=== PATIENT | female | born 1975 | race Caucasian/White ===

== ENCOUNTER → 2017-06-19 | Outpatient (CLI) | payer OTHER ==
[~2017-06-19] MED LIST: CARB1CAP8 PO; CLTP PO; DTR5 PO; FLUO20CA35 PO; FLUO40CA8 PO; MRLP17 PO; NORETAB3 PO; QUET1TAB30 PO; SENN8.6T9 PO
--- NOTE | 2017-06-20 08:08 | MAMMOGRAPHY REPORT ---
BILATERAL DIGITAL SCREENING MAMMOGRAM WITH CAD: 06/19/2017 CLINICAL HISTORY: Routine screening. Patient has no complaints. TECHNIQUE: Bilateral CC, MLO, repeat MLO views were obtained. Current study was also evaluated with a Computer Aided Detection (CAD) system. COMPARISON: Comparison is made to exams dated: 06/14/2016 mammogram, 06/22/2015 ultrasound, 06/22/2015 mammogram, 06/12/2015 mammogram, 06/10/2014 mammogram, and 06/09/2013 mammogram - [facility]. BREAST COMPOSITION: There are scattered areas of fibroglandular density in both breasts. FINDINGS: The exam is markedly suboptimal due to inability of the patient to adequately position for the exam and motion despite assistance from 2 mammography technologists. Within this limitation, the re is a nodular asymmetry in the far posterior, slightly medial right breast on the CC view. Althoug h this could represent a combination of a cyst and overlapping fibrolinear tissue, additional spot co mpression tomosynthesis views and possibly ultrasound are recommended. There is a stable lobulated mass in the anterior lateral left breast. A pacemaker is partially visua lized on one of the repeat right MLO views. No other suspicious mass, architectural distortion or cl uster of microcalcifications is seen. IMPRESSION: ACR BI-RADS CATEGORY 0: INCOMPLETE EVALUATION: NEED ADDITIONAL IMAGING EVALUATION The asymmetry in the posterior and slightly medial right breast on the CC view needs additional evalu ation. The patient will be called to schedule an appointment. Approximately 10% of breast cancers are not detected with mammography. A negative mammographic report should not delay biopsy if a clinically suggestive mass is present. Alma Hummel M.D. ay/:06/19/2017 16:49:22 Attending Technologist: Tami CALLEJAS)(Yoni), [facility] Security Screener: Rosi Tompkins, [facility] letter sent: Addl Imaging 0 BI-RADS Code: ACR BI-RADS Category 0: Incomplete Evaluation: Need Additional Imaging Evaluation
== END | disposition home or self-care (01) ==
LOC: C.MAMM 13:59
PROVIDERS: ATTEND Internal Medicine
DX: Z12.31 Encounter for screening mammogram for malignant neoplasm of breast (principal); N64.89 Other specified disorders of breast

== ENCOUNTER → 2017-07-09 | Outpatient (CLI) | payer OTHER ==
--- NOTE | 2017-07-09 15:20 | MAMMOGRAPHY REPORT ---
UNILATERAL RIGHT DIGITAL DIAGNOSTIC MAMMOGRAM TOMOSYNTHESIS AND TARGETED RIGHT ULTRASOUND: 07/09/2017 CLINICAL HISTORY: 42 year-old woman called back from screening mammography for an asymmetry in the po sterior slightly medial right breast, and a nodular asymmetry in the posterior right breast along the posterior nipple line on the MLO view. TECHNIQUE: Spot compression right CC and MLO 2-D and tomosynthesis images were obtained. The repeat spot compression right CC view was performed due to patient motion. COMPARISON: Comparison is made to exams dated: 06/19/2017 mammogram, 06/14/2016 mammogram, 06/22/2015 u ltrasound, 06/22/2015 mammogram, 06/12/2015 mammogram, and 06/10/2014 mammogram - [facility]. BREAST COMPOSITION: There are scattered areas of fibroglandular density in the right breast. FINDINGS: There is a 3.6 mm round circumscribed mass in the 3:00 posterior/retroareolar right breast. No associated calcification or architectural distortion. No other obvious mass, focal area of arch itectural distortion or suspicious calcifications are seen. Further evaluation with ultrasound was p erformed. Targeted ultrasound was performed throughout the right breast. In the 12:00 periareolar breast, ther e is a hypoechoic round circumscribed solid versus cystic masses measuring 2.5 x 2.5 x 2.1 mm. This could represent a benign mass such as a fibroadenoma or a complicated cyst. In the 9:00 right breast , 2 cm from the nipple, a nearly anechoic oval mass is identified measuring 2.1 x 3.0 x 2.3 mm. Agai n this could represent a complicated cyst or fibroadenoma. A third circumscribed round hypoechoic so lid versus cystic mass is identified in the 11:00 right breast, 1 cm from the nipple, measuring 3.9 x 3.5 x 4.6 mm. Again this could represent a complicated cyst or fibroadenoma. No suspicious irregula r or spiculated mass is identified. IMPRESSION: ACR-BI-RADS CATEGORY 3: PROBABLY BENIGN, TARGETED ULTRASOUND ACR-BI-RADS CATEGORY 3: PRO BABLY BENIGN There is partial effacement of the right breast asymmetry on the spot compression CC view but persist ence of a round 3.6 mm circumscribed mass in the 3:00 posterior/retroareolar breast mammographically. On ultrasound, 3 benign-appearing solid versus cystic subcentimeter circumscribed masses are identi fied in the 12:00, 11:00 and 9:00 axes. These small masses could represent complicated cysts or mimi gn solid masses such as fibroadenomas. However, a short interval follow-up right diagnostic mammogra m including tomosynthesis images and repeat targeted ultrasound is recommended to ensure stability in 6 months. These results and recommendations were discussed with the patient and her care provider at the time o f the workup. A follow-up appointment was scheduled prior to leaving the department. Approximately 10% of breast cancers are not detected with mammography. A negative mammographic report should not delay biopsy if a clinically suggestive mass is present. Alma Hummel M.D. ay/:07/09/2017 12:50:05 Directory Carrier: Yris BAXTER (R)(Yoni), [facility] letter sent: Follow Up Recommended 3 BI-RADS Code: ACR-BI-RADS Category 3: Probably Benign Ultrasound BI-RADS: ACR-BI-RADS Category 3: Pr obably Benign
== END | disposition home or self-care (01) ==
LOC: C.MAMM 11:10
PROVIDERS: ATTEND Internal Medicine
DX: N64.89 Other specified disorders of breast (principal); N63 Unspecified lump in breast

== ENCOUNTER 2024-10-02 16:33 | Observation (INO) ==
--- OUTSIDE RECORDS SUMMARY | 2024-10-02 16:39 | External Medical Summary | Summary of Care ---
Author Name Unknown Organization [facility] [address] [place] [address] Phone [phone] Care Team Providers Care Body Wirer Name Role Phone Sharmin Miles MD Primary Care Provider [phone] Reason for Visit * Reason Comments Re-Check Called and spoke audie Raymond, director of [facility] where patient resides - patient being seen for routine check - no concerns today Encounter Details Date Type Department Care Team (Late st Contact Info) Description 09/20/2024 8:00 AM EDT Telemedicine General Internal Medicine [facility] [address] [facility] [place] [address] Phyllis Marie PA-C [address] 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 180 Tablet 3 11/01/2022 Active SF 5000 Plus 1.1 % Dental Cream (Sodium Fluoride) BRUSH ONTO TEETH TWICE DAILY *DO NOT EAT OR DRINK FOR 30 MIN* 51 g 4 09/22/2023 Active Norethin Blayne-Eth Estrad-FE 1.5-30 MG-MCG Oral Tablet (Microgestin FE 1.5)Indications: Encounter for surveillance of contraceptive pills,PMS (premenstrual syndrome) TAKE ONE TABLET BY MOUTH ONCE DAILY FOR 84 DAYS, THEN TAKE 7 DAYS OFF AND REPEAT ( CONTROL) 28 Tablet 12 02/13/2024 Active Aspirin 81 MG Oral Tablet ChewableIndications :Transient alteration of awareness Take 1 Tablet by mouth in the morning. with food.. 100 Tablet 5 03/08/2024 Active FLUoxetine HCl 40 MG Oral Capsule (PROzac)Indications :Moderate episode of recurrent major depressive disorder (HCC) TAKE ONE CAPSULE BY MOUTH DAILY (DEPRESSION) 28 Capsule 5 05/28/2024 Active Sennosides 8.6 MG Oral Tablet (QC Vegetable Laxative)Indication s:Constipation, unspecified constipation type TAKE 1 TABLET BY MOUTH TWICE DAILY (CONSTIPATION) 56 Tablet 5 05/28/2024 Active QUEtiapine Fumarate 25 MG Oral Tablet (SEROquel) TAKE 1 TABLET BY MOUTH AT BEDTIME (DEPRESSION) 28 Tablet 4 06/23/2024 Active oxyBUTYnin Chloride 5 MG Oral Tablet (Ditropan) TAKE ONE TABLET BY MOUTH THREE TIMES DAILY (OVER ACTIVE BLADDER) 84 Tablet 06/23/2024 Active GoodSense ClearLax 17 GM/SCOOP Oral Powder (Polyethylene Glycol 3350)Indications:Sl ow transit constipation MIX 17GMS IN 8OZ OF FLUID AND DRINK TWICE DAILY CONSTIPATION 510 g 4 08/02/2024 Active carBAMazepine 200 MG Oral Tablet (TEGretol) One half tablet in the morning, one in the afternoon and one at bedtime 75 Tablet 11 09/06/2024 Active Carbidopa-Levodopa ER 50-200 MG Oral Tablet Extended Release (Sinemet CR)Indications:Dyst onia TAKE 1 TABLET BY MOUTH THREE TIMES A DAILY AT 8:30AM, 4PM AND 8:30PM FOR DYSTONIA. 90 Tablet 5 09/14/2024 Active documented as of this encounter (statuses as of 09/20/2024) Active Problems Problem Noted Date Diagnosed Date HTN, goal below 140/90 04/25/2022 Moderate episode of recurrent major depressive d isorder 09/22/2019 Cerebral palsy 06/20/2015 Generalized idiopathic epile psy, not intractable, without status epilepticus 06/20/2015 Moderate intellectual disabi lity with intelligence quotient 35 to 49 03/03/2014 Overview: ICD-10 update of inactive term Female stress incontinence 03/03/2013 Dystonia 06/03/2012 HX-MALIG SKIN MELANOMA melan jackie in situ in dys. 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 dysplastic compound nevus, rt leg 06/25 2 BENIGN NEOPLASM SKIN NOS 05/31/2002 Overview: Melanoma in situ R arm dysplastic nevus 02/25 Encounter for long-term (current) use of medicat ions 06/01/2001 Overview: ICD-10 update of inactive term Chronic sinusitis documented as of this encounter (statuses as of 09/20/2024) Resolved Problems Problem Noted Date Diagnosed Date Resolved Date Depression 03/03/2014 09/22/2019 ADVANCE DIRECTIVE INFORMATION 02/13/2006 06/17/2017 Overview: Patient mentally handicapped EPILEPSY,UNSPEC;W/O INTRACTABLE 02/27/2004 06/20/2015 CEREBRAL PALSY NEC 5 Torticollis 11/30/2020 Nocturnal enuresis 8 documented as of this encounter (statuses as of 09/20/2024) Immunizations Name Administration Dates Next Due COVID-19 mRNA, LNP-s, No Pre serve, 2-Dose Series (Moderna) 02/04/2021,01/07/2021 COVID-19, MRNA-LNP, 23-24, P F, 30 MCG/0.3 mL, 12 YRS AND ABOVE, IM (PFIZER-Comirnaty) 01/07/2024 Covid-19, Mrna, Lnp-s, Pf, Bivalent, 30 Mcg, IM, 12 yrs and above (Pfizer) 02/19/2023 PPD 07/23/2023,,03/29/2019,2017,03/11/2017,03/06/2015,09/09/2013,1 ,03/03/2013,08/27/2011, 009,10/30/2005 10/30/2007 Seasonal Influenza Vac., MDV , IM, 0.5 mL (Fluzone) 08/30/2014,09/08/2013,09/01/2012,2010,08/31/2010,10/18/2008,10/06/2007,1 12/06/2005 Seasonal Influenza, PF, 6 M & above, IM , (FluLaval or Fluzone) 09/01/2023,10/03/2022,10/25/2021,2019,09/22/2019,10/07/2018,09/10/2017 Seasonal Influenza, Quadriva lent, No Preserve, IM 08/28/2016,09/04/2015 Seasonal Influenza, Trivalen t, (IIV3), PF, (Fluzone) 09/06/2024 TDAP (age 10 and older)(Boostrix) 03/03/2014 TDAP, Age 7 and older, IM (Adacel) 06/17/2024, documented as of this encounter Social History Tobacco Use Types Packs/Day Years Used Date Smoking Tobacco: Never Smokeless Tobacco: Never Alcohol Use Standard Drinks/Week Comments No 0 (1 standard drink = 0.6 oz pur e alcohol) PHQ-2 Answer Date Recorded PHQ Adult Total Score 0 05/16/2021 Hunger Vital Sign Answer Date Recorded Worried About Running Out of Food in the Last Ye ar Never true 05/01/2020 Ran Out of Food in the Last Year Never true 05/01/2020 Utilities Answer Date Recorded Do you have trouble paying y our heating, water, or electric bill? (Adult - for ages 18 years and over) Not on file 05/11/2024 Is your family able to pay t he heat, water, or electric bill? (Household - for ages 0-17 years) Not on file 05/11/2024 Does your family have access to good internet? (Household - for ages 0-17 years) Not on file 05/11/2024 Social Connections Answer Date Recorded How often do you feel lonely or isolated from those around you? (Adult - for ages 18 years and over) Not on file 05/11/2024 Sex and Gender Information Value Date Recorded Sex Assigned at Female 09/22/2019 1:48 PM EDT Gender Identity Female 09/22/2019 1:48 PM EDT Sexual Orientation Choose not to disclose 2018 1:48 PM EDT Job Start Date Occupation Industry Not on file Not on file Not on file documented as of this encounter Functional Status Functional Status Response Date of Assess ment Are you deaf or do you have serious difficulty h earing? No 10/01/2017 Are you blind or do you have serious difficulty seeing, even when wearing glasses? No 10/01/2017 Do you have serious difficul ty walking or climbing stairs? (5 years old or older) Yes 10/01/2017 Do you have difficulty dress ing or bathing? (5 years old or older) Yes 10/01/2017 Because of a physical, menta l, or emotional condition, do you have difficulty doing errands alone such as visiting a doctor s office or shopping? (15 years old or older) No 10/01/20 17 Cognitive Status Response Date of Assessm ent Because of a physical, menta l, or emotional condition, do you have serious difficulty concentrating, remembering, or making decisions? (5 years old or older) No 10/01/2017 documented as of this encounter Progress Notes * Phyllis Marie PA-C - 09/20/2024 8:38 AM EDT Images from the original note were not included. History of Present Illness Samina Quintero is a 49 year old female that presents for Re-Check (Called and spoke with Mandi, director of [facility] where patient resides - patient being seen for routine check - no concernstoday) Patient location: HOME. I was in a hospital or clinic location. After connecting through televideo,patient was verified with two unique identifiers. Patient (or authorized legal eligibility services representative) wasthen informed that this was a Telemedicine visit and being conducted confidentially over secure lines. Methods to assure confidentiality were taken. Patient acknowledged consent and understanding of privacy and security of the Telemedicine visit. The patient agreed to participate. Pt seen today via video with the help of her caregiver Mandi for a routine 3 month check-up. Mandi states pt is doing well and having no concerns or complaints. Follows routinely with Neuro and Derm.Also established with OCEAN EXPORT COORDINATOR who addresses her mammos. Pt denies chest pain, SOB, bowel changes, urinary symptoms, or any recent seizure activity. She will be going to get her COVID vaccine this week at [facility]. Review of Systems: See HPI for pertinent positives. All other review of systems is negative. Physical Exam There were no vitals filed for this visit. Physical Exam Constitutional: General: She is not in acute distress. Pulmonary: Effort: Pulmonary effort is normal. Neurological: Mental Status: She is alert. Psychiatric: Mood and Affect: Mood normal. Behavior: Behavior normal. I have reviewed the following results: Assessment and Plan Cerebral palsy, unspecified type (HCC) Stable. Continue to follow with Neuro. Generalized idiopathic epilepsy, not intractable, without status epilepticus (HCC) Stable. Continue to follow with Neuro. Moderate episode of recurrent major depressive disorder (HCC) Stable. Continue current medications. Moderate intellectual disabilities Stable. 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 Wrap-Up F/up as sched with Dr. Miles in November. Follow Up: Return if symptoms worsen or fail to improve. Time: I spent a total of 20-29 minutes (exact time 26 mins) on the date of service in preparation, delivery, and documentation of the care provided to Samina Kaur Leon excluding any time spent in the performance of separately billed services. Telemedicine: Patient location: HOME. I was in a hospital or clinic location. After connecting through televideo,patient was verified with two unique identifiers. Patient (or authorized legal eligibility services representative) was then informed that this was a Telemedicine visit and being conducted confidentially over secure lines. Methods to assure confidentiality were taken. Patient acknowledged consent and understanding of pr ivacy and security of the Telemedicine visit. The patient agreed to participate. documented in this encounter Plan of Treatment Upcoming Encounters Date Type Department Care Team (Late st Contact Info) Description 09/22/2024 11:45 AM EDT Immunization [facility] [address] [place] [address] Silvestre Grimmid19 [facility]ine [facility] [address] [place] [address] 12/23/2024 11:40 AM EST Office Visit General Internal Medicine [facility] [address] [place] [address] Sharmin Miles MD [address] [place] [address] [place] [address] 03/21/2025 11:20 AM EDT Office Visit Neurology [facility] [address] [address] Earnest Shukla MD [address] [place] [address] [place] [address] 06/14/2025 1:40 PM EDT Office Visit [facility] [address] [facility] [place] [address] Nico Urbina MD [address] [place] [address] 07/15/2025 1:00 PM EDT Office Visit Dermatology [facility] [address] [place] [address] Carrington Zepeda MD [address] [facility] [place] [address] Health Maintenance Due Date Last Done Comments HPV/Co-Test 2007 Depression Monitoring 05/16/2022 05/16/2021 Colonoscopy 2022 Sigmoidoscopy 2022 Cervical Cancer Screening 06/29/2024 Pap Smear 06/29/2024 06/29/2021, 12/25, 01/07/2018, Additional history exists COVID-19 Vaccine ( season) 2024 01/07/2024, 02/19/2023, 02/04/2021, Additional history exists Fecal Occult Blood Test 01/07/2025 01/07/2024, 12/17 Mammogram 07/08/2025 07/08/2024, 06/24, 07/08/2022, Additional history exists GFR 07/28/2025 07/28/2024, 11/25, 06/06/2023, Additional history exists Albumin/Creatinine Ratio 10/25/2025 10/25/2022 Cologuard 01/15/2027 01/15/2024, 12/25, 01/05/2024 Colorectal Cancer Screening 01/15/2027 Diabetes Screening 07/28/2027 07/28/2024, 0 12/17/2023, 12/17/2023, Additional history exists Lipid Panel 12/17/2028 12/17/2023, 12/2021, 03/02/2022, Additional history exists DTap/Tdap Vaccines (6 - Td or Tdap) 06/17/2034 06/17/2024, 03/03/2014, 01/26/2004, Additional history exists Hepatitis B Vaccine Completed 02/23/2002, 07/16/2001, 06/18/2001 Influenza Vaccine (FLU shot) Completed , 09/01/2023, 10/03/2022, Additional history exists HPV (Gardasil) Vaccine Aged Out No lo nger eligible based on patient's age to complete this topic MENINGOCOCCAL (MENACTRA/MENVEO) Aged Out No longer eligible based on patient's age to complete this topic Pneumococcal Vaccine: Pediatrics (0 to 5 Years) and At-Risk Patients (6 to 64 Years) Aged Out No longer eligible based on patient's age to complete this topic documented as of this encounter Medical Devices Implanted Type Area Research Physicist Device Identifier Shelf Expiration Date Model / Serial / Lot Kit Lead Dbs .5mm 3389s-40 - [id number] Implanted:Qty: 1 on 10/08/2012 at [place] [facility] [place]: Head [employer] : NEUROLOGIC PAIN 02/25/2016 3389S-40 / / [id number] Kit Lead Dbs .5mm [id number]-40 - [id number] Implanted:Qty: 1 on 10/08/2012 at [place] [facility] [place] Right: Head [employer] : NEUROLOGIC PAIN 07/28/2016 3389S-40 / / [id number] Battery Activa Rc [id number] - [id number] Implanted:Qty: 1 on 10/19/2012 at [place] [facility] [place] Right: Chest Medtrol 04/06/2013 [id number] / [id number] / Extension Dbs 60cm [id number] - [id number] Implanted:Qty: 1 on 10/19/2012 at [place] [facility] Right: Chest Medtrol 07/17/2016 [id number] / [id number] / Extension Dbs 60cm [id number] - [id number] Implanted:Qty: 1 on 10/19/2012 at [place] [facility] Right: Chest Medtrol 08/07/2016 [id number] / [id number] / documented as of this encounter Visit Diagnoses Diagnosis Cerebral palsy, unspecified type (HCC)- Primary Generalized idiopathic epilepsy, not intractable, without status epilepticus (HCC) Moderate episode of recurrent major depressive disorder (HCC) Moderate intellectual disabilities HX-MALIG SKIN MELANOMA 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 Care Teams Body Wirer Relationship Specialty Start Date End Date Sharmin Miles MD [address] [facility] [place] [address] PCP - General Internal Medicine 09/20/21 documented as of this encounter
--- OUTSIDE RECORDS SUMMARY | 2024-10-02 16:39 | External Medical Summary | Summary of Care ---
Author Name Unknown Organization [facility] Address [address] [facility] [place] [address] Phone [phone] Care Team Providers Care Customer Insight Analyst Name Role Phone Sharmin Miles MD Primary Care Provider [phone] Encounter Details Date Type Department Care Team (Late st Contact Info) Description 09/22/2024 12:15 PM EDT Immunization Pharmacy, [facility] [address] [facility] [place] [address] [place] [facility] [address] [facility] [place] [address] Allergies Active Allergy Reactions Criticality Noted Date Comments Adhesive Tape 10/27/2014 documented as of this encounter (statuses as of 09/22/2024) Medications Medication Sig Dispensed Refills Start Date [...] Estrad-FE 1.5-30 MG-MCG Oral Tablet (Microgestin FE 1.530)Indications: Encounter for surveillance of contraceptive pills,PMS (premenstrual [...] TIMES DAILY (OVER ACTIVE BLADDER) 84 Tablet 4 06/23/2024 Active GoodSense ClearLax 17 GM/SCOOP Oral [...] FOR DYSTONIA. 90 Tablet 5 09/14/2024 Active COVID-19 mRNA Vac-Erik([employer]) 30 MCG/0.3ML Intramuscular Suspension Prefilled Syringe ([employer]) Inject into a large muscle. 0.3 mL 09/22/2024 Active documented as of this encounter (statuses as of 09/22/2024) Active Problems Problem Noted Date Diagnosed Date [...] as of this encounter (statuses as of 09/22/2024) Resolved Problems Problem Noted Date Diagnosed Date Resolved Date Depression 03/03/2014 09/22/2019 ADVANCE DIRECTIVE INFORMATION 02/13/2006 06/17/2017 Overview: Patient mentally handicapped EPILEPSY,UNSPEC;W/O INTRACTABLE 02/27/2004 06/20/2015 CEREBRAL PALSY NEC 5 Torticollis 11/30/2020 Nocturnal enuresis 8 documented as of this encounter (statuses as of 09/22/2024) Immunizations Name Administration Dates Next Due COVID-19 mRNA, LNP-s, No Pre serve, 2-Dose Series (Moderna) 02/04/2021,01/07/2021 COVID-19, MRNA-LNP, 23-24, P F, 30 MCG/0.3 mL, 12 YRS AND ABOVE, IM (PFIZER-Comirnaty) 01/07/2024 COVID-19, MRNA-LNP, 24-25, P R, 30MCG/0.3ML, IM, 12YRS AND ABOVE ([employer]-ComirnateyeQ) 09/22/2024 Covid-19, Mrna, Lnp-s, Pf, Bivalent, 30 Mcg, IM, 12 yrs and above ([employer]) 02/19/2023 PPD 07/23/2023,,03/29/2019,2017,03/11/2017,03/06/2015,09/09/2013,1 ,03/03/2013,08/27/2011, 009,10/30/2005 10/30/2007 Seasonal [...] No 10/01/2017 documented as of this encounter Plan of Treatment Upcoming Encounters Date Type Department Care Team (Late st Contact Info) Description 12/23/2024 11:40 AM EST Office Visit General Internal Medicine [place] [facility] [address] [place] [address] Sharmin Miles MD [address] [place] [address] 03/21/2025 11:20 AM EDT Office Visit Neurology [facility] [address] [facility] [place] [address] Earnest Shukla MD [address] [facility] [place] [address] 06/14/2025 1:40 PM EDT Office Visit Neurology [facility] [address] [facility] [place] [address] Nico Urbina MD [address] [place] [address] 07/15/2025 1:00 PM EDT Office Visit Dermatology [facility] [address] [facility] [place] [address] Carrington Zepeda MD [address] [facility] [place] [address] Health Maintenance Due Date Last Done Comments HPV/Co-Test 2007 Depression Monitoring 05/16/2022 05/16/2021 Colonoscopy 2022 Sigmoidoscopy 2022 Cervical Cancer Screening 06/29/2024 Pap Smear 06/29/2024 06/29/2021, 12/25, 01/07/2018, Additional history exists Fecal Occult Blood Test 01/07/2025 01/07/2024, 12/17 Mammogram 07/08/2025 07/08/2024, 06/24, 07/08/2022, Additional history exists GFR 07/28/2025 07/28/2024, 11/25, 06/06/2023, Additional history exists Albumin/Creatinine Ratio 10/25/2025 10/25/2022 Cologuard 01/15/2027 01/15/2024, 12/25, 01/05/2024 Colorectal Cancer Screening 01/15/2027 Diabetes Screening 07/28/2027 07/28/2024, 0 12/17/2023, 12/17/2023, Additional history exists Lipid Panel 12/17/2028 12/17/2023, 12/0 12/2021, 03/02/2022, Additional history exists DTap/Tdap Vaccines (6 - Td or Tdap) 06/17/2034 06/17/2024, 03/03/2014, 01/26/2004, Additional history exists Hepatitis B Vaccine Completed 02/23/2002, 07/16/2001, 06/18/2001 Influenza Vaccine (FLU shot) Completed , 09/01/2023, 10/03/2022, Additional history exists COVID-19 Vaccine Completed 09/22/2024, , 02/19/2023, Additional history exists HPV (Gardasil) Vaccine Aged [...] this encounter Medical Devices Implanted Type Area Family Lawyer Device Identifier Shelf Expiration Date Model / Serial / Lot Kit Lead Dbs .5mm 3389s-40 - [id number] Implanted:Q[place] 1 on [place] [facility] [place] [employer] : NEUROLOGIC PAIN 02/25/2016 3389S-40 / / [id number] Kit Lead Dbs .5mm 3389s-40 - [id number] Implanted:Qty: 1 on 10/08[place]2012 [place] [facility] [place] Head [employer] : NEUROLOGIC PAIN 07/28/2016 3389S-40 / / [id number] Battery Activa Rc [id number] - [id number] Implanted:Qty: 1 on 10/19/2012 [place] [facility] [place]: Chest Medtrol 04/06/2013 40240 / [id number] / Extension Dbs 60cm [id number] - [id number] Implanted:Qty: 1 on 10/19/2012 at [facility] Right: Chest Medtrol 07/17/2016 95130-99 / [id number] / Extension Dbs 60cm [id number] - [id number] Implanted:Qty: 1 on 10/19/2012 at [facility] Right: Chest Medtrol 08/07/2016 91758-62 / [id number] / documented as of this encounter Advance Directives * Full Code (Latest Code Status on File) Date Activated Date Inactivated Comments 10/08/2012 6:53 AM 10/09/2012 7:55 PM This order reflects the patients wishes and were consensually agreed upon. Care Teams Customer Insight Analyst Relationship Specialty Start Date End Date Sharmin Miles MD [address] [facility] [place] [address] PCP - General Internal Medicine 09/20/21 documented as of this encounter
--- OUTSIDE RECORDS SUMMARY | 2024-10-02 16:39 | External Medical Summary | Summary of Care ---
Author Name Unknown Organization [facility] Address [address] [place] [address] Phone [phone] Care Team Providers Care Fashion Styling Intern Name Role Phone Sharmin Ybarra MD Primary Care Provider [phone] Reason for Visit * Reason Comments Follow Up Encounter Details Date Type Department Care Team (Late st Contact Info) Description 09/14/2024 3:00 PM EDT Office Visit Neurology [facility] [address] [place], [place] [id number] Nico Urbina MD [address] [place] [address] Dystonia*; Cerebral palsy, athetoid (HCC); Encounter for fitting and adjustment of deep brain stimulator; Nonintractable 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 (HCC) Allergies Active Allergy Reactions Criticality Noted Date Comments Adhesive Tape 10/27/2014 documented as of this encounter (statuses as of 09/28/2024) Medications Medication Sig Dispensed Refills Start Date End Date Status Calcium 600+D Plus Minerals 600-400 MG-UNIT Oral Tablet Take 1 Tablet by mouth in the morning and 1 Tablet in the evening. 180 Tablet 3 2 Active SF 5000 Plus 1.1 % Dental Cream (Sodium Fluoride) BRUSH ONTO TEETH TWICE DAILY *DO NOT EAT OR DRINK FOR 30 MIN* 51 g 4 3 Active Norethin Blayne-Eth Estrad-FE 1.5-30 MG-MCG Oral Tablet (Microgestin FE 1.5)Indications :Encounter for surveillance of contraceptive pills,PMS (premenstrual syndrome) TAKE ONE TABLET BY MOUTH ONCE DAILY FOR 84 DAYS, THEN TAKE 7 DAYS OFF AND REPEAT ( CONTROL) 28 Tablet 12 4 Active Aspirin 81 MG Oral Tablet ChewableIndication s:Transient alteration of awareness Take 1 Tablet by mouth in the morning. with food.. 100 Tablet 5 4 Active FLUoxetine HCl 40 MG Oral Capsule (PROzac)Indication s:Moderate episode of recurrent major depressive disorder (HCC) TAKE ONE CAPSULE BY MOUTH DAILY (DEPRESSION) 28 Capsule 5 4 Active Sennosides 8.6 MG Oral Tablet (QC Vegetable Laxative)Indicatio ns:Constipation, unspecified constipation type TAKE 1 TABLET BY MOUTH TWICE DAILY (CONSTIPATION) 56 Tablet 5 4 Active QUEtiapine Fumarate 25 MG Oral Tablet (SEROquel) TAKE 1 TABLET BY MOUTH AT BEDTIME (DEPRESSION) 28 Tablet 4 4 Active oxyBUTYnin Chloride 5 MG Oral Tablet (Ditropan) TAKE ONE TABLET BY MOUTH THREE TIMES DAILY (OVER ACTIVE BLADDER) 84 Tablet 4 4 Active GoodSense ClearLax 17 GM/SCOOP Oral Powder (Polyethylene Glycol 3350)Indications:S low transit constipation MIX 17GMS IN 8OZ OF FLUID AND DRINK TWICE DAILY CONSTIPATION 510 g 4 4 Active carBAMazepine 200 MG Oral Tablet (TEGretol) One half tablet in the morning, one in the afternoon and one at bedtime 75 Tablet 11 4 Active Carbidopa-Levodopa ER 50-200 MG Oral Tablet Extended Release (Sinemet CR)Indications:Dys michael TAKE 1 TABLET BY MOUTH THREE TIMES A DAILY AT 8:30AM, 4PM AND 8:30PM FOR DYSTONIA. 90 Tablet 5 4 Active Carbidopa-Levodopa ER 50-200 MG Oral Tablet Extended Release (Sinemet CR)Indications:Dys michael TAKE 1 TABLET BY MOUTH TWICE DAILY AT 8AM AND 8PM FOR DYSTONIA. 56 Tablet 3 4 09/14/20 24 Discontinued documented as of this encounter (statuses as of 09/28/2024) Active Problems Problem Noted Date Diagnosed Date [...] as of this encounter (statuses as of 09/28/2024) Resolved Problems Problem Noted Date Diagnosed Date Resolved Date Depression 03/03/2014 09/22/2019 ADVANCE DIRECTIVE INFORMATION 02/13/2006 06/17/2017 Overview: Patient mentally handicapped EPILEPSY,UNSPEC;W/O INTRACTABLE 02/27/2004 06/20/2015 CEREBRAL PALSY NEC 5 Torticollis 11/30/2020 Nocturnal enuresis 8 documented as of this encounter (statuses as of 09/28/2024) Immunizations Name Administration Dates Next Due COVID-19 mRNA, LNP-s, No Pre serve, 2-Dose Series (Moderna) 02/04/2021,01/07/2021 COVID-19, MRNA-LNP, PF, 30 M CG/0.3 mL, 12 YRS AND ABOVE, IM (PFIZER-Comirnaty) [...] on file documented as of this encounter Last Filed Vital Signs Vital Sign Reading Time Taken Comments Blood Pressure 110/68 09/14/2024 3:05 PM EDT Pulse 86 09/14/2024 3:05 PM EDT Temperature 36.9 C (98.4 F) 09/14/2024 3:05 PM ED T Respiratory Rate 16 09/14/2024 3:05 PM EDT Oxygen Saturation 95% 09/14/2024 3:05 PM EDT Inhaled Oxygen Concentration - - Weight - - Height - - Body Mass Index - - documented in this encounter Functional Status Functional Status Response [...] (15 years old or older) No 10/01/20 Cognitive Status Response Date of Assessm ent Because of a physical, menta l, or emotional condition, do you have serious difficulty concentrating, remembering, or making decisions? (5 years old or older) No 10/01/2017 documented as of this encounter Progress Notes * Nico Urbina MD - 09/14/2024 3:00 PM EDT 09/14/2024 2:05 PM Samina Quintero 49 year old female REF: SHARMIN YBARRA [address] [place] [address] (office) [phone] (fax) Asked by Sharmin Ybarra MD to render opinion regarding involuntary movements. CC: No chief complaint on file. 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 Shukla here for seizure management. I checked copper and B12 level last time which came back fine. I had continued her on a higher deep brain stimulation settings for the right GPi. I increased her carbidopa/levodopaslow release 250/200 twice a day. She was never tried on Tetrabenazine or Amantadine so far. [facility] the [facility]. Other relevant medications are quetiapine low-dose at bedtime for sleep, fluoxetine 40 milligrams per day, carbamazepine 200 milligrams 3 times a day, oxybutynin 5 milligrams 3 times a day. She is here today with a ground support agent Mandi. She holds her left arm behind her back most of the time. She has not had recent falls. Her tremors have not been as prominent with the higher dose of Carbidopa/Levodopa according to Mandi. She seems faster on her feet. No recent seizures. Living at [facility]. 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 180 Tablet 3 SF 5000 Plus 1.1 % Dental Cream (Sodium Fluoride) BRUSH ONTO TEETH TWICE DAILY *DO NOT EAT OR DRINKFOR 30 MIN* 51 g 4 Norethin Blayne-Eth Estrad-FE 1.5-30 MG-MCG Oral Tablet (Microgestin FE 1.5/30) TAKE ONE TABLET BY MOUTH ONCE DAILY FOR 84 DAYS, THEN TAKE 7 DAYS OFF AND REPEAT ( CONTROL) 28 Tablet 12 Aspirin 81 MG Oral Tablet Chewable Take 1 Tablet by mouth in the morning. with food.. 100 Tablet 5 FLUoxetine HCl 40 MG Oral Capsule (PROzac) TAKE ONE CAPSULE BY MOUTH DAILY (DEPRESSION) 28 Capsule 5 Sennosides 8.6 MG Oral Tablet (QC Vegetable Laxative) TAKE 1 TABLET BY MOUTH TWICE DAILY (CONSTIPATION) 56 Tablet 5 QUEtiapine Fumarate 25 MG Oral Tablet (SEROquel) TAKE 1 TABLET BY MOUTH AT BEDTIME (DEPRESSION) 28 Tablet 4 oxyBUTYnin Chloride 5 MG Oral Tablet (Ditropan) TAKE ONE TABLET BY MOUTH THREE TIMES DAILY (OVER ACTIVE BLADDER) 84 Tablet 4 Carbidopa-Levodopa ER 50-200 MG Oral Tablet Extended Release (Sinemet CR) TAKE 1 TABLET BY MOUTH TWICE DAILY AT 8AM AND 8PM FOR DYSTONIA. 56 Tablet 3 GoodSense ClearLax 17 GM/SCOOP Oral Powder (Polyethylene Glycol 3350) MIX 17GMS IN 8OZ OF FLUID ANDDRINK TWICE DAILY CONSTIPATION 510 g 4 carBAMazepine 200 MG Oral Tablet (TEGretol) One half tablet in the morning, one in the afternoon and one at bedtime 75 Tablet 11 No current facility-administered medications for this visit. 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 Social Determinants of Health Financial Resource Strain: Not on file Food Insecurity: No Food Insecurity (05/01/2020) Hunger Vital Sign Worried About Running Out of Food in the Last Year: Never true Ran Out of Food in the Last Year: Never true Transportation Needs: Not on file Social Connections: Unknown (05/11/2024) Social Connections How often do you feel lonely or isolated from those around you? (Adult - for ages 18 years and over): Not on file Housing Stability: Not on file Occupation: HIV risk factors: None FAMILY HISTORY Family History Problem Relation Name Age of Onset Allergies Sister Asthma Sister Glaucoma Sister Allergies Father Asthma Father Lung Disorder Father Alcohol and Other Disorders Associated Mother Cancer Mother Breast Cancer Mother Heart Disorder Grandfather (Paternal) Hypertension Grandmother (Maternal) Hypertension Grandmother (Paternal) Neurological Disorder None Family Status Relation Status Sis Alive Sis Alive Fa Alive Mo PGFA (Not Specified) MGMA Alive PGMA Alive NONE (Not Specified) REVIEW OF SYSTEMS: Unobtainable. There were no vitals taken for this visit. The patient is a 49 year old female who is well developed and appears to be their stated age. NEUROLOGIC EXAMINATION: Mental status: awake, alert, follows simple commands. Mild to moderate rigidity on the R. Bilateral choreoathetosis. No tremors seen. Mild ataxia, wider based. Impedances today: Left hemispere 950Ohm, 3.8mA Right hemispere 1055ohm 3.5mA. RJ date Oct 17, 2026. Recharges DBS every day L DBS settings: 05/31/2022 C+ 0- 1- 3.65V 180PW 80Hz 160 90 06/09/2022 3.65 180 90 09/14/24 3.65 180 85 R DBS settings: 05/31/2022 C+ 8- 9- 3.65 140 80 Ohm 130 90 06/09/2022 3.75 140 95 09/14/24 3.75 160 85 IMPRESSION: Patient with dystonic athetoid cerebral palsy, had clear Levodopa response with reduction of tremors, increase in speed of movement and balance. RECOMMENDATIONS: Will increase Carbidopa/Levodopa CR 50/200 from BID to TID at 8:30AM-4PM-8:30PM. I have also increased the pulse width of the R DBS with reduction of frequency from 110Hz down to 85Hz. Trial of new setting. RTC in 9 months. Total programming time 20 minutes, Thank-you for letting me participate in the care of this patient. Nico Urbina MD Neurology [facility] [place] [address] [address] [place] [address] Please send copy to requesting physician, Sharmin Ybarra MD documented in this encounter Nursing Notes * Swati Leija MED ASSIST - 09/14/2024 3:04 PM EDT Chief Complaint Patient presents with Follow Up documented in this encounter Plan of Treatment Upcoming Encounters Date Type Department Care Team (Late st Contact Info) Description 12/23/2024 11:40 AM EST Office Visit General Internal Medicine [facility] [place] [address] [place] [address] Sharmin Ybarra MD [facility] [place] [address] [address] 03/21/2025 11:20 AM EDT Office Visit Neurology [facility] [address] [facility] [place] [address] Earnest Shukla MD [address] [facility] [place] [address] 06/14/2025 1:40 PM EDT Office Visit Neurology [facility] [address] [facility] [place] [address] Nico Urbina MD [address] [place] [address] 07/15/2025 1:00 PM EDT Office Visit Dermatology [facility] [address] [facility] [address] [place], [place] [address] Carrington Zepeda MD [address] [facility] [place] [address] Health Maintenance Due Date Last Done Comments [...] this encounter Medical Devices Implanted Type Area Integration Solution Architect Device Identifier Shelf Expiration Date Model / Serial / Lot Kit Lead Dbs .5mm 3389s-40 - [id number] Implanted:Qty: 1 on 10/08/2012 [place] [facility] [place] Head [employer] : NEUROLOGIC PAIN 02/25/2016 3389S-40 / / [id number] Kit Lead Dbs .5mm 3389s-40 - [id number] Implanted:Qty: 1 on 10/08/2012 [place] [facility] [place]: Head [employer] : NEUROLOGIC PAIN 07/28/2016 3389S-40 / / [id number] Battery Activa Rc 10987 - [id number] Implanted:Qty: 1 on 10/19/2012 [place] [facility] [place]: Chest Medtrol 04/06/2013 00354 / [id number] / Extension Dbs 60cm 87662-37 - [id number] Implanted:Qty: 1 on 10/19/2012 at [place] [facility] [place] Right: Chest Medtrol 07/17/2016 24120-47 / [id number] / Extension Dbs 60cm 27435-60 - [id number] Implanted:Qty: 1 on 10/19/2012 at [facility] Right: Chest Medtrol 08/07/2016 67500-06 / [id number] / documented as of this encounter Visit Diagnoses Diagnosis Dystonia- Primary Abnormal involuntary movements Cerebral palsy, athetoid (HCC) Athetoid cerebral palsy Encounter for fitting and adjustment of deep brain stimulator Nonintractable 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 Care Teams Fashion Styling Intern Relationship Specialty Start Date End Date Sharmin Ybarra MD [address] [place] [address] PCP - General Internal Medicine 09/20/21 documented as of this encounter
--- OUTSIDE RECORDS SUMMARY | 2024-10-02 16:39 | External Medical Summary | Summary of Care ---
Author Name Unknown Organization [facility] Address [address] [address] Phone [phone] Care Team Providers Care Lapel Padder Name Role Phone Sharmin Miles MD Primary Care Provider Reason for Visit * Reason Onset Date Comments FYI 09/28/2024 Encounter Details Date Type Department Care Team (Late st Contact Info) Description 09/28/2024 Telephone Neurology [address] [place] [phone] Specified, Zz No Resource [address] [place] [address] FYI Allergies Active Allergy Reactions Criticality Noted Date [...] Estrad-FE 1.5-30 MG-MCG Oral Tablet (Microgestin FE 1.5/30)Indications: Encounter for surveillance of contraceptive pills,PMS (premenstrual [...] 90 Tablet 5 09/14/2024 Active COVID-19 mRNA Vac-Erik(UniYu) 30 MCG/0.3ML Intramuscular Suspension Prefilled Syringe (DialMyApp) Inject into a large muscle. 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 documented in this encounter Plan of Treatment Upcoming Encounters Date Type Department Care Team (Late st Contact Info) Description 12/23/2024 11:40 AM EST Office Visit General Internal Medicine [address] [place] [address] Sharmin Miles MD [address] [facility] [address] [place], [place] [address] 03/21/2025 11:20 AM EDT Office Visit Neurology [facility] [address] [facility] [place] [address] Earnest Shukla MD [address] [facility] [address] [place], [place] [address] 06/14/2025 1:40 PM EDT Office Visit Neurology [facility] [place] [address] [facility] [address] [place], [place] [address] Nico Urbina MD [address] [place] [address] 07/15/2025 1:00 PM EDT Office Visit Dermatology [facility] [place] [address] [facility] [address] [place], [place] [address] Carrington Zepeda MD [address] [facility] [address] [place], [place] [address] Health Maintenance Due Date Last Done Comments [...] this encounter Medical Devices Implanted Type Area Golf Coach Device Identifier Shelf Expiration Date Model / Serial / Lot Kit Lead Dbs .5mm 3389s-40 - [id number] Implanted:Qty: 1 on 10/08/2012 [place] [facility] [place]: Head [employer] : NEUROLOGIC PAIN 02/25/2016 3389S-40 / / [id number] Kit Lead Dbs .5mm 3389s-40 - [id number] Implanted:Qty: 1 on 10/08/2012 [place] [facility] [place]: Head [employer] : NEUROLOGIC PAIN 07/28/2016 3389S-40 / / [id number] Battery Activa Rc 46869 - [id number] Implanted:Qty: 1 on 10/19/2012 at [place] [facility] [place]: Chest Medtrol 04/06/2013 91819 / [id number] / Extension Dbs 60cm 14405-46 - [id number] Implanted:Qty: 1 on 10/19/2012 at [place] [facility] [place]: Chest Medtrol 07/17/2016 28605-65 / [id number] / Extension Dbs 60cm 64098-72 - [id number] Implanted:Qty: 1 on 10/19/2012 at [place] [facility] [place]: Chest Medtrol 08/07/2016 27061-77 / [id number] / documented as of this encounter Advance Directives * Full Code (Latest Code Status on File) Date Activated Date Inactivated Comments 10/08/2012 6:53 AM 10/09/2012 7:55 PM This order reflects the patients wishes and were consensually agreed upon. Care Teams Lapel Padder Relationship Specialty Start Date End Date Sharmin Miles MD [address] [place] [address] PCP - General Internal Medicine 09/20/21 documented as of this encounter
--- OUTSIDE RECORDS SUMMARY | 2024-10-02 16:40 | External Medical Summary | Summary of Care ---
Author Name Unknown Organization [facility] Address [address] [place] [address] Phone [phone] Care Team Providers Care Developer Automatic Name Role Phone Sharmin Ybarra MD Primary Care Provider [phone] Reason for Visit * Reason Comments Follow Up Encounter Details Date Type Department Care Team (Late st Contact Info) Description 09/14/2024 3:00 PM EDT Office Visit Neurology [facility] [address] [place], [place] [id number] Nico Urbina MD [address] [place] [address] Dystonia*; Cerebral palsy, athetoid (HCC); Encounter for fitting and adjustment of deep brain stimulator; Nonintractable 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 (HCC) Allergies Active Allergy Reactions Criticality Noted Date Comments Adhesive Tape 10/27/2014 documented as of this encounter (statuses as of 09/14/2024) Medications Medication Sig Dispensed Refills Start Date [...] as of this encounter (statuses as of 09/14/2024) Active Problems Problem Noted Date Diagnosed Date [...] as of this encounter (statuses as of 09/14/2024) Resolved Problems Problem Noted Date Diagnosed Date Resolved Date Depression 03/03/2014 09/22/2019 ADVANCE DIRECTIVE INFORMATION 02/13/2006 06/17/2017 Overview: Patient mentally handicapped EPILEPSY,UNSPEC;W/O INTRACTABLE 02/27/2004 06/20/2015 CEREBRAL PALSY NEC 5 Torticollis 11/30/2020 Nocturnal enuresis 8 documented as of this encounter (statuses as of 09/14/2024) Immunizations Name Administration Dates Next Due COVID-19 [...] 49 year old female REF: SHARMIN YBARRA [address] [place] [address] (office) [phone] (fax) Asked by Sharmin Ybarra MD to [...] far. She has [facility] the [facility]. Other relevant medications are quetiapine low-dose at bedtime for sleep, fluoxetine 40 milligrams per day, carbamazepine 200 milligrams 3 times a day, oxybutynin 5 milligrams 3 times a day. She is here today with a hospice social worker Mandi. She holds her left arm behind her back most of the time. She has not had recent falls. Her tremors have not been as prominent with the higher dose of Carbidopa/Levodopa according to Mandi. She seems faster on her feet. No recent seizures. Living at [facility]. PAST MEDICAL HISTORY: Patient [...] level: Not on file Occupational History Occupation: [employer] Tobacco Use Smoking status: Never Smokeless tobacco: Never Vaping Use Vaping status: Never Used Substance and Sexual Activity Alcohol use: No Drug use: No Sexual activity: Not Currently Other Topics Concern Not on file Social History Narrative Lives in Custodial. Social Determinants of Health Financial Resource Strain: [...] of this patient. Nico Urbina MD Neurology [place] [address] [address] [place] [address] Please send copy to requesting physician, Sharmin Ybarra MD documented in this encounter Nursing Notes * Swati Leija MED ASSIST - 09/14/2024 3:04 PM EDT Chief Complaint Patient presents with Follow Up documented in this encounter Plan of Treatment Upcoming Encounters Date Type Department Care Team (Late st Contact Info) Description 09/20/2024 8:00 AM EDT Telemedicine General Internal Medicine [facility] [address] [place] [address] Phyllis Marie PA-C [address] [place], [place] [address]wally [place] [address] 12/23/2024 11:40 AM EST Office Visit General Internal Medicine [facility] [place] [address] [facility] [place] [address] Sharmin Ybarra MD [address] [facility] [place] [address] 03/21/2025 11:20 AM EDT Office Visit Neurology [facility] [address] [facility] [place] [address] Earnest Shukla MD [address] [facility] [place] [address] 06/14/2025 1:40 PM EDT Office Visit Neurology [facility] 200 [facility] [place] [address] Nico Urbina MD [address] [place], [place] [id number] 07/15/2025 1:00 PM EDT Office Visit Dermatology [facility] [address] [facility] [place] [address] Carrington Zepeda MD [address] [facility] [place] [address] Health Maintenance Due Date Last Done Comments [...] Additional history exists Lipid Panel 12/17/2028 12/17/2023, 1212/2021, 03/02/2022, Additional history exists DTap/Tdap Vaccines (6 [...] this encounter Medical Devices Implanted Type Area [employer] Paralegal Device Identifier Shelf Expiration Date Model / Serial / Lot Kit Lead Dbs .5mm 3389s-40 - [id number] Implanted:Q[place]: 1 [place] [facility] [place]: Head [employer] : NEUROLOGIC PAIN 02/25/2016 3389S-40 / / [id number] Kit Lead Dbs .5mm 3389s-40 - [id number] Implanted:Qty: 1 on 10[place]08/2012 [place] [facility] [place]: Head [employer] : NEUROLOGIC PAIN 07/28/2016 3389S-40 / / [id number] Battery Activa [id number] - [id number] Implanted:Qty: 1 on 10[place]19/2012 [place] [facility] [place]: Chest Medtrol 04/06/2013 61810 / [id number] / Extension Dbs 60cm 86359-01 - [id number] Implanted:Qty: 1 on 10/19/2012 at [facility] Right: Chest Medtrol 07/17/2016 05009-92 / [id number] / Extension Dbs 60cm 65569-90 - [id number] Implanted:Qty: 1 on 10/19/2012 [place] [facility] [place]: Chest Medtrol 08/07/2016 11010-76 / [id number] / documented as of this encounter Visit [...] and were consensually agreed upon. Care Teams Developer Automatic Relationship Specialty Start Date End Date Sharmin Ybarra MD [address] [place] [address] PCP - General Internal Medicine 09/20/21 documented as of this encounter
--- OUTSIDE RECORDS SUMMARY | 2024-10-02 16:40 | External Medical Summary | Summary of Care ---
Author Name Unknown Organization [facility] Address [address] [facility] [address] Phone [phone] Care Team Providers Care Adhesive Primer Name Role Phone Sharmin Miles MD Primary Care Provider [phone] Encounter Details Date Type Department Care Team (Late st Contact Info) Description 06/18/2024 Telephone Neurology [facility] [address] [place] [address] Elvira Calhoun PA-C [address] [place] [address] Allergies Active Allergy Reactions Criticality Noted Date Comments Adhesive Tape 10/27/2014 documented as of this encounter (statuses as of 09/17/2024) Medications Medication Sig Dispensed Refills Start Date [...] Estrad-FE 1.5-30 MG-MCG Oral Tablet (Microgestin FE 1.530)Indications :Encounter for surveillance of contraceptive pills,PMS (premenstrual [...] AT BEDTIME (DEPRESSION) 28 Tablet 4 4 06/23/20 24 Discontinued oxyBUTYnin Chloride 5 MG Oral Tablet (Ditropan) TAKE ONE TABLET BY MOUTH THREE TIMES DAILY (OVER ACTIVE BLADDER) 84 Tablet 4 4 06/23/20 24 Discontinued Carbidopa-Levodopa ER 50-200 MG Oral Tablet Extended Release (Sinemet CR)Indications:Dys michael Take 1 tablet by mouth twice a day at 8AM and 8PM 60 Tablet 5 4 06/23/20 24 Discontinued carBAMazepine 200 MG Oral Tablet (Tegretol) TAKE ONE TABLET BY MOUTH THREE TIMES DAILY seizure 84 Tablet 4 4 08/11/20 24 Discontinued GoodSense ClearLax 17 GM/SCOOP Oral Powder (Polyethylene Glycol 3350)Indications:S low transit constipation MIX 17GMS IN 8OZ OF FLUID AND DRINK TWICE DAILY CONSTIPATION 510 g 4 4 08/02/20 24 Discontinued documented as of this encounter (statuses as of 09/17/2024) Active Problems Problem Noted Date Diagnosed Date [...] ?familial 03/15/2004 compound congenital melanocytic nevus,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 08/09/2002 dysplastic compound nevus, rt leg 06/25 2 BENIGN NEOPLASM SKIN NOS 05/31/2002 Overview: Melanoma in situ R arm dysplastic nevus 02/25 Encounter for long-term (current) use of medicat ions 06/01/2001 Overview: ICD-10 update of inactive term Chronic sinusitis documented as of this encounter (statuses as of 09/17/2024) Resolved Problems Problem Noted Date Diagnosed Date Resolved Date Depression 03/03/2014 09/22/2019 ADVANCE DIRECTIVE INFORMATION 02/13/2006 06/17/2017 Overview: Patient mentally handicapped EPILEPSY,UNSPEC;W/O INTRACTABLE 02/27/2004 06/20/2015 CEREBRAL PALSY NEC 5 Torticollis 11/30/2020 Nocturnal enuresis 8 documented as of this encounter (statuses as of 09/17/2024) Immunizations Name Administration Dates Next Due COVID-19 [...] Influenza, Quadriva lent, No Preserve, IM 08/28/2016,09/04/2015 TDAP (age 10 and older)(Boostrix) 03/03/2014 TDAP, [...] encounter Miscellaneous Notes * Telephone Encounter - Swati Leija MED ASSIST - 06/25/2024 9:50 AM EDT Protocol for seizure: if seizure lasts longer than 5 minutes or if repeated seizures more than 3 concurrent seizures call 911 and transfer to ED for further evaluation. Thank you KK * Telephone Encounter - Swati Leija MED ASSIST - 06/18/2024 1:29 PM EDT Rx needed for both Ativan and diastat supp. * Telephone Encounter - Phyllis Graf OSA - 06/18/2024 1:21 PM EDT Neuroscience Phone Call Form- Requested Information from caller: Who is calling facility name: [facility]irre [phone], Mandi Provider patient is established with: Dr Vazquez Malin What is the concern or issue they are having: states they received protocol for pt all is fine on it except for Atavan, and Diastat suppository that they done have or order. And make sure tegretol is addressed to be for seizure and not for mood. [facility]ru [facility] [place]. How long has the issue been going on: . Any additional details to add: no Phone number for nurse to call back: [phone] Are forms needed? . Medication Refill? no Verify Pharmacy information is correct. Form to be used for established patients only (not new patients) Clinic has 24-48 hours to respond to caller. If caller is calling back before timeframe with any changes in condition/issues reported, update TEand re-route to appropriate pool If caller is calling back before timeframe- update TE- no need to re-route [facility] Neurology Pool- [facility] Neuro Premium Cancellation Clerk- [phone] (All messages get sent to the [facility]) Neurology Pool Numbers- [place] and [place] patients - follow normal process Ops req [facility] Neurology ([place])- [id number] Ops req [place] Neurology ([place]- [facility] Only)- [id number] Neurosurgery Pool Numbers- [place] patients- follow normal process Ops req Neurosurgery [facility] ([place])- [id number] Ops req Neurosurgery [facility] ([place] Only) [id number] documented in this encounter Plan of Treatment Upcoming Encounters Date Type Department Care Team (Late st Contact Info) Description 09/20/2024 8:00 AM EDT Telemedicine General Internal Medicine [place] [address] [place] [address] Phyllis Marie PA-C 200 [facility] [place] [address] 09/22/2024 11:45 AM EDT Immunization [facility] [address] [place] [address] [facility], Covid[facility] Vaccine [facility] [address] [place] [address] 12/23/2024 11:40 AM EST Office Visit General Internal Medicine [facility] [address] [facility] [place] [address] Sharmin Miles MD [address] [facility] [address] 03/21/2025 11:20 AM EDT Office Visit Neurology [facility] [address] [facility] [place] [address] Earnest Shukla MD [address] [facility] [place] [address] 06/14/2025 1:40 PM EDT Office Visit Neurology [facility] [address] [facility] [place] [address] Nico Urbina MD [address] [place] [address] 07/15/2025 1:00 PM EDT Office Visit Dermatology [facility] [address] [facility] [place] [address] Carrington Zepeda MD [address] [facility] [place] [address] Health Maintenance Due Date Last Done Comments [...] this encounter Medical Devices Implanted Type Area Slusher Operator Device Identifier Shelf Expiration Date Model / Serial / Lot Kit Lead Dbs .5mm 3389s-40 - [id number] Implanted:Qty: 1 on 10/08/2012 at [place] [facility] Left: Head [employer] : NEUROLOGIC PAIN 02/25/2016 3389S-40 / / [id number] Kit Lead Dbs .5mm 3389s-40 - [id number] Implanted:Qty: 1 on 10/08/2012 at [place] [facility] Right: Head [employer] : NEUROLOGIC PAIN 07/28/2016 3389S-40 / / [id number] Battery Activa Rc 95926 - [id number] Implanted:Qty: 1 on 10/19/2012 at [facility] Right: Chest Medtrol 04/06/2013 46363 / [id number] / Extension Dbs 60cm 47204-32 - [id number] Implanted:Qty: 1 on 10/19/2012 at [place] [facility] Right: Chest Medtrol 07/17/2016 27924-43 / [id number] / Extension Dbs 60cm 70896-66 - [id number] Implanted:Qty: 1 on 10/19/2012 at [place] [facility] Right: Chest Medtrol 08/07/2016 50680-57 / [id number] / documented as of this encounter Advance Directives * Full Code (Latest Code Status on File) Date Activated Date Inactivated Comments 10/08/2012 6:53 AM 10/09/2012 7:55 PM This order reflects the patients wishes and were consensually agreed upon. Care Teams Adhesive Primer Relationship Specialty Start Date End Date Sharmin Miles MD [address] [place] [address] PCP - General Internal Medicine 09/20/21 documented as of this encounter
--- OUTSIDE RECORDS SUMMARY | 2024-10-02 16:40 | External Medical Summary | Continuity of Care Document ---
Author Name Unknown Organization [facility] [address] [address] Address [address] [place], [place] [id number] Encounter [facility]AC[facility] [id number] Date(s): 08/04/24 - 08/04/24 [facility] [address] [facility] [address] [facility] Sports Medicine [address] [address] Encounter Diagnosis Injury of right toe(Discharge Diagnosis) - 08/04/24 Discharge Disposition: Home or Self Care Attending Physician: DASH Jennings [place] Allergies, Adverse Reactions, Alerts No Known Medication Allergies Substance Criticality Severity Reaction Reaction Severity Status Tape rash Active Assessment and Plan Extracted from: Title:Clinical Document Author:DASH Jennings Refugio son Date:08/04/24 OUTPATIENT NOTE Name: MATTEO DAYTON Kaur Patient Number:1 [id number] : 1975 Date of Service: 08/04/2024 Chief complaint: Follow-up right toe pain HPI: Milla is a 49-year-old female with an intellectual disability who presents today with a caregiver. She lives in a care home. She injured her toe 2 weeks ago and they are unsure exactly how she did it but they noticed that her great toe was black and blue. She was seen at [facility] where they did x- rays that were benign for any fractures. They are here for follow-up. Patient initially said that she was having pain but upon further questioning she was not having any pain. Caregiver says that she has been doing very well not complaining of her toe, the bruising has improved and she is ambulating at her baseline. She was initially given a postop shoe which she has been ambulating in her own shoe now. Physical exam: No major swelling or bruising noted. No tenderness to palpation of her great toe or second toe. She is able to tolerate passive motion and is able to somewhat actively wiggle her toes and pump her ankle but down. X-rays: I reviewed previous [facility] x-rays that show no acute fracture or any bony abnormalities. I reviewed provider notes from [facility] ER. Assessment/plan: Right great toe contusion, improving Findings and plan discussed with the caregiver and the patient. I have no concerns today. This will continue to improve for her. Continue to ambulate in regular sneakers. They will call if there is any issues or concerns. Medications Calcium 600+D Start: 08/04/24 11:08:00 AM EDT Start Date: 08/04/24 Status: Ordered carbidopa-levodopa 50 mg-200 mg oral tablet, extended release Start: 08/04/24 11:10:00 AM EDT, 2 tab, PO, tid Start Date: 08/04/24 Status: Ordered oxyBUTYnin Start: 08/04/24 11:09:00 AM EDT, 5 mg =, PO, qid Start Date: 08/04/24 Status: Ordered polyethylene glycol 3350 Start: 08/04/24 11:09:00 AM EDT Start Date: 08/04/24 Status: Ordered PROzac Start: 08/04/24 11:07:00 AM EDT, 40 mg =, PO, Daily Start Date: 08/04/24 Status: Ordered Senexon Start: 08/04/24 11:09:00 AM EDT Start Date: 08/04/24 Status: Ordered Seroquel Start: 08/04/24 11:08:00 AM EDT, 25 mg =, PO, Daily Start Date: 08/04/24 Status: Ordered Tegretol Start: 08/04/24 11:09:00 AM EDT, 200 mg =, PO, qid Start Date: 08/04/24 Status: Ordered unknown medication Start: 08/04/24 11:07:00 AM EDT, junel 1.5 mg one tab for 84 days then 7 days off pms regulation mood stabalizer Start Date: 08/04/24 Status: Ordered Mental Status 08/04/24 Barriers to Learning one year Other: in svp group director present Mandatory Health Literacy Documentation Yes Health Literacy Communication Barriers A lways Health Literacy Reading Assist unable to read Primary Language Yi Problem List Condition Confirmation Course Effective Dates Status Health St atus Informant Injury of right toe Confirmed Active Diagnosis Diagnosis Type Effective Dates Health Status Cl inical Service Informant Injury of right toe Discharge Diagnosis 08/04/24 Social History Social History Type Response Smoking Status Never smoked cigaret radha Sex Female Sex Representation Female (finding) Outpatient Note * DASH Jennings, Swati: PERFORM Event Display: .Outpt Note Authored Date: [id number] OUTPATIENT NOTE Name: DAYTON FELIPE Patient Number:1 [id number] : 1975 Date of Service: 08/04/2024 Chief complaint: Follow-up right toe pain HPI: Milla is a 49-year-old female with an intellectual disability who presents today with a caregiver. She lives in a care home. She injured her toe 2 weeks ago and they are unsure exactly how she did it but they noticed that her great toe was black and blue. She was seen at [facility] where they did x-rays that were benign for any fractures. They are here for follow-up. Patient initially said that she was having pain but upon further questioning she was not having any pain. Caregiver says that she has been doing very well not complaining of her toe, the bruising has improved and she is ambulating at her baseline. She was initially given a postop shoe which she has been ambulating in her own shoe now. Physical exam: No major swelling or bruising noted. No tenderness to palpation of her great toe or second toe. She is able to tolerate passive motion and is able to somewhat actively wiggle her toes and pump her ankle but down. X-rays: I reviewed previous [facility] x-rays that show no acute fracture or any bony abnormalities. I reviewed provider notes from [facility] ER. Assessment/plan: Right great toe contusion, improving Findings and plan discussed with the caregiver and the patient. I have no concerns today. This willcontinue to improve for her. Continue to ambulate in regular sneakers. They will call if there is any issues or concerns. Electronic Signature on File Electronically Reviewed/Signed by: Swati Jennings PA-C Author Signature Dt/Tm:08/04/2024 11:19 AM Physician Blow Pit Helper, Dept[facility] of [facility]ics and Sports Medicine [address], [address] [place], [place] [address] Electronically Reviewed/Signed by: Myron Cagle MD Cosigner Signature Dt/Tm: 08/06/2024 02:36 PM [place] [facility] Private Branch Exchange Installer Department of Orthopaedics and Rehabilitation [facility] [address], [place] [address] MK
--- OUTSIDE RECORDS SUMMARY | 2024-10-02 16:40 | External Medical Summary | Summary of Care ---
Author Name Unknown Organization [facility] Address [address] [place] [address] Phone [phone] Care Team Providers Care Bowl Turner Name Role Phone Sharmin Miles MD Primary Care Provider [phone] Reason for Visit * Reason Comments Skin Check Pt presents today fo r 1 year skin check. Pt has no new lesions of concern Encounter Details Date Type Department Care Team (Late st Contact Info) Description 07/08/2024 2:00 PM EDT Office Visit Dermatology [facility] [address] [facility] [place] [address] Marilia Real MD [address] [place] [address] Multiple benign nevi*; History of malignant melanoma of skin Allergies Active Allergy Reactions Criticality Noted Date Comments Adhesive Tape 10/27/2014 documented as of this encounter (statuses as of 07/18/2024) Medications Medication Sig Dispensed Refills Start Date [...] with food.. 100 Tablet 5 03/08/2024 Active carBAMazepine 200 MG Oral Tablet (Tegretol) TAKE ONE TABLET BY MOUTH THREE TIMES DAILY seizure 84 Tablet 4 04/12/2024 Active GoodSense ClearLax 17 GM/SCOOP Oral Powder (Polyethylene Glycol 3350)Indications:Sl ow transit constipation MIX 17GMS IN 8OZ OF FLUID AND DRINK TWICE DAILY CONSTIPATION 510 g 4 04/26/2024 Active FLUoxetine HCl 40 MG Oral Capsule [...] ACTIVE BLADDER) 84 Tablet 4 06/23/2024 Active Carbidopa-Levodopa ER 50-200 MG Oral Tablet Extended Release (Sinemet CR)Indications:Dyst onia TAKE 1 TABLET BY MOUTH TWICE DAILY AT 8AM AND 8PM FOR DYSTONIA. 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,rt arm 0 2 08/09/2002 dysplastic compound nevus, rt leg 06/25 2 BENIGN NEOPLASM SKIN NOS 05/31/2002 Overview: Melanoma in situ R arm dysplastic nevus 02/25 Encounter for long-term (current) use of medicat ions 06/01/2001 Overview: ICD-10 update of inactive term Chronic sinusitis documented as of this encounter (statuses as of 07/18/2024) Resolved Problems Problem Noted Date Diagnosed Date Resolved Date Depression 03/03/2014 09/22/2019 ADVANCE DIRECTIVE INFORMATION 02/13/2006 06/17/2017 Overview: Patient mentally handicapped EPILEPSY,UNSPEC;W/O INTRACTABLE 02/27/2004 06/20/2015 CEREBRAL PALSY NEC 5 Torticollis 11/30/2020 Nocturnal enuresis 8 documented as of this encounter (statuses as of 07/18/2024) Immunizations Name Administration Dates Next Due COVID-19 mRNA, LNP-s, No Pre serve, 2-Dose Series (Moderna) 02/04/2021,01/07/2021 COVID-19, MRNA-LNP, 23-24, P F, 30 MCG/0.3 mL, 12 YRS AND ABOVE, IM (PFIZER-Comirnaty) 01/07/2024 Covid-19, Mrna, Lnp-s, Pf, Bivalent, 30 Mcg, IM, 12 yrs and above (Pfizer) 02/19/2023 PPD 07/23/2023,,03/29/2019, 018,03/11/2017,03/06/2015,09/09/2013,08/2013,03/03/2013,08/27/2011,11/08/2009 ,10/30/2005 10/30/2007 Seasonal Influenza, PF, 6 M & above, IM , (FluLaval or Fluzone) 09/01/2023,10/03/2022,10/25/2021, 020,09/22/2019,10/07/2018,09/10/2017 Seasonal Influenza, Quadriva lent, No Preserve, IM 08/28/2016,09/04/2015 Seasonal Influenza, Split, I IV3, With Preserve, Inj 08/30/2014,09/08/2013,09/01/2012, 011,08/31/2010,10/18/2008,10/06/2007, TDAP (age 10 and older)(Boostrix) 03/03/2014 TDAP, [...] No 10/01/2017 documented as of this encounter Patient Instructions * Patient Instructions* Marilia Rela MD - 07/08/2024 2:01 PM EDT SUNSCREEN USE AND SUN PROTECTION: 1. The best protection is sun avoidance. Seek shade if you can, especially between 9am to 5pm (peaksun hours). 2. Use sunscreen with a Sun Protection Factor (SPF) of 30 or more that protects from Ultraviolet A (UVA) and Ultraviolet B (UVB) wavelength light. This is referred to as broad spectrum sun protection. Unfortunately, even though the protection is broad it is not complete, therefore making sun avoidance the best protection. UVB and UVA have both been implicated in causing skin cancers. Older sunscreens only protected from UVB and sunscreens with added UVA protection should contain Titanium dioxide, Zinc oxide, Mexoryl or Parsol 1789, also known as Avobenzone. 3. Use sun protection daily. Apply 20-30 minutes before going out and reapply every 2 hours. No sunscreen is truly water ''proof'' and it will wash away with sweat, swimming and rubbing. 4. Wear tightly woven, loose fitting (cooler) long sleeved clothing, UV-blocking clothing and sun glasses (eyes need protection as well) and wide-brimmed hatwear (no straw hats with holes because light still gets through). HOW TO CHECK YOUR MOLES: 1. Check moles every month and have a relative/friend check your back if possible. The use of a handheld mirror can help as well. The most common place for melanoma in women are the back and legs, and for men is the back. 2. Look for the ABCD's of melanoma: Asymmetry (strange shape - not round or oval), Borders (notched, scalloped or irregular edges), Color (very black or multi-colored), Diameter (size greater than 5mm or the size greater than a pencil eraser). 3. Changes in old moles and growths of new ones in relation to the ABCD's are the most important factors. 4. Some people have many moles that fit the ABCD criteria. At times the best thing is to look for the ''Ugly Duckling'' mole - the one that stands out the most. 5. If there are any questions on a mole please do not hesitate in calling our office at [phone] to have it evaluated. documented in this encounter Progress Notes * Marilia Real MD - 07/08/2024 1:51 PM EDT SUBJECTIVE: History of Present Illness: Samina Quintero is a 49 year old female seen today for skin check. No lesions of concern. DERMATOLOGIC HISTORY: Melanoma History: Location: left deltoid Year: 02/2004 Depth: MIS Treatment: WLE Staging: Stage 0 - [id number] - Melanoma in situ Location: right deltoid Year: 02/2004 Depth: MIS Treatment: WLE Staging: Stage 0 - [id number] - Melanoma in situ Additional Derm History: - Severely Atypical nevus on the right deltoid 05/05. REVIEW OF SYSTEMS: SKIN: No other new or changing moles. HEME/LYMPH: No new or enlarging lumps or bumps. MEDICA TIONS: Current Outpatient Medications Medication Sig Dispense Refill [...] the morning. with food.. 100 Tablet 5 carBAMazepine 200 MG Oral Tablet (Tegretol) TAKE ONE TABLET BY MOUTH THREE TIMES DAILY seizure 84 Tablet 4 GoodSense ClearLax 17 GM/SCOOP Oral Powder (Polyethylene Glycol 3350) MIX 17GMS IN 8OZ OF FLUID ANDDRINK TWICE DAILY CONSTIPATION 510 g 4 FLUoxetine HCl 40 MG Oral Capsule (PROzac) [...] AND 8PM FOR DYSTONIA. 56 Tablet 3 No current facility-administered medications for this visit. ALLERG IES: Adhesive tape OBJECTIVE: GEN: Healthy, alert, no distress, appears oriented, pleasant, and cooperative. Lymph Nodes: Lymph nodes in head, neck, supraclavicular, axillary, and inguinal areas show no lymphadenopathy. SKIN: Detailed exam of hair, face including lids and lips, conjunctivae, oral mucosa, neck, back, chest, abdomen, buttocks, right and left upper extremities, right and left lower extremities including the nails and digits completed and are normal except: - Scattered at the chest, abdomen, back upper and lower extremities are multiple evenly pigmented brown macules and papules without significant irregularity -There are well-healed primary sites with no evidence of disease. ASSESS MENT/PLAN: 1. 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 - Full skin check performed. No evidence of recurrence at previously treated sites of melanoma in situ. - History was obtained regarding new or changing moles. - Recommended sunscreen (over the counter broad-spectrum sun protection factor 30+ sunscreen daily)/photoprotection. Informational handout reviewing sunscreen/photoprotection and self monitoring for melanoma was provided to patient at today's visit. - return for any new or changing lesions of concern. 2. Scars. Well healed. No evidence of disease. 3. Multiple benign-appearing nevi No features concerning for malignancy on exam today. Continue to monitor with self-skin exams. Patient to contact physician for any new or changing lesions or other concerns. Follow-up: 1 year The patient was encouraged to contact me with any further questions or concerns. Marilia Real MD 07/08/2024 documented in this encounter Nursing Notes * Regla Burrell LPN - 07/08/2024 1:32 PM EDT Chief Complaint Patient presents with Skin Check Pt presents today for 1 year skin check. Pt has no new lesions of concern documented in this encounter Plan of Treatment Upcoming Encounters Date Type Department Care Team (Late st Contact Info) Description 09/06/2024 10:00 AM EDT Office Visit Neurology [facility] [address] [place] [address] Earnest Suhkla MD [address] [place] [place] [address] 09/14/2024 3:00 PM EDT Office Visit Neurology [facility] [place] [address] [place] [address] Nico Urbina MD [address] [place] [address] 12/23/2024 11:40 AM EST Office Visit General Internal Medicine [facility] [address] [facility] [place] [address] Sharmin Miles MD [address] [facility] [place] [address] 07/15/2025 1:00 PM EDT Office Visit [facility] [address] [place] [place] [address] Carrington Zepeda MD [address] [facility] [place] [address] Health Maintenance Due Date Last Done Comments HPV/Co-Test 2007 Depression Monitoring 05/16/2022 05/16/2021 Colonoscopy 2022 Sigmoidoscopy 2022 Cervical Cancer Screening 06/29/2024 Pap Smear 06/29/2024 06/29/2021, 12/25, 01/07/2018, Additional history exists Influenza Vaccine (FLU shot) (#1) 2024 09/01/2023, 10/03/2022, 10/25/2021, Additional history exists GFR 12/17/2024 12/17/2023, 05/24, 10/25/2022, Additional history exists Fecal Occult Blood Test 01/07/2025 01/07/2024, 12/17 Mammogram 07/08/2025 07/08/2024, 06/24, 07/08/2022, Additional history exists Albumin/Creatinine Ratio 10/25/2025 10/25/2022 Diabetes Screening 12/17/2026 12/17/2023, 0 12/17/2023, 06/06/2023, Additional history exists Cologuard 01/15/2027 01/15/2024, 12/25, 01/05/2024 Colorectal Cancer Screening 01/15/2027 Lipid Panel 12/17/2028 12/17/2023, 12/12/2021, 03/02/2022, Additional history exists DTaP,Tdap,and Td Vaccines (6 - Td or Tdap) 06/17/2034 06/17/2024, 03/03/2014, 01/26/2004, Additional history exists Hepatitis B Vaccine Completed 02/23/2002, 07/16/2001, 06/18/2001 COVID-19 Vaccine Completed 01/07/2024, , 02/04/2021, Additional history exists HPV (Gardasil) Vaccine Aged [...] this encounter Medical Devices Implanted Type Area Holiday Detector Operator Device Identifier Shelf Expiration Date Model / Serial / Lot Kit Lead Dbs .5mm 3389s-40 - [id number] [place] [facility] [place] [employer] : NEUROLOGIC PAIN 02/25/2016 3389S-40 / / [id number] Kit Lead Dbs .5mm 3389s-40 - [id number] Implanted:Qty: 1 on 10/08/2012 at [facility] Right: Head [employer] : NEUROLOGIC PAIN 07/28/2016 3389S-40 / / [id number] Battery Activa Rc [id number] - [id number] Implanted:Qty: 1 on 10/19/2012 at [facility] Right: Chest Medtrol 04/06/2013 43977 / [id number] / Extension Dbs 60cm [id number] - [id number] Implanted:Qty: 1 on 10/19/2012 at [facility] Right: Chest Medtrol 07/17/2016 81050-26 / [id number] / Extension Dbs 60cm [id number] - [id number] Implanted:Qty: 1 on 10/19/2012 at [facility] Right: Chest Medtrol 08/07/2016 09946-01 / [id number] / documented as of this encounter Visit Diagnoses Diagnosis Multiple benign nevi- Primary Benign neoplasm of skin, site unspecified History of malignant melanoma of skin Personal history of malignant melanoma of skin documented in this encounter Advance Directives * Full Code (Latest Code Status on File) Date Activated Date Inactivated Comments 10/08/2012 6:53 AM 10/09/2012 7:55 PM This order reflects the patients wishes and were consensually agreed upon. Care Teams Bowl Turner Relationship Specialty Start Date End Date Sharmin Miles MD [address] [place] [address] [place] [address] PCP - General Internal Medicine 09/20/21 documented as of this encounter
--- OUTSIDE RECORDS SUMMARY | 2024-10-02 16:40 | External Medical Summary | Summary of Care ---
Author Name Unknown Organization [facility] Address [address] [place] [address] Phone [phone] Care Team Providers Care Manager Search Name Role Phone Sharmin Miles MD Primary Care Provider [phone] Reason for Visit * Reason Comments Outpatient Testing Encounter Details Date Type Department Care Team (Late st Contact Info) Description 07/28/2024 9:30 AM EDT Laboratory Laboratory, [facility] [address] [place] [address] [facility] [address] [place] [address] Nonintractable 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 (HCC) Allergies Active Allergy Reactions Criticality Noted Date Comments Adhesive Tape 10/27/2014 documented as of this encounter (statuses as of 07/28/2024) Medications Medication Sig Dispensed Refills Start Date [...] as of this encounter (statuses as of 07/28/2024) Active Problems Problem Noted Date Diagnosed Date [...] as of this encounter (statuses as of 07/28/2024) Resolved Problems Problem Noted Date Diagnosed Date Resolved Date Depression 03/03/2014 09/22/2019 ADVANCE DIRECTIVE INFORMATION 02/13/2006 06/17/2017 Overview: Patient mentally handicapped EPILEPSY,UNSPEC;W/O INTRACTABLE 02/27/2004 06/20/2015 CEREBRAL PALSY NEC 5 Torticollis 11/30/2020 Nocturnal enuresis 8 documented as of this encounter (statuses as of 07/28/2024) Immunizations Name Administration Dates Next Due COVID-19 [...] IM 08/28/2016,09/04/2015 Seasonal Influenza, Trivalen t, (IIV3), with Preserv, (Fluzone) 08/30/2014,09/08/2013,09/01/2012, 011,08/31/2010,10/18/2008,10/06/2007, TDAP (age 10 and older)(Boostrix) [...] 09/06/2024 10:00 AM EDT Office Visit Neurology [facility] [place] [address] [place] [address] Earnest Shukla MD [address] [place] [address] [address] 09/14/2024 3:00 PM EDT Office Visit Neurology [facility] [place] [address] [place] [address] [address] Nico Urbina MD [address] [place] [address] 12/23/2024 11:40 AM EST Office Visit General Internal Medicine [facility] [place] [address] [place] [address] [address] Sharmin Miles MD [address] [facility] [place] [address] 07/15/2025 1:00 PM EDT Office Visit Dermatology [facility] [place] [address] [facility] [place] [address] Carrington Zepeda MD [address] [facility] [place] [address] Pending Results Name Type Priority Associated Diagnoses Date /Time CARBAMAZEPINE LEVEL Lab Routine Nonintractable 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 (HCC) 07/28/2024 9:29 AM EDT CBC Lab Routine Nonintractable 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 (HCC) 07/28/2024 9:29 AM EDT COMPREHENSIVE METABOLIC PANEL Lab Routine Nonintractable 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 (HCC) 07/28/2024 9:29 AM EDT Health Maintenance Due Date Last Done Comments [...] 12/17/2028 12/17/2023, 12/12/2021, 03/02/2022, Additional history exists DTap/Tdap Vaccines (6 [...] this encounter Medical Devices Implanted Type Area Kiln Tester Device Identifier Shelf Expiration Date Model / Serial / Lot Kit Lead Dbs .5mm 3389s-40 - [id number] Implanted:Qty: 1 on 10/08/2012 at [place] [facility] [place] Left: Head [employer] : NEUROLOGIC PAIN 02/25/2016 3389S-40 / / [id number] Kit Lead Dbs .5mm 3389s-40 - [id number] Implanted:Qty: 1 on 10/08/2012 at [place] [facility] [place] Right: Head [employer] : NEUROLOGIC PAIN 07/28/2016 3389S-40 / / [id number] Battery Activa Rc 72792 - [id number] Implanted:Qty: 1 on 10/19/2012 at [facility] Right: Chest Medtrol 04/06/2013 88327 / [id number] / Extension Dbs 60cm [id number] - [id number] Implanted:Qty: 1 on 10/19/2012 at [facility] Right: Chest Medtrol 07/17/2016 23908-99 / [id number] / Extension Dbs 60cm [id number] - [id number] Implanted:Qty: 1 on 10/19/2012 at [facility] Right: Chest Medtrol 08/07/2016 79654-64 / [id number] / documented as of this encounter Visit Diagnoses Diagnosis Nonintractable 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 Care Teams Manager Search Relationship Specialty Start Date End Date Sharmin Miles MD [address] [facility] [place] [address] PCP - General Internal Medicine 09/20/21 documented as of this encounter
--- OUTSIDE RECORDS SUMMARY | 2024-10-02 16:40 | External Medical Summary | Summary of Care ---
Author Name Unknown Organization [facility] Address [address] [place] [address] Phone [phone] Care Team Providers Care Paper Sheeter Name Role Phone Sharmin Miles MD Primary Care Provider [phone] Reason for Visit * Reason Onset Date Comments Follow Up 1 year follow up Medication Administration 09/06/2024 Flu an d/or Pneumo Inj Encounter Details Date Type Department Care Team (Latest Contact Info) Description 09/06/2024 10:00 AM EDT Office Visit Neurology [facility] [address] [facility] [place] [address] Earnest Shukla MD 200 [facility] [place] [address] Nonintractable 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 (HCC)*; Need for prophylactic vaccination and inoculation against influenza Allergies Active Allergy Reactions Criticality Noted Date Comments Adhesive Tape 10/27/2014 documented as of this encounter (statuses as of 09/06/2024) Medications Medication Sig Dispensed Refills Start Date [...] Estrad-FE 1.5-30 MG-MCG Oral Tablet (Microgestin FE .04/22)Indications :Encounter for surveillance of contraceptive pills,PMS (premenstrual syndrome) TAKE ONE TABLET BY MOUTH ONCE DAILY FOR 84 DAYS, THEN TAKE 7 DAYS OFF AND REPEAT ( CONTROL) 28 Tablet 12 02/13/2024 Active Aspirin 81 MG Oral Tablet ChewableIndication [...] FOR DYSTONIA. 56 Tablet 3 06/23/2024 Active GoodSense ClearLax 17 GM/SCOOP Oral Powder (Polyethylene Glycol 3350)Indications:S low transit constipation MIX 17GMS IN 8OZ OF FLUID AND DRINK TWICE DAILY CONSTIPATION 510 g 4 08/02/2024 Active carBAMazepine 200 MG Oral Tablet (TEGretol) One half tablet in the morning, one in the afternoon and one at bedtime 75 Tablet 11 09/06/2024 Active carBAMazepine 200 MG Oral Tablet (TEGretol) One half tablet in the morning, one at midday and one at bedtime 75 Tablet 11 08/11/2024 Discontinu ed(Refill) documented as of this encounter (statuses as of 09/06/2024) Active Problems Problem Noted Date Diagnosed Date [...] as of this encounter (statuses as of 09/06/2024) Resolved Problems Problem Noted Date Diagnosed Date Resolved Date Depression 03/03/2014 09/22/2019 ADVANCE DIRECTIVE INFORMATION 02/13/2006 06/17/2017 Overview: Patient mentally handicapped EPILEPSY,UNSPEC;W/O INTRACTABLE 02/27/2004 06/20/2015 CEREBRAL PALSY NEC 5 Torticollis 11/30/2020 Nocturnal enuresis 8 documented as of this encounter (statuses as of 09/06/2024) Immunizations Name Administration Dates Next Due COVID-19 [...] Sign Reading Time Taken Comments Blood Pressure 108/76 09/06/2024 9:40 AM EDT Pulse 104 09/06/2024 9:40 AM EDT Temperature 37.2 C (98.9 F) 09/06/2024 9:40 AM ED T Respiratory Rate 18 09/06/2024 9:40 AM EDT Oxygen Saturation 95% 09/06/2024 9:40 AM EDT Inhaled Oxygen Concentration - - Weight 69.4 kg (153 lb) 09/06/2024 9:40 AM EDT Height 160 cm (5' 2.99") 09/06/2024 9:40 AM EDT Body Mass Index 27.11 09/06/2024 9:40 AM EDT documented in this encounter Functional Status Functional [...] this encounter Patient Instructions * Patient Instructions* Altaf Doyle CMA - 09/06/2024 10:06 AM EDT ~~PATIENT INSTRUCTIONS FOR FLU SHOT~~ Possible side effects of influenza vaccine, (flu shot), are usually mild and include: 1. Soreness or redness at injection site 2. Low grade fever 3. Body aches You may use Tylenol/Acetaminophen as needed for these symptoms. LET YOUR DOCTOR KNOW IMMEDIATELY IF YOU HAVE DIFFICULTY BREATHING OR SWALLOWING, EXPERIENCE ITCHINGOF FEET OR HANDS, HAVE SWELLING OF EYES, FACE OR INSIDE OF NOSE. 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 Whatever the case she has been seizure-free for years. The events were described as brief staring episodes but recently she has had some seizure-like activity recorded at her [place] [facility] [place] and 1 of these events occurred in the spring she was seen here in the office and a Tegretol level was slightly high but it had been high for some time. She then had another spell in June for which she was evaluated in the Emergency Room but no level was done and then I was contacted I ordered an EEG which shows some parasagittal triphasic waves at some left hemisphericslowing had a repeat Tegretol level was again slightly high. I was going to try to get an ambulatory EEG but the [place] [facility] [place] personnel in the family felt that she would not tolerate it and we lower the Tegretol level just a bit to see if this would make any difference So far she has done very well she may be little brighter there has been no further spells everyone seems to be content but the interval between the spell in March and 1 in June was relatively longer may be too soon to tell At this point the plan is to simply observe her get another Tegretol level continue the slight reduction in the dose which was reduced by 100 mg and she is now taking 100 mg in the morning 200 mg in the late afternoon and 200 mg late at night when she goes to bed which is around 11:00 pm She is due to see our movement Disorders group and may at some point need a battery replacement Her health otherwise has been good there been no recent infectious illnesses fever sweats chills oranything that may have precipitated these staring events Past Medical History: Diagnosis Date Cerebral palsy (HCC) Cerebral Palsy Chronic sinusitis compound congenital melanocytic nevus,rt arm 06/2508/09/2002 dysplastic compound nevus, rt leg 06/2508/09/2002 dysplastic nevi, ?familial 03/15/2004 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 02/2503/15/2004 Moderate intellectual disabilities 02/22/2009 Nocturnal enuresis Spastic gait Torticollis Unclassified epileptic seizures (HCC) Past Surgical History: Procedure Laterality Date AMALGAM 4 OR > SURFACES PRIM O PERM Bilateral 10/28/2014 AMALGAM 4/MORE SURFACES performed by Deejay Pérez DMD at [place] [facility] [place] APPLY/REMOVE BONE FIXATION DEVICE 10/08/2012 APPLICATION CRANIAL TONGS performed by Chris Roberts MD at OR [facility] [place] CRANIECT-WITH USE;1ST ARRAY 10/08/2012 CRANIOTOMY STEREOTACTIC IMPLANT ELECTRODE DBS STAGE 2 performed by Chris Roberts MD at OR [facility] [place] [place] IMPACT TOOTH REMOV PART BONY Bilateral 10/28/2014 REM IMPACTED TOOTH - PART BONY performed by Deejay Pérez DMD at OR [facility] [place] INSERT/REPLACE CRANIAL NEUROSTIM, SINGLE ELECTRODE 10/19/2012 INSERTION DBS NEUROSTIMULATOR GENERATOR STAGE 3 performed by Chris Roberts MD at OR [facility] [place] [place] MRI BRAIN WITHOUT CONTRAST 09/24/2012 MRI-BRAIN WITHOUT CONTRAST DBS performed by [facility] at [place] [facility] OTHER remove melanoma bilateral upper arms PAP SCREEN 08/08/01 PAP SCREEN 10.25.04 satisfactory for evaluation, dr awad STEREOTACTIC CRANIAL INTRADURAL NAVIGATION 10/08/2012 STEREOTACTIC CRANIAL INTRADURAL NAVIGATION performed by Chris Roberts MD at OR [facility] [place] [place] TWST DRILL,HAYLEY HOLE;1ST ARRAY 10/08/2012 CRANIOTOMY DBS ELECTRODE STAGE 2 performed by Chris Roberts MD at OR [facility] [place] [place] Social History Socioeconomic History Marital status: Single Spouse name: Not on file Number of children: 0 Years of education: Not on file Highest education level: Not on file Occupational History Occupation: skills [employer] Tobacco Use Smoking status: Never Smokeless tobacco: Never Vaping Use Vaping status: Never Used Substance and Sexual Activity Alcohol use: No Drug use: No Sexual activity: Not Currently Other Topics Concern Not on file Social History Narrative Lives in Senior Care. Social Determinants of Health Financial Resource Strain: [...] on file Housing Stability: Not on file Family History Problem Relation Name Age of Onset Allergies Sister Asthma Sister Glaucoma Sister Allergies Father Asthma Father Lung Disorder Father Alcohol and Other Disorders Associated Mother Cancer Mother Breast Cancer Mother Heart Disorder Grandfather (Paternal) Hypertension Grandmother (Maternal) Hypertension Grandmother (Paternal) Neurological Disorder None Current Outpatient Medications Medication Sig Dispense Refill [...] No current facility-administered medications for this visit. Review of patient's allergies indicates: Allergen Reactions Adhesive Tape REVIEW OF SYSTEMS: With the exception of historical items included in the history of present illness above, a 12-point systems review was normal. PHYSICAL EXAM: BP 108/76 (BP Site: Right Arm, BP Position: Sitting, BP Cuff Size: Regular) | Pulse 104 | Temp 37.2 C (98.9 F) (Tympanic) | Resp 18 | Ht 1.6 m (5' 2.99") | Wt 69.4 kg (153 lb) | SpO2 95% | BMI 27.11 kg/m | BSA 1.76 m She is awake alert but mumbles to herself has some echolalia some dystonic posturing leans to the right but basically appears to be much like I saw her several years ago. She has actually been under the care of Elvira GUZMAN and I have not seen her personally for several years but I do recall her and clinically she appears much the same her gait is dystaxic spastic reflexes are difficult to evaluate strength testing is consistent and sensory examination really isn't possible LABORATORY: I am going to obtain a Tegretol level today which was done last time in mid morning after she took her morning dose so we will have a pretty fair comparison IMAGING: I do not think we need to do any new imaging at this point but if she continues to have these events we may end up having to try for an ambulatory EEG or consider adding another agent ASSESSMENT AND PLAN: Breakthrough staring events possibly seizures with a mildly abnormal EEG consistent with potentially epileptogenic activity and a low-grade encephalopathy which is really not surprising in light of her history and known neurologic problems There is some question whether this may have been part of a Tegretol toxicity issue although the level was only marginally elevated and she has been at this dose and level for some time We will check a level of the day continue to observe her but again of the spells were emerge we mayhave to try to get an ambulatory EEG or add another agent such as Lamictal or Keppra She will be seen in 6 months' time I spent 25 minutes reviewing the chart examining the patient obtaining a history from the sales representative gas service of her facility who accompanied her today and formulating a plan of follow-up and care as outlined The above note was generated utilizing voice recognition technology may have spelling errors punctuation errors pronoun usage errors and syntax errors Earnest Shukla MD * Altaf Doyle CMA - 09/06/2024 10:06 AM EDT PRE - ADMINISTRATION DOCUMENTATION Are you experiencing any cold symptoms or fever? No Have you had Guillain-Buffalo Syndrome (an illness that causes paralysis) within the last 6 weeks? No Have you had the flu shot in the past? YES Have you ever had a reaction to the flu shot? No Altaf Doyle CMA, 09/06/2024 10:06 AM Immunization Administration Documentation Time Out Procedure Performed: Yes Patient Identified (Ask Name/Date of ): Yes Does the patient have a fever greater than 101 degrees today? No Patient allergic to latex? No VFC Stock: No Immunization(s) verified: Yes, Immunization Name: Flu, VIS Sheet(s) given: Yes Verified Side and Site: Yes Verified Shot(s) with Parent(s)/Patient: Yes documented in this encounter Nursing Notes * Altaf Doyle CMA - 09/06/2024 9:41 AM EDT Chief Complaint Patient presents with Follow Up 1 year follow up Samina Quintero is a 49 year old female who presents today for a 1 year follow up. She is accompanied by the stock manager of her [place] facility who states that she has not had any seizures and is doing better after having her Tegretol modified. documented in this encounter Plan of Treatment Upcoming Encounters Date Type Department Care Team (Late st Contact Info) Description 09/14/2024 3:00 PM EDT Office Visit Neurology [facility] [address] [facility] [place] [address] Nico Urbina MD [address] [place] [address] 09/20/2024 8:00 AM EDT Telemedicine General Internal Medicine [facility] [address] [place] [address] Phyllis Marie PA-C 200 [facility] [place] [address] 12/23/2024 11:40 AM EST Office Visit General Internal Medicine [facility] [place] [address] [place] [address] Sharmin Miles MD 200 [facility] [place] [address] 03/21/2025 11:20 AM EDT Office Visit Neurology [facility] [address] [facility] [place] [address] Earnest Shukla MD 200 [facility] [place] [address] 07/15/2025 1:00 PM EDT Office Visit [facility] [address] [place] [address] Carrington Zepeda MD [address] [place] [address] Health Maintenance Due Date Last Done Comments [...] this encounter Medical Devices Implanted Type Area Block Out Machine Operator Device Identifier Shelf Expiration Date Model / Serial / Lot Kit Lead Dbs .5mm 3389s-40 - [id number] Implanted:Qty: 1 on 10/08/2012 at OR [facility] Left: Head [employer] : NEUROLOGIC PAIN 02/25/2016 3389S-40 / / [id number] Kit Lead Dbs .5mm 3389s-40 - [id number] Implanted:Qty: 1 on 10/08/2012 at [facility] Right: Head [employer] : NEUROLOGIC PAIN 07/28/2016 3389S-40 / / [id number] Battery Activa Rc [id number] - [id number] Implanted:Qty: 1 on 10/19/2012 at [facility] Right: Chest Medtrol 04/06/2013 23345 / [id number] / Extension Dbs 60cm 84729-25 - [id number] Implanted:Qty: 1 on 10/19/2012 at [facility] Right: Chest Medtrol 07/17/2016 34162-36 / [id number] / Extension Dbs 60cm [id number] - [id number] Implanted:Qty: 1 on 10/19/2012 at [facility] Right: Chest Medtrol 08/07/2016 01892-31 / [id number] / documented as of this encounter Visit Diagnoses Diagnosis Nonintractable 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 (HCC)- Primary Need for prophylactic vaccination and inoculation against influenza documented in this encounter Advance Directives * Full Code (Latest Code Status on File) Date Activated Date Inactivated Comments 10/08/2012 6:53 AM 10/09/2012 7:55 PM This order reflects the patients wishes and were consensually agreed upon. Care Teams Paper Sheeter Relationship Specialty Start Date End Date Sharmin Miles MD [address] [place] [address] PCP - General Internal Medicine 09/20/21 documented as of this encounter
--- OUTSIDE RECORDS SUMMARY | 2024-10-02 16:40 | External Medical Summary ---
Author Name Unknown Address Unknown Organization K01:[facility] [address] [place] [address] Laboratory Report Ordering Provider Test Date Status TOO DANIEL 09/06/2024 10:35:55 Final Observation Date Value Abnormality Reference (Units ) Status Carbamazepine 09/06/2024 10:35:55 11.0 4.0-12 .0 (ug/mL) Final Performing Location [facility] [address] [place] [address]
--- OUTSIDE RECORDS SUMMARY | 2024-10-02 16:40 | External Medical Summary | Summary of Care ---
Author Name Unknown Organization [facility] Address [address] [place] [address] Phone [phone] Care Team Providers Care Test And Research Reactor Operator Name Role Phone Sharmin Ybarra MD Primary Care Provider [phone] Reason for Visit * Reason Comments eRx-Medication Refill Encounter Details Date Type Department Care Team (Late st Contact Info) Description 08/01/2024 Refill General Internal Medicine [facility] [address] [facility] [place] [address] Sharmin Ybarra MD [address] [place] [address] Slow transit constipation Allergies Active Allergy Reactions Criticality Noted Date Comments Adhesive Tape 10/27/2014 documented as of this encounter (statuses as of 08/02/2024) Medications Medication Sig Dispensed Refills Start Date [...] Estrad-FE 1.5-30 MG-MCG Oral Tablet (Microgestin FE 1.5/30)Indications :Encounter for surveillance of contraceptive pills,PMS (premenstrual syndrome) TAKE ONE TABLET BY MOUTH ONCE DAILY FOR 84 DAYS, THEN TAKE 7 DAYS OFF AND REPEAT ( CONTROL) 28 Tablet 12 4 Active Aspirin 81 MG Oral Tablet ChewableIndication s:Transient alteration of awareness Take 1 Tablet by mouth in the morning. with food.. 100 Tablet 5 4 Active carBAMazepine 200 MG Oral Tablet (Tegretol) TAKE ONE TABLET BY MOUTH THREE TIMES DAILY seizure 84 Tablet 4 4 Active FLUoxetine HCl 40 MG Oral [...] ACTIVE BLADDER) 84 Tablet 4 4 Active Carbidopa-Levodopa ER 50-200 MG Oral Tablet Extended Release (Sinemet CR)Indications:Dys michael TAKE 1 TABLET BY MOUTH TWICE DAILY AT 8AM AND 8PM FOR DYSTONIA. 56 Tablet 3 4 Active GoodSense ClearLax 17 GM/SCOOP Oral Powder (Polyethylene Glycol 3350)Indications:S low transit constipation MIX 17GMS IN 8OZ OF FLUID AND DRINK TWICE DAILY CONSTIPATION 510 g 4 4 Active GoodSense ClearLax 17 GM/SCOOP Oral Powder (Polyethylene Glycol 3350)Indications:S low transit constipation MIX 17GMS IN 8OZ OF FLUID AND DRINK TWICE DAILY CONSTIPATION 510 g 4 4 08/02/20 24 Discontinued documented as of this encounter (statuses as of 08/02/2024) Active Problems Problem Noted Date Diagnosed Date [...] as of this encounter (statuses as of 08/02/2024) Resolved Problems Problem Noted Date Diagnosed Date Resolved Date Depression 03/03/2014 09/22/2019 ADVANCE DIRECTIVE INFORMATION 02/13/2006 06/17/2017 Overview: Patient mentally handicapped EPILEPSY,UNSPEC;W/O INTRACTABLE 02/27/2004 06/20/2015 CEREBRAL PALSY NEC 5 Torticollis 11/30/2020 Nocturnal enuresis 8 documented as of this encounter (statuses as of 08/02/2024) Immunizations Name Administration Dates Next Due COVID-19 mRNA, LNP-s, No Pre serve, 2-Dose Series (Moderna) 02/04/2021,01/07/2021 COVID-19, MRNA-LNP, 23-24, P F, 30 MCG/0.3 mL, 12 YRS AND ABOVE, IM (Slingbox-Comirnaty) 01/07/2024 Covid-19, Mrna, Lnp-s, Pf, Bivalent, 30 [...] encounter Miscellaneous Notes * Telephone Encounter - Sharmin Ybarra MD - 08/02/2024 12:26 PM EDTSigned Prescriptions: Disp Refills GoodSense ClearLax 17 GM/SCOOP Oral Powder*510 g 4 Sig: MIX 17GMS IN 8OZ OF FLUID AND DRINK TWICE DAILY CONSTIPATION Authorizing Provider: SHARMIN YBARRA * Telephone Encounter - Shruthi Angel LPN - 08/02/2024 10:47 AM EDTPending Prescriptions: Disp Refills GoodSense ClearLax 17 GM/SCOOP Oral Powder*510 g 4 Sig: MIX 17GMS IN 8OZ OF FLUID AND DRINK TWICE DAILY CONSTIPATION * Telephone Encounter - Shruthi Angel LPN - 08/02/2024 10:46 AM EDT Did you pend patient's preferred pharmacy and medication before forwarding?yes Pharmacy: [facility] [address] Pending Prescriptions: Disp Refills GoodSense ClearLax 17 GM/SCOOP Oral Powde*510 g 4 Sig: MIX 17GMS IN 8OZ OF FLUID AND DRINK TWICE DAILY CONSTIPATION Last Visit: 06/17/2024 (in office), 09/23/2023 (telemedicine) Next Visit: 12/23/2024 If no future appointments scheduled, and last appointment is greater than a year ago, please schedule patient for a follow-up appointment Last date the medication was ordered: 04/26/24 Is this request for a controlled substance?No Urine Drug Screen:No results found. However, due to the size of the patient record, not all encounters were searched. Please check Results Review for a complete set of results. Patient Phone Numbers Labs: Lab Results Component Value Date/Time CREAT 0.6 07/28/2024 09:29 AM CREAT 0.7 08/22/2020 02:21 PM POTASSIUM 4.4 07/28/2024 09:29 AM POTASSIUM 4.6 08/22/2020 02:21 PM TSH 3.65 12/17/2023 12:47 PM TSH 3.36 11/07/2017 11:10 AM LDL 158 (H) 12/17/2023 12:47 PM LDL 112 10/25/2022 10:24 AM LDL 99 04/13/2015 07:21 AM ALT 6 (L) 07/28/2024 09:29 AM ALT 11 08/22/2020 02:21 PM HGBA1C 5.9 (H) 12/17/2023 12:47 PM * Telephone Encounter - Adam Lugo - 08/01/2024 1:14 PM EDTPending Prescriptions: Disp Refills GoodSense ClearLax 17 GM/SCOOP Oral Powder*510 g 4 Sig: MIX 17GMS IN 8OZ OF FLUID AND DRINK TWICE DAILY CONSTIPATION documented in this encounter Plan of Treatment Upcoming Encounters Date Type Department Care Team (Late st Contact Info) Description 08/03/2024 10:30 AM EDT NeuroDiagnostic Study Neurophysiology [facility] [address] [facility] [place] [address] Sp, Neurophys Tech [address] [facility] [place] [address] 09/06/2024 10:00 AM EDT Office Visit Neurology [facility] [address] [facility] [place] [address] Earnest Shukla MD [address] [facility] [place] [address] 09/14/2024 3:00 PM EDT Office Visit Neurology [facility] [address] [facility] [place] [address] Nico Urbina MD [address] [place] [address] 12/23/2024 11:40 AM EST Office Visit General Internal Medicine [facility] [address] [facility] [place], [place] [address] Sharmin Ybarra MD [address] [facility] [place], [place] [address] 07/15/2025 1:00 PM EDT Office Visit Dermatology [facility] [address] [facility] [place], [place] [address] Carrington Zepeda MD [address] [facility] [place], [place] [address] Health Maintenance Due Date Last Done Comments HPV/Co-Test 2007 Depression Monitoring 05/16/2022 05/16/2021 Colonoscopy 2022 Sigmoidoscopy 2022 Cervical Cancer Screening 06/29/2024 Pap Smear 06/29/2024 06/29/2021, 12/25, 01/07/2018, Additional history exists Influenza Vaccine (FLU shot) (#1) 2024 09/01/2023, 10/03/2022, 10/25/2021, Additional history exists Fecal Occult Blood Test [...] this encounter Medical Devices Implanted Type Area Technician Test Systems Device Identifier Shelf Expiration Date Model / Serial / Lot Kit Lead Dbs .5mm 3389s-40 - [id number] Implanted:Qty: 1 on 10/08/2012 at OR [facility] Left: Head [employer] : NEUROLOGIC PAIN 02/25/2016 3389S-40 / / [id number] Kit Lead Dbs .5mm 3389s-40 - [id number] Implanted:Qty: 1 on 10/08/2012 at [facility] Right: Head [employer] : NEUROLOGIC PAIN 07/28/2016 3389S-40 / / [id number] Battery Activa Rc [id number] - [id number] Implanted:Qty: 1 on 10/19/2012 at [facility] Right: Chest Medtrol 04/06/2013 49251 / [id number] / Extension Dbs 60cm [id number] - [id number] Implanted:Qty: 1 on 10/19/2012 at [facility] Right: Chest Medtrol 07/17/2016 64723-47 / [id number] / Extension Dbs 60cm 64130-14 - [id number] Implanted:Qty: 1 on 10/19/2012 at [facility] Right: Chest Medtrol 08/07/2016 32878-67 / [id number] / documented as of this encounter Visit Diagnoses Diagnosis Slow transit constipation documented in this encounter Advance Directives * Full Code (Latest Code Status on File) Date Activated Date Inactivated Comments 10/08/2012 6:53 AM 10/09/2012 7:55 PM This order reflects the patients wishes and were consensually agreed upon. Care Teams Test And Research Reactor Operator Relationship Specialty Start Date End Date Sharmin Ybarra MD [address] [place] [address], [place] [address] PCP - General Internal Medicine 09/20/21 documented as of this encounter
--- OUTSIDE RECORDS SUMMARY | 2024-10-02 16:40 | External Medical Summary ---
Author Name Unknown Address Unknown Organization K01[facility] [address] [place] [address] Laboratory Report Ordering Provider Test Date Status TOO DANIEL 07/28/2024 09:29:09 Final Observation Date Value Abnormality Reference (Units ) Status Carbamazepine 07/28/2024 09:29:09 12.8 Above high ashly l 4.0-12.0 (ug/mL) Final Performing Location [facility] [address] [place] [address]
--- OUTSIDE RECORDS SUMMARY | 2024-10-02 16:40 | External Medical Summary | Summary of Care ---
Author Name Unknown Organization [facility] Address [address] [place] [address] Phone [phone] Care Team Providers Care Cryptologic Support Specialist Name Role Phone Sharmin Miles MD Primary Care Provider [phone] Reason for Visit * Reason Onset Date Comments EEG 08/05/2024 Encounter Details Date Type Department Care Team (Late st Contact Info) Description 08/03/2024 10:30 AM EDT NeuroDiagnostic Study Neurophysiology [facility] [address] [place] [address] Sp, Neurophys Tech 200 [place] [address] Allergies Active Allergy Reactions Criticality Noted Date Comments Adhesive Tape 10/27/2014 documented as of this encounter (statuses as of 08/05/2024) Medications Medication Sig Dispensed Refills Start Date [...] DAILY seizure 84 Tablet 4 04/12/2024 Active FLUoxetine HCl 40 MG Oral Capsule [...] DAILY CONSTIPATION 510 g 4 08/02/2024 Active documented as of this encounter (statuses as of 08/05/2024) Active Problems Problem Noted Date Diagnosed Date [...] as of this encounter (statuses as of 08/05/2024) Resolved Problems Problem Noted Date Diagnosed Date Resolved Date Depression 03/03/2014 09/22/2019 ADVANCE DIRECTIVE INFORMATION 02/13/2006 06/17/2017 Overview: Patient mentally handicapped EPILEPSY,UNSPEC;W/O INTRACTABLE 02/27/2004 06/20/2015 CEREBRAL PALSY NEC 5 Torticollis 11/30/2020 Nocturnal enuresis 8 documented as of this encounter (statuses as of 08/05/2024) Immunizations Name Administration Dates Next Due COVID-19 [...] 09/06/2024 10:00 AM EDT Office Visit Neurology [facility] [address] [place] [address] Earnest Shukla MD [address] [place] [address] 09/14/2024 3:00 PM EDT Office Visit Neurology [facility] [address] [place] [address] Nico Urbina MD [address] [place], [place] [id number] 12/23/2024 11:40 AM EST Office Visit General Internal Medicine [facility] [address] [place] [address] Sharmin Miles MD [address] [place] [address] 07/15/2025 1:00 PM EDT Office Visit Dermatology [facility] [address] [place] [address] Carrington Zepeda MD [address] [place] [address] Health Maintenance Due Date Last Done Comments HPV/Co-Test 2007 Depression Monitoring 05/16/2022 05/16/2021 Colonoscopy 2022 Sigmoidoscopy 2022 Cervical Cancer Screening 06/29/2024 Pap Smear 06/29/2024 06/29/2021, 12/25, 01/07/2018, Additional history exists COVID-19 Vaccine ( season) 2024 01/07/2024, 02/19/2023, 02/04/2021, Additional history exists Influenza Vaccine (FLU shot) [...] Hepatitis B Vaccine Completed 02/23/2002, 07/16/2001, 06/18/2001 HPV (Gardasil) Vaccine Aged Out No lo [...] this encounter Medical Devices Implanted Type Area Greige Goods Marker Device Identifier Shelf Expiration Date Model / Serial / Lot Kit Lead Dbs .5mm 3389s-40 - [id number] Implanted:Qty: 1 on 10/08/2012 [place] [facility] [place] [employer] : NEUROLOGIC PAIN 02/25/2016 3389S-40 / / [id number] Kit Lead Dbs .5mm 3389s-40 - [id number] Implanted:Qty: 1 on 10/08/2012 at [facility] Right: Head [employer] : NEUROLOGIC PAIN 07/28/2016 3389S-40 / / [id number] Battery Activa Rc [id number] - [id number] Implanted:Qty: 1 on 10/19/2012 at [facility] Right: Chest Medtrol 04/06/2013 77098 / [id number] / Extension Dbs 60cm [id number] - [id number] Implanted:Qty: 1 on 10/19/2012 at [place] [facility] [place] Right: Chest Medtrol 07/17/2016 76064-85 / [id number] / Extension Dbs 60cm 07416-55 - [id number] Implanted:Qty: 1 on 10/19/2012 at [facility] Right: Chest Medtrol 08/07/2016 43490-87 / [id number] / documented as of this encounter Procedures Procedure Name Priority Date/Time Associated Diagnosis Comments EEG ROUTINE Routine 08/05/2024 Seizure-like activity (HCC) documented in this encounter Results * EEG ROUTINE (08/05/2024) Aleksandrs Dalia Molina MD - 08/05/2024 Electroencephalogram Report Neurophysiology [place] [address] [place] [address] Name: Samina Quintero Age: [age] year old Study Start Date/Time: 08/03/2024, 110 Study End Date/Time: 08/03/2024, 1128 Location: Outpatient Referring Physician: Earnest Shukla MD Clinical Summary: Samina Quintero is a/an 49 year old female undergoing EEG evaluation for: Epilepsy: clinical suspicion of epilepsy Neuroactive Medications: Tegretol Technical Summary: This digitally acquired electroencephalogram was performed using 21 scalp electrodes in the international 10/20 system placement, with additional scalp, precordial, and other surface electrodes used for electrical referencing and artifact detection. Video monitoring was utilized and reviewed periodically by the physician for electroclinical correlation. Physician access to data was available throughout the recording. Activation Procedures: Photic stimulation resulted in: no evidence of change from baseline Background: Abnormal. Posterior dominant rhythm: absent. Amplitude: 20-70 (medium). Symmetry: Asymmetric see below Organization: Mildly disorganized Reactivity: Present and reactive to external stimuli Variability: Present with distinct states of arousal Continuity: Continuous. Generalized slowing: Mild to moderate (Theta predominant). EKG: Normal sinus rhythm Sleep: Drowsiness was observed due to the presence of waxing and waning of the posterior reactive rhythm with eventual replacement by a mixture of Beta, Alpha, and Theta activity., Stage 2 sleep was observed due to the presence of symmetric vertex waves, sleep spindles, and K complexes. Interictal Findings: Focal slowing: Region(s): Lateralized: left frontotemporal region Rare left parasaggital triphasic appearing sharps. Clinical and Electrographic Events: No clinical or electrographic events were recorded. Summary of Findings: Abnormal: This EEG is abnormal due to the presence of: 1) Rare left parasaggital triphasic appearing sharps. 2) Left hemispheric slowing Comparison to Previous Studies: No previous studies are available for comparison. Diagnostic Significance: Global EMERGENCY WORKER dysfunction and Focal EMERGENCY WORKER dysfunction of the left parasagittal region Clinical Comments: Generalized slowing - The above-described findings of diffuse slowing are etiologically non-specific, and similar findings have been reported in cases of toxic, metabolic, hypoxic ischemic, infectious, medication, sleep deprivation, postictal, and other causes of diffuse and multifocal encephalopathy. Clinical correlation of this differential diagnosis is suggested. Focal slowing - The above finding of focal slowing is a nonspecific indicator of focal cerebral dysfunction. Focal slowing has been associated with structural lesions (including but not limited to neoplasm, stroke, bleed, trauma, infection) or functional abnormalities (ie postictal state, migraine, etc) affecting the underlying white matter. Focal discharges - The presence of epileptiform discharges indicates an area of focal cortical irritability and an increased risk for seizures. Further Suggestions: This study was adequate for the referral indication. Awake and sleep [address] Dalia Molina MD MEDICINE documented in this encounter Visit Diagnoses Diagnosis Seizure-like activity (HCC)- Primary Other convulsions Nonintractable 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 (HCC) [G40.309] documented in this encounter Advance Directives * Full Code (Latest Code Status on File) Date Activated Date Inactivated Comments 10/08/2012 6:53 AM 10/09/2012 7:55 PM This order reflects the patients wishes and were consensually agreed upon. Care Teams Cryptologic Support Specialist Relationship Specialty Start Date End Date Sharmin Miles MD [address] [place] [address] [place], [place] [address] PCP - General Internal Medicine 09/20/21 documented as of this encounter
--- OUTSIDE RECORDS SUMMARY | 2024-10-02 16:40 | External Medical Summary | Summary of Care ---
Author Name Unknown Organization [facility] Address [address] [place] [address] Phone [phone] Care Team Providers Care Respiratory Medicine Physician Name Role Phone Sharmin Miles MD Primary Care Provider [phone] Reason for Visit * Reason Onset Date Comments Appointment 08/02/2024 I called to migel anguiano eeg appt, Mandi will call us back to schedule. Encounter Details Date Type Department Care Team (Late st Contact Info) Description 08/02/2024 Telephone Neurophysiology [address] [place] [phone] Specified, Zz No Resource [address] [place] [address] Appointment (I called to schedule eeg appt... Allergies Active Allergy Reactions Criticality Noted Date [...] 30 Mcg, IM, 12 yrs and above ([employer]) 02/19/2023 PPD 07/23/2023,,03/29/2019, 018,03/11/2017,03/06/2015,09/09/2013,08/2013,03/03/2013,08/27/2011,11/08/2009 ,10/30/2005 10/30/2007 Seasonal [...] encounter Miscellaneous Notes * Telephone Encounter - Lena Prado OSA - 08/02/2024 8:56 AM EDT I called to schedule eeg appt, Mandi will call us back to schedule. documented in this encounter Plan of Treatment Upcoming Encounters Date Type Department Care Team (Late st Contact Info) Description 09/06/2024 10:00 AM EDT Office Visit Neurology [place] [address] [place] [address] Earnest Shukla MD [address] [place] [address] 09/14/2024 3:00 PM EDT Office Visit Neurology [facility] [place] [address] [facility] [place] [address] Nico Urbina MD [address] [place] [address] 12/23/2024 11:40 AM EST Office Visit General Internal Medicine [facility] [place] [address] [facility] [place] [address] Sharmin Miles MD [address] [facility] [place] [address] 07/15/2025 1:00 PM EDT Office Visit Dermatology [facility] [place] [address] [facility] [place] [address] Carrington Zepeda MD [address] [facility] [place] [address] Health Maintenance Due Date Last Done Comments [...] this encounter Medical Devices Implanted Type Area Radiosonde Operator Device Identifier Shelf Expiration Date Model / Serial / Lot Kit Lead Dbs .5mm 3389s-40 - [id number] Implanted:Qty: 1 on 10/08/[address] [facility] [place] Left: Head [employer] : NEUROLOGIC PAIN 02/25/2016 3389S-40 / / [id number] Kit Lead Dbs .5mm 3389s-40 - [id number] Implanted:Qty: 1 on 10/08/[address] [facility] [place] Right: Head [employer] : NEUROLOGIC PAIN 07/28/2016 3389S-40 / / [id number] Battery Activa Rc 32562 - [id number] Implanted:Qty: 1 on 10/19/2012 at [facility] Right: Chest Medtrol 04/06/2013 46340 / [id number] / Extension Dbs 60cm 14606-89 - [id number] Implanted:Qty: 1 on 10/19/2012 at [facility] Right: Chest Medtrol 07/17/2016 88008-11 / [id number] / Extension Dbs 60cm 71578-19 - [id number] Implanted:Qty: 1 on 10/19/2012 at [facility] Right: Chest Medtrol 08/07/2016 34332-17 / [id number] / documented as of this encounter Advance Directives * Full Code (Latest Code Status on File) Date Activated Date Inactivated Comments 10/08/2012 6:53 AM 10/09/2012 7:55 PM This order reflects the patients wishes and were consensually agreed upon. Care Teams Respiratory Medicine Physician Relationship Specialty Start Date End Date Sharmin Miles MD [address] [place] [address] PCP - General Internal Medicine 09/20/21 documented as of this encounter
--- OUTSIDE RECORDS SUMMARY | 2024-10-02 16:40 | External Medical Summary ---
Author Name Unknown Address Unknown Organization K01[facility] [address] [facility] [place] [address] Laboratory Report Ordering Provider Test Date Status TOO DANIEL 07/28/2024 09:29:09 Final Observation Date Value Abnormality Reference (Units ) Status BUN 07/28/2024 09:29:09 13 6-20 (mg/dL) Final Creatinine 07/28/2024 09:29:09 0.6 0.5-1.0 (mg/dL) Final Glomerular filtration rate/1.73 sq M.predicted [Volume Rate/Area] in Serum, Plasma or Blood by Creatinine-based formula (CKD-EPI) 07/28/2024 09:29:09 >90 >=60 (mL/min) Final eGFR is calculated based on the CKD-EPI 2020 equation. Sodium 07/28/2024 09:29:09 142 135-146 (m mol/L) Final Potassium 07/28/2024 09:29:09 4.4 3.5-5.1 (m mol/L) Final Cl 07/28/2024 09:29:09 105 98-107 (mm ol/L) Final CO2 07/28/2024 09:29:09 27 22-32 (mmo l/L) Final Anion gap 07/28/2024 09:29:09 10 7-15 (mmol /L) Final Glucose 07/28/2024 09:29:09 135 Above high normal 70 -120 (mg/dL) Final Albumin 07/28/2024 09:29:09 3.9 3.8-5.0 (g /dL) Final AST (Aspartate aminotransferase) 07/28/2024 09:29:09 12 10-35 (U/L) Fin al Alk Phos 07/28/2024 09:29:09 112 35-130 (U/ L) Final Bilirubin, Total 07/28/2024 09:29:09 <0.2 <=1 .2 (mg/dL) Final Calcium 07/28/2024 09:29:09 9.0 8.4-10.2 ( mg/dL) Final Protein 07/28/2024 09:29:09 6.3 6.0-8.3 (g /dL) Final ALT (Alanine aminotransferase) 07/28/2024 09:29:09 6 Below low normal 10-35 (U/L) Final [place]forming [place] [facility] [place] [address] [facility] [address]
--- OUTSIDE RECORDS SUMMARY | 2024-10-02 16:40 | External Medical Summary | Summary of Care ---
Author Name Unknown Organization [facility] Address [address] [place] [address] Phone [phone] Care Team Providers Care Desulfurizer Machine Name Role Phone Sharmin Miles MD Primary Care Provider [phone] Reason for Visit * Reason Comments Outpatient Testing Encounter Details Date Type Department Care Team (Late st Contact Info) Description 09/06/2024 10:30 AM EDT Laboratory Laboratory [facility] [address] [place] [id number] [facility] [address] [place] [address] Nonintractable 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 [...] at bedtime 75 Tablet 11 09/06/2024 Active documented as of this encounter (statuses [...] 09/14/2024 3:00 PM EDT Office Visit Neurology [facility] [place] [address] [place] [address] Nico Urbina MD [address] [place] [address] 09/20/2024 8:00 AM EDT Telemedicine General Internal Medicine [facility]ine [place] [address] [place] [address] Phyllis Marie PA-C [address] [place] [address] 12/23/2024 11:40 AM EST Office Visit General Internal Medicine [facility] [place] [address] [facility] [address] Sharmin Mlies MD [address] [facility] [address] [facility], [place] [address] 03/21/2025 11:20 AM EDT Office Visit Neurology [facility] [place] [address] [facility] [address] [place], [place] [address] Earnest Shukla MD 200 [facility] [place], [place] [address] 07/15/2025 1:00 PM EDT Office Visit Dermatology [facility] [place] [address] [facility] [address] [place], [place] [address] Carrington Zepead MD [address] [facility] [address] [place], [place] [address] Pending Results Name Type Priority Associated Diagnoses Date /Time CARBAMAZEPINE LEVEL Lab Routine Nonintractable 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 (HCC) 09/06/2024 10:35 AM EDT Health Maintenance Due Date Last [...] this encounter Medical Devices Implanted Type Area Clean Up Helper Banquet Device Identifier Shelf Expiration Date Model / Serial / Lot Kit Lead Dbs .5mm 3389s-40 - [id number] Implanted:Qty: 1 on 10/08/2012 at [place] [facility] [place] Left: Head [employer] : NEUROLOGIC PAIN 02/25/2016 3389S-40 / / [id number] Kit Lead Dbs .5mm 3389s-40 - [id number] Implanted:Qty: 1 on 10/08/2012 at [place] [facility] [place] Right: Head [employer] : NEUROLOGIC PAIN 07/28/2016 3389S-40 / / [id number] Battery Activa Rc 18472 - [id number] Implanted:Qty: 1 on 10/19/2012 at [place] [facility] [place] Right: Chest Medtrol 04/06/2013 69690 / [id number] / Extension Dbs 60cm 36384-70 - [id number] Implanted:Qty: 1 on 10/19/2012 at [place] [facility] [place] Right: Chest Medtrol 07/17/2016 45366-54 / [id number] / Extension Dbs 60cm [id number] - [id number] Implanted:Qty: 1 on 10/19/2012 at [place] [facility] [place] Right: Chest Medtrol 08/07/2016 22851-84 / [id number] / documented as of this encounter Visit Diagnoses Diagnosis Nonintractable 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 Care Teams Desulfurizer Machine Relationship Specialty Start Date End Date Sharmin Miles MD [address] [facility] [place] [address] PCP - General Internal Medicine 09/20/21 documented as of this encounter
--- NOTE | 2024-10-02 17:02 | Emergency Department Note ---
Impression & Plan Seizure disorder, Intellectual disability, Cerebral palsy ED Provider Note NAME: DAYTON FELIPE AGE: 49 SEX: F : 1975 ARRIVES VIA: Ambulance INFORMANT: Patient ED PROVIDER(S): Johan Arroyo DO CHIEF COMPLAINT: Seizure HPI: Patient is a 49-year-old female with a past medical history of intellectual disability, CP and seizure disorder who presents to the ER via EMS. Per report from nursing staff was present when EMS showed up she received either 5 of Ativan or 5 mg of Versed. They are unclear. Per the report from residential staff who I spoke with who provided additional history at bedside notes that when they went in the room initially she was tired and when they went back in she was sitting up and her eyes were rotating and she was staring off. There is no seizure activity in regards to tonic-clonic. Since then they called EMS and she was brought in. She has a history of seizures and has been getting these about once a month. ADDITIONAL HISTORY OBTAINED: Per HPI Chronic Medical/Social Conditions Affecting Care: Per HPI PAST MEDICAL HISTORY:See Below PAST SURGICAL HISTORY:See Below FAMILY HISTORY:See Below SOCIAL HISTORY:See Below HOME MEDICATIONS:See Below ALLERGIES:See Below VITALS:See Below PHYSICAL EXAMINATION: GENERAL: Sitting up in bed, alert, well appearing, well nourished, no distress, non-toxic EYE EXAM: normal conjunctiva. PERRL and EOM's grossly intact. OROPHARYNX: no exudate, no erythema, lips, buccal mucosa, and tongue normal and mucous membranes are moist NECK: supple, no nuchal rigidity, no adenopathy, non-tender LUNGS: Clear to auscultation. Normal chest wall mechanics HEART: no murmurs, S1 normal and S2 normal ABDOMEN: abdomen soft, non-tender, normo-active bowel sounds, no masses, no rebound or guarding. BACK: Back is symmetrical on inspection and there is no deformity, no midline tenderness, no CVA tenderness. SKIN: no rashes and no bruising UPPER EXTREMITIES: upper extremities are grossly normal. LOWER EXTREMITIES: No pitting edema. NEURO EXAM: Awake able to state name but has difficulty answering any other questions, cranial nerves II-XII intact, normal speech, no weakness of arms, no weakness of legs. Unable to perform drift or [id number] MEDICAL DECISION MAKING: Patient is a 49-year-old female who presents ER for above-stated complaint. IV was established and blood work was obtained. Labs show no significant leukocytosis or anemia. BMP along with LFTs bilirubin and mag was unremarkable. Troponin was negative. Lipase normal. Upon arrival patient could barely state her name. Her mentation did improve but she was still confused per campground caretaker who is present at bedside. After 3 hours and patient was still not back to her baseline we discussed case with the hospitalist for further evaluation management treatment. CT of her head was negative. No focal deficit. Discussed case with the hospitalist for further evaluation although patient was improving clinically. Consults/Care Managements Discussions: Per [facility] Triage Nursing notes reviewed. Limited review of prior medical records performed Vital Signs: reviewed and remarkable for HTN Differential diagnosis: Differential Diagnosis includes but is not limited to ischemic Stroke, hemorrhagic stroke, bells palsy, mass, neoplasm, migraine headache, seizure, subarachnoid hemorrhage, TIA, and transient global amnesia. ER treatment provided: See below Diagnostics interpreted by me include EKG and cardiac monitoring as listed below: -Cardiac Monitoring: An order was placed for continuous cardiac monitoring. The monitor shows a rate of 60 with sinus rhythm. -ECG: sinus rhythm at 73 Normal axis No PVCs QTc 456 -Laboratory studies:Interpreted by me as stated above in MDM and shown below. 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 H/O oral surgery Family History Mother Breast cancer Denies family history of Ovarian cancer Colorectal cancer Social History Smoking Status: Never smoker Do You Dip or Chew Tobacco: No; Preferred Language: Georgian Feels Safe at Home: Yes Allergies Allergies Allergy/AdvReac Type Severity Reaction Status Date / Time adhesive tape Allergy Unknown Verified 10/02/24 19:47 No Known Drug Allergies Allergy Verified 10/02/24 19:47 Home Meds Home Medications Medication Instructions Recorded Confirmed calcium 600 mg (as 1 cap PO BID 12/04/19 10/02/24 carbonate)-vitamin D3 62.5 mcg (2,500 unit) capsule oxybutynin chloride 5 mg tablet 5 mg PO TID 12/04/19 10/02/24 quetiapine 25 mg tablet 25 mg PO DAILY 12/04/19 10/02/24 carbamazepine 100 mg chewable 200 mg PO DIRECTED 12/13/19 10/02/24 tablet fluoride (sodium) [Denta 5000 Plus] 1 applic dental BID 12/13/19 10/02/24 aspirin 81 mg tablet 81 mg PO DAILY 10/02/24 10/02/24 carbidopa ER 50 mg-levodopa 200 mg 1 tab PO TID 10/02/24 10/02/24 tablet,extended release fluoxetine 40 mg capsule 40 mg PO DAILY 10/02/24 10/02/24 polyethylene glycol 3350 17 gram 17 g PO DAILY 10/02/24 10/02/24 oral powder packet sennosides 8.6 mg capsule (senna) 8.6 mg PO BID 10/02/24 10/02/24 Previous Rx's Medication Instructions Recorded norethindrone acetate 1.5 1 tab PO DAILY #84 tabs 12/16/19 mg-ethinyl estradiol 30 mcg tablet Results & Data (ED) Vital Signs Vital Signs - 24 hr 10/02/24 16:29 10/02/24 16:34 10/02/24 17:04 Temperature 36.7 C Temperature Source Temporal Artery Scan Pulse Rate 51 L 70 Pulse Rate [Apical] Pulse Rhythm [Apical] Pulse Strength [Apical] Respiratory Rate 18 Respiratory Effort / Characteristics Respiratory Depth Respiratory Pattern Blood Pressure 161/102 H Blood Pressure [Left Arm] Blood Pressure Mean 121 Blood Pressure Mean [Left Arm] Blood Pressure Position [Left Arm] Pulse Oximetry 99 Oxygen Delivery Method Room Air Room Air Sepsis Recent Fever Within 48 Hours No Sepsis New/Unexplained Change in Mental Status N/A Sepsis Action Taken by Nursing No Action Required 10/02/24 17:08 10/02/24 20:11 Temperature Temperature Source Pulse Rate 74 Pulse Rate [Apical] 71 Pulse Rhythm [Apical] Regular Pulse Strength [Apical] Normal Respiratory Rate 26 H 16 Respiratory Effort / Characteristics Non-Labored Respiratory Depth Normal Respiratory Pattern Regular Blood Pressure Blood Pressure [Left Arm] 147/95 H Blood Pressure Mean Blood Pressure Mean [Left Arm] 112 Blood Pressure Position [Left Arm] Sitting Pulse Oximetry 97 97 Oxygen Delivery Method Room Air Room Air Sepsis Recent Fever Within 48 Hours Sepsis New/Unexplained Change in Mental Status Sepsis Action Taken by Nursing Laboratory Data 10/02/24 16:43 10/02/24 16:43 Lab Results 10/02/24 Range/Units 16:43 WBC 6.00 (4.8-10.8) K/ul RBC 4.34 (4.20-5.40) M/uL Hgb 13.2 (12.0-16.0) g/dl Hct 41.4 (37.0-47.0) % MCV 95.4 (80.0-100.0) fL MCH 30.4 (25.0-34.0) pg MCHC 31.9 L (32.0-36.0) g/dL RDW Std Deviation 47.5 H (36.4-46.3) fL RDW Coeff of [place] 13.5 (11.5-14.5) % Plt Count 320 (130-400) K/uL MPV 9.0 L (9.4-12.4) fL Immature Gran % (Auto) 0.2 % Neut % (Auto) 48.7 % Lymph % (Auto) 40.5 % [place] % (Auto) 7.3 % Eos % (Auto) 3.0 % Baso % (Auto) 0.3 % Neut # (Auto) 2.92 (1.40-6.50) K/uL Lymph # (Auto) 2.43 (1.20-3.40) K/uL [place] # (Auto) 0.44 (0.11-0.59) K/uL Eos # (Auto) 0.18 (0.00-0.50) K/uL Baso # (Auto) 0.02 (0.00-0.20) K/uL Immature Gran # (Auto) 0.01 (0.01-0.20) K/uL Sodium 141 (136-145) mmol/L Potassium 4.4 (3.5-5.1) mmol/L Chloride 105 (98-107) mmol/L Carbon Dioxide 31 (21-32) mmol/L Anion Gap 5 (3-11) BUN 12 (6-23) mg/dl Creatinine 0.62 (0.6-1.2) mg/dl Est Cr Clr Drug Dosing 102.3 ml/min eGFR 110.46 BUN/Creatinine Ratio 19.4 (10-20) Glucose 84 (70-99(Fasting)) mg/dl Calcium 8.5 L (8.6-10.3) mg/dl Magnesium 2.2 (1.7-2.4) mg/dl Total Bilirubin 0.2 (0.2-1.0) mg/dl AST 12 L (13-39) U/L ALT 7 (7-52) U/L Alkaline Phosphatase 86 (34-104) U/L Troponin I High Sens 3.6 (0-14) pg/ml Total Protein 6.7 (6.0-8.3) gm/dl Albumin 3.6 (3.4-5.0) gm/dl Globulin 3.1 (2.5-4.0) gm/dl Albumin/Globulin Ratio 1.2 (0.9-2) Lipase 18 (11-82) U/L Administered Medications Discontinued Medications Metoprolol Tartrate (Metoprolol Tartrate 1 Mg/Ml Vial) 2.5 mg IV NOW STA Stop: 10/02/24 19:32 Last Admin: 10/02/24 21:22 Dose: Not Given Documented By: [facility] Imaging Data Radiologist's Impression: Chest X-Ray 10/02/24 17:04 EXAM: Radiograph of the Chest 1 View INDICATION: Chest pain. TECHNIQUE: Frontal view of the chest. COMPARISON: 02/27/2024 FINDINGS: Limitations: Portions of the right lower lung are obscured by battery pack. Lungs and pleural spaces: Shallow inspiration with minimal basilar vascular crowding. No visible consolidation or pleural effusion. No pneumothorax. Heart: Shape and configuration within normal limits allowing for technique. Mediastinum: Normal contour. Bones/joints: No fracture, erosion or dislocation. Soft tissues: No abnormality noted. No radiopaque foreign body noted. Tubes, lines and devices: No gross change in appearance of electrodes extending into the right neck toward the skull. Distal extent not included. Upper abdomen: No abnormality noted. IMPRESSION: Limited as above. No acute cardiopulmonary disease. ACT 112: Negative or not required by law. Electronically signed by Violeta Sheets 10-02-2024 5:[address] 10/02/24 17:04 EXAM: CT Head Without Intravenous Contrast INDICATION: Seizure. TECHNIQUE: Axial computed tomography images of the head/brain without intravenous contrast. Sagittal and/or coronal reformats are provided. Sagittal and coronal reformatted images were created and reviewed. This CT exam was performed using one or more of the following dose reduction techniques: automated exposure control, adjustment of the mA and/or kV according to patient size, and/or use of iterative reconstruction technique. COMPARISON: 02/27/2024 FINDINGS: Limitations: None. Brain and extra-axial spaces: Stable bilateral basal ganglia electrodes. Allowing for artifact, no change in mild cortical atrophy. No acute infarct. No hemorrhage or extra-axial fluid collection. No hydrocephalus. Bones/joints: No acute changes. Soft tissues: No significant abnormality noted. Vasculature: No acute abnormality noted. Sinuses: No layering fluid in the visualized portions of the paranasal sinuses. Mastoid air cells: No mastoid effusion. Orbits: No significant abnormality noted. IMPRESSION: No acute findings in the head/brain. ACT 112: Negative or not required by law. Electronically signed by Violeta Sheets 10-02-2024 6:44 PM Discharge Plan Visit Data Chief Complaint: Seizure Stated Complaint: POSSIBLE SEIZURE ED Provider: Johan Arroyo Discharge Problem: Seizure disorder, Intellectual disability, Cerebral palsy Forms Stand Alone Forms: [facility] Prescriptions Prescriptions: No Action oxybutynin chloride 5 mg tablet 5 mg PO TID quetiapine 25 mg tablet 25 mg PO DAILY calcium carbonate-vitamin D3 600 mg (1,500 mg)-2,500 unit capsule 1 cap PO BID carbamazepine 100 mg tablet,chewable 200 mg PO DIRECTED Patient Comments: TAKE 100mg in the morning, 200 mg at 4pm and 200 mg at 8 pm fluoride (sodium) 1 applic DT BID norethindrone ac-eth estradiol 1.5-30 mg-mcg tablet 1 tab PO DAILY Qty: 84 3RF Rx Instructions: Take 1 hormone containing tablet by mouth daily for 84 days, then 7 days off. Repeat. fluoxetine 40 mg Capsule 40 mg PO DAILY polyethylene glycol 3350 17 gram Powder In Packet 17 g PO DAILY carbidopa-levodopa 50-200 mg Tablet Extended Release 1 tab PO TID Rx Instructions: take at 8:30 am, 4:30pm, 8:30pm aspirin 81 mg Tablet 81 mg PO DAILY senna 8.6 mg Capsule 8.6 mg PO BID Referrals Referrals: Sharmin Miles MD [Primary Care Provider] - Discharge Problem: Cerebral palsy Qualifiers: Cerebral palsy type: unspecified type Qualified Code(s): G80.9 - Cerebral palsy, unspecified
[2024-10-02 17:15] LABS: Basophils # (auto) 0.02 K/uL (0.00-0.20); Basophils % (auto) 0.3 %; Eosinophils # (auto) 0.18 K/uL (0.00-0.50); Hematocrit (blood only) 41.4 % (37.0-47.0); Hemoglobin 13.2 g/dl (12.0-16.0); Immature Granulocytes # (auto) 0.01 K/uL (0.01-0.20); Immature Granulocytes % (auto) 0.2 %; Lymphocytes # (auto) 2.43 K/uL (1.20-3.40); Lymphocytes % (auto) 40.5 %; Mean Corpuscular Hemoglobin 30.4 pg (25.0-34.0); Mean Corpuscular Hgb Conc 31.9 g/dL (32.0-36.0); Mean Corpuscular Volume 95.4 fL (80.0-100.0); Monocytes # (auto) 0.44 K/uL (0.11-0.59); Monocytes % (auto) 7.3 %; Neutrophils # (auto) 2.92 K/uL (1.40-6.50); Neutrophils % (auto) 48.7 %; Platelet Count 320 K/uL (130-400); RDW Coefficient of Variation 13.5 % (11.5-14.5); RDW Standard Deviation 47.5 fL (36.4-46.3); Red Blood Count 4.34 M/uL (4.20-5.40)
--- NOTE | 2024-10-02 17:32 | XRay Report ---
EXAM: Radiograph of the Chest 1 View INDICATION: Chest pain. TECHNIQUE: Frontal view of the chest. COMPARISON: 02/27/2024 FINDINGS: Limitations: Portions of the right lower lung are obscured by battery pack. Lungs and pleural spaces: Shallow inspiration with minimal basilar vascular crowding. No visible consolidation or pleural effusion. No pneumothorax. Heart: Shape and configuration within normal limits allowing for technique. Mediastinum: Normal contour. Bones/joints: No fracture, erosion or dislocation. Soft tissues: No abnormality noted. No radiopaque foreign body noted. Tubes, lines and devices: No gross change in appearance of electrodes extending into the right neck toward the skull. Distal extent not included. Upper abdomen: No abnormality noted. IMPRESSION: Limited as above. No acute cardiopulmonary disease. ACT 112: Negative or not required by law. Electronically signed by Violeta Sheets 10-02-2024 5:32 PM
[2024-10-02 17:35] LABS: Albumin Globulin Ratio 1.2 (0.9-2); Albumin Level 3.6 gm/dl (3.4-5.0); BUN Creatinine Ratio 19.4 (10-20); Bilirubin,Total 0.2 mg/dl (0.2-1.0); Calcium 8.5 mg/dl (8.6-10.3); Creatinine Clr Calc Pharmacy 102.3 ml/min; Globulin 3.1 gm/dl (2.5-4.0); Potassium 4.4 mmol/L (3.5-5.1); Total Protein 6.7 gm/dl (6.0-8.3)
[2024-10-02 17:41] LABS: Troponin I High Sensitivity 3.6 pg/ml (0-14)
--- NOTE | 2024-10-02 18:45 | CT Scan Report ---
EXAM: CT Head Without Intravenous Contrast INDICATION: Seizure. TECHNIQUE: Axial computed tomography images of the head/brain without intravenous contrast. Sagittal and/or coronal reformats are provided. Sagittal and coronal reformatted images were created and reviewed. This CT exam was performed using one or more of the following dose reduction techniques: automated exposure control, adjustment of the mA and/or kV according to patient size, and/or use of iterative reconstruction technique. COMPARISON: 02/27/2024 FINDINGS: Limitations: None. Brain and extra-axial spaces: Stable bilateral basal ganglia electrodes. Allowing for artifact, no change in mild cortical atrophy. No acute infarct. No hemorrhage or extra-axial fluid collection. No hydrocephalus. Bones/joints: No acute changes. Soft tissues: No significant abnormality noted. Vasculature: No acute abnormality noted. Sinuses: No layering fluid in the visualized portions of the paranasal sinuses. Mastoid air cells: No mastoid effusion. Orbits: No significant abnormality noted. IMPRESSION: No acute findings in the head/brain. ACT 112: Negative or not required by law. Electronically signed by Violeta Sheets 10-02-2024 6:44 PM
[2024-10-02 20:31] LABS: Magnesium 2.2 mg/dl (1.7-2.4)
--- NOTE | 2024-10-02 20:45 | History & Physical Report ---
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 hypertension, initially elevated at the ER Patient not currently on maintenance medications. melanoma in situ status post surgery mood disorder, at baseline intellectual impairment OBS Medical telemetry Seizure precautions Ativan as needed active seizures Check carbamazepine level, hold carbamazepine until level resulted. Carbamazepine level currently a send out test at [facility]. Keppra seizure prophylaxis until carbamazepine level back Neurology consult Re: Breakthrough seizure DVT prophylaxis. SCDs Full code Patient caregiver requesting updates providers. Ms. Mandi Conrad, contact #[phone]. Text document was generated using [employer] voice recognition software. It may contain grammatical or spelling errors. Kindly contact undersigned for clarification of any documentation item in question. History of Present Illness Chief Complaint: Confusion, possible seizure as per caregiver Primary Care Provider: Sharmin Miles MD History obtained from patient, caregiver, and records. Limited history from patient secondary to intellectual impairment. 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 Patient noted to have decreased responsiveness at half-way today by caregiver. Transient twitching of the mouth, possible seizures as per caregiver. No witnessed incontinence or tongue biting episodes or arm shaking. Usual seizure described as transient unresponsiveness/blank stares as per caregiver account. Compliant with home medications. Patient denies headache, chest pain, SOB, abdominal pain. Last seizure possibly 3 months ago. Outpatient Tegretol levels noted to be high at that time. Outpatient EEG showed parasagittal triphasic waves at some left hemispheric slowing. Tegretol dose reduced by specialist following outpatient General Neurology visit last month. Consider ambulatory EEG or add another agent such as Lamictal or Keppra if with recurrent spells as per note. Patient also seen on follow-up visit by [facility] [place] neurologist 3 weeks ago for tremors. Tremors not as prominent with higher dose of Sinemet as per note. Submitted dose frequency increased from twice daily to 3 times daily dosing. New settings placed on DBS. Patient brought to ER for evaluation. Patient currently more responsive but still slow as per caregiver. Medical History as above Surgical History : DBS placement/craniectomy, upper arm melanoma surgery, dental surgery Family History : Alcoholism, breast cancer, heart disease, asthma Personal/Social history : Non-smoker, no EtOH intake, disabled Allergies Allergy/AdvReac Type Severity Reaction Status Date / Time adhesive tape Allergy Unknown Verified 10/02/24 19:47 No Known Drug Allergies Allergy Verified 10/02/24 19:47 Home Medications Medication Instructions Recorded Confirmed Type calcium 600 mg (as 1 cap PO BID 12/04/19 10/02/24 History carbonate)-vitamin D3 62.5 mcg (2,500 unit) capsule oxybutynin chloride 5 mg tablet 5 mg PO TID 12/04/19 10/02/24 History quetiapine 25 mg tablet 25 mg PO DAILY 12/04/19 10/02/24 History carbamazepine 100 mg chewable 200 mg PO DIRECTED 12/13/19 10/02/24 History tablet fluoride (sodium) [Denta 5000 Plus] 1 applic dental BID 12/13/19 10/02/24 History norethindrone acetate 1.5 1 tab PO DAILY #84 tabs 12/16/19 10/02/24 Rx mg-ethinyl estradiol 30 mcg tablet aspirin 81 mg tablet 81 mg PO DAILY 10/02/24 10/02/24 History carbidopa ER 50 mg-levodopa 200 mg 1 tab PO TID 10/02/24 10/02/24 History tablet,extended release fluoxetine 40 mg capsule 40 mg PO DAILY 10/02/24 10/02/24 History polyethylene glycol 3350 17 gram 17 g PO DAILY 10/02/24 10/02/24 History oral powder packet sennosides 8.6 mg capsule (senna) 8.6 mg PO BID 10/02/24 10/02/24 History Past Med/Surg History Problem List (Updated 10/03/24 @ 03:08 by Preston Mir MD) Breakthrough seizure Cerebral palsy (Acute) Circulatory disease (Acute) History of irregular menstrual cycles (Acute) Intellectual disability (Acute) Seizure disorder (Acute) Closed head injury (Acute) Leg pain, left (Acute) Medical History Malignant neoplasm of skin Surgical History History of surgery Has a DBS (Deep Brain Stimulator) for 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 H/O oral surgery Family History Mother Breast cancer Denies family history of Ovarian cancer Colorectal cancer Social History Smoking Status: Never smoker Do You Dip or Chew Tobacco: No; Hx Alcohol Use: No Hx Substance Use: No Preferred Language: Spanish Communication Ability: Impaired [place] Roofer Required: No Beliefs That Will Affect Care: None Current Living Situation: Other Current Living Situation Comment: [facility] Feels Safe at Home: Yes Review of Systems Review of Systems: Could not be reliably obtained secondary to intellectual impairment Physical Exam Physical Exam: GENERAL: Oriented to place, slightly hard of hearing, no respiratory distress SKIN: Normal color, warm HEENT: [place] palpebral conjunctivae, no ptosis, dry buccal mucosa NECK : Supple, no tenderness CHEST : CTA, no tenderness HEART : RRR, no obvious murmurs ABDOMEN: Some distention, nontender EXTREMITIES : No LE swelling/tenderness, no other conspicuous deformities noted NEUROLOGIC : Oriented to place, no facial asymmetry, no other gross focality Results & Data Results & Data Vital Signs (Past 12 Hours) Vital Signs Temp Pulse Pulse Resp BP BP Pulse Ox 10/02/24 20:11 71 16 147/95 H 97 10/02/24 17:08 74 26 H 97 10/02/24 17:04 70 10/02/24 16:34 10/02/24 16:29 36.7 C 51 L 18 161/102 H 99 O2 Del Method 10/02/24 20:11 Room Air 10/02/24 17:08 Room Air 10/02/24 17:04 10/02/24 16:34 Room Air 10/02/24 16:29 Room Air Laboratory Results Laboratory Results WBC 6.00 K/ul (4.8-10.8) 10/02/24 16:43 RBC 4.34 M/uL (4.20-5.40) 10/02/24 16:43 Hgb 13.2 g/dl (12.0-16.0) 10/02/24 16:43 Hct 41.4 % (37.0-47.0) 10/02/24 16:43 MCV 95.4 fL (80.0-100.0) 10/02/24 16:43 MCH 30.4 pg (25.0-34.0) 10/02/24 16:43 MCHC 31.9 g/dL (32.0-36.0) L 10/02/24 16:43 RDW Std Deviation 47.5 fL (36.4-46.3) H 10/02/24 16:43 RDW Coeff of [place] 13.5 % (11.5-14.5) 10/02/24 16:43 Plt Count 320 K/uL (130-400) 10/02/24 16:43 MPV 9.0 fL (9.4-12.4) L 10/02/24 16:43 Immature Gran % (Auto) 0.2 % 10/02/24 16:43 Neut % (Auto) 48.7 % 10/02/24 16:43 Lymph % (Auto) 40.5 % 10/02/24 16:43 [place] % (Auto) 7.3 % 10/02/24 16:43 Eos % (Auto) 3.0 % 10/02/24 16:43 Baso % (Auto) 0.3 % 10/02/24 16:43 Neut # (Auto) 2.92 K/uL (1.40-6.50) 10/02/24 16:43 Lymph # (Auto) 2.43 K/uL (1.20-3.40) 10/02/24 16:43 [place] # (Auto) 0.44 K/uL (0.11-0.59) 10/02/24 16:43 Eos # (Auto) 0.18 K/uL (0.00-0.50) 10/02/24 16:43 Baso # (Auto) 0.02 K/uL (0.00-0.20) 10/02/24 16:43 Immature Gran # (Auto) 0.01 K/uL (0.01-0.20) 10/02/24 16:43 Sodium 141 mmol/L (136-145) 10/02/24 16:43 Potassium 4.4 mmol/L (3.5-5.1) 10/02/24 16:43 Chloride 105 mmol/L (98-107) 10/02/24 16:43 Carbon Dioxide 31 mmol/L (21-32) 10/02/24 16:43 Anion Gap 5 (3-11) 10/02/24 16:43 BUN 12 mg/dl (6-23) 10/02/24 16:43 Creatinine 0.62 mg/dl (0.6-1.2) 10/02/24 16:43 Est Cr Clr Drug Dosing 102.3 ml/min 10/02/24 16:43 eGFR 110.46 10/02/24 16:43 BUN/Creatinine Ratio 19.4 (10-20) 10/02/24 16:43 Glucose 84 mg/dl (70-99(Fasting)) 10/02/24 16:43 Calcium 8.5 mg/dl (8.6-10.3) L 10/02/24 16:43 Magnesium 2.2 mg/dl (1.7-2.4) 10/02/24 16:43 Total Bilirubin 0.2 mg/dl (0.2-1.0) 10/02/24 16:43 AST 12 U/L (13-39) L 10/02/24 16:43 ALT 7 U/L (7-52) 10/02/24 16:43 Alkaline Phosphatase 86 U/L (34-104) 10/02/24 16:43 Troponin I High Sens 3.6 pg/ml (0-14) 10/02/24 16:43 Total Protein 6.7 gm/dl (6.0-8.3) 10/02/24 16:43 Albumin 3.6 gm/dl (3.4-5.0) 10/02/24 16:43 Globulin 3.1 gm/dl (2.5-4.0) 10/02/24 16:43 Albumin/Globulin Ratio 1.2 (0.9-2) 10/02/24 16:43 Lipase 18 U/L (11-82) 10/02/24 16:43 Impressions Chest X-Ray 10/02/24 17:04 EXAM: Radiograph of the Chest 1 View INDICATION: Chest pain. TECHNIQUE: Frontal view of the chest. COMPARISON: 02/27/2024 FINDINGS: Limitations: Portions of the right lower lung are obscured by battery pack. Lungs and pleural spaces: Shallow inspiration with minimal basilar vascular crowding. No visible consolidation or pleural effusion. No pneumothorax. Heart: Shape and configuration within normal limits allowing for technique. Mediastinum: Normal contour. Bones/joints: No fracture, erosion or dislocation. Soft tissues: No abnormality noted. No radiopaque foreign body noted. Tubes, lines and devices: No gross change in appearance of electrodes extending into the right neck toward the skull. Distal extent not included. Upper abdomen: No abnormality noted. IMPRESSION: Limited as above. No acute cardiopulmonary disease. ACT 112: Negative or not required by law. Electronically signed by Violeta Sheets 10-02-2024 5:[address] 10/02/24 17:04 EXAM: CT Head Without Intravenous Contrast INDICATION: Seizure. TECHNIQUE: Axial computed tomography images of the head/brain without intravenous contrast. Sagittal and/or coronal reformats are provided. Sagittal and coronal reformatted images were created and reviewed. This CT exam was performed using one or more of the following dose reduction techniques: automated exposure control, adjustment of the mA and/or kV according to patient size, and/or use of iterative reconstruction technique. COMPARISON: 02/27/2024 FINDINGS: Limitations: None. Brain and extra-axial spaces: Stable bilateral basal ganglia electrodes. Allowing for artifact, no change in mild cortical atrophy. No acute infarct. No hemorrhage or extra-axial fluid collection. No hydrocephalus. Bones/joints: No acute changes. Soft tissues: No significant abnormality noted. Vasculature: No acute abnormality noted. Sinuses: No layering fluid in the visualized portions of the paranasal sinuses. Mastoid air cells: No mastoid effusion. Orbits: No significant abnormality noted. IMPRESSION: No acute findings in the head/brain. ACT 112: Negative or not required by law. Electronically signed by Violeta Sheets 10-02-2024 6:44 PM Diagnostic Findings EKG as per my interpretation : Rate 70, NSR, normal axis, multiple artifacts
[2024-10-02] MEDS ORDERED: LORazepam 2 MG/1 ML VIAL IV PRN (20:47)
[2024-10-02] MEDS ORDERED: PROMETHAZINE 6.25 MG/50.25 ML BAG IV PRN (20:48)
[2024-10-02] MEDS ORDERED: ACETAMINOPHEN 325 MG TAB PO PRN (20:48)
[2024-10-02] MEDS: METOPROLOL TARTRATE 1 MG/ML VIAL IV STA (21:22)
[2024-10-02] MEDS: CARBIDOPA/LEVODOPA 50/200MG EXT REL TAB PO SCH (21:37)
[2024-10-02] MEDS: levETIRAcetam 500 MG/5 ML VIAL IV STA (21:37)
[2024-10-02] MEDS: SENNA 8.6 MG TAB PO SCH (23:25)
[2024-10-02] MEDS: LACTATED RINGER'S 1,000 ML IV ONE (23:32)
[2024-10-02 23:52] LABS: Appearance Urine Clear (Clear); Bilirubin Urine Negative (Negative); Blood Urine Negative (Negative); Color Urine Yellow; Glucose Urine UA Negative (Negative); Ketones Urine Trace (Negative); Leukocyte Esterase Urine Negative (Negative); Nitrite Urine Negative (Negative); Protein Urine Negative (Negative); Urobilinogen Urine Negative (Negative); pH Urine 7.5 (4.5-7.5)
[2024-10-03 03:45] LABS: Basophils # (auto) 0.02 K/uL (0.00-0.20); Basophils % (auto) 0.3 %; Eosinophils # (auto) 0.19 K/uL (0.00-0.50); Eosinophils % (auto) 2.9 %; Hemoglobin 11.2 g/dl (12.0-16.0); Immature Granulocytes # (auto) 0.01 K/uL (0.01-0.20); Immature Granulocytes % (auto) 0.2 %; Lymphocytes # (auto) 2.15 K/uL (1.20-3.40); Lymphocytes % (auto) 33.3 %; Mean Corpuscular Hemoglobin 30.6 pg (25.0-34.0); Mean Corpuscular Hgb Conc 32.9 g/dL (32.0-36.0); Mean Corpuscular Volume 92.9 fL (80.0-100.0); Mean Platelet Volume 9.2 fL (9.4-12.4); Monocytes # (auto) 0.46 K/uL (0.11-0.59); Monocytes % (auto) 7.1 %; Neutrophils # (auto) 3.62 K/uL (1.40-6.50); Neutrophils % (auto) 56.2 %; Platelet Count 269 K/uL (130-400); RDW Coefficient of Variation 13.5 % (11.5-14.5); RDW Standard Deviation 46.5 fL (36.4-46.3); Red Blood Count 3.66 M/uL (4.20-5.40); White Blood Count 6.45 K/ul (4.8-10.8)
[2024-10-03 03:51] LABS: BUN Creatinine Ratio 18.5 (10-20); Calcium 7.9 mg/dl (8.6-10.3); Creatinine Clr Calc Pharmacy 115.9 ml/min; Potassium 3.8 mmol/L (3.5-5.1)
[2024-10-03 04:07] LABS: Thyroid Stimulating Hormone 3.215 uIu/ml (0.300-4.500)
[2024-10-03] MEDS: QUEtiapine FUMARATE 25 MG TABLET PO SCH (08:06)
[2024-10-03] MEDS: FLUoxetine HCL 20 MG CAP PO SCH (08:06)
[2024-10-03] MEDS: ASPIRIN 81 MG ECTAB PO SCH (08:07)
[2024-10-03] MEDS: levETIRAcetam 500 MG TAB PO SCH (08:07)
[2024-10-03] MEDS: oxyBUTYnin chloride 5 MG TAB PO SCH (08:07)
[2024-10-03] MEDS: POLYETHYLENE (MIRALAX) 17 GM PACK PO SCH (08:11)
--- NOTE | 2024-10-03 10:54 | Hospitalist Progress Note ---
Date of Service October 03, 2024 Assessment & Plan (1) Breakthrough seizure: Plan: History of seizure disorder and has been on carbamazepine Recently the dose of carbamazepine was decreased due to higher level as an outpatient the dose of carbamazepine was decreased due to higher level as an outpatient Possible seizures as mentioned by the caregiver Seizure precautions Ativan as needed active seizures Carbamazepine level is pending She has been started with Keppra No more seizures noted since admission Awaiting neuro evaluation (2) Acute confusion: Plan: She was brought in with confusion and also possible seizure as per the caregiver Confusion could be secondary to carbamazepine toxicity with recently known high level of carbamazepine as an outpatient Check carbamazepine level, hold carbamazepine until level resulted. Carbamazepine level currently a send out test at [facility]. She seems to be at her baseline this morning No evidence of infection identified (3) Seizure disorder: (4) Cerebral palsy: Plan: Dystonic athetoid cerebral palsy status post DBS on Sinemet (5) Intellectual disability: Plan Other significant medical conditions are as below and stable: Hypertension, initially elevated at the ER Patient not currently on maintenance medications. Melanoma in situ status post surgery Mood disorder, at baseline Intellectual impairment DVT prophylaxis. SCDs Full code Patient caregiver requesting updates providers. Ms. Mandi Conrad, contact #[phone]. 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 Communication is limited due to intellectual impairment Noted to have no more seizures since admission and does not seems to be in any distress Review of Systems Review of Systems: Unobtainable due to cognitive status Physical Exam Physical Exam: Lying in bed without any acute distress Constitutional: well developed, well nourished, + ill appearing and average body habitus Eyes: PERRL, conjunctivae normal, anicteric sclerae ENMT: external ear and nose normal, oropharynx normal Neck: trachea midline, no thyromegaly Respiratory: no respiratory distress Auscultation: + diminished lung sounds (At the dependent part); no crackles Cardiovascular: Rate/Rhythm: regular rate and regular rhythm; not tachycardic Heart Sounds: normal S1 and normal S2; no murmur Extremities: + edema (Trace edema bilaterally) Gastrointestinal (Abdomen): Inspection/Auscultation: normal bowel sounds; abdomen not distended Percussion/Palpation: abdomen soft; abdomen nontender Musculoskeletal: No acute arthritis involving any joint but has flexural deformities Neurologic: Alert and awake. Moving upper extremities with generalized weakness. Intellectual impairment from cerebral palsy Lymphatic: no cervical or axillary lymphadenopathy Results & Data Results & Data Vital Signs (Past 12 Hours) Vital Signs Temp Pulse Pulse Pulse Resp BP Pulse Ox 10/03/24 08:00 36.9 C 69 16 114/74 94 10/03/24 07:11 64 10/03/24 03:59 36.8 C 54 L 18 118/78 97 10/02/24 23:12 84 10/02/24 22:48 35.8 C L 81 16 115/77 94 O2 Del Method 10/03/24 08:00 Room Air 10/03/24 07:11 10/03/24 03:59 Room Air 10/02/24 23:12 10/02/24 22:48 Room Air Laboratory Results Short CBC 10/02/24 10/03/24 Range/Units 16:43 03:01 WBC 6.00 6.45 (4.8-10.8) K/ul Hgb 13.2 11.2 L (12.0-16.0) g/dl Hct 41.4 34.0 L (37.0-47.0) % Plt Count 320 269 (130-400) K/uL BMP 10/02/24 10/03/24 16:43 03:01 Sodium 141 139 Potassium 4.4 3.8 Chloride 105 106 Carbon Dioxide 31 28 BUN 12 10 Creatinine 0.62 0.54 L Glucose 84 91 Calcium 8.5 L 7.9 L Liver Function 10/02/24 Range/Units 16:43 Total Bilirubin 0.2 (0.2-1.0) mg/dl AST 12 L (13-39) U/L ALT 7 (7-52) U/L Alkaline Phosphatase 86 (34-104) U/L Albumin 3.6 (3.4-5.0) gm/dl Urine 10/02/24 Range/Units 23:23 Urine Color Yellow Urine Appearance Clear (Clear) Urine pH 7.5 (4.5-7.5) Ur Specific [place] 1.020 (1.000-1.030) Urine Protein Negative (Negative) Urine Glucose (UA) Negative (Negative) Medications Administered Current Inpatient Medications Acetaminophen (Acetaminophen 325 Mg Tab) 650 mg PO QID PRN PRN Reason: pain/fever Stop: 11/01/24 20:47 Aspirin (Aspirin 81 Mg Ectab) 81 mg PO DAILY [facility] Stop: 11/02/24 08:59 Last Admin: 10/03/24 08:07 Dose: 81 mg Carbidopa/Levodopa (Carbidopa/Levodopa 50/200mg Ext Rel Tab) 1 tab PO 0830,1630,2030 [facility] Stop: 11/01/24 20:59 Last Admin: 10/03/24 08:06 Dose: 1 tab Fluoxetine HCl (Fluoxetine Hcl 20 Mg Cap) 40 mg PO DAILY [facility] Stop: 11/02/24 08:59 Last Admin: 10/03/24 08:06 Dose: 40 mg Promethazine HCl (Phenergan) 6.25 mg in 50.25 mls @ 201 mls/hr IV Q6H PRN PRN Reason: Nausea And Vomiting Stop: 11/01/24 20:47 Lactated Ringer's (Lr) 1,000 mls @ 80 mls/hr IV .[id number] ONE Stop: 10/03/24 11:32 Last Admin: 10/02/24 23:32 Dose: 80 mls/hr Levetiracetam (Levetiracetam 500 Mg Tab) 500 mg PO BID [facility] Stop: 11/02/24 08:59 Last Admin: 10/03/24 08:07 Dose: 500 mg Lorazepam (Lorazepam 2 Mg/1 Ml Vial) 1 mg IV Q10M PRN PRN Reason: seizures Stop: 11/01/24 20:46 Miscellaneous (Oral Contraceptive - Order Awaiting Action) 1 each N/A QS [facility] Stop: 11/02/24 00:00 Last Admin: 10/03/24 07:38 Dose: Not Given Oxybutynin Chloride (Oxybutynin Chloride 5 Mg Tab) 5 mg PO TID [facility] Stop: 11/02/24 08:59 Last Admin: 10/03/24 08:07 Dose: 5 mg Polyethylene Glycol (Polyethylene (Miralax) 17 Gm Pack) 17 gm PO DAILY [facility] Stop: 11/02/24 08:59 Last Admin: 10/03/24 08:11 Dose: 17 gm Quetiapine Fumarate (Quetiapine Fumarate 25 Mg Tablet) 25 mg PO DAILY [facility] Stop: 11/02/24 08:59 Last Admin: 10/03/24 08:06 Dose: 25 mg Sennosides (Senna 8.6 Mg Tab) 8.6 mg PO BID [facility] Stop: 11/01/24 20:59 Last Admin: 10/03/24 08:09 Dose: 8.6 mg (4) Cerebral palsy Cerebral palsy type: unspecified type Qualified Code(s): G80.9 - Cerebral palsy, unspecified
[2024-10-03 19:13] VITALS: RESP 18
--- NOTE | 2024-10-03 19:59 | Neurology Consultation ---
Date of Consultation October 03, 2024 Assessment & Plan (1) Breakthrough seizure: Unsure if it true seizure however rule out underlying infections, rule out underlying metabolic abnormalities, noted hemoglobin A1c is very elevated. Plan Apparently the patient was on Tegretol 200 mg 3 times daily that was decreased to ==>100 mg in the morning 200 mg at 4 PM and 200 mg at 8 PM. Agree and await for Tegretol level. Agree to continue Keppra 500 mg Twice daily if there is no concerns for behavioral issues Further recommendations to follow Telehealth Consultation Telehealth Information Telehealth Information: I performed this visit using a real-time telehealth connection between my location and the patients location ([facility]). After connecting through interactive tele-video, patient was identified by name and date of and/or wristband check.Patient (or authorized healthcare call center representative) was informed that this was a telemedicine visit and it was being conducted confidentially over secure lines. My office door was closed and no one else was present in the room with me.Patient (or authorized healthcare call center representative) provided consent to proceed with the visit, expressed an understanding of privacy and security of the telemedicine visit, and gave permission to have a hospital call center representative in the room in order to assist with the visit and to conduct portions of the visit, as needed. I informed the patient (or authorized healthcare call center representative) that I reviewed their record and presented the opportunity for them to ask any questions regarding the visit today. The patient agreed to participate. History of Present Illness Reason for Consultation: Breakthrough seizure Requesting Physician: Tara Blancas MD Attending Physician: Tara Blancas MD History of Present Illness 49 Y.O female patient with cerebral palsy, intellectual disabilities , seizure disorder s/p DBS recently maintained on Allergies Allergy/AdvReac Type Severity Reaction Status Date / Time adhesive tape Allergy Unknown Verified 10/02/24 19:47 No Known Drug Allergies Allergy Verified 10/02/24 19:47 Home Medications Medication Instructions Recorded Confirmed Type calcium 600 mg (as 1 cap PO BID 12/04/19 10/02/24 History carbonate)-vitamin D3 62.5 mcg (2,500 unit) capsule oxybutynin chloride 5 mg tablet 5 mg PO TID 12/04/19 10/02/24 History quetiapine 25 mg tablet 25 mg PO DAILY 12/04/19 10/02/24 History carbamazepine 100 mg chewable 200 mg PO DIRECTED 12/13/19 10/02/24 History tablet fluoride (sodium) [Denta 5000 Plus] 1 applic dental BID 12/13/19 10/02/24 History norethindrone acetate 1.5 1 tab PO DAILY #84 tabs 12/16/19 10/02/24 Rx mg-ethinyl estradiol 30 mcg tablet aspirin 81 mg tablet 81 mg PO DAILY 10/02/24 10/02/24 History carbidopa ER 50 mg-levodopa 200 mg 1 tab PO TID 10/02/24 10/02/24 History tablet,extended release fluoxetine 40 mg capsule 40 mg PO DAILY 10/02/24 10/02/24 History polyethylene glycol 3350 17 gram 17 g PO DAILY 10/02/24 10/02/24 History oral powder packet sennosides 8.6 mg capsule (senna) 8.6 mg PO BID 10/02/24 10/02/24 History Patient History Medical History Malignant neoplasm of skin Surgical History History of surgery Has a DBS (Deep Brain Stimulator) for 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 H/O oral surgery Family History Mother Breast cancer Denies family history of Ovarian cancer Colorectal cancer Social History Smoking Status: Never smoker Do You Dip or Chew Tobacco: No; Hx Alcohol Use: No Hx Substance Use: No Preferred Language: Cymro Communication Ability: Impaired Coding Spec Required: No Beliefs That Will Affect Care: None Current Living Situation: Other Current Living Situation Comment: Retirement Feels Safe at Home: Yes Assistive Devices: None Review of Systems The patient denies any pain however cannot entirely be sure about her review of systems given her mental disability there is no reported recent illnesses. Physical Exam General Constitutional: With apparent developmental delay Head and face: normocephalic and atraumatic Eyes: no ptosis, no anisocoria, and no dysconjugate gaze Respiratory: normal effort Cardiovascular: regular rhythm and regular rate Abdomen: non distended Skin: no rashes, lesions, or ulcers noted Psychiatric: Abnormal judgement and insight, normal mood, and normal affect NEUROLOGIC EXAMINATION: Mental Status:alert, oriented , place, person, abnormal fund of knowledge and attention span, able to answer simple questions and follow simple commands Cranial Nerves: CN 2 - no visual defect on confrontation and pupils round, equal, reactive to light CN 3, 4, 6 - extra-ocular movements intact and no nystagmus CN 5 - facial sensation intact CN 7 - no facial asymmetry CN 8 - intact hearing CN 9, 10 - palate symmetric, normal gag CN 11 - good shoulder shrug CN 12 - tongue midline MOTOR: Strength was at least antigravity throughout, Pronator drift was absent she has significant ataxia and spasticity SENSATION: intact and symmetric to pinprick, light touch, vibration and joint position GAIT: Deferred COORDINATION: Incoordinated REFLEXES: cannot assess over telemedicine Results & Data Vital Signs (Past 12 Hours) Vital Signs Temp Pulse Pulse Resp BP Pulse Ox O2 Del Method 10/03/24 19:05 36.3 C L 79 18 125/82 96 Room Air 10/03/24 16:54 36.7 C 81 12 124/80 96 Room Air 10/03/24 15:09 75 10/03/24 11:51 36.8 C 79 16 110/65 93 Room Air 10/03/24 08:00 36.9 C 69 16 114/74 94 Room Air Laboratory Results Laboratory Results - last 24 hr 10/02/24 10/02/24 10/02/24 16:43 21:00 21:18 WBC RBC Hgb Hct MCV MCH MCHC RDW Std Deviation RDW Coeff of Maricruz Plt Count MPV Immature Gran % (Auto) Neut % (Auto) Lymph % (Auto) Stafford % (Auto) Eos % (Auto) Baso % (Auto) Neut # (Auto) Lymph # (Auto) Stafford # (Auto) Eos # (Auto) Baso # (Auto) Immature Gran # (Auto) Sodium Potassium Chloride Carbon Dioxide Anion Gap BUN Creatinine Est Cr Clr Drug Dosing eGFR BUN/Creatinine Ratio Glucose Calcium Magnesium 2.2 Ammonia 19.0 TSH Urine Color Urine Appearance Urine pH Ur Specific [place] Urine Protein Urine Glucose (UA) Urine Ketones Urine Blood Urine Nitrite Urine Bilirubin Urine Urobilinogen Ur Leukocyte Esterase Nasal Screen MRSA (PCR) Negative Carbamazepine Pending 10/02/24 10/03/24 23:23 03:01 WBC 6.45 RBC 3.66 L Hgb 11.2 L Hct 34.0 L MCV 92.9 MCH 30.6 MCHC 32.9 RDW Std Deviation 46.5 H RDW Coeff of Maricruz 13.5 Plt Count 269 MPV 9.2 L Immature Gran % (Auto) 0.2 Neut % (Auto) 56.2 Lymph % (Auto) 33.3 Stafford % (Auto) 7.1 Eos % (Auto) 2.9 Baso % (Auto) 0.3 Neut # (Auto) 3.62 Lymph # (Auto) 2.15 Stafford # (Auto) 0.46 Eos # (Auto) 0.19 Baso # (Auto) 0.02 Immature Gran # (Auto) 0.01 Sodium 139 Potassium 3.8 Chloride 106 Carbon Dioxide 28 Anion Gap 5 BUN 10 Creatinine 0.54 L Est Cr Clr Drug Dosing 115.9 eGFR 114.20 BUN/Creatinine Ratio 18.5 Glucose 91 Calcium 7.9 L Magnesium Ammonia TSH 3.215 Urine Color Yellow Urine Appearance Clear Urine pH 7.5 Ur Specific [place] 1.020 Urine Protein Negative Urine Glucose (UA) Negative Urine Ketones Trace H Urine Blood Negative Urine Nitrite Negative Urine Bilirubin Negative Urine Urobilinogen Negative Ur Leukocyte Esterase Negative Nasal Screen MRSA (PCR) Carbamazepine Diagnostic Findings [place], [place] [phone] CT Scan Report Patient: DAYTON FELIPE Admit Date: 10/02/24 MR#: [id number] Address1: [address] [place] [address] Acct ID:[id number] Address2: Date: 1975 [facility] Zip: [place] [address] Age: 49 Location: ED Sex: F Room/Bed: Att Phy: Diagnosis: POSSIBLE SEIZURE Omaira Phy: Sharmin Mlies MD Service Date: 10/02/24 [facility] Phy: Interpreting Phy: Violeta San Phy: Ordering Phy: Johan Arroyo DO cc: ~ EXAM: CT Head Without Intravenous Contrast INDICATION: Seizure. TECHNIQUE: Axial computed tomography images of the head/brain without intravenous contrast. Sagittal and/or coronal reformats are provided. Sagittal and coronal reformatted images were created and reviewed. This CT exam was performed using one or more of the following dose reduction techniques: automated exposure control, adjustment of the mA and/or kV according to patient size, and/or use of iterative reconstruction technique. COMPARISON: 02/27/2024 FINDINGS: Limitations: None. Brain and extra-axial spaces: Stable bilateral basal ganglia electrodes. Allowing for artifact, no change in mild cortical atrophy. No acute infarct. No hemorrhage or extra-axial fluid collection. No hydrocephalus. Bones/joints: No acute changes. Soft tissues: No significant abnormality noted. Vasculature: No acute abnormality noted. Sinuses: No layering fluid in the visualized portions of the paranasal sinuses. Mastoid air cells: No mastoid effusion. Orbits: No significant abnormality noted. IMPRESSION: No acute findings in the head/brain. Medications Administered Home Medications Medication Instructions Recorded Confirmed Last Taken calcium 600 mg (as 1 cap PO BID 12/04/19 10/02/24 10/02/24 08:00 carbonate)-vitamin D3 62.5 mcg (2,500 unit) capsule oxybutynin chloride 5 mg tablet 5 mg PO TID 12/04/19 10/02/24 10/02/24 08:00 quetiapine 25 mg tablet 25 mg PO DAILY 12/04/19 10/02/24 10/01/24 20:00 carbamazepine 100 mg chewable 200 mg PO DIRECTED 12/13/19 10/02/24 10/02/24 08:00 tablet fluoride (sodium) [Denta 5000 Plus] 1 applic dental BID 12/13/19 10/02/24 09/25/24 08:00 norethindrone acetate 1.5 1 tab PO DAILY #84 tabs 12/16/19 10/02/24 10/01/24 20:00 mg-ethinyl estradiol 30 mcg tablet aspirin 81 mg tablet 81 mg PO DAILY 10/02/24 10/02/24 10/02/24 08:00 carbidopa ER 50 mg-levodopa 200 mg 1 tab PO TID 10/02/24 10/02/24 10/02/24 08:00 tablet,extended release fluoxetine 40 mg capsule 40 mg PO DAILY 10/02/24 10/02/24 10/02/24 08:00 polyethylene glycol 3350 17 gram 17 g PO DAILY 10/02/24 10/02/24 10/01/24 08:00 oral powder packet sennosides 8.6 mg capsule (senna) 8.6 mg PO BID 10/02/24 10/02/24 10/02/24 08:00 Active Medications Generic Name Dose Route Start Last Admin Trade Name David CLEMENT Reason Stop Dose Admin Aspirin 81 mg 10/03/24 09:00 10/03/24 08:07 Aspirin 81 Mg Ectab PO 11/02/24 08:59 81 mg DAILY AXNDER Administration Carbidopa/Levodopa 1 tab 10/02/24 21:00 10/03/24 15:35 Carbidopa/Levodopa 50/200mg Ext Rel Tab PO 11/01/24 20:59 1 tab 0830,1630,2030 XANDER Administration Fluoxetine HCl 40 mg 10/03/24 09:00 10/03/24 08:06 Fluoxetine Hcl 20 Mg Cap PO 11/02/24 08:59 40 mg DAILY XANDER Administration Levetiracetam 500 mg 10/03/24 09:00 10/03/24 08:07 Levetiracetam 500 Mg Tab PO 11/02/24 08:59 500 mg BID XANDER Administration Miscellaneous 1 each 10/03/24 00:00 10/03/24 15:20 Oral Contraceptive - Order Awaiting Action N/A 11/02/24 00:00 Not Given QS XANDER Oxybutynin Chloride 5 mg 10/03/24 09:00 10/03/24 14:10 Oxybutynin Chloride 5 Mg Tab PO 11/02/24 08:59 5 mg TID XANDER Administration Polyethylene Glycol 17 gm 10/03/24 09:00 10/03/24 08:11 Polyethylene (Miralax) 17 Gm Pack PO 11/02/24 08:59 17 gm DAILY XANDER Administration Quetiapine Fumarate 25 mg 10/03/24 09:00 10/03/24 08:06 Quetiapine Fumarate 25 Mg Tablet PO 11/02/24 08:59 25 mg DAILY XANDER Administration Sennosides 8.6 mg 10/02/24 21:00 10/03/24 08:09 Senna 8.6 Mg Tab PO 11/01/24 20:59 8.6 mg BID XANDER Administration
--- NOTE | 2024-10-04 11:00 | Hospitalist Progress Note ---
Date of Service October 04, 2024 Assessment & Plan (1) Breakthrough seizure: Plan: History of seizure disorder and has been on carbamazepine Recently the dose of carbamazepine was decreased due to higher level as an outpatient the dose of carbamazepine was decreased due to higher level as an outpatient Possible seizures as mentioned by the caregiver Seizure precautions Ativan as needed active seizures Carbamazepine level is pending She has been started with Keppra No more seizures noted since admission Awaiting neuro evaluation-appreciate input and recommendation Will continue current dose of carbamazepine at 100 mg in the morning, 200 at noon and 200 mg in the evening and await carbamazepine level Continue Keppra at the current dose remains medically stable without any more Seizures since admission We will get PT and OT evaluation prior to discharge (2) Acute confusion: Plan: She was brought in with confusion and also possible seizure as per the caregiver Confusion could be secondary to carbamazepine toxicity with recently known high level of carbamazepine as an outpatient Check carbamazepine level, hold carbamazepine until level resulted. Carbamazepine level currently a send out test at [facility]. 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 Melanoma in situ status post surgery Mood disorder, at baseline Intellectual impairment DVT prophylaxis. SCDs Full code Patient caregiver requesting updates providers. Ms. Mandi Conrad, contact #[phone]. 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 Communication is limited due to intellectual impairment Noted to have no more seizures since admission and does not seems to be in any distress 10/04/2024 Patient was seen and examined medical telemetry unit She has been stable and denies any significant symptoms Has been tolerating usual diet Treatment awaiting more episodes of seizures since admission Review of Systems Review of Systems: Could not be reliably obtained secondary to intellectual impairment Physical Exam Physical Exam: Lying in bed without any acute distress Constitutional: well developed, well nourished, + ill appearing and average body habitus Eyes: PERRL, conjunctivae normal, anicteric sclerae ENMT: external ear and nose normal, oropharynx normal Neck: trachea midline, no thyromegaly Respiratory: no respiratory distress Auscultation: + diminished lung sounds (At the dependent part); no crackles Cardiovascular: Rate/Rhythm: regular rate and regular rhythm; not tachycardic Heart Sounds: normal S1 and normal S2; no murmur Extremities: + edema (Trace edema bilaterally) Gastrointestinal (Abdomen): Inspection/Auscultation: normal bowel sounds; abdomen not distended Percussion/Palpation: abdomen soft; abdomen nontender Musculoskeletal: No acute arthritis involving any of the joint Neurologic: Alert and awake. Significant intellectual impairment. Minimal flexural deformities involving the extremities. Moves all extremities Lymphatic: no cervical or axillary lymphadenopathy Results & Data Results & Data Vital Signs (Past 12 Hours) Vital Signs Temp Pulse Pulse Resp BP Pulse Ox O2 Del Method 10/04/24 07:43 74 18 171/80 H 94 Room Air 10/04/24 07:15 67 10/04/24 02:27 36.7 C 68 18 116/60 95 Room Air 10/04/24 00:07 70 Medications Administered Current Inpatient Medications Acetaminophen (Acetaminophen 325 Mg Tab) 650 mg PO QID PRN PRN Reason: pain/fever Stop: 11/01/24 20:47 Aspirin (Aspirin 81 Mg Ectab) 81 mg PO DAILY [facility] Stop: 11/02/24 08:59 Last Admin: 10/04/24 08:33 Dose: 81 mg Carbidopa/Levodopa (Carbidopa/Levodopa 50/200mg Ext Rel Tab) 1 tab PO 0830,1630,2030 X[facility]ER Stop: 11/01/24 20:59 Last Admin: 10/04/24 08:33 Dose: 1 tab Fluoxetine HCl (Fluoxetine Hcl 20 Mg Cap) 40 mg PO DAILY [facility] Stop: 11/02/24 08:59 Last Admin: 10/04/24 08:32 Dose: 40 mg Promethazine HCl (Phenergan) 6.25 mg in 50.25 mls @ 201 mls/hr IV Q6H PRN PRN Reason: Nausea And Vomiting Stop: 11/01/24 20:47 Levetiracetam (Levetiracetam 500 Mg Tab) 500 mg PO BID [facility] Stop: 11/02/24 08:59 Last Admin: 10/04/24 08:32 Dose: 500 mg Lorazepam (Lorazepam 2 Mg/1 Ml Vial) 1 mg IV Q10M PRN PRN Reason: seizures Stop: 11/01/24 20:46 Miscellaneous (Oral Contraceptive - Order Awaiting Action) 1 each N/A QS [facility] Stop: 11/02/24 00:00 Last Admin: 10/04/24 08:30 Dose: Not Given Oxybutynin Chloride (Oxybutynin Chloride 5 Mg Tab) 5 mg PO TID [facility] Stop: 11/02/24 08:59 Last Admin: 10/04/24 08:32 Dose: 5 mg Polyethylene Glycol (Polyethylene (Miralax) 17 Gm Pack) 17 gm PO DAILY [facility] Stop: 11/02/24 08:59 Last Admin: 10/04/24 08:37 Dose: Not Given Quetiapine Fumarate (Quetiapine Fumarate 25 Mg Tablet) 25 mg PO DAILY [facility] Stop: 11/02/24 08:59 Last Admin: 10/04/24 08:32 Dose: 25 mg Sennosides (Senna 8.6 Mg Tab) 8.6 mg PO BID [facility] Stop: 11/01/24 20:59 Last Admin: 10/04/24 08:33 Dose: Not Given (4) Cerebral palsy Cerebral palsy type: unspecified type Qualified Code(s): G80.9 - Cerebral palsy, unspecified
[2024-10-05 11:05] VITALS: BP 134/84; PULSE 99; TEMP 97.5; O2SAT 94
--- NOTE | 2024-10-05 11:54 | Electrocardiogram Report ---
Test Reason : Blood Pressure : */* mmHG Vent. Rate : 73 BPM Atrial Rate : 73 BPM P-R Int : 92 ms QRS Dur : 42 ms QT Int : 414 ms P-R-T Axes : 84 42 64 degrees QTcB Int : 456 ms Poor data quality, interpretation may be adversely affected Suspect Atrial-paced rhythm Abnormal ECG When compared with ECG of 27-Feb-2024 22:28, No significant change Confirmed by Kamran Cortes ([id number]) on 10/05/2024 11:54:09 AM Referred By: REFERRED SELF Confirmed By: Kamran Cortes
--- NOTE | 2024-10-05 11:57 | Hospitalist Progress Note ---
Date of Service October 05, 2024 Assessment & Plan (1) Breakthrough seizure: Plan: History of seizure disorder and has been on carbamazepine Recently the dose of carbamazepine was decreased due to higher level as an outpatient the dose of carbamazepine was decreased due to higher level as an outpatient Possible seizures as mentioned by the caregiver Seizure precautions Ativan as needed active seizures Carbamazepine level is pending She has been started with Keppra No more seizures noted since admission Awaiting neuro evaluation-appreciate input and recommendation Will continue current dose of carbamazepine at 100 mg in the morning, 200 at noon and 200 mg in the evening and await carbamazepine level Continue Keppra at the current dose remains medically stable without any more Seizures since admission We will get PT and OT evaluation prior to discharge Remains medically stable and no more evidence of seizure activity Discussed with the caregiver on 10/04/2024 and the patient remained stable this morning and will be discharged to the facility that she can follow-up (2) Acute confusion: Plan: She was brought in with confusion and also possible seizure as per the caregiver Confusion could be secondary to carbamazepine toxicity with recently known high level of carbamazepine as an outpatient Check carbamazepine level, hold carbamazepine until level resulted. Carbamazepine level currently a send out test at [facility]. 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 Melanoma in situ status post surgery Mood disorder, at baseline Intellectual impairment DVT prophylaxis. SCDs Full code Patient caregiver requesting updates providers. Ms. Mandi Conrad, contact #[phone]. Will be discharged this afternoon 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 Communication is limited due to intellectual impairment Noted to have no more seizures since admission and does not seems to be in any distress 10/04/2024 Patient was seen and examined medical telemetry unit She has been stable and denies any significant symptoms Has been tolerating usual diet Treatment awaiting more episodes of seizures since admission 10/05/2024 The patient was seen and examined in the telemetry unit She has been stable and seems to back to her baseline She did not have any more seizures and has been tolerating her diet She has had occupational therapy review She will be discharged to the facility she came from this afternoon Review of Systems Review of Systems: Could not be reliably obtained secondary to intellectual impairment Physical Exam Physical Exam: Lying in bed without any acute distress Constitutional: well developed, well nourished, + ill appearing and average body habitus Eyes: PERRL, conjunctivae normal, anicteric sclerae ENMT: external ear and nose normal, oropharynx normal Neck: trachea midline, no thyromegaly Respiratory: no respiratory distress Auscultation: + diminished lung sounds (At the dependent part); no crackles Cardiovascular: Rate/Rhythm: regular rate and regular rhythm; not tachycardic Heart Sounds: normal S1 and normal S2; no murmur Extremities: + edema (Trace edema bilaterally) Gastrointestinal (Abdomen): Inspection/Auscultation: normal bowel sounds; abdomen not distended Percussion/Palpation: abdomen soft; abdomen nontender Musculoskeletal: No acute arthritis involving any of the joint Neurologic: Alert and awake. Intellectual impairment. No apparent distress or any focal neurologic weakness Lymphatic: no cervical or axillary lymphadenopathy Results & Data Results & Data Vital Signs (Past 12 Hours) Vital Signs Temp Pulse Pulse Resp BP Pulse Ox O2 Del Method 10/05/24 11:00 36.4 C L 99 H 18 134/84 94 Room Air 10/05/24 07:41 36.6 C 63 18 120/79 97 Room Air 10/05/24 07:35 Room Air 10/05/24 05:40 75 10/05/24 03:42 36.5 C 77 18 116/80 94 Room Air Medications Administered Current Inpatient Medications Acetaminophen (Acetaminophen 325 Mg Tab) 650 mg PO QID PRN PRN Reason: pain/fever Stop: 11/01/24 20:47 Aspirin (Aspirin 81 Mg Ectab) 81 mg PO DAILY [facility] Stop: 11/02/24 08:59 Last Admin: 10/05/24 09:00 Dose: 81 mg Carbidopa/Levodopa (Carbidopa/Levodopa 50/200mg Ext Rel Tab) 1 tab PO 0830,1630,2030 [facility] Stop: 11/01/24 20:59 Last Admin: 10/05/24 09:01 Dose: 1 tab Fluoxetine HCl (Fluoxetine Hcl 20 Mg Cap) 40 mg PO DAILY [facility] Stop: 11/02/24 08:59 Last Admin: 10/05/24 09:00 Dose: 40 mg Promethazine HCl (Phenergan) 6.25 mg in 50.25 mls @ 201 mls/hr IV Q6H PRN PRN Reason: Nausea And Vomiting Stop: 11/01/24 20:47 Levetiracetam (Levetiracetam 500 Mg Tab) 500 mg PO BID [facility] Stop: 11/02/24 08:59 Last Admin: 10/05/24 09:01 Dose: 500 mg Lorazepam (Lorazepam 2 Mg/1 Ml Vial) 1 mg IV Q10M PRN PRN Reason: seizures Stop: 11/01/24 20:46 Miscellaneous (Oral Contraceptive - Order Awaiting Action) 1 each N/A QS [facility] Stop: 11/02/24 00:00 Last Admin: 10/05/24 09:01 Dose: Not Given Oxybutynin Chloride (Oxybutynin Chloride 5 Mg Tab) 5 mg PO TID [facility] Stop: 11/02/24 08:59 Last Admin: 10/05/24 09:01 Dose: 5 mg Polyethylene Glycol (Polyethylene (Miralax) 17 Gm Pack) 17 gm PO DAILY [facility] Stop: 11/02/24 08:59 Last Admin: 10/05/24 09:04 Dose: 17 gm Quetiapine Fumarate (Quetiapine Fumarate 25 Mg Tablet) 25 mg PO DAILY [facility] Stop: 11/02/24 08:59 Last Admin: 10/05/24 09:01 Dose: 25 mg Sennosides (Senna 8.6 Mg Tab) 8.6 mg PO BID [facility] Stop: 11/01/24 20:59 Last Admin: 10/05/24 09:04 Dose: 8.6 mg (4) Cerebral palsy Cerebral palsy type: unspecified type Qualified Code(s): G80.9 - Cerebral palsy, unspecified
--- NOTE | 2024-10-05 12:00 | Electrocardiogram Report ---
Test Reason : Blood Pressure : */* mmHG Vent. Rate : 68 BPM Atrial Rate : 0 BPM P-R Int : * ms QRS Dur : 38 ms QT Int : 394 ms P-R-T Axes : * 90 90 degrees QTcB Int : 418 ms Poor data quality, interpretation may be adversely affected Suspect atrial paced rhythm Abnormal ECG When compared with ECG of 02-Oct-2024 17:39, (unconfirmed) Too limited to compare Confirmed by Kamran Cortes ([id number]) on 10/05/2024 11:59:49 AM Referred By: REFERRED SELF Confirmed By: Kamran Cortes
--- NOTE | 2024-10-06 10:25 | Discharge Summary ---
Date of Service October 06, 2024 Admission HPI Per Admitting Provider History obtained from patient, caregiver, and records. Limited history from patient secondary to intellectual impairment. 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 Patient noted to have decreased responsiveness at [facility] today by caregiver. Transient twitching of the mouth, possible seizures as per caregiver. No witnessed incontinence or tongue biting episodes or arm shaking. Usual seizure described as transient unresponsiveness/blank stares as per urgent care account. Compliant with home medications. Patient denies headache, chest pain, SOB, abdominal pain. Last seizure possibly 3 months ago. Outpatient Tegretol levels noted to be high at that time. Outpatient EEG showed parasagittal triphasic waves at some left hemispheric slowing. Tegretol dose reduced by specialist following outpatient General Neurology visit last month. Consider ambulatory EEG or add another agent such as Lamictal or Keppra if with recurrent spells as per note. Patient also seen on follow-up visit by [facility] movement disorder neurologist 3 weeks ago for tremors. Tremors not as prominent with higher dose of Sinemet as per note. Submitted dose frequency increased from twice daily to 3 times daily dosing. New settings placed on DBS. Patient brought to ER for evaluation. Patient currently more responsive but still slow as per caregiver. Medical History as above Surgical History : DBS placement/craniectomy, upper arm melanoma surgery, dental surgery Family History : Alcoholism, breast cancer, heart disease, asthma Personal/Social history : Non-smoker, no EtOH intake, disabled Admission Exam Per Admitting Provider Physical Exam: GENERAL: Oriented to place, slightly hard of hearing, no respiratory distress SKIN: Normal color, warm HEENT: [place] palpebral conjunctivae, no ptosis, dry buccal mucosa NECK : Supple, no tenderness CHEST : CTA, no tenderness HEART : RRR, no obvious murmurs ABDOMEN: Some distention, nontender EXTREMITIES : No LE swelling/tenderness, no other conspicuous deformities noted NEUROLOGIC : Oriented to place, no facial asymmetry, no other gross focality Principal Diagnosis Breakthrough seizures, cerebral palsy Discharge Exam Lying in bed without any acute distress Constitutional well developed, well nourished, + ill appearing and average body habitus Eyes PERRL, conjunctivae normal, anicteric sclerae ENMT external ear and nose normal, oropharynx normal Neck trachea midline, no thyromegaly Respiratory no respiratory distress Auscultation: + diminished lung sounds (At the dependent part); no crackles Cardiovascular Rate/Rhythm: regular rate and regular rhythm; not tachycardic Heart Sounds: normal S1 and normal S2; no murmur Extremities: + edema (Trace edema bilaterally) Gastrointestinal (Abdomen) Inspection/Auscultation: normal bowel sounds; abdomen not distended Percussion/Palpation: abdomen soft; abdomen nontender Lymphatic no cervical or axillary lymphadenopathy Discharge Data Allergies Allergy/AdvReac Type Severity Reaction Status Date / Time adhesive tape Allergy Unknown Verified 10/02/24 19:47 No Known Drug Allergies Allergy Verified 10/02/24 19:47 Consultations 10/02/24 19:22 ED Decision to Admit Stat 10/02/24 22:48 Consult Neurology Routine Ordered Studies 10/02/24 17:04 CT head/brain wo con Stat Hospital Course (1) Breakthrough seizure: History of seizure disorder and has been on carbamazepine Recently the dose of carbamazepine was decreased due to higher level as an outpatient the dose of carbamazepine was decreased due to higher level as an outpatient Possible seizures as mentioned by the caregiver Seizure precautions Ativan as needed active seizures Carbamazepine level is pending She has been started with Keppra No more seizures noted since admission Awaiting neuro evaluation-appreciate input and recommendation Will continue current dose of carbamazepine at 100 mg in the morning, 200 at noon and 200 mg in the evening and await carbamazepine level Continue Keppra at the current dose remains medically stable without any more Seizures since admission We will get PT and OT evaluation prior to discharge Remains medically stable and no more evidence of seizure activity Discussed with the caregiver on 10/04/2024 and the patient remained stable this morning and will be discharged to the facility that she can follow-up (2) Acute confusion: She was brought in with confusion and also possible seizure as per the caregiver Confusion could be secondary to carbamazepine toxicity with recently known high level of carbamazepine as an outpatient Check carbamazepine level, hold carbamazepine until level resulted. Carbamazepine level currently a send out test at [facility]. She seems to be at her baseline this morning No evidence of infection identified No more confusion and seems to be at her baseline Communicating reasonably and no more confusion (3) Seizure disorder: (4) Cerebral palsy: Dystonic athetoid cerebral palsy status post DBS on Sinemet (5) Intellectual disability: Plan Other significant medical conditions are as below and stable: Hypertension, initially elevated at the ER Patient not currently on maintenance medications. Melanoma in situ status post surgery Mood disorder, at baseline Intellectual impairment DVT prophylaxis. SCDs Full code Patient caregiver requesting updates providers. Ms. Madni Conrad, contact #[phone]. Will be discharged this afternoon Total Time Total Time Spent Total Time Spent (In Minutes): 35 minutes Discharge Plan Discharge Items Patient Disposition: Personal Fpc Reason For Visit: SZ Discharge Diagnosis: Breakthrough seizures, cerebral palsy Condition on Discharge: Fair Activity: Resume your previous activity Activity Comment: Needs nursing home assistant administrator with ADL S Non-emergency contact: Primary Care Provider Call non-emergency contact if: you have any medication questions and your symptoms worsen Follow-up/Referrals: Sharmin Miles MD [Primary Care Provider] - (Date & Time 10/11/2024 11:00 AM Provider Sharmin Miles MD Department General Internal Medicine [facility] ) Earnest Shukla MD [Physician] - (Date & Time 11/15/2024 1:40 PM Provider Earnest Shukla MD Department Neurology [facility] ) Diet: Regular Addtl Attending Provider Instructions: Please take precaution to avoid falls Take your medications as advised Continue cardiology pain at the current dose of 100 mg in the morning, 200 at noon and 200 mg in the evening Keppra 500 mg twice daily has been added Carbamazepine level has not come back yet. It will be sent to your primary care physician when he received Please keep appointments with your healthcare provider Pending Studies at Discharge: Yes Studies:: Carbamazepine level Stand-Alone Forms: My Care at Hand, Smoking Cessation Skilled Items Patient informed of condition?: Yes DNR: No Discharge Level of Care: Other Communicable Disease: No Discharge Prognosis: Stable Lines: None Urinary Catheter: No Medications and DC Order Prescriptions: New levetiracetam [Keppra] 500 mg Tablet 500 mg PO BID Qty: 60 0RF Continued oxybutynin chloride 5 mg tablet 5 mg PO TID quetiapine 25 mg tablet 25 mg PO DAILY calcium carbonate-vitamin D3 600 mg (1,500 mg)-2,500 unit capsule 1 cap PO BID carbamazepine 100 mg tablet,chewable 200 mg PO DIRECTED Patient Comments: TAKE 100mg in the morning, 200 mg at 4pm and 200 mg at 8 pm fluoride (sodium) 1 applic DT BID norethindrone ac-eth estradiol 1.5-30 mg-mcg tablet 1 tab PO DAILY Qty: 84 3RF Rx Instructions: Take 1 hormone containing tablet by mouth daily for 84 days, then 7 days off. Repeat. fluoxetine 40 mg Capsule 40 mg PO DAILY polyethylene glycol 3350 17 gram Powder In Packet 17 g PO DAILY carbidopa-levodopa 50-200 mg Tablet Extended Release 1 tab PO TID Rx Instructions: take at 8:30 am, 4:30pm, 8:30pm aspirin 81 mg Tablet 81 mg PO DAILY senna 8.6 mg Capsule 8.6 mg PO BID Discharge Orders: Discharge Order (Routine); Ordered 10/05/24 Ordered By: Tara Centeno/Other Patient Handouts: Tegretol (Blood), Levetiracetam Oral Tablet Admission Data Admit Date/Time: 10/02/24 20:46 Attending Provider: Tara Blancas Admit Provider: Preston Mir Primary Care Provider: Sharmin Miles Other Providers: Preston Mir; Elvira Calhoun; Earnest Shukla; Elvira Ellison; Remberto Cunningham; Mark Badillo; Bossman Dunham; Marco A Fraser; Migdalia Diego; Alverto Webb; Bigg Stewart; Velasquez Beckett; Hemal Hess; Aster Han; Maci Colmenares; Marco A Amanda; Mary Locke Other Interventions: Discharge Summary Assessment (RN) Last Done: 10/05/24 13:48
== END 2024-10-05 13:59 | disposition home or self-care (01) | DRG 101 ==
LOC: ED 16:33 → INTOOBSV 20:46 → 2N 20:46

== ENCOUNTER 2024-10-23 13:55 | Inpatient (IN) ==
--- OUTSIDE RECORDS SUMMARY | 2024-10-23 14:06 | External Medical Summary | Summary of Care ---
Author Name Unknown Organization [facility] Address [address] [place] [address] Phone [phone] Care Team Providers Care Parquetry Layer Name Role Phone Sharmin Miles MD Primary Care Provider Reason for Visit * Reason Onset Date Comments Advice 10/22/2024 TRIAGE 10/22/2024 Possible reactio n to medication Encounter Details Date Type Department Care Team (Late st Contact Info) Description 10/22/2024 Telephone General Internal Medicine [facility] [address] [facility] [place] [id number] Sharmin Miles MD [address] [facility] [address] Advice; TRIAGE (Possible reaction to medic... Allergies Active Allergy Reactions Criticality Noted Date Comments Adhesive Tape 10/27/2014 Levetiracetam Neuro complications (Please comment) 10/11/2024 Agitation, could not sleep; could not open eyes documented as of this encounter (statuses as of 10/22/2024) Medications Calcium 600+D Plus Minerals 600-400 MG-UNIT Oral Tablet Take 1 Tablet by mouth in the morning and 1 Tablet in the evening. 180 Tablet 3 11/01/20 22 Active Norethin Blayne-Eth Estrad-FE 1.5-30 MG-MCG Oral Tablet (Microgestin FE )Indication s:Encounter for surveillance of contraceptive pills,PMS (premenstrual syndrome) TAKE ONE TABLET BY MOUTH ONCE DAILY FOR 84 DAYS, THEN TAKE 7 DAYS OFF AND REPEAT ( CONTROL) 28 Tablet 12 02/13/20 24 Active Aspirin 81 MG Oral Tablet ChewableIndicatio ns:Transient alteration of awareness Take 1 Tablet by mouth in the morning. with food.. 100 Tablet 5 03/08/20 24 Active FLUoxetine HCl 40 MG Oral Capsule (PROzac)Indicatio ns:Moderate episode of recurrent major depressive disorder (HCC) TAKE ONE CAPSULE BY MOUTH DAILY (DEPRESSION) 28 Capsule 05/28/20 24 Active Sennosides 8.6 MG Oral Tablet (QC Vegetable Laxative)Indicati ons:Constipation, unspecified constipation type TAKE 1 TABLET BY MOUTH TWICE DAILY (CONSTIPATION) 56 Tablet 5 05/28/20 24 Active QUEtiapine Fumarate 25 MG Oral Tablet (SEROquel) TAKE 1 TABLET BY MOUTH AT BEDTIME (DEPRESSION) 28 Tablet 4 06/23/20 24 Active oxyBUTYnin Chloride 5 MG Oral Tablet (Ditropan) TAKE ONE TABLET BY MOUTH THREE TIMES DAILY (OVER ACTIVE BLADDER) 84 Tablet 4 06/23/20 24 Active GoodSense ClearLax 17 GM/SCOOP Oral Powder (Polyethylene Glycol 3350)Indications: Slow transit constipation MIX 17GMS IN 8OZ OF FLUID AND DRINK TWICE DAILY CONSTIPATION 510 g 08/02/20 24 Active carBAMazepine 200 MG Oral Tablet (TEGretol) One half tablet in the morning, one in the afternoon and one at bedtime 75 Tablet 11 09/06/20 24 Active Carbidopa-Levodop a ER 50-200 MG Oral Tablet Extended Release (Sinemet CR)Indications:Dy stonia TAKE 1 TABLET BY MOUTH THREE TIMES A DAILY AT 8:30AM, 4PM AND 8:30PM FOR DYSTONIA. 90 Tablet 5 09/14/20 24 Active COVID-19 mRNA Vac-Erik(Keko) 30 MCG/0.3ML Intramuscular Suspension Prefilled Syringe (TwentyPeople) Inject into a large muscle. 0.3 mL 09/22/20 24 Active Additional Information Patient not taking.Reported on 10/11/2024 lamoTRIgine 25 MG Oral Tablet (LaMICtal) 1 tab at bedtime x 5 days then 1 tab twice daily x 5 days, then 2 tab am x 5 days then 2 tab twice daily 90 Tablet 2 10/11/20 Active PreviDent 5000 Plus 1.1 % Dental Cream (Sodium Fluoride) BRUSH ONTO TEETH TWICE DAILY *DO NOT EAT OR DRINK FOR 30 MIN* 51 g 4 10/11/20 24 Active documented as of this encounter (statuses as of 10/22/2024) Active Problems Problem Noted Date Diagnosed Date Mild episode of recurrent major depressive disor francisco 10/12/2024 HTN, goal below 140/90 04/25/2022 Cerebral palsy 06/20/2015 Generalized idiopathic epile psy, not intractable, without status epilepticus 06/20/2015 Moderate intellectual disabi lity with intelligence quotient 35 to 49 03/03/2014 Overview (02/24/2019): ICD-10 update of inactive term Female stress [...] 06/25 2 BENIGN NEOPLASM SKIN NOS 05/31/2002 Overview (03/15/2004): Melanoma in situ R arm dysplastic nevus 02/25 Encounter for long-term (current) use of medicat ions 06/01/2001 Overview (09/16/2017): ICD-10 update of inactive term Chronic sinusitis documented as of this encounter (statuses as of 10/22/2024) Resolved Problems Problem Noted Date Diagnosed Date Resolved Date Depression 03/03/2014 09/22/2019 ADVANCE DIRECTIVE INFORMATION 02/13/2006 06/17/2017 Overview (02/13/2006): Patient mentally handicapped EPILEPSY,UNSPEC;W/O INTRACTABLE 02/27/2004 06/20/2015 CEREBRAL PALSY NEC 5 Torticollis 11/30/2020 Nocturnal enuresis 8 documented as of this encounter (statuses as of 10/22/2024) Immunizations Name Administration Dates Next Due COVID-19 mRNA, LNP-s, No Pre serve, 2-Dose Series (Moderna) 02/04/2021,01/07/2021 COVID-19, MRNA-LNP, PF, 30 M CG/0.3 mL, 12 YRS AND ABOVE, IM (Seldom Seen Adventures-[email or web address]) 09/22/2024,01/07/2024 Covid-19, Mrna, Lnp-s, Pf, Bivalent, 30 Mcg, IM, 12 yrs and above (Keko) 02/19/2023 Hepatitis B, 20+ yrs 02/23/2002,07/16/2001,06/18 PPD 07/23/2023,,03/29/2019,2017,03/11/2017,03/06/2015,09/09/2013,1 ,03/03/2013,08/27/2011, 009,10/30/2005,10/11/2003 10/30/2007 Seasonal Influenza Vac., MDV , IM, 0.5 mL (Fluzone) 08/30/2014,09/08/2013,09/01/2012,2010,08/31/2010,10/18/2008,10/06/2007,1 12/06/2005,10/01/2005 Seasonal Influenza, PF, 6 M & above, IM , (FluLaval or Fluzone) 09/01/2023,10/03/2022,10/25/2021,2019,09/22/2019,10/07/2018,09/10/2017 Seasonal Influenza, Quadriva lent, No Preserve, IM 08/28/2016,09/04/2015 Seasonal Influenza, Trivalen t, (IIV3), PF, (Fluzone) 09/06/2024 TD - Tetanus/Diptheria (ADULT) 01/26/2004,1993 TDAP (age 10 and older)(Boostrix) 03/03/2014 TDAP, Age 7 and older, IM (Adacel) 06/17/2024, Varicella Vaccine (Chicken Pox) 04/15/2002 documented as of this encounter Social History [...] in the Last Year Never true 05/01/2020 Comments No Sex and Gender Information Value Date Recorded Sex Assigned at Female 09/22/2019 1:48 PM EDT Legal Sex Female 5:14 AM EST Gender Identity Female 09/22/2019 1:48 PM EDT Sexual Orientation Choose not to disclose 2018 1:48 PM EDT 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 Answer Date of Assessment Author No 10/01/2017 12:00 PM Deja Kat, FREDDY * Are you blind or do you have serious difficulty seeing, even when wearing glasses? Answer Date of Assessment Author No 10/01/2017 12:00 PM Deja Kat, FREDDY * Do you have serious difficulty walking or climbing stairs? (5 years old or older) Answer Date of Assessment Author Yes 10/01/2017 12:00 PM Deja Kat, FREDDY * Do you have difficulty dressing or bathing? (5 years old or older) Answer Date of Assessment Author Yes 10/01/2017 12:00 PM Deja Kat, FREDDY * Because of a physical, mental, or emotional condition, do you have difficulty doing errands alone such as visiting a doctors office or shopping? (15 years old or older) Answer Date of Assessment Author No 10/01/2017 12:00 PM Deja Kat, FREDDY documented as of this encounter Mental Status * Because of a physical, mental, or emotional condition, do you have serious difficulty concentrating, remembering, or making decisions? (5 years old or older) Answer Entry Date Author No 10/01/2017 12:00 PM EST RoseDeja OSA documented in this encounter Miscellaneous Notes * Telephone Encounter - Carmel Constantino OSA - 10/22/2024 2:58 PM EST Neuroscience Phone Call Form- Requested Information from caller: Who is calling (not pt) name: Mandi relationship: caregiver Provider patient is established with: Vincent Shukla What is the concern or issue they are having: Received a call from Mandi caregiver stating that patient was prescribed lamoTEIgine 25mg. While in the hospital since coming home or being discharged onthis medication mandi states that patient has Tremors, Twitching, trouble walking. She is asking for a call back luis carlos. Phone number for nurse to call back: [phone] Clinic has 24-48 hours to respond to caller. If caller is calling back before timeframe with any changes in condition/issues reported, update TEand re-route to appropriate pool If caller is calling back before timeframe- update TE- no need to re-route [facility] Neurology Pool- [facility] Neuro Manager Activities- [id number] (All messages get sent to the [facility]) Neurology Pool Numbers- [place] [facility] patients - follow normal process [facility] [id number] Ops req [place] Neurology ([place]- [facility] and [facility] [place] Only)- [id number] Neurosurgery Pool Numbers- [place] patients- follow normal process Ops req Neurosurgery [facility] ([place])- [id number] Ops req Neurosurgery [facility] ([place] Only) [id number] * Telephone Encounter - Sharmin Miles MD - 10/22/2024 8:53 AM EST Noted * Telephone Encounter - Naveen Knight RN - 10/22/2024 8:28 AM EST Please see message below. Patient was discharged 10/06/2024. FYI. Contact Date/Time Type Contact Phone/Fax 10/04/2024 01:32 PM EST Phone (Incoming) Mandi Conrad (Emergency Contact) [phone] (M) Source Samina Quintero [[id number]] (Patient) Subject Leon Samina Kaur [[id number]] (Patient) Topic Update Communication pt was admitted to the hospital on Friday for seizures and unsteady on her feet so they are keeping her for PT. Mandi stated that they are able to provide all the same care since she is not longer having or showing signs of seizures. They want her to be discharged, her family is very upset and wants us to consult with them. documented in this encounter Plan of Treatment Upcoming Encounters Date Type Department Care Team (Late st Contact Info) Description 11/15/2024 1:40 PM EST Office Visit Neurology [facility] [place] [address] [place] [address] Earnest Shukla MD [address] [place] [address] 12/23/2024 11:40 AM EST Office Visit General Internal Medicine [facility] [place] [address] [place] [address] Sharmin Miles MD [address] [place] [address] 03/21/2025 11:20 AM EDT Office Visit Neurology [facility] [place] [address] [place] [address] Earnest Shukla MD [address] [place] [address] 06/14/2025 1:40 PM EDT Office Visit Neurology [facility] [place] [address] [place] [address] Nico Urbina MD [address] [facility] [place] [address] 07/15/2025 1:00 PM EDT Office Visit Dermatology [place] [facility] [address] [facility] [place] [address] Carrington Zepeda MD [address] [facility] [place] [address] Health Maintenance Due Date Last Done Comments Depression Monitoring 05/16/2022 05/16/2021 Colonoscopy 2022 Sigmoidoscopy 2022 Fecal Occult Blood Test 01/07/2025 01/07/2024, 12/17 Mammogram 07/08/2025 07/08/2024, 06/24, 07/08/2022, Additional history exists GFR 07/28/2025 07/28/2024, 11/25, 06/06/2023, Additional history exists Albumin/Creatinine Ratio 10/25/2025 10/25/2022 PAP SMEAR-EVERY 5 YRS,AGES 21-100 06/29/2026 06/29/2021, 01/07/2018, 01/07/2018 Cologuard 01/15/2027 01/15/2024, 12/25, 01/05/2024 Colorectal Cancer Screening 01/15/2027 Diabetes Screening 07/28/2027 07/28/2024, 0 12/17/2023, 12/17/2023, Additional history exists Lipid Panel 12/17/2028 12/17/2023, 12/12/2021, 03/02/2022, Additional history exists DTap/Tdap Vaccines (6 - Td or Tdap) 06/17/2034 06/17/2024, 03/03/2014, 01/26/2004, Additional history exists Hepatitis B Vaccine Completed 02/23/2002, 07/16/2001, 06/18/2001 Cervical Cancer Screening Discontinued Pap Smear Discontinued 06/29/2021, 12/25, 01/07/2018, Additional history exists Influenza Vaccine (FLU shot) Completed 09/06/2024, 09/01/2023, 10/03/2022, Additional history exists COVID-19 Vaccine Completed 09/22/2024, , 02/19/2023, Additional history exists HPV (Gardasil) Vaccine Aged Out No lo nger eligible based on patient's age to complete this topic HPV/Co-Test Discontinued MENINGOCOCCAL (MENACTRA/MENVEO) Aged Out No longer eligible based on patient's age to complete this topic Pneumococcal Vaccine: Pediatrics (0 to 5 Years) and At-Risk Patients (6 to 64 Years) Aged Out No longer eligible based on patient's age to complete this topic documented as of this encounter Medical Devices Implanted Type Area Solar Mechanical Engineer Device Identifier Shelf Expiration Date Model / Serial / Lot Kit Lead Dbs .5mm 3389s-40 - [id number] Implanted:Qty: 1 on 10/08/2012 at [place] [facility] [place] Left: Head [employer] : NEUROLOGIC PAIN 02/25/2016 3389S-40 / / [id number] Kit Lead Dbs .5mm 3389s-40 - [id number] Implanted:Qty: 1 on 10/08/2012 at [place] [facility] [place] Right: Head [employer] : NEUROLOGIC PAIN 07/28/2016 3389S-40 / / [id number] Battery Activa Rc [id number] - [id number] Implanted:Qty: 1 on 10/19/2012 at [facility] Right: Chest Medtrol 04/06/2013 [id number] / [id number] / Extension Dbs 60cm 85735-72 - [id number] Implanted:Qty: 1 on 10/19/2012 at [facility] Right: Chest Medtrol 07/17/2016 [id number] / [id number] / Extension Dbs 60cm [id number] - [id number] Implanted:Qty: 1 on 10/19/2012 at [facility] Right: Chest Medtrol 08/07/2016 [id number] / [id number] / documented as of this encounter Advance Directives * Full Code (Latest Code Status on File) Date Activated Date Inactivated Comments 10/08/2012 6:53 AM 10/09/2012 7:55 PM This order reflects the patients wishes and were consensually agreed upon. Care Teams Parquetry Layer Relationship Specialty Start Date End Date Sharmin Miles MD [address] [facility] [address] PCP - General Internal Medicine 09/20/21 documented as of this encounter
--- OUTSIDE RECORDS SUMMARY | 2024-10-23 14:06 | External Medical Summary | Summary of Care ---
Author Name Unknown Organization [facility] Address [address] [place] [address] Phone [phone] Care Team Providers Care Motor Boss Name Role Phone Sharmin Miles MD Primary Care Provider [phone] Reason for Visit * Reason Onset Date Comments Advice 10/19/2024 Encounter Details Date Type Department Care Team (Late st Contact Info) Description 10/19/2024 Telephone Neurology [facility] [address] [facility] [place], [place] [id number] Services, Scheduling [address] [place] [address] Advice Allergies Active Allergy Reactions Criticality Noted Date Comments Adhesive Tape 10/27/2014 Levetiracetam Neuro complications (Please comment) 10/11/2024 Agitation, could not sleep; could not open eyes documented as of this encounter (statuses as of 10/19/2024) Medications Calcium 600+D Plus Minerals 600-400 MG-UNIT Oral Tablet Take 1 Tablet by mouth in the morning and 1 Tablet in the evening. 180 Tablet 3 11/01/20 22 Active Norethin Blayne-Eth Estrad-FE 1.5-30 MG-MCG Oral Tablet (Microgestin FE 1.5/30)Indication s:Encounter for surveillance of contraceptive pills,PMS (premenstrual [...] BY MOUTH DAILY (DEPRESSION) 28 Capsule 5 05/28/20 24 Active Sennosides 8.6 MG Oral Tablet (QC Vegetable Laxative)Indicati ons:Constipation, unspecified constipation type TAKE 1 TABLET BY MOUTH TWICE DAILY (CONSTIPATION) 56 Tablet 05/28/20 24 Active QUEtiapine Fumarate 25 MG Oral Tablet (SEROquel) TAKE 1 TABLET BY MOUTH AT BEDTIME (DEPRESSION) 28 Tablet 4 06/23/20 24 Active oxyBUTYnin Chloride 5 MG Oral Tablet (Ditropan) TAKE ONE TABLET BY MOUTH THREE TIMES DAILY (OVER ACTIVE BLADDER) 84 Tablet 06/23/20 24 Active GoodSense ClearLax 17 GM/SCOOP [...] Tablet 5 09/14/20 24 Active COVID-19 mRNA Vac-Erik(Stocard) 30 MCG/0.3ML Intramuscular Suspension Prefilled Syringe ([employer]) Inject into a large muscle. 0.3 mL 09/22/20 24 Active Additional Information Patient not taking.Reported on 10/11/2024 lamoTRIgine 25 MG Oral Tablet (LaMICtal) 1 tab at bedtime x 5 days then 1 tab twice daily x 5 days, then 2 tab am x 5 days then 2 tab twice daily 90 Tablet 2 10/11/20 24 Active PreviDent 5000 Plus 1.1 % Dental Cream (Sodium Fluoride) BRUSH ONTO TEETH TWICE DAILY *DO NOT EAT OR DRINK FOR 30 MIN* 51 g 4 10/11/20 24 Active documented as of this encounter (statuses as of 10/19/2024) Active Problems Problem Noted Date Diagnosed Date [...] as of this encounter (statuses as of 10/19/2024) Resolved Problems Problem Noted Date Diagnosed Date Resolved Date Depression 03/03/2014 09/22/2019 ADVANCE DIRECTIVE INFORMATION 02/13/2006 06/17/2017 Overview (02/13/2006): Patient mentally handicapped EPILEPSY,UNSPEC;W/O INTRACTABLE 02/27/2004 06/20/2015 CEREBRAL PALSY NEC 5 Torticollis 11/30/2020 Nocturnal enuresis 8 documented as of this encounter (statuses as of 10/19/2024) Immunizations Name Administration Dates Next Due COVID-19 [...] 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 (5 years old or older) Answer Date of Assessment Author Yes 10/01/2017 12:00 PM Deja Kat K, FREDDY * Do you have difficulty dressing or bathing? (5 years old or older) Answer Date of Assessment Author Yes 10/01/2017 12:00 PM Deja Kat K, FREDDY * Because of a physical, mental, or emotional condition, do you have difficulty doing errands alone such as visiting a doctors office or shopping? (15 years old or older) Answer Date of Assessment Author No 10/01/2017 12:00 PM Deja Kat itrojelio K, FREDDY documented as of this encounter Mental Status * Because of a physical, mental, or emotional condition, do you have serious difficulty concentrating, remembering, or making decisions? (5 years old or older) Answer Entry Date Author No 10/01/2017 12:00 PM Deja aKt itrojelio K, FREDDY documented in this encounter Miscellaneous Notes * Telephone Encounter - Nichol Woo OSA - 10/19/2024 1:34 PM EST Neuroscience Phone Call Form- Requested Information from caller: Who is calling facility name: [facility] Provider patient is established with: Maikel Calhoun What is the concern or issue they are having: so there seem to conflict information between her boss and what she understood regarding the medication lamotrigine -- please clarify how it was suppose to be taken Any additional details to add: no Phone number for nurse to call back: [phone] Are forms needed? no Medication Refill? no Verify Pharmacy information is correct. documented in this encounter Plan of Treatment Upcoming Encounters Date Type Department Care Team (Late st Contact Info) Description 11/15/2024 1:40 PM EST Office Visit Neurology [facility] 200 [facility] [place] [address] Earnest Shukla MD [address] [place] [address] [place] [address] 12/23/2024 11:40 AM EST Office Visit General Internal Medicine [facility] [address] [facility] [place] [address] Sharmin Miles MD [address] [facility] [place] [address] 03/21/2025 11:20 AM EDT Office Visit Neurology [facility] [address] [facility] [place] [address] Earnest Shukla MD [address] [place] [address] [place] [address] 06/14/2025 1:40 PM EDT Office Visit Neurology [facility] [address] [facility] [place] [address] Nico Urbina MD [address] [place], [place] [id number] 07/15/2025 1:00 PM EDT Office Visit Dermatology [facility] [address] [facility] [place] [address] Carrington Silva MD 200 [facility], [facility] Health Maintenance Due Date Last Done Comments [...] this encounter Medical Devices Implanted Type Area Utility Assembler Device Identifier Shelf Expiration Date Model / Serial / Lot Kit Lead Dbs .5mm 3389s-40 - [id number] Implanted:Qty: 1 on 10/08/2012 at OR [facility] Left: Head [employer] : NEUROLOGIC PAIN 02/25/2016 3389S-40 / / [id number] Kit Lead Dbs .5mm 3389s-40 - [id number] Implanted:Qty: 1 on 10/08/2012 at [facility] Right: Head [employer] : NEUROLOGIC PAIN 07/28/2016 3389S-40 / / [id number] Battery Activa Rc 22070 - [id number] Implanted:Qty: 1 on 10/19/2012 at OR [facility] Right: Chest Medtrol 04/06/2013 95964 / [id number] / Extension Dbs 60cm 33569-57 - [id number] Implanted:Qty: 1 on 10/19/2012 at OR [facility] Right: Chest Medtrol 07/17/2016 17089-77 / [id number] / Extension Dbs 60cm 40839-22 - [id number] Implanted:Qty: 1 on 10/19/2012 at OR [facility] Right: Chest Medtrol 08/07/2016 61341-83 / [id number] / documented as of this encounter Advance Directives * Full Code (Latest Code Status on File) Date Activated Date Inactivated Comments 10/08/2012 6:53 AM 10/09/2012 7:55 PM This order reflects the patients wishes and were consensually agreed upon. Care Teams Motor Boss Relationship Specialty Start Date End Date Sharmin Miles MD 200 [place] [address] PCP - General Internal Medicine 09/20/21 documented as of this encounter
--- OUTSIDE RECORDS SUMMARY | 2024-10-23 14:06 | External Medical Summary | Summary of Care ---
Author Name Unknown Organization [facility] Address [address] [facility] [place] [address] Phone [phone] Care Team Providers Care Auto Club Safety Program Coordinator Name Role Phone Sharmin Miles MD Primary Care Provider Reason for Visit * Reason Onset Date Comments Advice 10/22/2024 Encounter Details Date Type Department Care Team (Late st Contact Info) Description 10/22/2024 Telephone General Internal Medicine [facility] [place] 200 [facility] [place] [address] Sharmin Miles MD [address] [facility] [place] [address] Advice Allergies Active Allergy Reactions Criticality Noted [...] Estrad-FE 1.5-30 MG-MCG Oral Tablet (Microgestin FE 1.30)Indication s:Encounter for surveillance of contraceptive pills,PMS (premenstrual [...] DRINK TWICE DAILY CONSTIPATION 510 g 4 08/02/20 24 Active carBAMazepine 200 MG Oral [...] Tablet 5 09/14/20 24 Active COVID-19 mRNA Vac-Erik(Granular) 30 MCG/0.3ML Intramuscular Suspension Prefilled Syringe (Ceon) Inject into a large muscle. 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 Patient was discharged 10/06/2024. FYI. Contact Date/Time Type Contact Phone/Fax 10/04/2024 01:32 PM EST Phone (Incoming) Mandi Conrad (Emergency Contact) [phone] (M) Source Samina Quintero [[id number]] (Patient) Subject Samina Quintero [[id number]] (Patient) Topic Update Communication pt was admitted [...] 11/15/2024 1:40 PM EST Office Visit Neurology [facility] [address] [place] [address] Earnest Shukla MD [facility] [place] [address] [address] 12/23/2024 11:40 AM EST Office Visit General Internal Medicine [facility] [place] [address] [place] [address] Sharmin Miles MD [address] [place] [address] 03/21/2025 11:20 AM EDT Office Visit Neurology [facility] [place] [address] [place] [address] Earnest Shukla MD [address] [place] [address] [address] 06/14/2025 1:40 PM EDT Office Visit Neurology [facility] [place] [address] [place] [address] [address] Nico Urbina MD [address] [place] [address] 07/15/2025 1:00 PM EDT Office Visit Dermatology [facility] [place] 200 [place] [address] Carrington Zepeda MD 200 [facility] [place] [address] Health Maintenance Due Date Last Done Comments [...] this encounter Medical Devices Implanted Type Area Training And Development Director Device Identifier Shelf Expiration Date Model / Serial / Lot Kit Lead Dbs .5mm 3389s-40 - [id number] Implanted:Qty: 1 on 10/08/2012 at OR [facility] Left: Head [employer] : NEUROLOGIC PAIN 02/25/2016 3389S-40 / / [id number] Kit Lead Dbs .5mm 3389s-40 - [id number] Implanted:Qty: 1 on 10/08/2012 at [facility] Right: Head [employer] : NEUROLOGIC PAIN 07/28/2016 3389S-40 / / [id number] Battery Activa Rc 10231 - [id number] Implanted:Qty: 1 on 10/19/2012 at [facility] Right: Chest Medtrol 04/06/2013 26223 / [id number] / Extension Dbs 60cm 07173-48 - [id number] Implanted:Qty: 1 on 10/19/2012 at [facility] Right: Chest Medtrol 07/17/2016 95020-08 / [id number] / Extension Dbs 60cm 42050-18 - [id number] Implanted:Qty: 1 on 10/19/2012 at [facility] Right: Chest Medtrol 08/07/2016 88859-21 / [id number] / documented as of this encounter Advance Directives * Full Code (Latest Code Status on File) Date Activated Date Inactivated Comments 10/08/2012 6:53 AM 10/09/2012 7:55 PM This order reflects the patients wishes and were consensually agreed upon. Care Teams Auto Club Safety Program Coordinator Relationship Specialty Start Date End Date Sharmin Miles MD [address] [place] [address] PCP - General Internal Medicine 09/20/21 documented as of this encounter
--- OUTSIDE RECORDS SUMMARY | 2024-10-23 14:06 | External Medical Summary | Summary of Care ---
Author Name Unknown Organization [facility] Address [address] [place] [address] Phone [phone] Care Team Providers Care Soap Grinder Name Role Phone Sharmin Miles MD Primary Care Provider [phone] Reason for Visit * Reason Onset Date Comments Advice 10/19/2024 Encounter Details Date Type Department Care Team (Late st Contact Info) Description 10/19/2024 Telephone Neurology [facility] 200 [facility] [place], [place] [address] Services, Scheduling [address] [place] [address] Advice Allergies Active Allergy Reactions Criticality Noted [...] Tablet 5 09/14/20 24 Active COVID-19 mRNA Vac-Erik([employer]) 30 MCG/0.3ML Intramuscular Suspension Prefilled Syringe ([employer]) Inject into a large muscle. 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 Not on file [...] Date Author No 10/01/2017 12:00 PM EST Deja Rose OSA documented in this encounter Miscellaneous Notes * Telephone Encounter - Myriam Oconnor OSA - 10/22/2024 9:20 AM EST Who is calling: Mandiaddie alcantar Pt is established with: Dr Shukla Reason for call: Mandi calling to advise pt's symptoms are continuing to worsen States tremors are worsening and pt has now developed a twitch How long issue has been going on: Additional details: Call back number: Pharmacy (if applicable): * Telephone Encounter - Nichol Woo OSA [...] Phone number for nurse to call back: [phone] Are forms needed? no Medication Refill? no Verify Pharmacy information is correct. documented in this encounter Plan of Treatment Upcoming Encounters Date Type Department Care Team (Late st Contact Info) Description 11/15/2024 1:40 PM EST Office Visit Neurology [facility] [place] [address] [place] [address] Earnest Shukla MD [address] [place] [address] 12/23/2024 11:40 AM EST Office Visit General Internal Medicine [facility] [place] [address] [place] [address] Sharmin Miles MD [address] [place] [address] 03/21/2025 11:20 AM EDT Office Visit Neurology [facility] 200 [facility] [place] [address] Earnest Shukla MD [address] [facility] [address] 06/14/2025 1:40 PM EDT Office Visit Neurology [facility] [address] [facility] [place] [address] Nico Urbina MD [address] [place] [address] 07/15/2025 1:00 PM EDT Office Visit Dermatology [facility] 200 [facility] [address] Carrington Zepeda MD 200 [facility] [place] [address] Health Maintenance Due Date Last Done Comments [...] this encounter Medical Devices Implanted Type Area Epic Trainer Device Identifier Shelf Expiration Date Model / Serial / Lot Kit Lead Dbs .5mm 3389s-40 - [id number] Implanted:Qty: 1 on 10/08/2012 [place] [facility] [place]: Head [employer] : NEUROLOGIC PAIN 02/25/2016 3389S-40 / / [id number] Kit Lead Dbs .5mm 3389s-40 - [id number] Implanted:Qty: 1 on 10/08/2012 [place] [facility] [facility] [place] Right: Head [employer] : NEUROLOGIC PAIN 07/28/2016 3389S-40 / / [id number] Battery Activa Rc 26256 - [id number] Implanted:Qty: 1 on 10/19/2012 [place] [facility] [place]: Chest Medtrol 04/06/2013 55678 / [id number] / Extension Dbs 60cm 61282-14 - [id number] Implanted:Qty: 1 on 10/19/2012 [place] [facility] [place] [place] Right: Chest Medtrol 07/17/2016 64028-03 / [id number] / Extension Dbs 60cm 04888-37 - [id number] Implanted:Qty: 1 on 10/19/2012 [place] [facility] [place]: Chest Medtrol 08/07/2016 44103-16 / [id number] / documented as of this encounter Advance Directives * Full Code (Latest Code Status on File) Date Activated Date Inactivated Comments 10/08/2012 6:53 AM 10/09/2012 7:55 PM This order reflects the patients wishes and were consensually agreed upon. Care Teams Soap Grinder Relationship Specialty Start Date End Date Sharmin Miles MD 200 [facility] [place] [address] PCP - General Internal Medicine 09/20/21 documented as of this encounter
--- OUTSIDE RECORDS SUMMARY | 2024-10-23 14:06 | External Medical Summary | Summary of Care ---
Author Name Unknown Organization [facility] Address [address] [place] [address] Phone [phone] Care Team Providers Care Entry Level Chemist Name Role Phone Sharmin Miles MD Primary Care Provider [phone] Reason for Visit * Reason Onset Date Comments Advice 07/23/2024 Breakthrough sei zure Encounter Details Date Type Department Care Team (Late st Contact Info) Description 07/23/2024 Telephone Neurology [facility] [place] [address] [facility] [address] Services, Scheduling [address] [place] [address] Advice (Breakthrough seizure) Allergies Active Allergy Reactions Criticality Noted Date Comments Adhesive Tape 10/27/2014 Levetiracetam Neuro complications (Please comment) 10/11/2024 Agitation, could not sleep; could not open eyes documented as of this encounter (statuses as of 10/22/2024) Medications Calcium 600+D Plus Minerals 600-400 MG-UNIT Oral Tablet Take 1 Tablet by mouth in the morning and 1 Tablet in the evening. 180 Tablet 3 022 Active Norethin Blayne-Eth Estrad-FE 1.5-30 MG-MCG Oral Tablet (Microgestin FE 1.5/30)Indicatio ns:Encounter for surveillance of contraceptive pills,PMS (premenstrual syndrome) TAKE ONE TABLET BY MOUTH ONCE DAILY FOR 84 DAYS, THEN TAKE 7 DAYS OFF AND REPEAT ( CONTROL) 28 Tablet 12 024 Active Aspirin 81 MG Oral Tablet ChewableIndicati ons:Transient alteration of awareness Take 1 Tablet by mouth in the morning. with food.. 100 Tablet 5 024 Active FLUoxetine HCl 40 MG Oral Capsule (PROzac)Indicati ons:Moderate episode of recurrent major depressive disorder (HCC) TAKE ONE CAPSULE BY MOUTH DAILY (DEPRESSION) 28 Capsule 5 024 Active Sennosides 8.6 MG Oral Tablet (QC Vegetable Laxative)Indicat ions:Constipatio n, unspecified constipation type TAKE 1 TABLET BY MOUTH TWICE DAILY (CONSTIPATION) 56 Tablet 5 024 Active QUEtiapine Fumarate 25 MG Oral Tablet (SEROquel) TAKE 1 TABLET BY MOUTH AT BEDTIME (DEPRESSION) 28 Tablet 4 024 Active oxyBUTYnin Chloride 5 MG Oral Tablet (Ditropan) TAKE ONE TABLET BY MOUTH THREE TIMES DAILY (OVER ACTIVE BLADDER) 84 Tablet 4 024 Active SF 5000 Plus 1.1 % Dental Cream (Sodium Fluoride) BRUSH ONTO TEETH TWICE DAILY *DO NOT EAT OR DRINK FOR 30 MIN* 51 g 4 023 2023 Discontinued carBAMazepine 200 MG Oral Tablet (Tegretol) TAKE ONE TABLET BY MOUTH THREE TIMES DAILY seizure 84 Tablet 4 024 2023 Discontinued GoodSense ClearLax 17 GM/SCOOP Oral Powder (Polyethylene Glycol 3350)Indications :Slow transit constipation MIX 17GMS IN 8OZ OF FLUID AND DRINK TWICE DAILY CONSTIPATION 510 g 4 024 2023 Discontinued Carbidopa-Levodo pa ER 50-200 MG Oral Tablet Extended Release (Sinemet CR)Indications:D ystonia TAKE 1 TABLET BY MOUTH TWICE DAILY AT 8AM AND 8PM FOR DYSTONIA. 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 Answer Date of Assessment Author No 10/01/2017 12:00 PM GRISELDA Rose, Deja itlin K, FREDDY * Are you blind or do you have serious difficulty seeing, even when wearing glasses? Answer Date of Assessment Author No 10/01/2017 12:00 PM EST Rose, Ka itlin K, FERDDY * Do you have serious difficulty walking or climbing stairs? (5 years old or older) Answer Date of Assessment Author Yes 10/01/2017 12:00 PM EST Rose, Ka itlin K, FREDDY * Do you have difficulty dressing or bathing? (5 years old or older) Answer Date of Assessment Author Yes 10/01/2017 12:00 PM EST Rose, Ka itlin K, FREDDY * Because of a physical, mental, or emotional condition, do you have difficulty doing errands alone such as visiting a doctors office or shopping? (15 years old or older) Answer Date of Assessment Author No 10/01/2017 12:00 PM GRISELDA Deja Rose itlin K, FREDDY documented as of this encounter Mental Status * Because of a physical, mental, or emotional condition, do you have serious difficulty concentrating, remembering, or making decisions? (5 years old or older) Answer Entry Date Author No 10/01/2017 12:00 PM GRISELDA Milton Ka itlin K, FREDDY documented in this encounter Miscellaneous Notes * Telephone Encounter - Manuel Shukla MD - 07/27/2024 11:37 AM EDT Brandie Reyes have not seen this patient before but apparently will be in August if indeed this was a seizure then she needs a tegretol level and a cbc and cmp so put the orders in and have the caregiverget the labs done Manuel * Telephone Encounter - Yasmin Panchal OSA - 07/23/2024 1:07 PM EDT Neuroscience Phone Call Form- Requested Information from caller: Who is calling (not pt) name: Mandi relationship: caregiver Provider patient is established with: Vazquez What is the concern or issue they are having: pt had another seizure last night, lasted about 5 seconds. Requests to know what the hell is going on with this young lady because this doesn't happen toher. How long has the issue been going on: prev seizure a few months ago. Any additional details to add: no Phone number for nurse to call back: [phone] Are forms needed? no Medication Refill? no [...] no need to re-route [facility] Neurology Pool- [facility] Neuro Finish Patcher- [id number] (All messages get sent to the [facility]) Neurology Pool Numbers- [place] and [place] patients - follow normal process Ops req [facility] Neurology ([place])- [id number] Ops req [place] Neurology ([place]- [facility] and [facility] clinics Only)- [id number] Neurosurgery Pool Numbers- [place] patients- follow normal process Ops req Neurosurgery [facility] ([place])- [id number] Ops req Neurosurgery [facility] ([place] Only) [id number] documented in this encounter Plan of Treatment Upcoming Encounters Date Type Department Care Team (Late st Contact Info) Description 11/15/2024 1:40 PM EST Office Visit Neurology [facility] [place] [address] [place] [address] Manuel Shukla MD [address] [place] [address] 12/23/2024 11:40 AM EST Office Visit General Internal Medicine [facility] [place] [address] [place] [address] Sharmin Miles MD [address] [place] [address] 03/21/2025 11:20 AM EDT Office Visit Neurology [facility] [address] [facility] [place] [address] Manuel Shukla MD [address] [facility] [place] [address] 06/14/2025 1:40 PM EDT Office Visit Neurology [facility] [address] [facility] [place] [address] Nico Urbina MD [address] [place] [address] 07/15/2025 1:00 PM EDT Office Visit Dermatology [facility] [address] [facility] [place] [address] Carrington Zepeda MD [address] [facility] [place] [address] Health Maintenance Due Date Last Done Comments [...] this encounter Medical Devices Implanted Type Area Coper Hand Device Identifier Shelf Expiration Date Model / Serial / Lot Kit Lead Dbs .5mm 3389s-40 - [id number] Implanted:Qty: 1 on 10/08/2012 at OR [facility] Left: Head [employer] : NEUROLOGIC PAIN 02/25/2016 3389S-40 / / [id number] Kit Lead Dbs .5mm 3389s-40 - [id number] Implanted:Qty: 1 on 10/08/2012 at OR [facility] Right: Head [employer] : NEUROLOGIC PAIN 07/28/2016 3389S-40 / / [id number] Battery Activa Rc 98314 - [id number] Implanted:Qty: 1 on 10/19/2012 at OR [facility] Right: Chest Medtrol 04/06/2013 48234 / [id number] / Extension Dbs 60cm 23397-55 - [id number] Implanted:Qty: 1 on 10/19/2012 at OR [facility] Right: Chest Medtrol 07/17/2016 09286-98 / [id number] / Extension Dbs 60cm 79719-75 - [id number] Implanted:Qty: 1 on 10/19/2012 at OR [facility] Right: Chest Medtrol 08/07/2016 54704-93 / [id number] / documented as of this encounter Results * (ABNORMAL) COMPREHENSIVE METABOLIC PANEL (07/28/2024 9:29 AM EDT) BUN 13 6 - 20 mg/dL 07/28/2024 3:27 PM EDT LABORATORY [facility] CREATININE 0.6 0.5 - 1.0 mg/dL 07/28/2024 3:27 PM EDT LABORATORY [facility] EGFR >90 >=60 mL/min 07/28/2024 3:27 PM EDT LABORATORY [facility] Comment:eGFR is calculated b ased on the CKD-EPI 2020 equation. SODIUM 142 135 - 146 mmol/L 07/28/2024 3:27 PM EDT LABORATORY C POTASSIUM 4.4 3.5 - 5.1 mmol/L 07/28/2024 3:27 PM EDT LABORATORY C CHLORIDE 105 98 - 107 mmol/L 07/28/2024 3:27 PM EDT LABORATORY C CO2 27 22 - 32 mmol/L 07/28/2024 3:27 PM EDT LABORATORY C ANION GAP 10 7 - 15 mmol/L 07/28/2024 3:27 PM EDT LABORATORY C GLUCOSE 135(H) 70 - 120 mg/dL 07/28/2024 3:27 PM EDT LABORATORY C Albumin 3.9 3.8 - 5.0 g/dL 07/28/2024 3:27 PM EDT LABORATORY C AST 12 10 - 35 U/L 07/28/2024 3:27 PM EDT LABORATORY C Alkaline Phosphatase 112 35 - 130 U/L 07/28/2024 3:27 PM EDT LABORATORY C Bilirubin, Total <0.2 <=1.2 mg/dL 07/28/2024 3:27 PM EDT LABORATORY C CALCIUM 9.0 8.4 - 10.2 mg/dL 07/28/2024 3:27 PM EDT LABORATORY C Protein 6.3 6.0 - 8.3 g/dL 07/28/2024 3:27 PM EDT LABORATORY C ALT 6(L) 10 - 35 U/L 07/28/2024 3:27 PM EDT LAB[facility]ATORY [facility] Blood Venous blood specimen / Unknown Venipuncture / Unknown 07/28/2024 9:29 AM EDT 07/28/2024 9:30 AM EDT us Manuel Shukla MD LAB BLOOD ORDERABLES Final Resu lt LABORATORY [facility] [address] [place] [address] * CBC (07/28/2024 9:29 AM EDT) WBC 4.71 4.00 - 10.80 K/uL 07/28/2024 2:52 PM EDT LAB[facility]ATORY [facility] RBC 4.09 3.85 - 5.15 M/uL 07/28/2024 2:52 PM EDT LAB[facility]ATORY [facility] HGB 12.7 12.0 - 15.3 g/dL 07/28/2024 2:52 PM EDT LAB[facility]ORY [facility] HCT 41.1 36.0 - 45.2 % 07/28/2024 2:52 PM EDT LAB[facility]ATORY [facility] MCV 100.5 81.5 - 97.5 fL 07/28/2024 2:52 PM EDT LAB[facility]ORY [facility] MCH 31.1 27.0 - 34.0 pg 07/28/2024 2:52 PM EDT LAB[facility]ATORY [facility] MCHC 30.9 32.0 - 36.0 g/dL 07/28/2024 2:52 PM EDT LAB[facility]ORY [facility] RDW 13.9 11.5 - 15.5 % 07/28/2024 2:52 PM EDT LAB[facility]ATORY [facility] PLT 289 140 - 400 K/uL 07/28/2024 2:52 PM EDT LAB[facility]ORY [facility] MPV 9.7 6.6 - 11.1 fL 07/28/2024 2:52 PM EDT LAB[facility]ATORY [facility] nRBCs 0 <=0 /100 WBCs 07/28/2024 2:52 PM EDT LAB[facility]ATORY [facility] Blood Venous blood specimen / Unknown Venipuncture / Unknown 07/28/2024 9:29 AM EDT 07/28/2024 9:30 AM EDT Manuel Shukla MD LAB BLOOD ORDERABLES Final Resu lt Performing Organization Address [facility] Co de Phone Number LABORATORY [facility] [address] [place] [address] * (ABNORMAL) CARBAMAZEPINE LEVEL (07/28/2024 9:29 AM EDT) carBAMazepine Level 12.8(H) 4.0 - 12.0 ug/mL 07/28/2024 3:27 PM EDT LABORATORY [facility] Blood Venous blood specimen / Unknown Venipuncture / Unknown 07/28/2024 9:29 AM EDT 07/28/2024 9:30 AM EDT Manuel Shukla MD LAB BLOOD ORDERABLES Final Resu lt Performing Organization Address [facility] de Phone Number LABORATORY [facility] [address] [place] [address] documented in this encounter Visit Diagnoses Diagnosis Nonintractable 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 Care Teams Entry Level Chemist Relationship Specialty Start Date End Date Sharmin Miles MD [address] [place] [address] PCP - General Internal Medicine 09/20/21 documented as of this encounter
--- OUTSIDE RECORDS SUMMARY | 2024-10-23 14:06 | External Medical Summary | Summary of Care ---
Author Name Unknown Organization [facility] Address [address] [facility] [place] [address] Phone [phone] Care Team Providers Care Oral Health Therapist Name Role Phone Sharmin Miles MD Primary Care Provider Reason for Visit * Reason Onset Date Comments Advice 10/22/2024 Encounter Details Date Type Department Care Team (Late st Contact Info) Description 10/22/2024 Telephone General Internal Medicine [facility] [place] [address] [facility] [place] [address] Sharmin Miles MD [address] [facility] [address] Advice Allergies Active Allergy Reactions Criticality Noted [...] Tablet 5 09/14/20 24 Active COVID-19 mRNA Vac-Erik(Vycon) 30 MCG/0.3ML Intramuscular Suspension Prefilled Syringe ([employer]) Inject into a large muscle. 0.3 mL [...] 30 Mcg, IM, 12 yrs and above (Vycon) 02/19/2023 Hepatitis B, 20+ yrs 02/23/2002,07/16/2001,06/18 PPD [...] Author No 10/01/2017 12:00 PM EST Deja Rose, FREDDY documented in this encounter Miscellaneous Notes * Telephone Encounter - Sharmin Miles MD - 10/22/2024 8:53 AM EST Noted * Telephone Encounter - Naveen Knight RN - 10/22/2024 8:28 AM EST Please see message below. Patient was discharged 10/06/2024. FYI. Contact Date/Time Type Contact Phone/Fax 10/04/2024 01:32 PM EST Phone (Incoming) Mandi Conrad (Emergency Contact) [phone] (M) Source Samina Quintero [[id number]] (Patient) Subject Samina Quintero [[id number]] (Patient) Topic Update Communication pt was admitted [...] 11/15/2024 1:40 PM EST Office Visit Neurology [facility] [address] [facility] [place] [address] Earnest Shukla MD [address] [place] [address] [address] 12/23/2024 11:40 AM EST Office Visit General Internal Medicine [facility] [address] [place] [address] [address] Sharmin Miles MD [address] [facility] [address] [address] 03/21/2025 11:20 AM EDT Office Visit Neurology [facility] [address] [place] [address] Earnest Shukla MD [address] [facility] [place] [address] 06/14/2025 1:40 PM EDT Office Visit Neurology [facility] [address] [place] [address] Nico Urbina MD [address] [place] [address] 07/15/2025 1:00 PM EDT Office Visit Dermatology [facility] [address] [place] [address] Carrington Zepeda MD [address] [facility] [place] [address] Health Maintenance Due Date Last Done Comments [...] this encounter Medical Devices Implanted Type Area Hides Inspector Device Identifier Shelf Expiration Date Model / Serial / Lot Kit Lead Dbs .5mm 3389s-40 - [id number] Implanted:Qty: 1 on 10/08/2012 at [place] [facility] Left: Head [employer] : NEUROLOGIC PAIN 02/25/2016 3389S-40 / / [id number] Kit Lead Dbs .5mm 3389s-40 - [id number] Implanted:Qty: 1 on 10/08/2012 at [place] [facility] Right: Head [employer] : NEUROLOGIC PAIN 07/28/2016 3389S-40 / / [id number] Battery Activa Rc 33818 - [id number] Implanted:Qty: 1 on 10/19/2012 at OR [facility] Right: Chest Medtrol 04/06/2013 12509 / [id number] / Extension Dbs 60cm [id number] - [id number] Implanted:Qty: 1 on 10/19/2012 at OR [facility] Right: Chest Medtrol 07/17/2016 21070-05 / [id number] / Extension Dbs 60cm 59736-46 - [id number] Implanted:Qty: 1 on 10/19/2012 at [place] [facility] Right: Chest Medtrol 08/07/2016 61161-61 / [id number] / documented as of this encounter Advance Directives * Full Code (Latest Code Status on File) Date Activated Date Inactivated Comments 10/08/2012 6:53 AM 10/09/2012 7:55 PM This order reflects the patients wishes and were consensually agreed upon. Care Teams Oral Health Therapist Relationship Specialty Start Date End Date Sharmin Miles MD [address] [facility] [place] [address] PCP - General Internal Medicine 09/20/21 documented as of this encounter
--- OUTSIDE RECORDS SUMMARY | 2024-10-23 14:07 | External Medical Summary | Summary of Care ---
Author Name Unknown Organization [facility] Address [address] [place] [address] Phone [phone] Care Team Providers Care Card Grader Name Role Phone Sharmin Miles MD Primary Care Provider [phone] Reason for Visit * Reason Onset Date Comments Med Request 10/06/2024 Encounter Details Date Type Department Care Team (Late st Contact Info) Description 10/06/2024 Telephone Neurology [address] [place] [phone] Services, Scheduling [address] [place] [address] Med Request Allergies Active Allergy Reactions Criticality Noted Date Comments Adhesive Tape 10/27/2014 documented as of this encounter (statuses as of 10/11/2024) Medications Calcium 600+D Plus Minerals 600-400 MG-UNIT Oral Tablet Take 1 Tablet by mouth in the morning and 1 Tablet in the evening. 180 Tablet 3 11/01/20 22 Active SF 5000 Plus 1.1 % Dental Cream (Sodium Fluoride) BRUSH ONTO TEETH TWICE DAILY *DO NOT EAT OR DRINK FOR 30 MIN* 51 g 4 09/22/20 23 Active Norethin Blayne-Eth Estrad-FE 1.5-30 MG-MCG Oral [...] in the morning. with food.. 100 Tablet 03/08/20 24 Active FLUoxetine HCl 40 MG [...] BY MOUTH AT BEDTIME (DEPRESSION) 28 Tablet 06/23/20 24 Active oxyBUTYnin Chloride 5 MG [...] afternoon and one at bedtime 75 Tablet 09/06/20 24 Active Carbidopa-Levodop a ER 50-200 MG Oral Tablet Extended Release (Sinemet CR)Indications:Dy stonia TAKE 1 TABLET BY MOUTH THREE TIMES A DAILY AT 8:30AM, 4PM AND 8:30PM FOR DYSTONIA. 90 Tablet 09/14/20 24 Active COVID-19 mRNA Vac-Erik(ANF Technology) 30 MCG/0.3ML Intramuscular Suspension Prefilled Syringe (NoPaperForms.com) Inject into a large muscle. 0.3 mL 09/22/20 24 Active levETIRAcetam 500 MG Oral Tablet (Keppra) DISCONTINUE KEPPRA 500 MG TWICE DAILY 60 Tablet 10/11/20 24 Active lamoTRIgine 25 MG Oral Tablet (LaMICtal) 1 tab at bedtime x 5 days then 1 tab twice daily x 5 days, then 2 tab am x 5 days then 2 tab twice daily 90 Tablet 2 10/11/20 24 Active lamoTRIgine 25 MG Oral Tablet (LaMICtal) 1 tab at bedtime x 5 days then 1 tab twice daily x 5 days, then 2 tab am x 5 days then 2 tab twice daily 90 Tablet 2 10/06/20 24 024 Discontin ued(Refil l) documented as of this encounter (statuses as of 10/11/2024) Active Problems Problem Noted Date Diagnosed Date [...] as of this encounter (statuses as of 10/11/2024) Resolved Problems Problem Noted Date Diagnosed Date Resolved Date Depression 03/03/2014 09/22/2019 ADVANCE DIRECTIVE INFORMATION 02/13/2006 06/17/2017 Overview (02/13/2006): Patient mentally handicapped EPILEPSY,UNSPEC;W/O INTRACTABLE 02/27/2004 06/20/2015 CEREBRAL PALSY NEC 5 Torticollis 11/30/2020 Nocturnal enuresis 8 documented as of this encounter (statuses as of 10/11/2024) Immunizations Name Administration Dates Next Due COVID-19 mRNA, LNP-s, No Pre serve, 2-Dose Series (Moderna) 02/04/2021,01/07/2021 COVID-19, MRNA-LNP, PF, 30 M CG/0.3 mL, 12 YRS AND ABOVE, IM (Medical Referral Source-[facility]) 09/22/2024,01/07/2024 Covid-19, Mrna, Lnp-s, Pf, Bivalent, 30 Mcg, IM, 12 yrs and above (ANF Technology) 02/19/2023 Hepatitis B, 20+ yrs 02/23/2002,07/16/2001,06/18 PPD [...] 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 (5 years old or older) Answer Entry Date Author No 10/01/2017 12:00 PM EST Deja Rose FREDDY documented in this encounter Miscellaneous Notes * Addendum Note - Elvira Calhoun PA-C - 10/11/2024 9:44 AM ESTAddended by: ELVIRA CALHOUN on: 10/11/2024 09:44 AM Modules accepted: Orders * Addendum Note - Swati Leija MED ASSIST - 10/08/2024 11:01 AM EST Addended by: SWATI LEIJA on: 10/08/2024 11:01 AM Modules accepted: Orders * Telephone Encounter - Kary Goodman OSA - 10/08/2024 10:20 AM EST Mandi from [facility] calling asking if Elvira Calhoun could send discontinue script for keppra and script for new seizure medicationlamoTRIgine 25 MG Oral Tablet (LaMICtal) she could put it in pts my chart and they could print it out. It is needed for the State Contact #[phone] * Telephone Encounter - Swati Leija MED ASSIST - 10/06/2024 11:21 AM EST Pharmacy aware to d/c Keppra * Addendum Note - Elvira Calhoun PA-C - 10/06/2024 11:16 AM ESTAddended by: ELVIRA CALHOUN on: 10/06/2024 11:16 AM Modules accepted: Orders * Telephone Encounter - Elvira Calhoun PA-C - 10/06/2024 11:12 AM EST Patient was seen at [facility] for seizure activity and started on keppra which is making her mean and miserable. Advised to decrease to 500 mg daily x 5 days then stop. She is also to start lamictal 25 mgand excalate as directed. Advise in 1 month will need level. Elvira Calhoun PA-C 10/06/2024 11:15 AM * Telephone Encounter - Daniela Decker OSA - 10/06/2024 10:03 AM EST Caregiver called due to patient's reaction to the Keppra 500 MG and it was prescribed through the [facility] and she is to take it twice a day. She was unable to sleep, very irritable, talking gibberish and transitioned family members as well as not having a clear sense of reality. Patient was not her normal self. She has taken it this morning as well. Caregiver is wanting to see if patient can get another medication with minimal side effects. Patient see Dr. Shukla documented in this encounter Plan of Treatment Upcoming Encounters Date Type Department Care Team (Late st Contact Info) Description 10/11/2024 11:00 AM EST Office Visit General Internal Medicine [facility] [place] [address] [facility] [place] [address] Sharmin Miles MD [address] [facility] [place] [address] Arrived 11/15/2024 1:40 PM EST Office Visit Neurology [facility] [place] [address] [facility] [place] [address] Earnest Shukla MD [address] [facility] [place] [address] 12/23/2024 11:40 AM EST Office Visit General Internal Medicine [facility] [address] [facility] [place] [address] Sharmin Miles MD 200 [place] [address] 03/21/2025 11:20 AM EDT Office Visit Neurology [facility] [address] [facility] [place] [address] Earnest Shukla MD 200 [facility] [address] 06/14/2025 1:40 PM EDT Office Visit Neurology [facility] [address] [facility] [address] Nico Urbina MD [address] [place] [address] 07/15/2025 1:00 PM EDT Office Visit Dermatology [facility] [address] [place] [address] Carrington Zepeda MD 200 [place] [address] Scheduled Orders Name Type Priority Associated Diagnoses Orde r Schedule LAMOTRIGINE LEVEL Lab Routine Nonintractable 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 (HCC) Expected: 11/05/2024, Expires: 10/06/2025 CARBAMAZEPINE LEVEL Lab Routine Nonintractable 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 (HCC) Expected: 11/05/2024, Expires: 10/06/2025 Health Maintenance Due Date Last Done Comments [...] this encounter Medical Devices Implanted Type Area Stripe Marker Device Identifier Shelf Expiration Date Model / Serial / Lot Kit Lead Dbs .5mm 3389s-40 - [id number] Implanted:Qty: 1 on 10/08/2012 at [facility] Left: Head MEDTRONIC : NEUROLOGIC PAIN 02/25/2016 3389S-40 / / [id number] Kit Lead Dbs .5mm 3389s-40 - [id number] Implanted:Qty: 1 on 10/08/2012 at [facility] Right: Head [employer] : NEUROLOGIC PAIN 07/28/2016 3389S-40 / / [id number] Battery Activa Rc 84211 - [id number] Implanted:Qty: 1 on 10/19/2012 at [facility] Right: Chest Medtrol 04/06/2013 38299 / [id number] / Extension Dbs 60cm 97152-10 - [id number] Implanted:Qty: 1 on 10/19/2012 at [facility] Right: Chest Medtrol 07/17/2016 97983-83 / [id number] / Extension Dbs 60cm 35903-52 - [id number] Implanted:Qty: 1 on 10/19/2012 at [facility] Right: Chest Medtrol 08/07/2016 23713-14 / [id number] / documented as of this encounter Visit Diagnoses Diagnosis Nonintractable 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 Care Teams Card Grader Relationship Specialty Start Date End Date Sharmin Miles MD [address] [place] [address] PCP - General Internal Medicine 09/20/21 documented as of this encounter
--- OUTSIDE RECORDS SUMMARY | 2024-10-23 14:07 | External Medical Summary | Summary of Care ---
Author Name Unknown Organization [facility] Address [address] [facility] [place] [address] Phone [phone] Care Team Providers Care Poured Wall Foreman Name Role Phone Sharmin Miles MD Primary Care Provider [phone] Reason for Visit * Reason Onset Date Comments Advice 10/04/2024 Encounter Details Date Type Department Care Team (Late st Contact Info) Description 10/04/2024 Telephone [address] [place] [phone] Services, Scheduling [address] [place] [address] Advice Allergies Active Allergy Reactions Criticality Noted [...] Tablet 5 09/14/20 24 Active COVID-19 mRNA Vac-Erik(ProntoForms) 30 MCG/0.3ML Intramuscular Suspension Prefilled Syringe (Xention) Inject into a large muscle. 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 Answer Date of Assessment Author No 10/01/2017 12:00 PM EST Deja Rose, FREDDY * Are you blind or do [...] Miscellaneous Notes * Telephone Encounter - Swati Leija, MED ASSIST - 10/04/2024 2:36 PM EST Brandie call and let them know that I am not on the hospital consult staff so cannot do a consult the physicians taking care of her can get in touch with the inpatient service that is taking consults today and have them review the case meliton Tinoco * Telephone Encounter - Gayatri Potter OSA - 10/04/2024 1:27 PM EST Neuroscience Phone Call Form- Requested Information from caller: Who is calling (not pt) name: Mandi relationship: edge banding off 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 Shukla What is the concern or issue they are having: pt was admitted to the hospital on Friday for seizures and unsteady on her feet so they are keeping her for PT. Mandi stated that they are able to provide all the same care since she is not longer having or showing signs of seizures. They want her to be discharged, her family is very upset and wants us to consult with them. How long has the issue been going on: 10.02 Any additional details to add: no Phone number for nurse to call back: [phone] Are forms needed? no Medication Refill? no Verify Pharmacy information is correct. Form to be used for established patients only (not new patients) documented in this encounter Plan of Treatment Upcoming Encounters Date Type Department Care Team (Late st Contact Info) Description 11/15/2024 1:40 PM EST Office Visit Neurology [facility] [place] [address] [place] [address] [address] Earnest Shukla MD [address] [place] [address] [address] 12/23/2024 11:40 AM EST Office Visit General Internal Medicine [facility] [place] [address] [place] [address] [address] Sharmin Miles MD [address] [place] [address] 03/21/2025 11:20 AM EDT Office Visit Neurology [facility] [place] [address] [place] [address] [address] Earnest Shukla MD [address] [place] [address] [address] 06/14/2025 1:40 PM EDT Office Visit [facility] [place] [address] Nico Urbina MD [address] [facility] [place] [address] 07/15/2025 1:00 PM EDT Office Visit Dermatology [facility] [place] 200 [facility] [place] [address] Carrington Zepeda MD 200 [facility] [place] [address] Health Maintenance Due Date Last Done Comments [...] this encounter Medical Devices Implanted Type Area Child Center Assistant Device Identifier Shelf Expiration Date Model / Serial / Lot Kit Lead Dbs .5mm 3389s-40 - [id number] Implanted:Qty: 1 on 10/08/2012 at OR [facility] Left: Head MED[employer] : NEUROLOGIC PAIN 02/25/2016 3389S-40 / / [id number] Kit Lead Dbs .5mm 3389s-40 - [id number] Implanted:Qty: 1 on 10/08/2012 at [place] [facility] Right: Head [employer] : NEUROLOGIC PAIN 07/28/2016 3389S-40 / / [id number] Battery Activa Rc 40594 - [id number] Implanted:Qty: 1 on 10/19/2012 at [facility] Right: Chest Medtrol 04/06/2013 52354 / [id number] / Extension Dbs 60cm 02929-51 - [id number] Implanted:Qty: 1 on 10/19/2012 at [facility] Right: Chest Medtrol 07/17/2016 21627-71 / [id number] / Extension Dbs 60cm 09020-07 - [id number] Implanted:Qty: 1 on 10/19/2012 at [facility] Right: Chest Medtrol 08/07/2016 00056-24 / [id number] / documented as of this encounter Advance Directives * Full Code (Latest Code Status on File) Date Activated Date Inactivated Comments 10/08/2012 6:53 AM 10/09/2012 7:55 PM This order reflects the patients wishes and were consensually agreed upon. Care Teams Poured Wall Foreman Relationship Specialty Start Date End Date Sharmin Miles MD 200 [place] [address] PCP - General Internal Medicine 09/20/21 documented as of this encounter
--- OUTSIDE RECORDS SUMMARY | 2024-10-23 14:07 | External Medical Summary | Summary of Care ---
Author Name Unknown Organization [facility] Address [address] [place] [address] Phone [phone] Care Team Providers Care Hair Spring Cutter Name Role Phone Sharmin Miles MD Primary Care Provider Reason for Visit * Reason Onset Date Comments Med Request 10/06/2024 Encounter Details Date Type Department Care Team (Late st Contact Info) Description 10/06/2024 Telephone Neurology [address] [place] [phone] Services, Scheduling [address] [place] [address] Med Request Allergies Active Allergy Reactions Criticality [...] 90 Tablet 09/14/20 24 Active COVID-19 mRNA Vac-Erik(Accumulate) 30 MCG/0.3ML Intramuscular Suspension Prefilled Syringe (CO-Value) Inject into a large muscle. 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 It is needed for the State Contact #[phone] * Telephone Encounter - Swati Leija MED ASSIST - 10/06/2024 11:21 AM EST Pharmacy aware to d/c Keppra * Addendum Note - Elvira Calhoun PA-C - 10/06/2024 11:16 AM ESTAddended by: ELVIRA CALHOUN on: 10/06/2024 11:16 AM Modules accepted: Orders * Telephone Encounter - Elvira Calhoun PA-C - 10/06/2024 11:12 AM EST Patient was seen at [facility] for seizure activity and started on keppra [...] MG and it was prescribed through the [facility] and she is to take it [...] AM EST Office Visit General Internal Medicine [facility] [address] [facility] [place] [address] Sharmin Miles MD [address] [facility] [place] [address] 11/15/2024 1:40 PM EST Office Visit Neurology [facility] [place] [address] [facility] [place] [address] Earnest Shukla MD [address] [facility] [place] [address] 12/23/2024 11:40 AM EST Office Visit General Internal Medicine [facility] [address] [facility] [place] [address] Sharmin Miles MD 200 [place] [address] 03/21/2025 11:20 AM EDT Office Visit Neurology [facility] [address] [facility] [place] [address] Earnest Shukla MD [address] [place] [address] 06/14/2025 1:40 PM EDT Office Visit Neurology [facility] [address] [place] [address] Nico Urbina MD [address] [place] [address] 07/15/2025 1:00 PM EDT Office Visit Dermatology [facility] [address] [place] [address] Carrington Zepeda MD [address] [place] [address] Scheduled Orders Name Type Priority Associated Diagnoses [...] this encounter Medical Devices Implanted Type Area Staff Anesthesiologist Device Identifier Shelf Expiration Date Model / Serial / Lot Kit Lead Dbs .5mm 3389s-40 - [id number] Implanted:Qty: 1 on 10/08/2012 at [place] [facility] Left: Head MED[employer] : NEUROLOGIC PAIN 02/25/2016 3389S-40 / / [id number] Kit Lead Dbs .5mm 3389s-40 - [id number] Implanted:Qty: 1 on 10/08/2012 at [place] [facility] Right: Head MED[employer] : NEUROLOGIC PAIN 07/28/2016 3389S-40 / / [id number] Battery Activa Rc 07520 - [id number] Implanted:Qty: 1 on 10/19/2012 at [facility] Right: Chest Medtrol 04/06/2013 68878 / [id number] / Extension Dbs 60cm 77185-23 - [id number] Implanted:Qty: 1 on 10/19/2012 at [place] [facility] Right: Chest Medtrol 07/17/2016 01320-73 / [id number] / Extension Dbs 60cm 28295-71 - [id number] Implanted:Qty: 1 on 10/19/2012 at [place] [facility] Right: Chest Medtrol 08/07/2016 63613-83 / [id number] / documented as of this encounter Visit Diagnoses Diagnosis Nonintractable 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 Care Teams Hair Spring Cutter Relationship Specialty Start Date End Date Sharmin Miles MD 200 [place] [address] PCP - General Internal Medicine 09/20/21 documented as of this encounter
--- OUTSIDE RECORDS SUMMARY | 2024-10-23 14:07 | External Medical Summary ---
Author Name Unknown Address Unknown Organization K09:[facility] [address] [place] [address] Laboratory Report Ordering Provider Test Date Status AMADA POWELL 10/11/2024 11:59:44 Final Observation Date Value Abnormality Reference (Units ) Status Color of Urine by Auto 10/11/2024 11:59:44 Yellow Light Yellow, Yellow, Dark Yellow Final Clarity, Urine 10/11/2024 11:59:44 Clear Clear Final Glucose [Mass/volume] in Urine by Automated test strip 10/11/2024 11:59:44 500 Abnormal Negative (mg/dL) Final Bilirubin.total [Presence] in Urine by Automated test strip 10/11/2024 11:59:44 Negative Negative Final Ketones [Mass/volume] in Urine by Automated test strip 10/11/2024 11:59:44 15 Abnormal Negative (mg/dL) Final Specific gravity, Urine 10/11/2024 11:59:44 >=1.030 1.003-1.030 Final Hemoglobin [Presence] in Urine by Automated test strip 10/11/2024 11:59:44 Negative Negative Final pH, Urine 10/11/2024 11:59:44 6.0 5.0-7.5 (Units) Final Protein [Mass/volume] in Urine by Automated test strip 10/11/2024 11:59:44 Trace Abnormal Negative (mg/dL) Final Urobilinogen [Mass/volume] in Urine by Automated test strip 10/11/2024 11:59:44 0.2 0.2, 1.0 (mg/dL) Final Nitrite [Presence] in Urine by Automated test strip 10/11/2024 11:59:44 Negative Negative Final Leukocyte esterase [Presence] in Urine by Automated test strip 10/11/2024 11:59:44 Negative Negative Final RBC, Urine 10/11/2024 11:59:44 0-2 0-2 (/HPF) Final WBC, Urine 10/11/2024 11:59:44 0-2 0-2 (/HPF) Final Bacteria [#/area] in Urine sediment by Microscopy high power field 10/11/2024 11:59:44 101-150 Abnormal 0-25 (/HPF) Final Hyaline casts, Urine 10/11/2024 11:59:44 1-4 Abnormal None (/LPF) Final Performing Location [facility] [address] [place] [address]
--- OUTSIDE RECORDS SUMMARY | 2024-10-23 14:07 | External Medical Summary | Summary of Care ---
Author Name Unknown Organization [facility] Address [address] [place] [address] Phone [phone] Care Team Providers Care Senior Scheduler Name Role Phone Sharmin Miles MD Primary Care Provider Reason for Visit * Reason Onset Date Comments Med Request 10/06/2024 Encounter Details Date Type Department Care Team (Late st Contact Info) Description 10/06/2024 Telephone Neurology [place] [address] [place] [phone] Services, Scheduling [address] [place] [address] Med Request Allergies Active Allergy Reactions Criticality Noted Date Comments Adhesive Tape 10/27/2014 documented as of this encounter (statuses as of 10/08/2024) Medications Calcium 600+D Plus Minerals 600-400 MG-UNIT [...] Tablet 5 09/14/20 24 Active COVID-19 mRNA Vac-Erik(Virtuix) 30 MCG/0.3ML Intramuscular Suspension Prefilled Syringe (Pathfire) Inject into a large muscle. 0.3 mL 09/22/20 24 Active lamoTRIgine 25 MG Oral Tablet (LaMICtal) 1 tab at bedtime x 5 days then 1 tab twice daily x 5 days, then 2 tab am x 5 days then 2 tab twice daily 90 Tablet 2 10/06/20 24 Active documented as of this encounter (statuses as of 10/08/2024) Active Problems Problem Noted Date Diagnosed Date [...] as of this encounter (statuses as of 10/08/2024) Resolved Problems Problem Noted Date Diagnosed Date Resolved Date Depression 03/03/2014 09/22/2019 ADVANCE DIRECTIVE INFORMATION 02/13/2006 06/17/2017 Overview (02/13/2006): Patient mentally handicapped EPILEPSY,UNSPEC;W/O INTRACTABLE 02/27/2004 06/20/2015 CEREBRAL PALSY NEC 5 Torticollis 11/30/2020 Nocturnal enuresis 8 documented as of this encounter (statuses as of 10/08/2024) Immunizations Name Administration Dates Next Due COVID-19 mRNA, LNP-s, No Pre serve, 2-Dose Series (Moderna) 02/04/2021,01/07/2021 COVID-19, MRNA-LNP, PF, 30 M CG/0.3 mL, 12 YRS AND ABOVE, IM (PFIZER-Comirnaty) 09/22/2024,01/07/2024 Covid-19, Mrna, Lnp-s, Pf, Bivalent, 30 Mcg, IM, 12 yrs and above (Virtuix) 02/19/2023 Hepatitis B, 20+ yrs 02/23/2002,07/16/2001,06/18 PPD [...] 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 It is needed for the State Contact #[phone] * Telephone Encounter - Swati Leija MED ASSIST - 10/06/2024 11:21 AM EST Pharmacy aware to d/c Keppra * Addendum Note - Elvira Calhoun PA-C - 10/06/2024 11:16 AM ESTAddended by: ELVIRA CALHOUN on: 10/06/2024 11:16 AM Modules accepted: Orders * Telephone Encounter - Elvira Calhoun PA-C - 10/06/2024 11:12 AM EST Patient was seen at [facility] for seizure activity and started on [...] MG and it was prescribed through the [facility] and she is to take it twice [...] EST Office Visit General Internal Medicine [facility] [place] [address] [place] [address] Sharmin Miles MD [address] [place] [address] 11/15/2024 1:40 PM EST Office Visit Neurology [facility] [place] [address] [place] [address] Earnest Shukla MD [address] [place] [address] 12/23/2024 11:40 AM EST Office Visit General Internal Medicine [facility] [place] [address] [place] [address] Sharmin Miles MD [address] [place] [address] 03/21/2025 11:20 AM EDT Office Visit Neurology [facility] [place] [address] [place] [address] Earnest Shukla MD [address] [place] [address] 06/14/2025 1:40 PM EDT Office Visit Neurology [facility] [address] [place] [address] Nico Urbina MD [address] [place] [address] 07/15/2025 1:00 PM EDT Office Visit Dermatology [facility] [address] [facility] [address] Carrington Zepeda MD [address] [facility] [address] Scheduled Orders Name Type Priority Associated Diagnoses [...] this encounter Medical Devices Implanted Type Area Case Investigator Device Identifier Shelf Expiration Date Model / Serial / Lot Kit Lead Dbs .5mm 3389s-40 - [id number] Implanted:Qty: 1 on 10/08/2012 at [place] [facility] Left: Head MEDTR[employer]IC : NEUROLOGIC PAIN 02/25/2016 3389S-40 / / [id number] Kit Lead Dbs .5mm 3389s-40 - [id number] Implanted:Qty: 1 on 10/08/2012 at [place] [facility] Right: Head [employer] : NEUROLOGIC PAIN 07/28/2016 3389S-40 / / [id number] Battery Activa Rc 21586 - [id number] Implanted:Qty: 1 on 10/19/2012 at [place] [facility] Right: Chest Medtrol 04/06/2013 21889 / [id number] / Extension Dbs 60cm 28293-41 - [id number] Implanted:Qty: 1 on 10/19/2012 at [place] [facility] Right: Chest Medtrol 07/17/2016 53696-29 / [id number] / Extension Dbs 60cm 83340-16 - [id number] Implanted:Qty: 1 on 10/19/2012 at [place] [facility] Right: Chest Medtrol 08/07/2016 93925-48 / [id number] / documented as of this encounter Visit Diagnoses Diagnosis Nonintractable 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 Care Teams Senior Scheduler Relationship Specialty Start Date End Date Sharmin Miles MD [address] [place] [address] PCP - General Internal Medicine 09/20/21 documented as of this encounter
--- OUTSIDE RECORDS SUMMARY | 2024-10-23 14:07 | External Medical Summary | Summary of Care ---
Author Name Unknown Organization [facility] Address [address] [place] [address] Phone [phone] Care Team Providers Care Tree Scout Name Role Phone Sharmin Miles MD Primary Care Provider [phone] Reason for Visit * Reason Onset Date Comments Med Request 10/06/2024 Encounter Details Date Type Department Care Team (Late st Contact Info) Description 10/06/2024 Telephone Neurology [place] [address] [place] [phone] Services, Scheduling [address] [place] [address] Med Request Allergies Active Allergy Reactions Criticality [...] 90 Tablet 09/14/20 24 Active COVID-19 mRNA Vac-Erik(Align Technology) 30 MCG/0.3ML Intramuscular Suspension Prefilled Syringe ([employer] Systems) Inject into a large muscle. 0.3 [...] CG/0.3 mL, 12 YRS AND ABOVE, IM ([facility] [place]) 09/22/2024,01/07/2024 Covid-19, Mrna, Lnp-s, Pf, Bivalent, 30 Mcg, IM, 12 yrs and above (Align Technology) 02/19/2023 Hepatitis B, 20+ yrs 02/23/2002,07/16/2001,06/18 [...] - 10/08/2024 10:20 AM EST Mandi from nursing [facility] calling asking if Elvira Calhoun could send discontinue script for keppra and script for new seizure medicationlamoTRIgine 25 MG Oral Tablet (LaMICtal) she could put it in pts my chart and they could print it out. It is needed for the State Contact #[phone] * Telephone Encounter - Swati Leija MED ASSIST - 10/06/2024 11:21 AM EST Pharmacy aware to d/c Keppra * Addendum Note - Elvira Calhoun PA-C - 10/06/2024 11:16 AM ESTAddended by: ELVIRA CALHOUN on: 10/06/2024 11:16 AM Modules accepted: Orders * Telephone Encounter - Elvira Calhoun PA-C - 10/06/2024 11:12 AM EST Patient was seen at [facility] for seizure activity and started on [...] MG and it was prescribed through the [facility] and she is to take it twice [...] AM EST Office Visit General Internal Medicine [facility] [address] [facility] [address] [place] [address] Sharmin Miles MD [address] [facility] [place] [address] 11/15/2024 1:40 PM EST Office Visit Neurology [facility] [place] [address] [facility] [address] [place] [address] Earnest Shukla MD [address] [facility] [place] [address] 12/23/2024 11:40 AM EST Office Visit General Internal Medicine [facility] [address] [facility] [place] [address] Sharmin Miles MD 200 [facility] [place] [address] 03/21/2025 11:20 AM EDT Office Visit Neurology [facility] [address] [facility] [place] [address] Earnest Shukla MD 200 [facility] [place] [address] 06/14/2025 1:40 PM EDT Office Visit Neurology [facility] [address] [facility] [place] [address] Nico Urbina MD [address] [place] [address] 07/15/2025 1:00 PM EDT Office Visit Dermatology [facility] [address] [facility] [place] [address] Carrington Zepeda MD [address] [facility] [place] [address] Scheduled Orders Name Type Priority Associated Diagnoses [...] this encounter Medical Devices Implanted Type Area Advertising Coordinator Device Identifier Shelf Expiration Date Model / Serial / Lot Kit Lead Dbs .5mm 3389s-40 - [id number] Implanted:Qty: 1 on 10/08/2012 at [place] [facility] [place] Left: Head [employer] : NEUROLOGIC PAIN 02/25/2016 3389S-40 / / [id number] Kit Lead Dbs .5mm 3389s-40 - [id number] Implanted:Qty: 1 on 10/08/2012 at [place] [facility] [place] Right: Head [employer] : NEUROLOGIC PAIN 07/28/2016 3389S-40 / / [id number] Battery Activa Rc 54872 - [id number] Implanted:Qty: 1 on 10/19/2012 at [facility] Right: Chest Medtrol 04/06/2013 54002 / [id number] / Extension Dbs 60cm 70633-40 - [id number] Implanted:Qty: 1 on 10/19/2012 at [place] [facility] [place] Right: Chest Medtrol 07/17/2016 52352-25 / [id number] / Extension Dbs 60cm 20936-77 - [id number] Implanted:Qty: 1 on 10/19/2012 at [place] [facility] [place] Right: Chest Medtrol 08/07/2016 37457-83 / [id number] / documented as of this encounter Visit Diagnoses Diagnosis Nonintractable 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 Care Teams Tree Scout Relationship Specialty Start Date End Date Sharmin Miles MD [address] [facility] [place] [facility] [address] PCP - General Internal Medicine 09/20/21 documented as of this encounter
--- OUTSIDE RECORDS SUMMARY | 2024-10-23 14:07 | External Medical Summary ---
Author Name Unknown Address Unknown Organization K01:LABORATORY [facility] - [address] [place] [facility] Laboratory Report Ordering Provider Test Date Status ANTONTETE POWELLYVES 10/11/2024 11:59:44 Final Observation Date Value Abnormality Reference (Units) Status Bacteria identified in Specimen by Culture 10/11/2024 11:59:44 No significant growth Final Test: Culture, Urine, Quanti tative
Specimen Source: Urine, Clean Catch
Specimen Type: Urine
Specimen Date: 10/11/2024 1159
Result Date: 10/12/2024 1156
Result Status: Final result
Resulting Lab: [facility]
[address]
[place] [address]

CULTURE

No significant growth

null Performing Location LABORATORY [facility] - [address] [place] [address]
--- OUTSIDE RECORDS SUMMARY | 2024-10-23 14:07 | External Medical Summary | Summary of Care ---
Author Name Unknown Organization [facility] Address [address] [place] [address] Phone [phone] Care Team Providers Care Truck Switcher Name Role Phone Sharmin Miles MD Primary Care Provider [phone] Reason for Visit * Reason Onset Date Comments Advice 10/06/2024 Encounter Details Date Type Department Care Team (Late st Contact Info) Description 10/06/2024 Telephone General Internal Medicine [facility] [place] [address] [facility] [place] [address] Sharmin Miles MD 200 [facility] [place] [address] Advice Allergies Active Allergy Reactions Criticality Noted [...] ACTIVE BLADDER) 84 Tablet 4 024 Active GoodSense ClearLax 17 GM/SCOOP Oral Powder (Polyethylene Glycol 3350)Indications :Slow transit constipation MIX 17GMS IN 8OZ OF FLUID AND DRINK TWICE DAILY CONSTIPATION 510 g 4 024 Active carBAMazepine 200 MG Oral Tablet (TEGretol) One half tablet in the morning, one in the afternoon and one at bedtime 75 Tablet 11 024 Active Carbidopa-Levodo pa ER 50-200 MG Oral Tablet Extended Release (Sinemet CR)Indications:D ystonia TAKE 1 TABLET BY MOUTH THREE TIMES A DAILY AT 8:30AM, 4PM AND 8:30PM FOR DYSTONIA. 90 Tablet 5 024 Active COVID-19 mRNA Vac-Erik(Startlocal) 30 MCG/0.3ML Intramuscular Suspension Prefilled Syringe (SunLink) Inject into a large muscle. 0.3 mL Active Additional Information Patient not taking.Reported on 10/11/2024 SF 5000 Plus 1.1 % Dental Cream (Sodium Fluoride) BRUSH ONTO TEETH TWICE DAILY *DO NOT EAT OR DRINK FOR 30 MIN* 51 g 4 023 2023 Discontinued lamoTRIgine 25 MG Oral Tablet (LaMICtal) 1 tab at bedtime x 5 days then 1 tab twice daily x 5 days, then 2 tab am x 5 days then 2 tab twice daily 90 Tablet 2 024 2023 Discontinued(R efill) documented as of this encounter (statuses as [...] 2 08/09/2002 dysplastic compound nevus, rt leg 02 2 BENIGN NEOPLASM SKIN NOS 05/31/2002 Overview [...] CG/0.3 mL, 12 YRS AND ABOVE, IM ([employer]-ComirnatC[employer].) 09/22/2024,01/07/2024 Covid-19, Mrna, Lnp-s, Pf, Bivalent, 30 Mcg, IM, 12 yrs and above (Startlocal) 02/19/2023 Hepatitis B, 20+ yrs 02/23/2002,07/16/2001,06/18 PPD [...] 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 Yesterday around 830pm, Samina hasn't slept and is very agitated and saying bizarre things. Can you please advise and call [phone] documented in this encounter Plan of Treatment Upcoming Encounters Date Type Department Care Team (Late st Contact Info) Description 11/15/2024 1:40 PM EST Office Visit [facility]rology [facility] [address] [place] [address] [address] Earnest Shukla MD [address] [place] [address] 12/23/2024 11:40 AM EST Office Visit General Internal Medicine [facility] [address] [place] [address] Sharmin Miles MD 200 [facility] [place] [address] 03/21/2025 11:20 AM EDT Office Visit Neurology [facility] [address] [facility] [place] [address] Earnest Shukla MD [address] [facility] [place] [address] 06/14/2025 1:40 PM EDT Office Visit Neurology [facility] [address] [facility] [place] [address] Nico Urbina MD [address] [place] [address] 07/15/2025 1:00 PM EDT Office Visit Dermatology [facility] [address] [facility] [place] [address] Carrington Zepeda MD [address] [facility] [place] [address] Scheduled Orders Name Type Priority Associated Diagnoses Orde r Schedule URINALYSIS WITH MICROSCOPIC EXAM Lab Routine Memory loss Expected: 10/06/2024 (Approximate), Expires: 10/06/2025 CULTURE, URINE, QUANTITATIVE Lab Routine Memory loss Expected: 10/06/2024, Expires: 10/06/2025 Health Maintenance Due Date Last [...] this encounter Medical Devices Implanted Type Area Fitting Room Operator Device Identifier Shelf Expiration Date Model / Serial / Lot Kit Lead Dbs .5mm 3389s-40 - [id number] [place]plant[place] 1 [place]2012 [place] [facility] [place]: Head [employer] : NEUROLOGIC PAIN 02/25/2016 3389S-40 / / [id number] Kit Lead Dbs .5mm 3389s-40 - [id number] Implanted:Qty: 1 on 10/08/2012 [place] [facility] [place]: Head [employer] : NEUROLOGIC PAIN 07/28/2016 3389S-40 / / [id number] Battery Activa [id number] - [id number] Implanted:Qty: 1 on 10/19/2012 [place] [facility] [place]: Chest Medtrol 04/06/2013 57003 / [id number] / Extension Dbs 60cm 26234-57 - [id number] Implanted:Qty: 1 [place] 10/19/2012 [place] [facility] [place]: Chest Medtrol 07/17/2016 49799-95 / [id number] / Extension Dbs 60cm [id number] - [id number] Implanted:Qty: 1 on 10/19/2012 [place] [facility] [place]: Chest Medtrol 08/07/2016 16936-43 / [id number] / documented as of this encounter Visit Diagnoses Diagnosis Memory loss- Primary documented in this encounter Advance Directives * Full Code (Latest Code Status on File) Date Activated Date Inactivated Comments 10/08/2012 6:53 AM 10/09/2012 7:55 PM This order reflects the patients wishes and were consensually agreed upon. Care Teams Truck Switcher Relationship Specialty Start Date End Date Sharmin [place] MD [address] [facility] [place] [address] PCP - General Internal Medicine 09/20/21 documented as of this encounter
--- OUTSIDE RECORDS SUMMARY | 2024-10-23 14:07 | External Medical Summary | Summary of Care ---
Author Name Unknown Organization [facility] Address [address] [place] [address] Phone [phone] Care Team Providers Care Health And Safety Director Name Role Phone Sharmin Ybarra MD Primary Care Provider Reason for Visit * Reason Comments eRx-Medication Refill Encounter Details Date Type Department Care Team (Late st Contact Info) Description 10/08/2024 Refill General Internal Medicine [facility] [place] [address] [facility] [place] [address] Sharmin Ybarra MD [address] [facility] [place] [address] Allergies Active Allergy Reactions Criticality Noted Date [...] TIMES DAILY (OVER ACTIVE BLADDER) 84 Tablet 024 Active GoodSense ClearLax 17 GM/SCOOP Oral Powder (Polyethylene Glycol 3350)Indications :Slow transit constipation MIX 17GMS IN 8OZ OF FLUID AND DRINK TWICE DAILY CONSTIPATION 510 g 4 024 Active carBAMazepine 200 MG Oral Tablet (TEGretol) One half tablet in the morning, one in the afternoon and one at bedtime 75 Tablet 024 Active Carbidopa-Levodo pa ER 50-200 MG Oral Tablet Extended Release (Sinemet CR)Indications:D ystonia TAKE 1 TABLET BY MOUTH THREE TIMES A DAILY AT 8:30AM, 4PM AND 8:30PM FOR DYSTONIA. 90 Tablet 024 Active COVID-19 mRNA Vac-Erik([employer]) 30 MCG/0.3ML Intramuscular Suspension Prefilled Syringe ([employer] Inject into a large muscle. 0.3 mL Active Additional Information Patient not taking.Reported on 10/11/2024 lamoTRIgine 25 MG Oral Tablet (LaMICtal) 1 tab at bedtime x 5 days then 1 tab twice daily x 5 days, then 2 tab am x 5 days then 2 tab twice daily 90 Tablet 2 024 Active PreviDent 5000 Plus 1.1 % Dental Cream (Sodium Fluoride) BRUSH ONTO TEETH TWICE DAILY *DO NOT EAT OR DRINK FOR 30 MIN* 51 g 4 024 Active SF 5000 Plus 1.1 % Dental Cream (Sodium Fluoride) BRUSH ONTO TEETH TWICE DAILY *DO NOT EAT OR DRINK FOR 30 MIN* 51 g 4 023 2023 Discontinued documented as of this encounter [...] CG/0.3 mL, 12 YRS AND ABOVE, IM ([employer]) 09/22/2024,01/07/2024 Covid-19, Mrna, Lnp-s, Pf, Bivalent, 30 Mcg, IM, 12 yrs and above ([employer]) 02/19/2023 PPD 07/23/2023,,03/29/2019,2017,03/11/2017,03/06/2015,09/09/2013,1 ,03/03/2013,08/27/2011, 009,10/30/2005 10/30/2007 Seasonal [...] 12:00 PM Deja Kat K, FREDDY * Are you blind or [...] Telephone Encounter - Sharmin Ybarra MD - 10/11/2024 12:45 PM ESTSigned Prescriptions: Disp Refills PreviDent 5000 Plus 1.1 % Dental Cream (So*51 g 4 Sig: BRUSH ONTO TEETH TWICE DAILY *DO NOT EAT OR DRINK FOR 30 MIN* Authorizing Provider: SHARMIN YBARRA * Telephone Encounter - Fatoumata Park [facility] - 10/11/2024 8:10 AM EST Pending Prescriptions: Disp Refills PreviDent 5000 Plus 1.1 % Dental Cream [Ph*51 g 4 Sig: BRUSH ONTO TEETH TWICE DAILY *DO NOT EAT OR DRINK FOR 30 MIN* * Telephone Encounter - Fatoumata Park [facility] - 10/11/2024 8:10 AM EST [facility] to approve refills for this class of medication per refillprotocol. Thank you, Fatoumata Park, PharmD Staff Pharmacist Refill Call Center [phone] 10/11/2024, 8:10 AM Pending Prescriptions: Disp Refills PreviDent 5000 Plus 1.1 % Dental Cream [Ph*51 g 4 Sig: BRUSH ONTO TEETH TWICE DAILY *DO NOT EAT OR DRINK FOR 30 MIN* Last Visit: 06/17/2024 (in office), 09/20/2024 (telemedicine) Next Visit: 10/11/2024 If no future appointments scheduled, and last appointment is greater than a year ago, please schedule patient for a follow-up appointment Last date the medication was ordered: 09/22/24 Pharmacy: [facility] [address] Is this request for a controlled substance?No [...] PM HGBA1C 5.9 (H) 12/17/2023 12:47 PM documented in this encounter Plan of Treatment Upcoming Encounters Date Type Department Care Team (Late st Contact Info) Description 11/15/2024 1:40 PM EST Office Visit Neurology [facility] [place] [address] [place] [address] Earnest Shukla MD [address] [place] [address] 12/23/2024 11:40 AM EST Office Visit General Internal Medicine [facility] [place] [address] [place] [address] Sharmin Ybarra MD [address] [place] [address] 03/21/2025 11:20 AM EDT Office Visit Neurology [facility] [place] [address] [facility] [place] [address] Earnest Shukla MD [address] [facility] [place] [address] 06/14/2025 1:40 PM EDT Office Visit Neurology [facility] [place] [address] [facility] [place] [address] Nico Urbina MD [address] [place] [address] 07/15/2025 1:00 PM EDT Office Visit Dermatology [facility] [place] [address] [facility] [address] [place] [address] Carrington Zepeda MD [address] [facility] [place] [address] Health Maintenance Due Date Last Done Comments [...] this encounter Medical Devices Implanted Type Area Print Color Matcher Device Identifier Shelf Expiration Date Model / Serial / Lot Kit Lead Dbs .5mm 3389s-40 - [id number] Implanted:Qty: 1 on 10/08/2012 at [facility] Left: Head [employer] : NEUROLOGIC PAIN 02/25/2016 3389S-40 / / [id number] Kit Lead Dbs .5mm 3389s-40 - [id number] Implanted:Qty: 1 on 10/08/2012 at OR [facility] Right: Head [employer] : NEUROLOGIC PAIN 07/28/2016 3389S-40 / / [id number] Battery Activa Rc 01369 - [id number] Implanted:Qty: 1 on 10/19/2012 at OR [facility] Right: Chest [employer] 04/06/2013 27230 / [id number] / Extension Dbs 60cm 01769-05 - [id number] Implanted:Qty: 1 on 10/19/2012 at OR [facility] Right: Chest [employer] 07/17/2016 01713-97 / [id number] / Extension Dbs 60cm 22669-61 - [id number] Implanted:Qty: 1 on 10/19/2012 at OR [facility] Right: Chest [employer] 08/07/2016 [id number] / [id number] / documented as of this encounter Advance Directives * Full Code (Latest Code Status on File) Date Activated Date Inactivated Comments 10/08/2012 6:53 AM 10/09/2012 7:55 PM This order reflects the patients wishes and were consensually agreed upon. Care Teams Health And Safety Director Relationship Specialty Start Date End Date Sharmin Ybarra MD [address] [place] [address], [place] [address] PCP - General Internal Medicine 09/20/21 documented as of this encounter
--- OUTSIDE RECORDS SUMMARY | 2024-10-23 14:07 | External Medical Summary | Summary of Care ---
Author Name Unknown Organization [facility] Address [address] [facility] [place] [address] Phone [phone] Care Team Providers Care Manufacturing Technician Name Role Phone Sharmin Miles MD Primary Care Provider [phone] Reason for Visit * Reason Onset Date Comments Hospital Follow-Up Seizures - petty zaman accompanied by caregiver Mandi - states patient had bad reaction to Keppra, spoke with neurology who decreased the dose - finished yesterday - states patient used to be able to get up and walk, now needs assistance Hospital Follow-Up 10/11/2024 Encounter Details Date Type Department Care Team (Late st Contact Info) Description 10/11/2024 11:00 AM EST Office Visit General Internal Medicine [place] [facility] [address] [place] [address] Sharmin Miles MD [address] [place] [address] HTN, goal below 140/90*; Memory loss; Lack of menses; Hospital discharge follow-up; Confusion; Generalized idiopathic epilepsy, not intractable, without status epilepticus (HCC); Female stress incontinence; Dystonia; Chronic pansinusitis; Cerebral palsy, unspecified type (HCC); Benign neoplasm of skin, unspecified location; Major depressive disorder with single episode, remission status unspecified; HX-MALIG SKIN MELANOMA 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; Mild episode of recurrent major depressive disorder (HCC) Allergies Active Allergy Reactions Criticality Noted Date Comments Adhesive Tape 10/27/2014 Levetiracetam Neuro complications (Please comment) 10/11/2024 Agitation, could not sleep; could not open eyes documented as of this encounter (statuses as of 10/12/2024) Medications Calcium 600+D Plus Minerals 600-400 MG-UNIT [...] CAPSULE BY MOUTH DAILY (DEPRESSION) 28 Capsule 024 Active Sennosides 8.6 MG Oral Tablet (QC Vegetable Laxative)Indicat ions:Constipatio n, unspecified constipation type TAKE 1 TABLET BY MOUTH TWICE DAILY (CONSTIPATION) 56 Tablet 024 Active QUEtiapine Fumarate 25 MG Oral Tablet (SEROquel) TAKE 1 TABLET BY MOUTH AT BEDTIME (DEPRESSION) 28 Tablet 024 Active oxyBUTYnin Chloride 5 MG Oral [...] 90 Tablet 5 024 Active COVID-19 mRNA Vac-Erik(Ibotta) 30 MCG/0.3ML Intramuscular Suspension Prefilled Syringe (Smart Adventure) Inject into a large muscle. 0.3 mL Active Additional Information Patient not taking.Reported on 10/11/2024 lamoTRIgine 25 MG Oral Tablet (LaMICtal) 1 tab at bedtime x 5 days then 1 tab twice daily x 5 days, then 2 tab am x 5 days then 2 tab twice daily 90 Tablet 2 Active SF 5000 Plus 1.1 % Dental Cream (Sodium Fluoride) BRUSH ONTO TEETH TWICE DAILY *DO NOT EAT OR DRINK FOR 30 MIN* 51 g 4 023 2023 Discontinued levETIRAcetam 500 MG Oral Tablet (Keppra) DISCONTINUE KEPPRA 500 MG TWICE DAILY 60 Tablet 024 2023 Discontinued(E nd of Procedure) documented as of this encounter (statuses as of 10/12/2024) Active Problems Problem Noted Date Diagnosed Date [...] as of this encounter (statuses as of 10/12/2024) Resolved Problems Problem Noted Date Diagnosed Date Resolved Date Depression 03/03/2014 09/22/2019 ADVANCE DIRECTIVE INFORMATION 02/13/2006 06/17/2017 Overview (02/13/2006): Patient mentally handicapped EPILEPSY,UNSPEC;W/O INTRACTABLE 02/27/2004 06/20/2015 CEREBRAL PALSY NEC 5 Torticollis 11/30/2020 Nocturnal enuresis 8 documented as of this encounter (statuses as of 10/12/2024) Immunizations Name Administration Dates Next Due COVID-19 [...] Date Smoking Tobacco: Never Smokeless Tobacco: Never Tobacco Cessation:Counseling Given: Not Answered Alcohol Use Standard Drinks/Week Comments No 0 [...] Job 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 Answer Date of Assessment Author No 10/01/2017 12:00 PM EST Rose, Ka itlin K, FREDDY * Are you blind or do you have serious difficulty seeing, even when wearing glasses? Answer Date of Assessment Author No 10/01/2017 12:00 PM EST Rose, Ka itlin K, FREDDY * Do you have serious [...] PM EST Rose, Ka itlin K, FREDDY documented as of this encounter Mental Status * Because of a physical, mental, or emotional condition, do you have serious difficulty concentrating, remembering, or making decisions? (5 years old or older) Answer Entry Date Author No 10/01/2017 12:00 PM EST Rose, Ka itlin K, FREDDY documented in this encounter Progress Notes * Sharmin Miles MD - 10/11/2024 11:26 AM EST SUBJECTIVE: Samina Quintero is a 49 year old female. Chief Complaint Patient presents with Hospital Follow-Up Seizures - patient accompanied by caregiver Mandi - states patient had bad reaction to Keppra, spoke with neurology who decreased the dose - finished yesterday - states patient used to be able to getup and walk, now needs assistance Hospital Follow-Up HPI: 49 year old female with a history of Intellectual Disability, Cervical Dystonia, Melanoma, Seizure Disorder, Depression, and Cerebral Palsy presents here for hospital follow up. Pt was having shaking episodes intermittent with confusion for few days. Her tegretol dose was reduced due to high level recently and it was suspected to trigger seizure , called neuro and taken to Er for eval . Presented to hospital on 10/02/24 . She was found to have some confusion and sleepiness with shakes occ . She was then admitted and treated with holding tregretol at 1st then putting her back on reduced dose that was done recently as an OP and added keppra to control seizure. Labs were overall normal including urine and Imaging CT head ok . EMG with baseline abnormality but no seizure activity . She was seen by neurologist . Rest of the hospital course unremarkable . She was sent home on 10/06/24 on keppra and rest of her meds . Since discharge feeling not well . Hospital records reviewed and updated. The patient's medication list was reviewed and updated as needed. Current issues now- -she was very confused and sleepy since home so caregiver called neuro and have her Keppra stopped and now she is on lamictal along with tegratol. -no change in urination or BM - no seizure -caregiver asking if frequent seizures from menopause which I don't think so but can be connected to stress or progression of CP . 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 Cerebral palsy (HCC) Generalized idiopathic epilepsy, not intractable, without status epilepticus (HCC) Moderate episode of recurrent major depressive disorder (HCC) HTN, goal below 140/90 Current Outpatient Medications Medication Sig Dispense Refill [...] DAILY (OVER ACTIVE BLADDER) 84 Tablet 4 GoodSense ClearLax 17 GM/SCOOP Oral Powder (Polyethylene Glycol 3350) MIX 17GMS IN 8OZ OF FLUID ANDDRINK TWICE DAILY CONSTIPATION 510 g 4 carBAMazepine 200 MG Oral Tablet (TEGretol) One half tablet in the morning, one in the afternoon and one at bedtime 75 Tablet 11 Carbidopa-Levodopa ER 50-200 MG Oral Tablet Extended Release (Sinemet CR) TAKE 1 TABLET BY MOUTH THREE TIMES A DAILY AT 8:30AM, 4PM AND 8:30PM FOR DYSTONIA. 90 Tablet 5 lamoTRIgine 25 MG Oral Tablet (LaMICtal) 1 tab at bedtime x 5 days then 1 tab twice daily x 5 days,then 2 tab am x 5 days then 2 tab twice daily 90 Tablet 2 COVID-19 mRNA Vac-Erik(Ibotta) 30 MCG/0.3ML Intramuscular Suspension Prefilled Syringe (Smart Adventure) Inject into a large muscle. (Patient not taking: Reported on 10/11/2024) 0.3 mL 0 levETIRAcetam 500 MG Oral Tablet (Keppra) DISCONTINUE KEPPRA 500 MG TWICE DAILY (Patient not taking: Reported on 10/11/2024) 60 Tablet 0 No current facility-administered medications for this visit. Review of patient's allergies indicates: Allergen Reactions Adhesive Tape Keppra [Levetiracetam] Neuro complications (Please comment) Agitation, could not sleep; could not open eyes Past Medical History: Diagnosis Date Cerebral palsy [...] [place]ay [place] [facility] [place]Y/REMOVE BONE FIXATION DEVICE 10/08/2012 APPLICATION CRANIAL TONGS performed by Chris Roberts MD at [facility] CRANIECT-WITH USE;1ST ARRAY 10/08/2012 CRANIOTOMY STEREOTACTIC IMPLANT ELECTRODE DBS STAGE 2 performed by Chris Roberts MD at [facility] IMPACT TOOTH REMOV PART BONY Bilateral 10/28/2014 REM IMPACTED TOOTH - PART BONY performed by Deejay Pérez DMD at [facility] INSERT/REPLACE CRANIAL NEUROSTIM, SINGLE ELECTRODE 10/19/2012 INSERTION DBS NEUROSTIMULATOR GENERATOR STAGE 3 performed [place] Chris Roberts MD [place] [facility] [place] BRAIN WITHOUT CONTRAST 09/24/2012 MRI-BRAIN WITHOUT CONTRAST DBS performed by [facility] [place] [facility] [place] OTHER remove melanoma bilateral upper arms PAP SCREEN 08/08/01 PAP SCREEN 10.25.04 satisfactory for evaluation, dr awad STEREOTACTIC CRANIAL INTRADURAL NAVIGATION 10/08/2012 STEREOTACTIC CRANIAL INTRADURAL NAVIGATION performed by Chris Roberts MD at [facility] TWST DRILL,[place] HOLE;1ST ARRAY 10/08/2012 CRANIOTOMY DBS ELECTRODE STAGE 2 performed [place] Chris Roberts [place] [facility] [place] Family History Problem Relation Name Age of Onset Allergies Sister Asthma Sister Glaucoma Sister Allergies Father Asthma Father Lung Disorder Father Alcohol and Other Disorders Associated Mother Cancer Mother Breast Cancer Mother Heart Disorder Grandfather (Paternal) Hypertension Grandmother (Maternal) Hypertension Grandmother (Paternal) Neurological Disorder None Social History Socioeconomic History Marital status: Single Number of children: 0 Occupational History 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 Social Needs Food Insecurity: No Food Insecurity (05/01/2020) Hunger Vital Sign Worried About Running Out of Food in the Last Year: Never true Ran Out of Food in the Last Year: Never true Family History Problem Relation Name Age of Onset Allergies Sister Asthma Sister Glaucoma Sister Allergies Father Asthma Father Lung Disorder Father Alcohol and Other Disorders Associated Mother Cancer Mother Breast Cancer Mother Heart Disorder Grandfather (Paternal) Hypertension Grandmother (Maternal) Hypertension Grandmother (Paternal) Neurological Disorder None REVIEW OF SYSTEMS: All 10 systems reviewed and negative except mentioned in HPI OBJECTIVE: BP 110/66 (BP Site: Left Arm, BP Position: Sitting, BP Cuff Size: Regular) | Pulse 108 | Temp 37.5 C (99.5 F) (Tympanic) | Resp 12 PHYSICAL EXAM: General: healthy, no distress, and sleepy intermittent Head: Normocephalic, No masses, lesions, tenderness or abnormalities Oropharynx: no exudate, no erythema, lips, buccal mucosa, and tongue normal, and mucous membranes are moist Neck: supple, no adenopathy, no bruits, thyroid normal size, non-tender, without nodularity Heart: regular rate & rhythm, no murmur, and no gallops Lungs: chest symmetric with normal AP diameter, no chest deformities noted, no chest wall tenderness, lungs clear to auscultation Abdomen: abdomen soft, non-tender, normal bowel sounds, and no masses or organomegaly Extremities: less than 2 second capillary refill, no joint deformities, effusion, or inflammation Neuro : non-focal ASSESSMENT AND PLAN HTN, goal below 140/90 (Primary) Stable Continue current treatment as directed Memory loss - URINALYSIS WITH MICROSCOPIC EXAM; Future; Expected date: 10/11/2024 - CULTURE, URINE, QUANTITATIVE; Future; Expected date: 10/11/2024 - URINALYSIS WITH MICROSCOPIC EXAM - CULTURE, URINE, QUANTITATIVE Lack of menses - FSH; Future; Expected date: 12/08/2024 Hospital discharge follow-up - DISCH MED RECON CUR MED LIS Confusion - DISCH MED RECON CUR MED LIS Generalized idiopathic epilepsy, not intractable, without status epilepticus (HCC) - DISCH MED RECON CUR MED LIS Continue current medications as directed Keep neuro follow up Female stress incontinence Dystonia Chronic pansinusitis Cerebral palsy, unspecified type (HCC) Benign neoplasm of skin, unspecified location Major depressive disorder with single episode, remission status unspecified HX-MALIG SKIN MELANOMA 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 Treatment and plan was discussed with patient and was given opportunity to ask questions which wereanswered appropriately. Patient verbalizing understanding. This note was prepared with the help of fluency and if there is any mis-spelled words , sentences or something which doesn't represent the content of the subject that could be technical error and please refer to the author for clarification. Sharmin Miles MD 11:26 AM 10/11/2024 documented in this encounter Plan of Treatment Upcoming Encounters Date Type Department Care Team (Late st Contact Info) Description 11/15/2024 1:40 PM EST Office Visit Neurology [facility] [address] [place] [address] Earnest Shukla MD [address] [facility] [place] [address] 12/23/2024 11:40 AM EST Office Visit General Internal Medicine [facility] [place] [address] [place] [address] Sharmin Miles MD [address] [facility] [place] [address] 03/21/2025 11:20 AM EDT Office Visit [facility] [address] [facility] [place] [address] Earnest Shukla MD [address] [facility] [place] [address] 06/14/2025 1:40 PM EDT Office Visit Neurology [facility] [address] [place] [address] Nico Urbina MD [address], [place] [id number] 07/15/2025 1:00 PM EDT Office Visit Dermatology [facility] [address] [place], [place] [address] Carrington Zepeda MD [address] [place], [place] [address] Scheduled Orders Name Type Priority Associated Diagnoses Orde r Schedule [facility] Lab Routine Lack of menses Expected: 12/08/2024 (Approximate), Expi res: 10/11/2025 Health Maintenance Due Date Last Done Comments [...] this encounter Medical Devices Implanted Type Area Third Miller Device Identifier Shelf Expiration Date Model / Serial / Lot Kit Lead Dbs .5mm 3389s-40 - [id number] [place]planted:Q[place] 1 [place] [facility] [place]: Head [employer] : NEUROLOGIC PAIN 02/25/2016 3389S-40 / / [id number] Kit Lead Dbs .5mm 3389s-40 - [id number] Implanted:Q[place]: 1 on 10[place]08/[place] [facility] [place]: Head [employer] : NEUROLOGIC PAIN 07/28/2016 3389S-40 / / [id number] Battery Activa Rc [id number] - [id number] Implanted:Qty: 1 on 10/19/2012 at [facility] Right: Chest Medtrol 04/06/2013 [id number] / [id number] / Extension Dbs 60cm [id number] - [id number] Implanted:Qty: 1 on 10/19/2012 at [facility] Right: Chest Medtrol 07/17/2016 [id number] / [id number] / Extension Dbs 60cm [id number] - [id number] Implanted:Qty: 1 on 10/19/2012 at [facility] Right: Chest Medtrol 08/07/2016 71415-57 / [id number] / documented as of this encounter Procedures Procedure Name Priority Date/Time Associated Diagnosis Comments CULTURE, URINE, QUANTITATIVE Routine 10/11/2024 11:59 AM EST Memory loss URINALYSIS WITH MICROSCOPIC EXAM Routine 10/11/2024 11:59 AM EST Memory loss documented in this encounter Results * CULTURE, URINE, QUANTITATIVE (10/11/2024 11:59 AM EST) Culture Growth No significant growth 10/12/2024 11:56 AM EST [facility] Urine Urine specimen obtained by clean catch procedure / Unknown Non-blood Collection / Unknown 10/11/2024 11:59 AM EST 10/11/2024 11:59 AM EST us Sharmin Miles MD LAB MICRO - GENERAL ORDERABLES Final Result [facility] [address] [place] [address] * (ABNORMAL) URINALYSIS WITH MICROSCOPIC EXAM (10/11/2024 11:59 AM EST) Color, Urine Yellow Light Yellow, Yellow, Dark Yellow 10/11/2024 12:21 PM [facility] 56- Clarity, Urine Clear Clear 10/11/2024 12:21 PM [facility] 56- Glucose, Urine 500(A) Negative mg/dL 10/11/2024 12:21 PM [facility] 56- Bilirubin, Urine Negative Negative 10/11/2024 12:21 PM [facility] 56- Ketone, Urine 15(A) Negative mg/dL 10/11/2024 12:21 PM [facility] 56- Specific [employer], Urine >=1.030 1.003 - 1.030 10/11/2024 12:21 PM [facility] 56- Blood, Urine Negative Negative 10/11/2024 12:21 PM [facility] 56- pH, Urine 6.0 5.0 - 7.5 Units 10/11/2024 12:21 PM [facility] 56- Protein, Urine Trace(A) Negative mg/dL 10/11/2024 12:21 PM [facility] 56- Urobilinogen, Urine 0.2 0.2, 1.0 mg/dL 10/11/2024 12:21 PM [facility] 56- Nitrite, Urine Negative Negative 10/11/2024 12:21 PM EST [facility] 56 Esterase, Urine Negative Negative 10/11/2024 12:21 PM EST [place] [address] RBC, Urine 0-2 0 - 2 /HPF 10/11/2024 12:21 PM EST [facility] 56 WBC, Urine 0-2 0 - 2 /HPF 10/11/2024 12:21 PM EST [place] [address] Bacteria, Urine 101-150(A) 0 - 25 /HPF 10/11/2024 12:21 PM EST [facility] 56 Hyaline, Cast, Urine 1-4(A) None /LPF 10/11/2024 12:21 PM EST [place] [id number] Urine Urine specimen obtained by clean catch procedure / Unknown Non-blood Collection / Unknown 10/11/2024 11:59 AM EST 10/11/2024 11:59 AM EST Sharmin Miles MD LAB URINE ORDERABLES Final Res ult [address] [place] [address] documented in this encounter Visit Diagnoses Diagnosis HTN, goal below 140/90- Primary Unspecified essential hypertension Memory loss Lack of menses Absence of menstruation Hospital discharge follow-up Other follow-up examination Confusion Unspecified psychosis Generalized idiopathic epilepsy, not intractable, without status epilepticus (HCC) Female stress incontinence Dystonia Abnormal involuntary movements Chronic pansinusitis Other chronic sinusitis Cerebral palsy, unspecified type (HCC) Benign neoplasm of skin, unspecified location Major depressive disorder with single episode, remission status unspecified HX-MALIG SKIN MELANOMA 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 Care Teams Manufacturing Technician Relationship Specialty Start Date End Date Sharmin Miles MD [address] [place] [address] PCP - General Internal Medicine 09/20/21 documented as of this encounter"
--- OUTSIDE RECORDS SUMMARY | 2024-10-23 14:07 | External Medical Summary | Summary of Care ---
Author Name Unknown Organization [facility] Address [address] [place] [address] Phone [phone] Care Team Providers Care Bakery Pastry Internship Name Role Phone Sharmin Miles MD Primary Care Provider [phone] Reason for Visit * Reason Onset Date Comments Med Request 10/06/2024 Encounter Details Date Type Department Care Team (Late st Contact Info) Description 10/06/2024 Telephone [address]rology [address] [place] [phone] Services, Scheduling [address] [place] [address] Med Request Allergies Active Allergy Reactions Criticality [...] Tablet 5 09/14/20 24 Active COVID-19 mRNA Vac-Erik([employer]) 30 MCG/0.3ML Intramuscular Suspension Prefilled Syringe ([employer]) Inject into a large muscle. 0.3 mL [...] 30 Mcg, IM, 12 yrs and above ([employer]) 02/19/2023 Hepatitis B, 20+ yrs 02/23/2002,07/16/2001,06/18 PPD [...] Job Start Date Job End Date skills [employer] workshop Not on file Not on file [...] - 10/08/2024 10:20 AM EST Mandi from retirement calling asking if Elvira Calhoun could send discontinue script for keppra and script for new seizure medicationlamoTRIgine 25 MG Oral Tablet (LaMICtal) she could put it in pts my chart and they could print it out. It is needed for the State Contact #[phone] * Telephone Encounter - Swati Leija MED ASSIST - 10/06/2024 11:21 AM EST Pharmacy aware to d/c Keppra * Addendum Note - Elvira Calhoun PA-C - 10/06/2024 11:16 AM ESTAddended by: ELVIRA CALHOUN on: 10/06/2024 11:16 AM Modules accepted: Orders * Telephone Encounter - Elvira Calhoun PA-C - 10/06/2024 11:12 AM EST Patient was seen at [facility] for seizure activity and started on keppra [...] prescribed through the [facility] and she is to take it twice [...] AM EST Office Visit General Internal Medicine [facility] [place] [address] [place] [address] Sharmin Miles MD [address] [place] [address] 11/15/2024 1:40 PM EST Office Visit Neurology [facility] [place] [address] [place] [address] Earnest Shukla MD [address] [place] [address] 12/23/2024 11:40 AM EST Office Visit General Internal Medicine [facility] [place] [address] [place] [address] Sharmin Miles MD [address] [place] [address] 03/21/2025 11:20 AM EDT Office Visit Neurology [facility] [place] [address] [place] [address] Earnest Shukla MD [address] [place] [address] [address] 06/14/2025 1:40 PM EDT Office Visit Neurology [facility] 200 [facility] [place] [address] Nico Urbina MD [address] [place] [address] 07/15/2025 1:00 PM EDT Office Visit Dermatology [facility] 200 [facility] [place] [address] Carrington Zepeda MD 200 [facility] [place] [address] Scheduled Orders Name Type Priority Associated Diagnoses [...] this encounter Medical Devices Implanted Type Area Outside Food Server Device Identifier Shelf Expiration Date Model / Serial / Lot Kit Lead Dbs .5mm 3389s-40 - [id number] Implanted:Qty: 1 on 10/08/2012 at [place] [facility] Left: Head [employer] : NEUROLOGIC PAIN 02/25/2016 3389S-40 / / [id number] Kit Lead Dbs .5mm 3389s-40 - [id number] Implanted:Qty: 1 on 10/08/2012 at [place] [facility] Right: Head [employer] : NEUROLOGIC PAIN 07/28/2016 3389S-40 / / [id number] Battery Activa Rc 35695 - [id number] Implanted:Qty: 1 on 10/19/2012 at [place] [facility] Right: Chest Medtrol 04/06/2013 74666 / [id number] / Extension Dbs 60cm 57577-11 - [id number] Implanted:Qty: 1 on 10/19/2012 at [place] [facility] Right: Chest Medtrol 07/17/2016 06836-42 / [id number] / Extension Dbs 60cm 55015-47 - [id number] Implanted:Qty: 1 on 10/19/2012 at [place] [facility] Right: Chest Medtrol 08/07/2016 27952-62 / [id number] / documented as of this encounter Visit Diagnoses Diagnosis Nonintractable 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 Care Teams Bakery Pastry Internship Relationship Specialty Start Date End Date Sharmin Miles MD [address] [place] [address] PCP - General Internal Medicine 09/20/21 documented as of this encounter
--- OUTSIDE RECORDS SUMMARY | 2024-10-23 14:08 | External Medical Summary | Summary of Care ---
Author Name Unknown Organization [facility] Address [address] [place] [address] Phone [phone] Care Team Providers Care Emery Grinder Name Role Phone Sharmin Miles MD Primary Care Provider [phone] Reason for Visit * Reason Onset Date Comments Med Request 10/06/2024 Encounter Details Date Type Department Care Team (Late st Contact Info) Description 10/06/2024 Telephone [address] [place] [phone] Services, Scheduling [address] [place] [address] Med Request Allergies Active Allergy Reactions Criticality Noted Date Comments Adhesive Tape 10/27/2014 documented as of this encounter (statuses as of 10/06/2024) Medications Calcium 600+D Plus Minerals 600-400 MG-UNIT [...] Tablet 5 09/14/20 24 Active COVID-19 mRNA Vac-Erik([employer]) 30 MCG/0.3ML Intramuscular Suspension Prefilled Syringe ([employer]) Inject into a large muscle. 0.3 mL 09/22/20 24 Active lamoTRIgine 25 MG Oral Tablet (LaMICtal) 1 tab at bedtime x 5 days then 1 tab twice daily x 5 days, then 2 tab am x 5 days then 2 tab twice daily 90 Tablet 2 10/06/20 24 Active documented as of this encounter (statuses as of 10/06/2024) Active Problems Problem Noted Date Diagnosed Date [...] as of this encounter (statuses as of 10/06/2024) Resolved Problems Problem Noted Date Diagnosed Date Resolved Date Depression 03/03/2014 09/22/2019 ADVANCE DIRECTIVE INFORMATION 02/13/2006 06/17/2017 Overview (02/13/2006): Patient mentally handicapped EPILEPSY,UNSPEC;W/O INTRACTABLE 02/27/2004 06/20/2015 CEREBRAL PALSY NEC 5 Torticollis 11/30/2020 Nocturnal enuresis 8 documented as of this encounter (statuses as of 10/06/2024) Immunizations Name Administration Dates Next Due COVID-19 mRNA, LNP-s, No Pre serve, 2-Dose Series (Moderna) 02/04/2021,01/07/2021 COVID-19, MRNA-LNP, PF, 30 M CG/0.3 mL, 12 YRS AND ABOVE, IM (PFIZER-Comirnaty) 09/22/2024,01/07/2024 Covid-19, Mrna, Lnp-s, Pf, Bivalent, 30 Mcg, IM, 12 yrs and above (Bench) 02/19/2023 Hepatitis B, 20+ yrs 02/23/2002,07/16/2001,06/18 PPD [...] 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 Advised to decrease to 500 mg daily x 5 days then stop. She is also to start lamictal 25 mgand excalate as directed. Advise in 1 month will need level. Elvira Arriola PA-C 10/06/2024 11:15 AM * Telephone Encounter - Daniela Decker OSA - 10/06/2024 10:03 AM EST Caregiver called due to patient's reaction to the Keppra 500 MG and it was prescribed through the hospital [facility] and she is to take it [...] AM EST Office Visit General Internal Medicine [address] [place] [address] Sharmin Miles MD 200 [facility] [place] [address] 11/15/2024 1:40 PM EST Office Visit Neurology [facility] 200 [facility] [place] [address] Earnest Shukla MD 200 [facility] [place] [address] 12/23/2024 11:40 AM EST Office Visit General Internal Medicine [facility] 200 [facility] [place] [address] Sharmin Miles MD 200 [facility] [place] [address] 03/21/2025 11:20 AM EDT Office Visit Neurology [facility] 200 [facility] [place] [address] Earnest Shukla MD 200 [facility] [place] [address] 06/14/2025 1:40 PM EDT Office Visit Neurology [facility] 200 [facility] [place] [address] Nico Urbina MD [address] [place] [address] 07/15/2025 1:00 PM EDT Office Visit Dermatology [facility] [place] 200 [facility] [place] [address] Carrington Zepeda MD 200 [facility] [place] [address] Scheduled Orders Name Type Priority Associated Diagnoses [...] this encounter Medical Devices Implanted Type Area Spar Finisher Device Identifier Shelf Expiration Date Model / Serial / Lot Kit Lead Dbs .5mm 3389s-40 - [id number] Implanted:Qty: 1 on 10/08/2012 at [place] [facility] [place] Left: Head [employer] : NEUROLOGIC PAIN 02/25/2016 3389S-40 / / [id number] Kit Lead Dbs .5mm 3389s-40 - [id number] Implanted:Qty: 1 on 10/08/2012 at OR [facility] [place] Right: Head [employer] : NEUROLOGIC PAIN 07/28/2016 3389S-40 / / [id number] Battery Activa Rc 85020 - [id number] Implanted:Qty: 1 on 10/19/2012 at [facility] Right: Chest Medtrol 04/06/2013 90246 / [id number] / Extension Dbs 60cm 32496-13 - [id number] Implanted:Qty: 1 on 10/19/2012 at OR [facility] [facility] Right: Chest Medtrol 07/17/2016 80445-78 / [id number] / Extension Dbs 60cm 55737-64 - [id number] Implanted:Qty: 1 on 10/19/2012 at [place] [facility] Right: Chest Medtrol 08/07/2016 33436-12 / [id number] / documented as of this encounter Visit Diagnoses Diagnosis Nonintractable 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 Care Teams Emery Grinder Relationship Specialty Start Date End Date Sharmin Miles MD [address] [place] [address], [place] [address] PCP - General Internal Medicine 09/20/21 documented as of this encounter
--- OUTSIDE RECORDS SUMMARY | 2024-10-23 14:08 | External Medical Summary | Summary of Care ---
Author Name Unknown Organization [facility] Address [address] [place] [address] Phone [phone] Care Team Providers Care Air Export Operations Agent Name Role Phone Sharmin Miles MD Primary Care Provider [phone] Reason for Visit * Reason Onset Date Comments Med Request 10/06/2024 Encounter Details Date Type Department Care Team (Late st Contact Info) Description 10/06/2024 Telephone [address] [place] [phone] Services, Scheduling [address] [place] [address] Med Request Allergies Active Allergy Reactions Criticality [...] Tablet 5 09/14/20 24 Active COVID-19 mRNA Vac-Erik([employer]) 30 MCG/0.3ML Intramuscular Suspension Prefilled Syringe ([employer]) Inject into a large muscle. 0.3 mL [...] 30 Mcg, IM, 12 yrs and above ([employer]) 02/19/2023 Hepatitis B, 20+ yrs 02/23/2002,07/16/2001,06/18 PPD [...] Miscellaneous Notes * Addendum Note - Elvira Arriola PA-C - 10/06/2024 11:16 AM ESTAddended by: ELVIRA ARRIOLA on: 10/06/2024 11:16 AM Modules accepted: Orders * Telephone Encounter - Elvira Arriola PA-C - 10/06/2024 11:12 AM EST Patient was seen at [facility] for seizure activity and started on [...] MG and it was prescribed through the [facility] and she is to take [...] Office Visit General Internal Medicine [facility] [place] [address] [place] [address] Sharmin Miles MD 200 [facility] [place] [address] 11/15/2024 1:40 PM EST Office Visit Neurology [facility] 200 [facility] [place] [address] Earnest Shukla MD 200 [facility] [place] [address] 12/23/2024 11:40 AM EST Office Visit General Internal Medicine [facility] 200 [facility] [place] [address] Sharmin Miles MD 200 [facility] [place] [address] 03/21/2025 11:20 AM EDT Office Visit Neurology [facility] 200 [facility] [place] [address] Earnest Shukla MD 200 [facility] [place] [address] 06/14/2025 1:40 PM EDT Office Visit Neurology [facility] 200 [facility] [place] [address] Nico Urbina MD [address] [place] [address] 07/15/2025 1:00 PM EDT Office Visit Dermatology [facility] 200 [facility] [place] [address] Carrington Zepeda MD 200 [facility] [place] [address] Scheduled Orders Name Type Priority Associated Diagnoses [...] this encounter Medical Devices Implanted Type Area Flume Worker Device Identifier Shelf Expiration Date Model / Serial / Lot Kit Lead Dbs .5mm 3389s-40 - [id number] Implanted:Qty: 1 on 10/08/2012 at [place] [facility] Left: Head [employer] : NEUROLOGIC PAIN 02/25/2016 3389S-40 / / [id number] Kit Lead Dbs .5mm 3389s-40 - [id number] Implanted:Qty: 1 on 10/08/2012 at [facility] Right: Head [employer] : NEUROLOGIC PAIN 07/28/2016 3389S-40 / / [id number] Battery Activa Rc 87067 - [id number] Implanted:Qty: 1 on 10/19/2012 at OR [facility] Right: Chest Medtrol 04/06/2013 32262 / [id number] / Extension Dbs 60cm 81114-97 - [id number] Implanted:Qty: 1 on 10/19/2012 at [facility] Right: Chest Medtrol 07/17/2016 01211-37 / [id number] / Extension Dbs 60cm 82025-31 - [id number] Implanted:Qty: 1 on 10/19/2012 at OR [facility] Right: Chest Medtrol 08/07/2016 19178-08 / [id number] / documented as of this encounter Visit Diagnoses Diagnosis Nonintractable 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 Care Teams Air Export Operations Agent Relationship Specialty Start Date End Date Sharmin Miles MD [address] [place] [address] PCP - General Internal Medicine 09/20/21 documented as of this encounter
--- OUTSIDE RECORDS SUMMARY | 2024-10-23 14:08 | External Medical Summary | Summary of Care ---
Author Name Unknown Organization [facility] Address [address] [place] [address] Phone [phone] Care Team Providers Care Potato Picker Name Role Phone Sharmin Miles MD Primary Care Provider [phone] Reason for Visit * Reason Onset Date Comments Med Request 10/06/2024 Encounter Details Date Type Department Care Team (Late st Contact Info) Description 10/06/2024 Telephone [address]rology [address] [place] [phone] Services, Scheduling [address] [place] [address] Med Request Allergies Active Allergy Reactions Criticality [...] Tablet 5 09/14/20 24 Active COVID-19 mRNA Vac-Erik([employer]) 30 MCG/0.3ML Intramuscular Suspension Prefilled Syringe ([employer]) Inject into a large muscle. 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 It is needed for the State Contact #[phone] * Telephone Encounter - Swati Leija MED ASSIST - 10/06/2024 11:21 AM EST Pharmacy aware to d/c Keppra * Addendum Note - Elvira Calhoun PA-C - 10/06/2024 11:16 AM ESTAddended by: ELVIRA CALHOUN on: 10/06/2024 11:16 AM Modules accepted: Orders * Telephone Encounter - Elvira Calhoun PA-C - 10/06/2024 11:12 AM EST Patient was seen at [facility] for seizure activity and started on [...] MG and it was prescribed through the [facility] and she is to take it [...] AM EST Office Visit General Internal Medicine [facility] [address] [facility] [place] [address] Sharmin Miles MD [address] [facility] [place] [address] 11/15/2024 1:40 PM EST Office Visit Neurology [facility] [address] [facility] [place] [place] [address] Earnest Shukla MD [address] [facility] [place] [place] [address] 12/23/2024 11:40 AM EST Office Visit General Internal Medicine [facility] [address] [place] [address] [address] Sharmin Miles MD 200 [facility] [place] [address] 03/21/2025 11:20 AM EDT Office Visit Neurology [facility] [place] [address] [place] [address] Earnest Shukla MD [address] [place] [address] 06/14/2025 1:40 PM EDT Office Visit Neurology [facility] [address] [place] [address] Nico Urbina MD [address] [place], [place] [address] 07/15/2025 1:00 PM EDT Office Visit Dermatology [facility] [address] [place] [address] [address] Carrington Zepeda MD [address] [place] [address] [address] Scheduled Orders Name Type Priority Associated Diagnoses [...] this encounter Medical Devices Implanted Type Area Concrete Block Molder Device Identifier Shelf Expiration Date Model / Serial / Lot Kit Lead Dbs .5mm 3389s-40 - [id number] Implanted:Qty: 1 on 10/08/2012 at [place] [facility] Left: Head [employer] : NEUROLOGIC PAIN 02/25/2016 3389S-40 / / [id number] Kit Lead Dbs .5mm 3389s-40 - [id number] Implanted:Qty: 1 on 10/08/2012 at [place] [facility] Right: Head [employer] : NEUROLOGIC PAIN 07/28/2016 3389S-40 / / [id number] Battery Activa Rc 46366 - [id number] Implanted:Qty: 1 on 10/19/2012 at [facility] Right: Chest Medtrol 04/06/2013 69277 / [id number] / Extension Dbs 60cm 04190-51 - [id number] Implanted:Qty: 1 on 10/19/2012 at [facility] Right: Chest Medtrol 07/17/2016 04361-94 / [id number] / Extension Dbs 60cm 66970-44 - [id number] Implanted:Qty: 1 on 10/19/2012 at [facility] Right: Chest Medtrol 08/07/2016 98847-07 / [id number] / documented as of this encounter Visit Diagnoses Diagnosis Nonintractable 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 Care Teams Potato Picker Relationship Specialty Start Date End Date Sharmin Miles MD [address] [place] [address], [place] [address] PCP - General Internal Medicine 09/20/21 documented as of this encounter
--- OUTSIDE RECORDS SUMMARY | 2024-10-23 14:08 | External Medical Summary | Summary of Care ---
Author Name Unknown Organization [facility] Address [address] [place] [address] Phone [phone] Care Team Providers Care Log Rafter Name Role Phone Sharmin Miles MD Primary Care Provider [phone] Reason for Visit * Reason Onset Date Comments Med Request 10/06/2024 Encounter Details Date Type Department Care Team (Late st Contact Info) Description 10/06/2024 Telephone Neurology [address] [place] [phone] Services, Scheduling [address] [place] [address] Med Request Allergies Active Allergy Reactions Criticality [...] Estrad-FE 1.5-30 MG-MCG Oral Tablet (Microgestin FE .04/22)Indication s:Encounter for surveillance of contraceptive pills,PMS (premenstrual [...] Tablet 5 09/14/20 24 Active COVID-19 mRNA Vac-Erik([employer]) 30 MCG/0.3ML Intramuscular Suspension Prefilled Syringe ([employer]) Inject into a large muscle. 0.3 mL 09/22/20 24 Active documented as of this encounter [...] Author No 10/01/2017 12:00 PM Deja Kat, FRDEDY documented as of this encounter Mental Status * Because of a physical, mental, or emotional condition, do you have serious difficulty concentrating, remembering, or making decisions? (5 years old or older) Answer Entry Date Author No 10/01/2017 12:00 PM Deja Kat, FREDDY documented in this encounter Miscellaneous Notes * Telephone Encounter - Daniela Decker OSA [...] AM EST Office Visit General Internal Medicine [facility] [address] [place] [address] Sharmin Miles MD [address] [place] [address] 11/15/2024 1:40 PM EST Office Visit Neurology [facility] [address] [place] [address] Earnest Shukla MD [address] [place] [address] 12/23/2024 11:40 AM EST Office Visit General Internal Medicine [facility] [address] [place] [address] Sharmin Miles MD [address] [place] [address] 03/21/2025 11:20 AM EDT Office Visit Neurology [facility] [address] [place] [address] Earnest Shukla MD [address] [place] [address] 06/14/2025 1:40 PM EDT Office Visit Neurology [facility] [address] [place] [address] Nico Urbina MD [address] [place] [address] 07/15/2025 1:00 PM EDT Office Visit Dermatology [facility] [address] [place] [address] Carrington Zepeda MD [address] [place] [address] Health Maintenance Due Date Last Done Comments [...] this encounter Medical Devices Implanted Type Area Senior Operations Manager Device Identifier Shelf Expiration Date Model / Serial / Lot Kit Lead Dbs .5mm 3389s-40 - [id number] Implanted:Qty: 1 on 10/08/2012 at OR [facility] Left: Head [employer] : NEUROLOGIC PAIN 02/25/2016 3389S-40 / / [id number] Kit Lead Dbs .5mm 3389s-40 - [id number] Implanted:Qty: 1 on 10/08/2012 at [place] [facility] Right: Head [employer] : NEUROLOGIC PAIN 07/28/2016 3389S-40 / / [id number] Battery Activa Rc 36732 - [id number] Implanted:Qty: 1 on 10/19/2012 at [place] [facility] Right: Chest Medtrol 04/06/2013 94179 / [id number] / Extension Dbs 60cm 80423-68 - [id number] Implanted:Qty: 1 on 10/19/2012 at [place] [facility] Right: Chest Medtrol 07/17/2016 68303-19 / [id number] / Extension Dbs 60cm 20989-33 - [id number] Implanted:Qty: 1 on 10/19/2012 at [place] [facility] Right: Chest Medtrol 08/07/2016 77287-00 / [id number] / documented as of this encounter Advance Directives * Full Code (Latest Code Status on File) Date Activated Date Inactivated Comments 10/08/2012 6:53 AM 10/09/2012 7:55 PM This order reflects the patients wishes and were consensually agreed upon. Care Teams Log Rafter Relationship Specialty Start Date End Date Sharmin Miles MD 200 [facility] [place] [address] PCP - General Internal Medicine 09/20/21 documented as of this encounter
--- OUTSIDE RECORDS SUMMARY | 2024-10-23 14:08 | External Medical Summary | Summary of Care ---
Author Name Unknown Organization [facility] Address [address] [place] [address] Phone [phone] Care Team Providers Care Hide Dropper Name Role Phone Sharmin Miles MD Primary Care Provider Reason for Visit * Reason Onset Date Comments Advice 10/06/2024 Encounter Details Date Type Department Care Team (Late st Contact Info) Description 10/06/2024 Telephone General Internal Medicine [facility] 200 [facility] [place] [address] Sharmin Miles MD [address] [place] [address] Advice Allergies Active Allergy Reactions Criticality Noted [...] Estrad-FE 1.5-30 MG-MCG Oral Tablet (Microgestin FE 1.04/22)Indication s:Encounter for surveillance of contraceptive pills,PMS (premenstrual [...] Tablet 5 09/14/20 24 Active COVID-19 mRNA Vac-Erik(Zitra.com) 30 MCG/0.3ML Intramuscular Suspension Prefilled Syringe (mobintent) Inject into a large muscle. 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 Yesterday around 830pm, Samina hasn't slept and is very agitated and saying bizarre things. Can you please advise and call [phone] documented in this encounter Plan of Treatment Upcoming Encounters Date Type Department Care Team (Late st Contact Info) Description 10/11/2024 11:00 AM EST Office Visit General Internal Medicine [facility] [address] [place] [address] Sharmin Miles MD [address] [place], [place] [address] 11/15/2024 1:40 PM EST Office Visit Neurology [facility] [place] [address] [place] [address] Earnest Shukla MD [address] [place], [place] [address] 12/23/2024 11:40 AM EST Office Visit General Internal Medicine [facility] [place] [address] [place] [address] Sharmin Miles MD [address] [place], [place] [address] 03/21/2025 11:20 AM EDT Office Visit Neurology [facility] [address] [place] [address] Earnest Shukla MD [address] [place] [address] 06/14/2025 1:40 PM EDT Office Visit Neurology [facility] 200 [facility] [place] [address] Nico Urbina MD [address] [place] [address] 07/15/2025 1:00 PM EDT Office Visit Dermatology [facility] 200 [facility] [place] [address] Carrington Zepeda MD 200 [facility] [place] [address] Scheduled Orders Name Type Priority Associated Diagnoses [...] this encounter Medical Devices Implanted Type Area Ambulance Driver Paramedic Device Identifier Shelf Expiration Date Model / Serial / Lot Kit Lead Dbs .5mm 3389s-40 - [id number] Implanted:Qty: 1 on 10/08/2012 at [place] [facility] Left: Head MEDTR[employer] : NEUROLOGIC PAIN 02/25/2016 3389S-40 / / [id number] Kit Lead Dbs .5mm 3389s-40 - [id number] Implanted:Qty: 1 on 10/08/2012 at OR [facility] Right: Head [employer] : NEUROLOGIC PAIN 07/28/2016 3389S-40 / / [id number] Battery Activa Rc 20761 - [id number] Implanted:Qty: 1 on 10/19/2012 at OR [facility] Right: Chest Medtrol 04/06/2013 71211 / [id number] / Extension Dbs 60cm 53359-80 - [id number] Implanted:Qty: 1 on 10/19/2012 at [facility] Right: Chest Medtrol 07/17/2016 95517-71 / [id number] / Extension Dbs 60cm 99498-60 - [id number] Implanted:Qty: 1 on 10/19/2012 at OR [facility] Right: Chest Medtrol 08/07/2016 01308-28 / [id number] / documented as of this encounter Visit Diagnoses Diagnosis Memory loss- Primary documented in this encounter Advance Directives * Full Code (Latest Code Status on File) Date Activated Date Inactivated Comments 10/08/2012 6:53 AM 10/09/2012 7:55 PM This order reflects the patients wishes and were consensually agreed upon. Care Teams Hide Dropper Relationship Specialty Start Date End Date Sharmin Miles MD [address] [place] [address] PCP - General Internal Medicine 09/20/21 documented as of this encounter
--- OUTSIDE RECORDS SUMMARY | 2024-10-23 14:08 | External Medical Summary | Summary of Care ---
Author Name Unknown Organization [facility] Address [address] [place] [address] Phone [phone] Care Team Providers Care Muffler Tender Name Role Phone Sharmin Miles MD Primary Care Provider [phone] Reason for Visit * Reason Onset Date Comments Med Request 10/06/2024 Encounter Details Date Type Department Care Team (Late st Contact Info) Description 10/06/2024 Telephone [address] [place] [phone] Services, Scheduling [address] [place] [address] Med Request Allergies Active Allergy Reactions Criticality [...] Tablet 5 09/14/20 24 Active COVID-19 mRNA Vac-Erik(Broota) 30 MCG/0.3ML Intramuscular Suspension Prefilled Syringe ([employer]) Inject into a large muscle. 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 It is needed for the State Contact #[phone] * Telephone Encounter - Swati Leija MED ASSIST - 10/06/2024 11:21 AM EST Pharmacy aware to d/c Keppra * Addendum Note - Elvira Calhoun PA-C - 10/06/2024 11:16 AM ESTAddended by: ELVIRA CALHOUN on: 10/06/2024 11:16 AM Modules accepted: Orders * Telephone Encounter - Elvira Calhoun PA-C - 10/06/2024 11:12 AM EST Patient was seen at [facility] for seizure activity and started on keppra [...] MG and it was prescribed through the [facility] and she is to take it [...] AM EST Office Visit General Internal Medicine [facility] 200 [facility] [place] [address] Sharmin Miles MD 200 [facility] [place] [address] 11/15/2024 1:40 PM EST Office Visit Neurology [facility] 200 [facility] [place] [address] Earnest Shukla MD 200 [facility] [place] [address] 12/23/2024 11:40 AM EST Office Visit General Internal Medicine [facility] [address] [place] [address] Sharmin Miles MD 200 [facility] [place], [place] [address] 03/21/2025 11:20 AM EDT Office Visit Neurology [facility] [place] [address] [place] [address] Earnest Shukla MD [address] [place] [address] 06/14/2025 1:40 PM EDT Office Visit Neurology [facility] [address] [place] [address] Nico Urbina MD [address] [place], [place] [address] 07/15/2025 1:00 PM EDT Office Visit Dermatology [facility] [address] [place] [address] Carrington Zepeda MD [address] [place] [address] Scheduled Orders Name Type Priority Associated Diagnoses [...] this encounter Medical Devices Implanted Type Area Ic Design Engineer Device Identifier Shelf Expiration Date Model / Serial / Lot Kit Lead Dbs .5mm 3389s-40 - [id number] Implanted:Qty: 1 on 10/08/2012 at [place] [facility] Left: Head [employer] : NEUROLOGIC PAIN 02/25/2016 3389S-40 / / [id number] Kit Lead Dbs .5mm 3389s-40 - [id number] Implanted:Qty: 1 on 10/08/2012 at OR [facility] Right: Head [employer] : NEUROLOGIC PAIN 07/28/2016 3389S-40 / / [id number] Battery Activa Rc 71291 - [id number] Implanted:Qty: 1 on 10/19/2012 at [facility] Right: Chest Medtrol 04/06/2013 79076 / [id number] / Extension Dbs 60cm 39006-01 - [id number] Implanted:Qty: 1 on 10/19/2012 at [facility] Right: Chest Medtrol 07/17/2016 11485-29 / [id number] / Extension Dbs 60cm 07470-45 - [id number] Implanted:Qty: 1 on 10/19/2012 at [facility] Right: Chest Medtrol 08/07/2016 61794-26 / [id number] / documented as of this encounter Visit Diagnoses Diagnosis Nonintractable 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 Care Teams Muffler Tender Relationship Specialty Start Date End Date Sharmin Miles MD [address] [place] [address], [place] [address] PCP - General Internal Medicine 09/20/21 documented as of this encounter
--- OUTSIDE RECORDS SUMMARY | 2024-10-23 14:08 | External Medical Summary | Summary of Care ---
Author Name Unknown Organization [facility] Address [address] [facility] [address] Phone [phone] Care Team Providers Care Side Stitcher Name Role Phone Sharmin Miles MD Primary Care Provider [phone] Encounter Details Date Type Department Care Team (Late st Contact Info) Description 10/08/2024 Orders Only PATIENT PORTAL DO NOT DELETE THIS DEPT USED BY [place] [address] Allergies Active Allergy Reactions Criticality Noted Date [...] Estrad-FE 1.5-30 MG-MCG Oral Tablet (Microgestin FE 1.5)Indication s:Encounter for surveillance of contraceptive pills,PMS (premenstrual [...] Tablet 5 09/14/20 24 Active COVID-19 mRNA Vac-Erik(Creabilis) 30 MCG/0.3ML Intramuscular Suspension Prefilled Syringe (Side.Cr) Inject into a large muscle. 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 Answer Date of Assessment Author No 10/01/2017 12:00 PM Deja Kat itlin K, FREDDY * Are you blind or do you have serious difficulty seeing, even when wearing glasses? Answer Date of Assessment Author No 10/01/2017 12:00 PM Deja Kat itlin K, FREDDY * Do you have serious difficulty walking or climbing stairs? (5 years old or older) Answer Date of Assessment Author Yes 10/01/2017 12:00 PM Deja Kat itlin K, FREDDY * Do you have difficulty dressing or bathing? (5 years old or older) Answer Date of Assessment Author Yes 10/01/2017 12:00 PM Deja Kat itlin K, FREDDY * Because of a physical, mental, or emotional condition, do you have difficulty doing errands alone such as visiting a doctors office or shopping? (15 years old or older) Answer Date of Assessment Author No 10/01/2017 12:00 PM Deja Kat itlin K, FREDDY documented as of this encounter Mental Status * Because of a physical, mental, or emotional condition, do you have serious difficulty concentrating, remembering, or making decisions? (5 years old or older) Answer Entry Date Author No 10/01/2017 12:00 PM Deja Kat itlin K, FREDDY documented in this encounter Plan of Treatment Upcoming Encounters Date Type Department Care Team (Late st Contact Info) Description 10/11/2024 11:00 AM EST Office [facility] [place] [address] [place] [address] Sharmin Miles MD [address] [place] [address] 11/15/2024 1:40 PM EST Office [facility] [place] [place] [address] [place] [address] Earnest Shukla MD 200 [place] [address] 12/23/2024 11:40 AM EST Office Visit General Internal Medicine [facility] [place] [address] [facility] [address] [place], [place] [address] Sharmin Miles MD 200 [place] [address] 03/21/2025 11:20 AM EDT Office Visit Neurology [facility] [place] [address] [place] [address] Earnest Shukla MD 200 [place] [address] 06/14/2025 1:40 PM EDT Office Visit Neurology [facility] [place] [address] [facility] [address] Nico Urbina MD [address] [place] [address] 07/15/2025 1:00 PM EDT Office Visit Dermatology [facility] [place] [address] [place] [address] Carrington Zepeda MD 200 [place] [address] Health Maintenance Due Date Last Done Comments [...] this encounter Medical Devices Implanted Type Area Crt Device Identifier Shelf Expiration Date Model / Serial / Lot Kit Lead Dbs .5mm 3389s-40 - [id number] Implanted:Qty: 1 on 10/08/2012 at [place] [facility] Left: Head [employer] : NEUROLOGIC PAIN 02/25/2016 3389S-40 / / [id number] Kit Lead Dbs .5mm 3389s-40 - [id number] Implanted:Qty: 1 on 10/08/2012 at [place] [facility] Right: Head [employer] : NEUROLOGIC PAIN 07/28/2016 3389S-40 / / [id number] Battery Activa 13984 - [id number] Implanted:Qty: 1 on 10/19/2012 at [place] [facility] Right: Chest Medtrol 04/06/2013 12662 / [id number] / Extension Dbs 60cm 82957-94 - [id number] Implanted:Qty: 1 on 10/19/2012 at [place] [facility] Right: Chest Medtrol 07/17/2016 08919-36 / [id number] / Extension Dbs 60cm 93533-31 - [id number] Implanted:Qty: 1 on 10/19/2012 at [place] [facility] Right: Chest Medtrol 08/07/2016 21050-63 / [id number] / documented as of this encounter Advance Directives * Full Code (Latest Code Status on File) Date Activated Date Inactivated Comments 10/08/2012 6:53 AM 10/09/2012 7:55 PM This order reflects the patients wishes and were consensually agreed upon. Care Teams Side Stitcher Relationship Specialty Start Date End Date Sharmin Miles MD 200 [place] [address] PCP - General Internal Medicine 09/20/21 documented as of this encounter
--- OUTSIDE RECORDS SUMMARY | 2024-10-23 14:08 | External Medical Summary | Summary of Care ---
Author Name Unknown Organization [facility] Address [address] [place] [address] Phone [phone] Care Team Providers Care Vacation Planner Name Role Phone Sharmin Miles MD Primary Care Provider [phone] Reason for Visit * Reason Onset Date Comments Med Request 10/06/2024 Encounter Details Date Type Department Care Team (Late st Contact Info) Description 10/06/2024 Telephone [address] [place] [phone] Services, Scheduling [address] [place] [address] Med Request Allergies Active Allergy Reactions Criticality [...] Tablet 5 09/14/20 24 Active COVID-19 mRNA Vac-Erik(Saygus) 30 MCG/0.3ML Intramuscular Suspension Prefilled Syringe ([employer]) Inject into a large muscle. 0.3 mL [...] MG and it was prescribed through the [facility] and she is to take it [...] AM EST Office Visit General Internal Medicine [facility] [address] [place] [address] Sharmin Miles MD [address] [place] [address] 11/15/2024 1:40 PM EST Office Visit Neurology [facility] [address] [place] [address] Earnest Shukla MD [address] [place] [address] 12/23/2024 11:40 AM EST Office Visit General Internal Medicine [facility] [address] [place] [address] Sharmin Miles MD [address] [place] [address] 03/21/2025 11:20 AM EDT Office Visit Neurology [facility] [address] [place] [address] Earnest Shukla MD [address] [place] [address] 06/14/2025 1:40 PM EDT Office Visit Neurology [facility] [address] [place] [address] Nico Ubrina MD [address] [place] [address] 07/15/2025 1:00 PM EDT Office Visit Dermatology [facility] [address] [place] [address] Carrington Zepeda MD [address] [place] [address] Health Maintenance Due Date Last Done Comments [...] this encounter Medical Devices Implanted Type Area Space Operations Device Identifier Shelf Expiration Date Model / Serial / Lot Kit Lead Dbs .5mm 3389s-40 - [id number] Implanted:Qty: 1 on 10/08/2012 at [place] [facility] Left: Head [employer] : NEUROLOGIC PAIN 02/25/2016 3389S-40 / / [id number] Kit Lead Dbs .5mm 3389s-40 - [id number] Implanted:Qty: 1 on 10/08/2012 at OR [facility] Right: Head [employer] : NEUROLOGIC PAIN 07/28/2016 3389S-40 / / [id number] Battery Activa Rc 74711 - [id number] Implanted:Qty: 1 on 10/19/2012 at OR [facility] Right: Chest Medtrol 04/06/2013 37936 / [id number] / Extension Dbs 60cm 10080-66 - [id number] Implanted:Qty: 1 on 10/19/2012 at OR [facility] Right: Chest Medtrol 07/17/2016 11837-18 / [id number] / Extension Dbs 60cm 02680-08 - [id number] Implanted:Qty: 1 on 10/19/2012 at OR [facility] Right: Chest Medtrol 08/07/2016 86551-64 / [id number] / documented as of this encounter Advance Directives * Full Code (Latest Code Status on File) Date Activated Date Inactivated Comments 10/08/2012 6:53 AM 10/09/2012 7:55 PM This order reflects the patients wishes and were consensually agreed upon. Care Teams Vacation Planner Relationship Specialty Start Date End Date Sharmin Miles MD [address] [facility] [place] [address] PCP - General Internal Medicine 09/20/21 documented as of this encounter
--- OUTSIDE RECORDS SUMMARY | 2024-10-23 14:08 | External Medical Summary | Summary of Care ---
Author Name Unknown Organization [facility] Address [address] [place] [address] Phone [phone] Care Team Providers Care Furnace Erector Name Role Phone Sharmin Miles MD Primary Care Provider [phone] Reason for Visit * Reason Onset Date Comments Med Request 10/06/2024 Encounter Details Date Type Department Care Team (Late st Contact Info) Description 10/06/2024 Telephone Neurology [address] [place] [phone] Services, Scheduling [address] [place] [address] Med Request Allergies Active Allergy Reactions Criticality [...] Tablet 5 09/14/20 24 Active COVID-19 mRNA Vac-Erik(MiName) 30 MCG/0.3ML Intramuscular Suspension Prefilled Syringe (mth sense) Inject into a large muscle. 0.3 mL [...] MG and it was prescribed through the [facility] and she is to take it twice [...] AM EST Office Visit General Internal Medicine [facility] [address] [place] [address] Sharmin Miles MD [address] [place] [address] 11/15/2024 1:40 PM EST Office Visit Neurology [facility] [address] [place] [address] Earnest Shukla MD [address] [place] [address] 12/23/2024 11:40 AM EST Office Visit General Internal Medicine [facility] [address] [place] [address] Sharmin Miles MD [address] [place] [address] 03/21/2025 11:20 AM EDT Office Visit Neurology [facility] [address] [place] [address] Earnest Shukla MD [address] [place] [address] 06/14/2025 1:40 PM EDT Office Visit Neurology [facility] [address] [place] [address] Nico Urbina MD [address] [place] [address] 07/15/2025 1:00 PM EDT Office Visit Dermatology [facility] [address] [place] [address] Carrington Zepeda MD [address] [place] [address] Health Maintenance Due Date Last Done Comments [...] encounter Medical Devices Implanted Type Area Kiln Car Repairer Device Identifier Shelf Expiration Date Model / Serial / Lot Kit Lead Dbs .5mm 3389s-40 - [id number] Implanted:Qty: 1 on 10/08/2012 at OR [place] Left: Head [employer] : NEUROLOGIC PAIN 02/25/2016 3389S-40 / / [id number] Kit Lead Dbs .5mm 3389s-40 - [id number] Implanted:Qty: 1 on 10/08/2012 at OR [place] Right: Head [employer] : NEUROLOGIC PAIN 07/28/2016 3389S-40 / / [id number] Battery Activa Rc 27548 - [id number] Implanted:Qty: 1 on 10/19/2012 at OR [place] Right: Chest Medtrol 04/06/2013 97046 / [id number] / Extension Dbs 60cm 23680-87 - [id number] Implanted:Qty: 1 on 10/19/2012 at OR [place] Right: Chest Medtrol 07/17/2016 36206-65 / [id number] / Extension Dbs 60cm 30839-95 - [id number] Implanted:Qty: 1 on 10/19/2012 at OR [place] Right: Chest Medtrol 08/07/2016 08506-95 / [id number] / documented as of this encounter Advance Directives * Full Code (Latest Code Status on File) Date Activated Date Inactivated Comments 10/08/2012 6:53 AM 10/09/2012 7:55 PM This order reflects the patients wishes and were consensually agreed upon. Care Teams Furnace Erector Relationship Specialty Start Date End Date Sharmin Miles MD 200 [facility] [place] [address] PCP - General Internal Medicine 09/20/21 documented as of this encounter
--- NOTE | 2024-10-23 15:01 | Emergency Department Note ---
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 IV was established and blood work was obtained along with blood cultures. CT head performed as the patient is more lethargic and is not at her baseline. IV fluids ordered in addition to IV Zosyn due to concerns for possible aspiration hypoxia. BioFire also obtained. EKG with only 1-lead Able to be visualized and reportedly prior issues secondary to stimulator. Patient's blood work shows a white count of 13 with a hemoglobin of 10.9. This is around what it was on October 03. The patient's platelet count is unremarkable. Mild hyponatremia at 146. Slight hypocalcemia at 8.5. Pro-Hamilton of 1.03. BioFire negative. Patient's chest x-ray may show developing right- sided pneumonia. Patient CT head limited by motion artifact but no evidence of obvious ICH. Given these findings I did speak the on-call hospitalist Dr. Palacios. Dr. Palacios was able to ascertain that the patient had been weaned off her Keppra and transition to the Lamictal. Patient admitted to the medicine service. Discussion w/ other healthcare providers: None Prior /Outside records reviewed: None Differential diagnosis: Reactive airway disease, pneumonia, pneumothorax, COPD, CHF, ACS, pulmonary embolism, musculoskeletal, GERD as well as other pathologies were considered. Diagnostics, as interpreted by me: ECG: Difficult interpretation only lead to visible no obvious ST elevations. Prior issues with obtaining EKG secondary to stimulator. Cardiac monitoring: An order was placed for continuous cardiac monitoring. The monitor shows a rate of 85 with sinus rhythm. Patient was placed on pulse oximetry Medical decision rules: None Imaging studies: I informally interpreted the patient's chest x-ray with developing right lower lobe pneumonia device noted in the right chest with formal report to follow. HPI: Patient presents with caregiver long-term at the bedside who provides the history. She reports that she was here in the middle of the month for 3 days at which point the patient had been on Keppra and recently transition to Lamictal. The patient reportedly had an episode of vomiting sometime in the middle of the night as when staff had seen her in the morning noticed vomitus over her. Reportedly had a second episode on Friday. The patient was taken to an urgent care this morning and her oxygen was low so was referred here. The manager of software development of the long-term is concerned that the Lamictal is causing increasing sedation. She also states that she has had some increasing twitching weakness. Patient reportedly can be verbal but has been more lethargic and not at her baseline. No reported falls or trauma. PAST MEDICAL HISTORY: See Below PAST SURGICAL HISTORY: See Below SOCIAL HISTORY: See Below HOME MEDICATIONS: See Below ALLERGIES: See Below VITALS: See Below PHYSICAL EXAMINATION: GENERAL: Sleeping, nasal cannula in place. EYE EXAM: Normal conjunctiva. PERRL, no anisocoria and EOM's grossly intact w/o pain. OROPHARYNX: Moist mucus membranes, grossly normal dentition. NECK: Trachea midline, no stridor. Supple, no nuchal rigidity, no adenopathy, non-tender. No signs of meningismus. FROM of the neck with good chin to chest and neck extension. LUNGS: Clear to auscultation. Normal chest wall mechanics. HEART: NSR, no MRG. ABDOMEN: Abdomen soft, non-tender, no masses, no rebound or guarding. BACK: No CVA TTP. SKIN: No rashes and no bruising. UPPER EXTREMITIES: Upper extremities are grossly normal. LOWER EXTREMITIES: Grossly normal, no edema. NEURO EXAM: GCS of 8 opening eyes to pain no verbal response and localizes to pain, no obvious facial droop, moves all 4 extremities. 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 H/O oral surgery Family History Mother Breast cancer Denies family history of Ovarian cancer Colorectal cancer Social History Smoking Status: Never smoker Do You Dip or Chew Tobacco: No; Hx Alcohol Use: No Hx Substance Use: No Preferred Language: Urdu Communication Ability: Impaired Multimedia Manager Required: No Beliefs That Will Affect Care: None Current Living Situation: Other Current Living Situation Comment: Senior Care Feels Safe at Home: Yes Assistive Devices: None Allergies Allergies Allergy/AdvReac Type Severity Reaction Status Date / Time levetiracetam [From [facility]] Allergy Severe Agitation/Lack Unverified 10/23/24 18:40 of sleep that switched to becoming lethargic adhesive tape Allergy Unknown Rash Verified 10/23/24 18:43 Home Meds Home Medications Medication Instructions Recorded Confirmed calcium 600 mg (as 1 cap PO BID 12/04/19 10/23/24 carbonate)-vitamin D3 62.5 mcg (2,500 unit) capsule oxybutynin chloride 5 mg tablet 5 mg PO TID 12/04/19 10/23/24 quetiapine 25 mg tablet 25 mg PO HS 12/04/19 10/23/24 carbamazepine 100 mg chewable 100 - 200 mg PO UD 12/13/19 10/23/24 tablet carbidopa ER 50 mg-levodopa 200 mg 1 tab PO TID 10/02/24 10/23/24 tablet,extended release fluoxetine 40 mg capsule 40 mg PO DAILY 10/02/24 10/23/24 polyethylene glycol 3350 17 gram 17 g PO BID 10/02/24 10/23/24 oral powder packet sennosides 8.6 mg capsule (senna) 8.6 mg PO BID 10/02/24 10/23/24 aspirin 81 mg tablet,delayed 81 mg PO QAM 10/23/24 10/23/24 release lamotrigine 25 mg tablet 50 mg PO BID 10/23/24 10/23/24 norethindrone acetate 1.5 1 tab PO HS 10/23/24 10/23/24 mg-ethinyl estradiol 30 mcg tablet Results & Data (ED) Vital Signs Vital Signs - 24 hr 10/23/24 14:12 10/23/24 15:05 10/23/24 15:45 Temperature 36.9 C Temperature Source Temporal Artery Scan Pulse Rate 98 H 90 Pulse Rate [Left Apical] 88 Respiratory Rate 18 24 Respiratory Effort / Characteristics Non-Labored Spontaneous Respiratory Depth Normal Normal Respiratory Pattern Regular Blood Pressure 123/87 Blood Pressure [Left Arm] 133/91 Blood Pressure Mean 99 Blood Pressure Mean [Left Arm] 105 Blood Pressure Position Sitting Pulse Oximetry 87 L 98 Oxygen Delivery Method Room Air Nasal Cannula Oxygen Flow Rate 4 Sepsis Recent Fever Within 48 Hours No Sepsis New/Unexplained Change in Mental Status N/A Sepsis Action Taken by Nursing No Action Required 10/23/24 16:03 10/23/24 16:19 10/23/24 16:24 Temperature Temperature Source Pulse Rate 90 91 H Pulse Rate [Left Apical] Respiratory Rate 20 20 Respiratory Effort / Characteristics Respiratory Depth Respiratory Pattern Blood Pressure 125/94 Blood Pressure [Left Arm] Blood Pressure Mean 108 Blood Pressure Mean [Left Arm] Blood Pressure Position Pulse Oximetry 98 99 Oxygen Delivery Method Nasal Cannula Nasal Cannula Oxygen Flow Rate 4 4 Sepsis Recent Fever Within 48 Hours Sepsis New/Unexplained Change in Mental Status Sepsis Action Taken by Nursing 10/23/24 16:33 10/23/24 16:44 10/23/24 16:54 Temperature Temperature Source Pulse Rate 88 86 Pulse Rate [Left Apical] Respiratory Rate 22 Respiratory Effort / Characteristics Respiratory Depth Respiratory Pattern Blood Pressure 139/92 Blood Pressure [Left Arm] Blood Pressure Mean 109 Blood Pressure Mean [Left Arm] Blood Pressure Position Pulse Oximetry 100 98 Oxygen Delivery Method Nasal Cannula Nasal Cannula Oxygen Flow Rate 4 4 Sepsis Recent Fever Within 48 Hours Sepsis New/Unexplained Change in Mental Status Sepsis Action Taken by Nursing 10/23/24 17:00 10/23/24 17:15 10/23/24 17:30 Temperature Temperature Source Pulse Rate 86 Pulse Rate [Left Apical] Respiratory Rate 26 H Respiratory Effort / Characteristics Respiratory Depth Respiratory Pattern Blood Pressure 93/64 L 113/78 Blood Pressure [Left Arm] Blood Pressure Mean 73 89 Blood Pressure Mean [Left Arm] Blood Pressure Position Pulse Oximetry Oxygen Delivery Method Oxygen Flow Rate Sepsis Recent Fever Within 48 Hours Sepsis New/Unexplained Change in Mental Status Sepsis Action Taken by Nursing 10/23/24 17:33 10/23/24 17:42 10/23/24 17:51 Temperature Temperature Source Pulse Rate 87 86 83 Pulse Rate [Left Apical] Respiratory Rate 24 28 H 26 H Respiratory Effort / Characteristics Respiratory Depth Respiratory Pattern Blood Pressure Blood Pressure [Left Arm] Blood Pressure Mean Blood Pressure Mean [Left Arm] Blood Pressure Position Pulse Oximetry 100 100 98 Oxygen Delivery Method Nasal Cannula Nasal Cannula Nasal Cannula Oxygen Flow Rate 4 4 4 Sepsis Recent Fever Within 48 Hours Sepsis New/Unexplained Change in Mental Status Sepsis Action Taken by Nursing 10/23/24 18:12 10/23/24 18:21 Temperature Temperature Source Pulse Rate 83 81 Pulse Rate [Left Apical] Respiratory Rate 28 H 27 H Respiratory Effort / Characteristics Respiratory Depth Respiratory Pattern Blood Pressure Blood Pressure [Left Arm] Blood Pressure Mean Blood Pressure Mean [Left Arm] Blood Pressure Position Pulse Oximetry 95 95 Oxygen Delivery Method Nasal Cannula Nasal Cannula Oxygen Flow Rate 4 4 Sepsis Recent Fever Within 48 Hours Sepsis New/Unexplained Change in Mental Status Sepsis Action Taken by [facility] Medications Current Medication List: was personally reviewed by me Laboratory Data Attestation: I reviewed the patient's lab results. 10/23/24 15:31 10/23/24 15:31 Lab Results 10/23/24 10/23/24 Range/Units 15:31 15:33 WBC 13.16 H (4.8-10.8) K/ul RBC 3.56 L (4.20-5.40) M/uL Hgb 10.9 L (12.0-16.0) g/dl Hct 33.7 L (37.0-47.0) % MCV 94.7 (80.0-100.0) fL MCH 30.6 (25.0-34.0) pg MCHC 32.3 (32.0-36.0) g/dL RDW Std Deviation 49.7 H (36.4-46.3) fL RDW Coeff of Maricruz 14.3 (11.5-14.5) % Plt Count 313 (130-400) K/uL MPV 9.0 L (9.4-12.4) fL Immature Gran % (Auto) 0.4 % Neut % (Auto) 77.8 % Lymph % (Auto) 14.5 % Pacific % (Auto) 5.4 % Eos % (Auto) 1.7 % Baso % (Auto) 0.2 % Neut # (Auto) 10.23 H (1.40-6.50) K/uL Lymph # (Auto) 1.91 (1.20-3.40) K/uL Pacific # (Auto) 0.71 H (0.11-0.59) K/uL Eos # (Auto) 0.23 (0.00-0.50) K/uL Baso # (Auto) 0.03 (0.00-0.20) K/uL Immature Gran # (Auto) 0.05 (0.01-0.20) K/uL Sodium 146 H (136-145) mmol/L Potassium 4.2 (3.5-5.1) mmol/L Chloride 110 H (98-107) mmol/L Carbon Dioxide 28 (21-32) mmol/L Anion Gap 8 (3-11) BUN 11 (6-23) mg/dl Creatinine 0.60 (0.6-1.2) mg/dl Est Cr Clr Drug Dosing 105.5 ml/min eGFR 111.34 BUN/Creatinine Ratio 18.3 (10-20) Glucose 113 H (70-99(Fasting)) mg/dl Lactate 1.0 (0.4-2.0) mmol/L Calcium 8.5 L (8.6-10.3) mg/dl Magnesium 2.1 (1.7-2.4) mg/dl Total Bilirubin 0.3 (0.2-1.0) mg/dl Direct Bilirubin 0.1 (0-0.2) mg/dl AST 8 L (13-39) U/L ALT < 3 L (7-52) U/L Alkaline Phosphatase 78 (34-104) U/L Troponin I High Sens 9.6 (0-14) pg/ml Total Protein 6.5 (6.0-8.3) gm/dl Albumin 3.1 L (3.4-5.0) gm/dl Procalcitonin 1.03 H (0-0.5) ng/ml Adenovirus (PCR) Not Detected (NotDetected) B. pertussis DNA (PCR) Not Detected (NotDetected) B.parapertussis DNA PCR Not Detected (NotDetected) C. pneumoniae DNA (PCR) Not Detected (NotDetected) Coronavirus OC43 (PCR) Not Detected (NotDetected) Coronavirus HKU1 (PCR) Not Detected (NotDetected) Coronavirus 229E (PCR) Not Detected (NotDetected) SARS-CoV-2 (PCR) Not Detected (NotDetected) Coronavirus NL63 (PCR) Not Detected (NotDetected) Human Metapneumovir PCR Not Detected (NotDetected) Influenza Type A (PCR) Not Detected (NotDetected) Influenza Type B (PCR) Not Detected (NotDetected) M. pneumoniae (PCR) Not Detected (NotDetected) Parainfluenza 1 (PCR) Not Detected (NotDetected) Parainfluenza 2 (PCR) Not Detected (NotDetected) Parainfluenza 3 (PCR) Not Detected (NotDetected) Parainfluenza 4 (PCR) Not Detected (NotDetected) RSV (PCR) Not Detected (NotDetected) Entero/Rhino (PCR) Not Detected (NotDetected) Administered Medications Discontinued Medications Sodium Chloride (Nss) 1,000 mls @ 999 mls/hr IV .[id number] XANDER Stop: 10/23/24 16:15 Last Infusion: 10/23/24 18:00 Dose: Infused Documented By: [facility] Admin: 10/23/24 16:20 Dose: 999 mls/hr Documented By: [facility] Piperacillin Sod/Tazobactam Sod (Zosyn) 4.5 gm in 100 mls @ 200 mls/hr IV NOW ONE; Protocol Stop: 10/23/24 15:36 Last Infusion: 10/23/24 17:24 Dose: Infused Documented By: [facility] Admin: 10/23/24 16:39 Dose: 200 mls/hr Documented By: [facility] Imaging Data Radiologist's Impression: Chest X-Ray 10/23/24 15:07 EXAM: Radiograph of the Chest 1 View [facility] INDICATION: Sepsis. TECHNIQUE: Frontal view of the chest. COMPARISON: 10/02/2024 FINDINGS: Limitations: A portion of the right midlung is obscured by the battery pack. Lungs and pleural spaces: New diffuse vascular congestion. Appearance accentuated by shallow inspiration. Patchy infiltrate medial right base unchanged. No pleural effusion or pneumothorax. Heart: Stable cardiac shadow. Mediastinum: Normal contour. Bones/joints: No fracture, erosion or dislocation. Soft tissues: No abnormality noted. No radiopaque foreign body noted. Tubes, lines and devices: Electrodes extending into the right neck. Upper abdomen: No abnormality noted. IMPRESSION: 1. Vascular congestion now present. Severity is accentuated by shallow inspiration. 2. Mild right basilar atelectasis or developing pneumonia. ACT 112: Negative or not required by law. Electronically signed by Violeta Sheets 10-23-2024 3:[address] 10/23/24 15:07 EXAM: CT Head Without Intravenous Contrast INDICATION: Decreased mentation. TECHNIQUE: Axial computed tomography images of the head/brain without intravenous contrast. Sagittal and/or coronal reformats are provided. Sagittal and coronal reformatted images were created and reviewed. This CT exam was performed using one or more of the following dose reduction techniques: automated exposure control, adjustment of the mA and/or kV according to patient size, and/or use of iterative reconstruction technique. COMPARISON: 10/02/2024 FINDINGS: Limitations: Motion and electrode artifact somewhat limits assessment. Brain and extra-axial spaces: There is age appropriate cortical atrophy and chronic ischemic periventricular white matter hypodensity. No acute infarct, hemorrhage or mass noted. Bones/joints: No acute changes. Soft tissues: No significant abnormality noted. Vasculature: No acute abnormality noted. Sinuses: No layering fluid in the visualized portions of the paranasal sinuses. Mastoid air cells: No mastoid effusion. Orbits: No significant abnormality noted. Tubes, lines and devices: Stable bilateral basal ganglia electrodes. Maxillary sinus now opacified. IMPRESSION: 1. Limited by motion and streak artifact. No acute abnormality in the brain identified. 2. The visualized portion of the right maxillary sinus is newly opacified. ACT 112: Negative or not required by law. Electronically signed by Violeta Sheets 10-23-2024 5:21 PM Discharge Plan Visit Data Chief Complaint: Illness Stated Complaint: WHEEZING, VOMITING, COUGHING, POSSIBLE ASPIRATION ED Provider: Kp Hines Discharge Problem: Acute hypoxic respiratory failure, Intellectual disability, Cerebral palsy, Aspiration pneumonia due to gastric secretions, Toxic metabolic encephalopathy Patient Disposition: Admitted As Inpatient Discharge Instructions Interventions: ED Discharge Assessment Last Done: 10/23/24 19:56 Discharge Problem: Cerebral palsy Qualifiers: Cerebral palsy type: unspecified type Qualified Code(s): G80.9 - Cerebral palsy, unspecified Aspiration pneumonia due to gastric secretions Qualifiers: Laterality: right Lung location: lower lobe of lung Qualified Code(s): J69.0 - Pneumonitis due to inhalation of food and vomit
[2024-10-23 15:44] LABS: Basophils # (auto) 0.03 K/uL (0.00-0.20); Basophils % (auto) 0.2 %; Eosinophils # (auto) 0.23 K/uL (0.00-0.50); Eosinophils % (auto) 1.7 %; Hematocrit (blood only) 33.7 % (37.0-47.0); Hemoglobin 10.9 g/dl (12.0-16.0); Immature Granulocytes # (auto) 0.05 K/uL (0.01-0.20); Immature Granulocytes % (auto) 0.4 %; Lymphocytes # (auto) 1.91 K/uL (1.20-3.40); Lymphocytes % (auto) 14.5 %; Mean Corpuscular Hemoglobin 30.6 pg (25.0-34.0); Mean Corpuscular Hgb Conc 32.3 g/dL (32.0-36.0); Mean Corpuscular Volume 94.7 fL (80.0-100.0); Monocytes # (auto) 0.71 K/uL (0.11-0.59); Monocytes % (auto) 5.4 %; Neutrophils # (auto) 10.23 K/uL (1.40-6.50); Neutrophils % (auto) 77.8 %; Platelet Count 313 K/uL (130-400); RDW Coefficient of Variation 14.3 % (11.5-14.5); RDW Standard Deviation 49.7 fL (36.4-46.3); Red Blood Count 3.56 M/uL (4.20-5.40); White Blood Count 13.16 K/ul (4.8-10.8)
--- NOTE | 2024-10-23 15:52 | XRay Report ---
EXAM: Radiograph of the Chest 1 View [facility] INDICATION: Sepsis. TECHNIQUE: Frontal view of the chest. COMPARISON: 10/02/2024 FINDINGS: Limitations: A portion of the right midlung is obscured by the battery pack. Lungs and pleural spaces: New diffuse vascular congestion. Appearance accentuated by shallow inspiration. Patchy infiltrate medial right base unchanged. No pleural effusion or pneumothorax. Heart: Stable cardiac shadow. Mediastinum: Normal contour. Bones/joints: No fracture, erosion or dislocation. Soft tissues: No abnormality noted. No radiopaque foreign body noted. Tubes, lines and devices: Electrodes extending into the right neck. Upper abdomen: No abnormality noted. IMPRESSION: 1. Vascular congestion now present. Severity is accentuated by shallow inspiration. 2. Mild right basilar atelectasis or developing pneumonia. ACT 112: Negative or not required by law. Electronically signed by Violeta Sheets 10-23-2024 3:51 PM
[2024-10-23 16:01] LABS: Anion Gap 8 (3-11); BUN Creatinine Ratio 18.3 (10-20); Blood Urea Nitrogen 11 mg/dl (6-23); Calcium 8.5 mg/dl (8.6-10.3); Carbon Dioxide 28 mmol/L (21-32); Chloride 110 mmol/L (98-107); Creatinine Clr Calc Pharmacy 105.5 ml/min; Glucose 113 mg/dl (70-99(Fasting)); Potassium 4.2 mmol/L (3.5-5.1); Sodium 146 mmol/L (136-145)
[2024-10-23 16:04] LABS: Alanine Aminotransferase < 3 U/L (7-52); Albumin Level 3.1 gm/dl (3.4-5.0); Alkaline Phosphatase 78 U/L (34-104); Aspartate Aminotransferase 8 U/L (13-39); Bilirubin Direct 0.1 mg/dl (0-0.2); Bilirubin,Total 0.3 mg/dl (0.2-1.0); Magnesium 2.1 mg/dl (1.7-2.4); Total Protein 6.5 gm/dl (6.0-8.3)
[2024-10-23 16:07] LABS: Troponin I High Sensitivity 9.6 pg/ml (0-14)
[2024-10-23] MEDS: SODIUM CHLORIDE 0.9% 1,000 ML IV SCH (16:20)
[2024-10-23 16:35] LABS: Adenovirus PCR Not Detected (NotDetected); Bordetella parapertussis PCR Not Detected (NotDetected); Bordetella pertussis PCR Not Detected (NotDetected); Chlamydia pneumoniae PCR Not Detected (NotDetected); Coronavirus 229E PCR Not Detected (NotDetected); Coronavirus CoV-2 (COVID19)PCR Not Detected (NotDetected); Coronavirus HKU1 PCR Not Detected (NotDetected); Coronavirus NL63 PCR Not Detected (NotDetected); Coronavirus OC43PCR Not Detected (NotDetected); Human Metapneumovirus PCR Not Detected (NotDetected); Influenza A PCR Not Detected (NotDetected); Influenza B PCR Not Detected (NotDetected); Mycoplasma pneumoniae PCR Not Detected (NotDetected); Parainfluenza Virus 1 PCR Not Detected (NotDetected); Parainfluenza Virus 2 PCR Not Detected (NotDetected); Parainfluenza Virus 3 PCR Not Detected (NotDetected); Parainfluenza Virus 4 PCR Not Detected (NotDetected); Respiratory Syncytial VirusPCR Not Detected (NotDetected); Rhinovirus/Enterovirus PCR Not Detected (NotDetected)
[2024-10-23] MEDS: PIPERACILLIN/TAZOBACTAM 4.5 GM/100 ML BAG IV ONE (16:39)
--- NOTE | 2024-10-23 17:21 | CT Scan Report ---
EXAM: CT Head Without Intravenous Contrast INDICATION: Decreased mentation. TECHNIQUE: Axial computed tomography images of the head/brain without intravenous contrast. Sagittal and/or coronal reformats are provided. Sagittal and coronal reformatted images were created and reviewed. This CT exam was performed using one or more of the following dose reduction techniques: automated exposure control, adjustment of the mA and/or kV according to patient size, and/or use of iterative reconstruction technique. COMPARISON: 10/02/2024 FINDINGS: Limitations: Motion and electrode artifact somewhat limits assessment. Brain and extra-axial spaces: There is age appropriate cortical atrophy and chronic ischemic periventricular white matter hypodensity. No acute infarct, hemorrhage or mass noted. Bones/joints: No acute changes. Soft tissues: No significant abnormality noted. Vasculature: No acute abnormality noted. Sinuses: No layering fluid in the visualized portions of the paranasal sinuses. Mastoid air cells: No mastoid effusion. Orbits: No significant abnormality noted. Tubes, lines and devices: Stable bilateral basal ganglia electrodes. Maxillary sinus now opacified. IMPRESSION: 1. Limited by motion and streak artifact. No acute abnormality in the brain identified. 2. The visualized portion of the right maxillary sinus is newly opacified. ACT 112: Negative or not required by law. Electronically signed by Violeta Sheets 10-23-2024 5:21 PM
--- NOTE | 2024-10-23 18:35 | History & Physical Report ---
Date of Service October 23, 2024 Assessment & Plan (1) Severe sepsis with acute organ dysfunction: (2) Acute hypoxic respiratory failure: (3) Aspiration pneumonia due to gastric secretions: (4) Toxic metabolic encephalopathy: (5) Cerebral palsy: (6) Intellectual disability: (7) Seizure disorder: Plan Patient with severe sepsis due to aspiration pneumonia with organ dysfunction as evidenced by leukocytosis, hypoxic respiratory failure and encephalopathy. Also suspect patient has significant somnolence and toxic encephalopathy from the leg Mictral that was started since her most recent discharge. Patient is a high risk for further decompensation and requires hospital level care including antibiotics, specialty consultation and frequent monitoring. Admit to MedSurg unit IV antibiotics for aspiration pneumonia Hold Lamictal at this time Obtain laboratory levels of carbamazepine, Keppra, Lamictal Consult neurology for further assistance on her seizure medications. Appears that she may not tolerate either Keppra or Lamictal or may only be able to tolerate a lower dose of Lamictal Monitor electrolytes and renal function Continue other outpatient medications as ordered PT/OT Case management for discharge planning History of Present Illness Chief Complaint: Increasing somnolent, aspiration suspected, low oxygen at a [facility] Primary Care Provider: Sharmin Miles MD Patient is a 49-year-old female with seizure disorder, intellectual disability, cerebral palsy had just recently been in the hospital for what was thought to be breakthrough seizures. Her carbamazepine level dosing had just been decreased prior to that admission. She was starting Keppra and discharged back to her residential. However, patient became quite agitated with significant behavioral issues on the Keppra. Her outpatient neurology weaned her off the Keppra and started Lamictal. She was titrated up to 50 mg of Lamictal 2 times daily. Caregiver at the bedside reported that the patient is became much more somnolent on the increased dose of Lamictal. Very early Friday morning she had not episode of emesis. This was discovered when she was awakened. Friday night she started with some coughing and wheezing. Was seen by outpatient [facility] today was noted to be hypoxic and was sent to the emergency room. In the emergency room had elevated procalcitonin, leukocytosis and potentially early development of pneumonia on x-ray. Patient was also very somnolent and difficult to awaken. She was referred to our service for further evaluation. Time of my evaluation the patient was sound asleep. Difficult to arouse. All of history was obtained from the caregiver at the bedside. History as mentioned above was confirmed by the caregiver. Caregiver states that the patient had very severe response to the Keppra and did would not want that given to her again. Also concerned that the Lamictal was causing her somnolence. They have not noticed any fevers at home. It was more the somnolence the coughing and the wheezing. There has been no other changes in her medications since she was discharged from the hospital in mid September. Allergies Allergy/AdvReac Type Severity Reaction Status Date / Time adhesive tape Allergy Unknown Verified 10/23/24 18:24 No Known Drug Allergies Allergy Verified 10/02/24 19:47 Home Medications Medication Instructions Recorded Confirmed Type calcium 600 mg (as 1 cap PO BID 12/04/19 10/02/24 History carbonate)-vitamin D3 62.5 mcg (2,500 unit) capsule oxybutynin chloride 5 mg tablet 5 mg PO TID 12/04/19 10/02/24 History quetiapine 25 mg tablet 25 mg PO DAILY 12/04/19 10/02/24 History carbamazepine 100 mg chewable 200 mg PO DIRECTED 12/13/19 10/02/24 History tablet fluoride (sodium) [Denta 5000 Plus] 1 applic dental BID 12/13/19 10/02/24 History norethindrone acetate 1.5 1 tab PO DAILY #84 tabs 12/16/19 10/02/24 Rx mg-ethinyl estradiol 30 mcg tablet aspirin 81 mg tablet 81 mg PO DAILY 10/02/24 10/02/24 History carbidopa ER 50 mg-levodopa 200 mg 1 tab PO TID 10/02/24 10/02/24 History tablet,extended release fluoxetine 40 mg capsule 40 mg PO DAILY 10/02/24 10/02/24 History polyethylene glycol 3350 17 gram 17 g PO DAILY 10/02/24 10/02/24 History oral powder packet sennosides 8.6 mg capsule (senna) 8.6 mg PO BID 10/02/24 10/02/24 History levetiracetam 500 mg tablet 500 mg PO BID #60 tabs 10/05/24 Rx (Keppra) Past Med/Surg History Problem List (Updated 10/23/24 @ 18:33 by Cameron Gomez DO) Severe sepsis with acute organ dysfunction Toxic metabolic encephalopathy Acute hypoxic respiratory failure Aspiration pneumonia due to gastric secretions Acute confusion Breakthrough seizure Cerebral palsy (Acute) Circulatory disease (Acute) History of irregular menstrual cycles (Acute) Intellectual disability (Acute) Seizure disorder (Acute) Closed head injury (Acute) Leg pain, left (Acute) Medical History Malignant neoplasm of skin Surgical History History of surgery Has a DBS (Deep Brain Stimulator) for 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 H/O oral surgery Family History Mother Breast cancer Denies family history of Ovarian cancer Colorectal cancer Social History Smoking Status: Never smoker Do You Dip or Chew Tobacco: No; Hx Alcohol Use: No Hx Substance Use: No Preferred Language: Marshallese Communication Ability: Impaired Leather Lacer Required: No Beliefs That Will Affect Care: None Current Living Situation: Other Current Living Situation Comment: Nursing Home Feels Safe at Home: Yes Assistive Devices: None Review of Systems Review of Systems: Pertinent positive and negative review of systems as mentioned in the HPI Physical Exam Physical Exam: Constitutional: Somnolent, ill in appearance, nontoxic HEENT: Mucous membranes moist. Sclera clear Neck: Soft, no adenopathy Lungs: Decreased breath sounds, poor airflow, few rhonchi CV: S1-S2, regular Abdomen: Soft, nontender, nondistended Extremities: No significant edema Musculoskeletal: No significant joint tenderness Neuro: Somnolent would arouse slightly to vigorous stimulation Psych: Intellectually disabled, cerebral palsy Results & Data Results & Data Vital Signs (Past 12 Hours) Vital Signs Temp Pulse Pulse Resp BP BP Pulse Ox 10/23/24 17:33 87 24 100 10/23/24 17:30 113/78 10/23/24 17:15 86 26 H 10/23/24 17:00 93/64 L 10/23/24 16:54 86 98 10/23/24 16:44 139/92 10/23/24 16:33 88 22 100 10/23/24 16:24 91 H 20 99 10/23/24 16:19 125/94 11/30/24 16:03 90 20 98 10/23/24 15:45 88 24 133/91 98 10/23/24 15:05 90 10/23/24 14:12 36.9 C 98 H 18 123/87 87 L O2 Del Method O2 Flow Rate 10/23/24 17:33 Nasal Cannula 4 10/23/24 17:30 10/23/24 17:15 10/23/24 17:00 10/23/24 16:54 Nasal Cannula 4 10/23/24 16:44 10/23/24 16:33 Nasal Cannula 4 10/23/24 16:24 Nasal Cannula 4 10/23/24 16:19 10/23/24 16:03 Nasal Cannula 4 10/23/24 15:45 Nasal Cannula 4 10/23/24 15:05 10/23/24 14:12 Room Air Diagnostic Findings Reviewed imaging, laboratory and diagnostic studies. Pertinent findings as below. WBCs 13.1 Hemoglobin 10.9 Sodium 146 Chloride 110 Lactate 1.0 Procalcitonin 1.03 Respiratory viral panel negative Head CT unremarkable Personally reviewed chest x-ray, no definitive consolidative infiltrate, possibly some atelectasis and/or congestion noted (5) Cerebral palsy Cerebral palsy type: unspecified type Qualified Code(s): G80.9 - Cerebral palsy, unspecified
--- OUTSIDE RECORDS SUMMARY | 2024-10-23 20:30 | External Medical Summary | Summary of Care ---
Author Name Unknown Organization [facility] Address [address] [place] [address] Phone [phone] Care Team Providers Care Manufacturing Leader Name Role Phone Sharmin Miles MD Primary Care Provider [phone] Reason for Visit * Reason Comments Nausea Vomiting Encounter Details Date Type Department Care Team ([facility] st Contact Info) Description 10/23/2024 12:40 PM EST Convenient Care Visit [facility] [address] [place] [address] Marlin Cantrell, OBDULIO [address] [place] [address] Hypoxia*; Lethargy Allergies Active Allergy Reactions Criticality Noted Date Comments Adhesive Tape 10/27/2014 Levetiracetam Neuro complications (Please comment) 10/11/2024 Agitation, could not sleep; could not open eyes documented as of this encounter (statuses as of 10/23/2024) Medications Calcium 600+D Plus Minerals 600-400 MG-UNIT [...] Tablet 5 09/14/20 24 Active COVID-19 mRNA Vac-Erik(Drive.SG) 30 MCG/0.3ML Intramuscular Suspension Prefilled Syringe ([employer]) Inject into a large muscle. 0.3 mL [...] as of this encounter (statuses as of 10/23/2024) Active Problems Problem Noted Date Diagnosed Date [...] as of this encounter (statuses as of 10/23/2024) Resolved Problems Problem Noted Date Diagnosed Date Resolved Date Depression 03/03/2014 09/22/2019 ADVANCE DIRECTIVE INFORMATION 02/13/2006 06/17/2017 Overview (02/13/2006): Patient mentally handicapped EPILEPSY,UNSPEC;W/O INTRACTABLE 02/27/2004 06/20/2015 CEREBRAL PALSY NEC 5 Torticollis 11/30/2020 Nocturnal enuresis 8 documented as of this encounter (statuses as of 10/23/2024) Immunizations Name Administration Dates Next Due COVID-19 [...] 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 Not on file Not on file Not on file documented as of this encounter Last Filed Vital Signs Vital Sign Reading Time Taken Comments Blood Pressure 108/70 10/23/2024 1:17 PM EST Pulse 98 10/23/2024 1:17 PM EST Temperature 36.4 C (97.5 F) 10/23/2024 1:17 PM ES T Respiratory Rate 20 10/23/2024 1:17 PM EST Oxygen Saturation 87% 10/23/2024 1:17 PM EST Inhaled Oxygen Concentration - - Weight - [...] Deja Kat, FREDDY documented in this encounter Progress Notes * Marlin Cantrell CRNP - 10/23/2024 1:25 PM EST Con[facility]ient Care Basic Exam Samina Quintero is a 49 year old year old female who presents for evaluation of: Lethargy, cough for 2 days, pt is from a retirement, was brought in by a buffing and polishing wheel repairer "Hanker did not return my call on Friday and she is so lethargic" " I need to fix her" per buffing and polishing wheel repairer her seizure meds are being adjusted. Pt also had vomited and was found Friday morning with vomit on her face, chin and clothing, sats are 87%, pt is visibly in [place], I am fearful she aspirated vomitus on Friday, She is not able to deep breathe to assess proper lung sounds. Bilingual Interpreter is frantic over the lethargy, I felt she needed evaluated by the ED for that but also the hypoxia, buffing and polishing wheel repairer declined an ambulance, she drover her to "one of the hospitals" Associated Symptoms: Admits to: no other complaints Denies: no other complaints REVIEW OF SYSTEMS: See HPI for pertinent positives and negatives. Patient denies addtional complaints. PAST MEDICAL HISTORY: Past Medical History: Diagnosis Date Cerebral palsy [...] by Deejay Pérez DMD at OR [facility] APPLY/REMOVE BONE FIXATION DEVICE 10/08/2012 APPLICATION CRANIAL TONGS performed by Chris Roberts MD at [facility] CRANIECT-WITH USE;1ST ARRAY 10/08/2012 CRANIOTOMY STEREOTACTIC IMPLANT ELECTRODE DBS STAGE 2 performed by Chris Roberts MD at [facility] IMPACT TOOTH REMOV PART BONY Bilateral 10/28/2014 REM IMPACTED TOOTH - PART BONY performed by Deejay Pérez DMD at [facility] INSERT/REPLACE CRANIAL NEUROSTIM, SINGLE ELECTRODE 10/19/2012 INSERTION DBS NEUROSTIMULATOR GENERATOR STAGE 3 performed by Chris Roberts MD at OR [facility] MRI BRAIN WITHOUT CONTRAST 09/24/2012 MRI-BRAIN WITHOUT CONTRAST DBS performed by [facility] [place] at OR [facility] OTHER remove melanoma bilateral upper arms PAP SCREEN 08/08/01 PAP SCREEN 10.25.04 satisfactory for evaluation, dr awad STEREOTACTIC CRANIAL INTRADURAL NAVIGATION 10/08/2012 STEREOTACTIC CRANIAL INTRADURAL NAVIGATION performed by Chris Roberts MD at OR [facility] TWST DRILL,HAYLEY HOLE;1ST ARRAY 10/08/2012 CRANIOTOMY DBS ELECTRODE STAGE 2 performed by Chris Roberts MD at OR [facility] Social History Tobacco Use Smoking status: Never Smokeless tobacco: Never Substance Use Topics Alcohol use: No Vaping/E-Cigarette Use Vaping/E-Cigarette Use Never User Vaping/E-Cigarette Substances Vaping/E-Cigarette Devices Patient Active Problem List Diagnosis Chronic sinusitis [...] epilepsy, not intractable, without status epilepticus (HCC) HTN, goal below 140/90 Mild episode of recurrent major depressive disorder (HCC) Review of patient's allergies indicates: Allergen Reactions Adhesive Tape Keppra [Levetiracetam] Neuro complications (Please comment) Agitation, could not sleep; could not open eyes Current Outpatient Medications Medication Sig Dispense Refill Calcium 600+D Plus Minerals 600-400 MG-UNIT Oral Tablet Take 1 Tablet by mouth in the morning and 1Tablet in the evening. 180 Tablet 3 Norethin Blayne-Eth Estrad-FE 1.5-30 MG-MCG Oral Tablet [...] AND 8:30PM FOR DYSTONIA. 90 Tablet 5 COVID-19 mRNA Vac-Erik(Drive.SG) 30 MCG/0.3ML Intramuscular Suspension Prefilled Syringe ([employer]) Inject into a large muscle. 0.3 mL 0 lamoTRIgine 25 MG Oral Tablet (LaMICtal) 1 tab at bedtime x 5 days then 1 tab twice daily x 5 days,then 2 tab am x 5 days then 2 tab twice daily 90 Tablet 2 PreviDent 5000 Plus 1.1 % Dental Cream (Sodium Fluoride) BRUSH ONTO TEETH TWICE DAILY *DO NOT EAT OR DRINK FOR 30 MIN* 51 g 4 No current facility-administered medications for this visit. Nursing Notes and Vital Signs reviewed. PHYSICAL EXAM: VITALS: BP 108/70 | Pulse 98 | Temp 36.4 C (97.5 F) (Tympanic) | Resp 20 | SpO2 87% GENERAL: alert, healthy, well nourished, well developed, and special needs, lethargic HEAD: Normocephalic, No masses, lesions, tenderness or abnormalities EARS: External ears normal, Canals clear, TM's Normal, mild cerumen NOSE: no mucosal erythema, no mucosal edema, no purulent discharge OROPHARYNX: no exudate, no erythema, lips, buccal mucosa, and tongue normal, and mucous membranes are moist NECK: supple, no adenopathy HEART: regular rate & rhythm LUNGS: Pt is not able to follow commands to deep breathe to assess lungs properly, Pt is lethargic, buffing and polishing wheel repairer said "this is not her baseline and it is because they are messing with her seizure meds" Assessment: Pt was going to the hospital to be checked per buffing and polishing wheel repairer, she did not know which one, phone call [facility] but no answer, tried several times buy no answer noted I feel pt aspirated on Friday morning, due to her special needs she is not able to verbally expressher self to give me an explanation Hypoxia (Primary) Lethargy OBDULIO [facility] [address] [place] [id number] documented in this encounter Nursing Notes * Cielo Dunham LPN - 10/23/2024 1:12 PM EST Samina Quintero is a 49 year old female who presents to walk-in clinic today complaining of nausea and vomited yesterday at 7am and again last night at 9pm. She also has a cough and is wheezing Caregiver present in room. She states she is on Lamictal 25mg twice a day and they recently increased to 50m twice a day which is making her very drowsy. Difficulty ambulating/standing. documented in this encounter Plan of Treatment Upcoming Encounters Date Type Department Care Team (Late st Contact Info) Description 11/15/2024 1:40 PM EST Office Visit Neurology [facility] [place] [address] [facility] [place] [address] Earnest Shukla MD [address] [facility] [address] [place] [address] 12/23/2024 11:40 AM EST Office Visit General Internal Medicine [facility] [place] [address] [place] [address] Sharmin Miles MD [address] [facility] [place] [address] 03/21/2025 11:20 AM EDT Office Visit Neurology [facility] [place] [address] [facility] [place] [address] Earnest Shukla MD [address] [facility] [address] [place] [address] 06/14/2025 1:40 PM EDT Office Visit Neurology [facility] [place] [address] [facility] [place] [place] [address] Nico Urbina MD [address] [place] [address] 07/15/2025 1:00 PM EDT Office Visit Dermatology [facility] [place] [address] [facility] [place] [address] Carrington Zepeda MD [address] [facility] [place] [address] Health Maintenance Due Date Last Done Comments [...] this encounter Medical Devices Implanted Type Area Dcs Engineer Device Identifier Shelf Expiration Date Model / Serial / Lot Kit Lead Dbs .5mm 3389s-40 - [id number] Implanted:Qty: 1 on 10/08/2012 at OR [facility] Left: Head [employer] : NEUROLOGIC PAIN 02/25/2016 3389S-40 / / [id number] Kit Lead Dbs .5mm 3389s-40 - [id number] Implanted:Qty: 1 on 10/08/2012 at OR [facility] Right: Head [employer] : NEUROLOGIC PAIN 07/28/2016 3389S-40 / / [id number] Battery Activa Rc [id number] - [id number] Implanted:Qty: 1 on 10/19/2012 at OR [facility] Right: Chest Medtrol 04/06/2013 [id number] / [id number] / Extension Dbs 60cm [id number] - [id number] Implanted:Qty: 1 on 10/19/2012 at OR [facility] Right: Chest Medtrol 07/17/2016 [id number] / [id number] / Extension Dbs 60cm [id number] - [id number] Implanted:Qty: 1 on 10/19/2012 at OR [facility] Right: Chest Medtrol 08/07/2016 [id number] / [id number] / documented as of this encounter Visit Diagnoses Diagnosis Hypoxia- Primary Hypoxemia Lethargy Other malaise and fatigue documented in this encounter Advance Directives * Full Code (Latest Code Status on File) Date Activated Date Inactivated Comments 10/08/2012 6:53 AM 10/09/2012 7:55 PM This order reflects the patients wishes and were consensually agreed upon. Care Teams Manufacturing Leader Relationship Specialty Start Date End Date Sharmin Miles MD [address] [facility] [place] [address] PCP - General Internal Medicine 09/20/21 documented as of this encounter
[2024-10-23] MEDS ORDERED: ALUMINUM/MAGNESIUM SUSP 30 ML UDC PO PRN (20:37)
[2024-10-23] MEDS ORDERED: ALBUTEROL 0.083% NEBU SOLN 3 ML VIAL NEB PRN (20:37)
[2024-10-23] MEDS ORDERED: LORazepam 2 MG/1 ML VIAL IV PRN (20:37)
[2024-10-23] MEDS ORDERED: guaiFENesin SUGAR FREE 100 MG/5 ML UDC PO PRN (20:37)
[2024-10-23] MEDS ORDERED: ACETAMINOPHEN 325 MG TAB PO PRN (20:37)
[2024-10-23] MEDS ORDERED: ONDANSETRON INJ 2 MG/ML 2 ML VIAL IV PRN (20:37)
[2024-10-23] MEDS: PIPERACILLIN/TAZOBACTAM 4.5 GM/100 ML BAG IV SCH (21:29)
[2024-10-23] MEDS: CARBIDOPA/LEVODOPA 50/200MG EXT REL TAB PO SCH (21:29)
[2024-10-23] MEDS: carBAMazepine 100 MG CHEW TAB PO SCH (21:30)
[2024-10-23] MEDS: SENNA 8.6 MG TAB PO SCH (21:39)
[2024-10-23] MEDS: oxyBUTYnin chloride 5 MG TAB PO SCH (21:40)
[2024-10-24 05:46] LABS: Hematocrit (blood only) 33.5 % (37.0-47.0); Hemoglobin 10.6 g/dl (12.0-16.0); Mean Corpuscular Hemoglobin 30.3 pg (25.0-34.0); Mean Corpuscular Hgb Conc 31.6 g/dL (32.0-36.0); Mean Corpuscular Volume 95.7 fL (80.0-100.0); Mean Platelet Volume 8.9 fL (9.4-12.4); Platelet Count 284 K/uL (130-400); RDW Coefficient of Variation 14.5 % (11.5-14.5); RDW Standard Deviation 50.4 fL (36.4-46.3); White Blood Count 7.03 K/ul (4.8-10.8)
[2024-10-24 05:56] LABS: BUN Creatinine Ratio 18.3 (10-20); Calcium 7.8 mg/dl (8.6-10.3); Creatinine Clr Calc Pharmacy 104.3 ml/min; Potassium 4.1 mmol/L (3.5-5.1)
[2024-10-24] MEDS: carBAMazepine 100 MG CHEW TAB PO SCH ×2 (08:01→14:39)
[2024-10-24] MEDS: ASPIRIN 81 MG ECTAB PO SCH (08:02)
[2024-10-24] MEDS: QUEtiapine FUMARATE 25 MG TABLET PO SCH (08:02)
[2024-10-24] MEDS: FLUoxetine HCL 20 MG CAP PO SCH (08:02)
[2024-10-24] MEDS: POLYETHYLENE (MIRALAX) 17 GM PACK PO SCH (08:26)
--- NOTE | 2024-10-24 10:29 | Neurology Consultation ---
Date of Consultation October 24, 2024 Assessment & Plan (1) Seizure disorder: medication side effect in a 49F with a PMH of epilepsy, ID, and who is currently being treated for pneumonia. On exam she isn't interactive, but its hard to know exactly what her baseline is. She was well controlled on carbamazepine for years, with a slightly high level, and the dose was reduced and then she started having side effects to these new medications (Keppra and Lamictal). My recommendation will be to go back on the m edication that worked so well for so long. (2) Breakthrough seizure: Plan -- can stop lamictal -- would restart Carbamazepine 200 mg TID and obtain a trough level in 3 days Telehealth Consultation Telehealth Information Telehealth Information: I performed this visit using a real-time telehealth connection between my location and the patients location ([facility]). After connecting through interactive tele-video, patient was identified by name and date of and/or wristband check.Patient (or authorized healthcare ambulatory services representative) was informed that this was a telemedicine visit and it was being conducted confidentially over secure lines. My office door was closed and no one else was present in the room with me.Patient (or authorized healthcare ambulatory services representative) provided consent to proceed with the visit, expressed an understanding of privacy and security of the telemedicine visit, and gave permission to have a hospital ambulatory services representative in the room in order to assist with the visit and to conduct portions of the visit, as needed. I informed the patient (or authorized healthcare ambulatory services representative) that I reviewed their record and presented the opportunity for them to ask any questions regarding the visit today. The patient agreed to participate. History of Present Illness Reason for Consultation: encephalopathy Attending Physician: Allyson Goldsmith MD History of Present Illness 49 Y.O female patient with cerebral palsy, intellectual disabilities , seizure disorder s/p DBS who presents with worsening lethargy. History is obtain via chart review. She was recently admitted to the hospital due to breakthrough seizure in the setting of possible infection. At that time her Carbamazepine dose had just been reduced and she was started on Keppra. She had agitation on the Keppra and Neurology recommended that she stop the keppra and started Lamictal. Since then she has been more somnolent and less interactive. She has also had a cough and is currently being treated for pneumonia. She can provide no further history and its unclear how close to her baseline she is. Allergies Allergy/AdvReac Type Severity Reaction Status Date / Time levetiracetam [From [facility]] Allergy Severe Agitation/Lack Unverified 10/23/24 18:40 of sleep that switched to becoming lethargic adhesive tape Allergy Unknown Rash Verified 10/23/24 18:43 Home Medications Medication Instructions Recorded Confirmed Type calcium 600 mg (as 1 cap PO BID 12/04/19 10/23/24 History carbonate)-vitamin D3 62.5 mcg (2,500 unit) capsule oxybutynin chloride 5 mg tablet 5 mg PO TID 12/04/19 10/23/24 History quetiapine 25 mg tablet 25 mg PO HS 12/04/19 10/23/24 History carbamazepine 100 mg chewable 100 - 200 mg PO UD 12/13/19 10/23/24 History tablet carbidopa ER 50 mg-levodopa 200 mg 1 tab PO TID 10/02/24 10/23/24 History tablet,extended release fluoxetine 40 mg capsule 40 mg PO DAILY 10/02/24 10/23/24 History polyethylene glycol 3350 17 gram 17 g PO BID 10/02/24 10/23/24 History oral powder packet sennosides 8.6 mg capsule (senna) 8.6 mg PO BID 10/02/24 10/23/24 History aspirin 81 mg tablet,delayed 81 mg PO QAM 10/23/24 10/23/24 History release lamotrigine 25 mg tablet 50 mg PO BID 10/23/24 10/23/24 History norethindrone acetate 1.5 1 tab PO HS 10/23/24 10/23/24 History mg-ethinyl estradiol 30 mcg tablet Patient History Medical History Malignant neoplasm of skin Surgical History History of surgery Has a DBS (Deep Brain Stimulator) for 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 H/O oral surgery Family History Mother Breast cancer Denies family history of Ovarian cancer Colorectal cancer Social History Smoking Status: Never smoker Second Hand Exposure: No; Do You Dip or Chew Tobacco: No; Tobacco Cessation Education Requested by Patient: No Hx Alcohol Use: No Hx Substance Use: No Preferred Language: Kinyarwanda Communication Ability: Impaired 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 Beliefs That Will Affect Care: None Current Living Situation: Other Current Living Situation Comment: [facility] Other Information That Helps Us Care for You: Yes Feels Safe at Home: Yes Safety Concerns: Feels Safe At This Time Assistive Devices: Walker and Wheelchair Review of Systems unable to obtain secondary to intellectual disability Physical Exam Awake and alert, no speech output and follows no commands, moves extremities spontaneously Results & Data Vital Signs (Past 12 Hours) Vital Signs Temp Pulse Resp BP Pulse Ox O2 Del Method O2 Flow Rate 10/24/24 07:03 36.5 C 85 16 143/74 H 96 Nasal Cannula 3 Laboratory Results Abnormal Lab Results 10/23/24 10/23/24 10/24/24 15:31 15:33 05:20 WBC 13.16 H 7.03 RBC 3.56 L 3.50 L Hgb 10.9 L 10.6 L Hct 33.7 L 33.5 L MCV 94.7 95.7 MCH 30.6 30.3 MCHC 32.3 31.6 L RDW Std Deviation 49.7 H 50.4 H RDW Coeff of Maricruz 14.3 14.5 Plt Count 313 284 MPV 9.0 L 8.9 L Immature Gran % (Auto) 0.4 Neut % (Auto) 77.8 Lymph % (Auto) 14.5 Price % (Auto) 5.4 Eos % (Auto) 1.7 Baso % (Auto) 0.2 Neut # (Auto) 10.23 H Lymph # (Auto) 1.91 Price # (Auto) 0.71 H Eos # (Auto) 0.23 Baso # (Auto) 0.03 Immature Gran # (Auto) 0.05 Sodium 146 H 143 Potassium 4.2 4.1 Chloride 110 H 110 H Carbon Dioxide 28 29 Anion Gap 8 4 BUN 11 11 Creatinine 0.60 0.60 Est Cr Clr Drug Dosing 105.5 104.3 eGFR 111.34 111.34 BUN/Creatinine Ratio 18.3 18.3 Glucose 113 H 99 Lactate 1.0 Calcium 8.5 L 7.8 L Magnesium 2.1 2.0 Total Bilirubin 0.3 Direct Bilirubin 0.1 AST 8 L ALT < 3 L Alkaline Phosphatase 78 Troponin I High Sens 9.6 Total Protein 6.5 Albumin 3.1 L Procalcitonin 1.03 H Adenovirus (PCR) Not Detected B. pertussis DNA (PCR) Not Detected B.parapertussis DNA PCR Not Detected C. pneumoniae DNA (PCR) Not Detected Coronavirus OC43 (PCR) Not Detected Coronavirus HKU1 (PCR) Not Detected Coronavirus 229E (PCR) Not Detected SARS-CoV-2 (PCR) Not Detected Coronavirus NL63 (PCR) Not Detected Human Metapneumovir PCR Not Detected Influenza Type A (PCR) Not Detected Influenza Type B (PCR) Not Detected M. pneumoniae (PCR) Not Detected Parainfluenza 1 (PCR) Not Detected Parainfluenza 2 (PCR) Not Detected Parainfluenza 3 (PCR) Not Detected Parainfluenza 4 (PCR) Not Detected RSV (PCR) Not Detected Entero/Rhino (PCR) Not Detected
--- NOTE | 2024-10-24 11:27 | Hospitalist Progress Note ---
Date of Service October 24, 2024 Assessment & Plan (1) Severe sepsis with acute organ dysfunction: (2) Acute hypoxic respiratory failure: (3) Aspiration pneumonia due to gastric secretions: (4) Toxic metabolic encephalopathy: (5) Cerebral palsy: (6) Intellectual disability: (7) Seizure disorder: Plan Assessment and plan: Sepsis: Acute hypoxic respiratory failure: Aspiration pneumonia: Mildly tachycardic/soft BPs/leukocytosis, on arrival, now improved Had episode of vomiting on 10/22 that was discovered when she woke up. She then developed coughing and wheezing, noted to be hypoxic at the outpatient clinic Remains on 3 L this a.m., wean oxygen as able. Continue IV Zosyn for PNA Chest x-ray showed vascular congestion/right developing pneumonia Will check BNP for completeness, appears euvolemic on exam Acute metabolic encephalopathyimproving Hx seizure disorder/ID Recently hospitalized for breakthrough seizures, carbamazepine dosing was decreased due to concerns with high levels The patient was started on Keppra Lamictal and developed behavioral issues on the Keppra She was then weaned off of Keppra, and Lamictal was titrated to 50 mg twice a day, resulting in an increase somnolence Lamictal discontinued, mentation slowly improving Neurology consulted recommending restarting carbamazepine 200 mg 3 times daily, repeat trough level in 3 days Continue other home meds including Seroquel/fluoxetine/Sinemet A total of 45 minutes was spent on chart review/reviewing diagnostic data/facilitating plan of care/discussion with consultants Full code DVT prophylaxis: Lovenox Admission and Anticipated Discharge Date Admission Date: October 23, 2024 Supervising Physician Co-Signing Physician Notes Pt was seen and examined by myself, Allyson Goldsmith MD on the day of service. Care was coordinated with OBDULIO Granda. Patient was seen laying in bed, alert and responsive. Received messaging from neurology advising to continue with carbamazepine. Otherwise as above. I spent a total [id number] coordinating, documenting, and providing care for this patient excluding time spent in the performance of separately billed services Subjective patient seen and examined. No apparent distress. Answers yes and no questions. Pleasantly confused. Easily arousable. Still on 3 L of oxygen. Unable to complete ROS due to mentation Review of Systems Review of Systems: All systems reviewed & are unremarkable except as noted in HPI & below Physical Exam Constitutional: WD/WN, vitals as above Eyes: PERRL, conjunctivae normal, anicteric sclerae ENMT: external ear and nose normal, oropharynx normal Respiratory: normal respiratory effort, lungs clear to auscultation Cardiovascular: RRR, no murmur, no edema Gastrointestinal (Abdomen): normal bowel sounds, soft, nontender, no hepatosplenomegaly Musculoskeletal: no cyanosis or clubbing, extremities motor strength 5/5 Skin: no rashes, warm and dry Neurologic: PERRL, EOMI, accommodation nl, no face palsy, no dysarthria Psychiatric: Orientation: alert and oriented to person; + not oriented x 3 Lymphatic: no cervical or axillary lymphadenopathy Results & Data Results & Data Vital Signs (Past 12 Hours) Vital Signs Temp Pulse Resp BP Pulse Ox O2 Del Method O2 Flow Rate 10/24/24 07:03 36.5 C 85 16 143/74 H 96 Nasal Cannula 3 Diagnostic Findings Laboratory Results WBC 7.03 K/ul (4.8-10.8) 10/24/24 05:20 RBC 3.50 M/uL (4.20-5.40) L 10/24/24 05:20 Hgb 10.6 g/dl (12.0-16.0) L 10/24/24 05:20 Hct 33.5 % (37.0-47.0) L 10/24/24 05:20 MCV 95.7 fL (80.0-100.0) 10/24/24 05:20 MCH 30.3 pg (25.0-34.0) 10/24/24 05:20 MCHC 31.6 g/dL (32.0-36.0) L 10/24/24 05:20 RDW Std Deviation 50.4 fL (36.4-46.3) H 10/24/24 05:20 RDW Coeff of Maricruz 14.5 % (11.5-14.5) 10/24/24 05:20 Plt Count 284 K/uL (130-400) 10/24/24 05:20 MPV 8.9 fL (9.4-12.4) L 10/24/24 05:20 Immature Gran % (Auto) 0.4 % 10/23/24 15:31 Neut % (Auto) 77.8 % 10/23/24 15:31 Lymph % (Auto) 14.5 % 10/23/24 15:31 Shannon % (Auto) 5.4 % 10/23/24 15:31 Eos % (Auto) 1.7 % 10/23/24 15:31 Baso % (Auto) 0.2 % 10/23/24 15:31 Neut # (Auto) 10.23 K/uL (1.40-6.50) H 10/23/24 15:31 Lymph # (Auto) 1.91 K/uL (1.20-3.40) 10/23/24 15:31 Shannon # (Auto) 0.71 K/uL (0.11-0.59) H 10/23/24 15:31 Eos # (Auto) 0.23 K/uL (0.00-0.50) 10/23/24 15:31 Baso # (Auto) 0.03 K/uL (0.00-0.20) 10/23/24 15:31 Immature Gran # (Auto) 0.05 K/uL (0.01-0.20) 10/23/24 15:31 Sodium 143 mmol/L (136-145) 10/24/24 05:20 Potassium 4.1 mmol/L (3.5-5.1) 10/24/24 05:20 Chloride 110 mmol/L (98-107) H 10/24/24 05:20 Carbon Dioxide 29 mmol/L (21-32) 10/24/24 05:20 Anion Gap 4 (3-11) 10/24/24 05:20 BUN 11 mg/dl (6-23) 10/24/24 05:20 Creatinine 0.60 mg/dl (0.6-1.2) 10/24/24 05:20 Est Cr Clr Drug Dosing 104.3 ml/min 10/24/24 05:20 eGFR 111.34 10/24/24 05:20 BUN/Creatinine Ratio 18.3 (10-20) 10/24/24 05:20 Glucose 99 mg/dl (70-99(Fasting)) 10/24/24 05:20 Lactate 1.0 mmol/L (0.4-2.0) 10/23/24 15:31 Calcium 7.8 mg/dl (8.6-10.3) L 10/24/24 05:20 Magnesium 2.0 mg/dl (1.7-2.4) 10/24/24 05:20 Total Bilirubin 0.3 mg/dl (0.2-1.0) 10/23/24 15:31 Direct Bilirubin 0.1 mg/dl (0-0.2) 10/23/24 15:31 AST 8 U/L (13-39) L 10/23/24 15:31 ALT < 3 U/L (7-52) L 10/23/24 15:31 Alkaline Phosphatase 78 U/L (34-104) 10/23/24 15:31 Troponin I High Sens 9.6 pg/ml (0-14) 10/23/24 15:31 Total Protein 6.5 gm/dl (6.0-8.3) 10/23/24 15:31 Albumin 3.1 gm/dl (3.4-5.0) L 10/23/24 15:31 Procalcitonin 1.03 ng/ml (0-0.5) H 10/23/24 15:31 Adenovirus (PCR) Not Detected (NotDetected) 10/23/24 15:33 B. pertussis DNA (PCR) Not Detected (NotDetected) 10/23/24 15:33 B.parapertussis DNA PCR Not Detected (NotDetected) 10/23/24 15:33 C. pneumoniae DNA (PCR) Not Detected (NotDetected) 10/23/24 15:33 Coronavirus OC43 (PCR) Not Detected (NotDetected) 10/23/24 15:33 Coronavirus HKU1 (PCR) Not Detected (NotDetected) 10/23/24 15:33 Coronavirus 229E (PCR) Not Detected (NotDetected) 10/23/24 15:33 SARS-CoV-2 (PCR) Not Detected (NotDetected) 10/23/24 15:33 Coronavirus NL63 (PCR) Not Detected (NotDetected) 10/23/24 15:33 Human Metapneumovir PCR Not Detected (NotDetected) 10/23/24 15:33 Influenza Type A (PCR) Not Detected (NotDetected) 10/23/24 15:33 Influenza Type B (PCR) Not Detected (NotDetected) 10/23/24 15:33 M. pneumoniae (PCR) Not Detected (NotDetected) 10/23/24 15:33 Parainfluenza 1 (PCR) Not Detected (NotDetected) 10/23/24 15:33 Parainfluenza 2 (PCR) Not Detected (NotDetected) 10/23/24 15:33 Parainfluenza 3 (PCR) Not Detected (NotDetected) 10/23/24 15:33 Parainfluenza 4 (PCR) Not Detected (NotDetected) 10/23/24 15:33 RSV (PCR) Not Detected (NotDetected) 10/23/24 15:33 Entero/Rhino (PCR) Not Detected (NotDetected) 10/23/24 15:33 Impressions Chest X-Ray 10/23/24 15:07 EXAM: Radiograph of the Chest 1 View [facility] INDICATION: Sepsis. TECHNIQUE: Frontal view of the chest. COMPARISON: 10/02/2024 FINDINGS: Limitations: A portion of the right midlung is obscured by the battery pack. Lungs and pleural spaces: New diffuse vascular congestion. Appearance accentuated by shallow inspiration. Patchy infiltrate medial right base unchanged. No pleural effusion or pneumothorax. Heart: Stable cardiac shadow. Mediastinum: Normal contour. Bones/joints: No fracture, erosion or dislocation. Soft tissues: No abnormality noted. No radiopaque foreign body noted. Tubes, lines and devices: Electrodes extending into the right neck. Upper abdomen: No abnormality noted. IMPRESSION: 1. Vascular congestion now present. Severity is accentuated by shallow inspiration. 2. Mild right basilar atelectasis or developing pneumonia. ACT 112: Negative or not required by law. Electronically signed by Violeta Sheets 10-23-2024 3:[address] 10/23/24 15:07 EXAM: CT Head Without Intravenous Contrast INDICATION: Decreased mentation. TECHNIQUE: Axial computed tomography images of the head/brain without intravenous contrast. Sagittal and/or coronal reformats are provided. Sagittal and coronal reformatted images were created and reviewed. This CT exam was performed using one or more of the following dose reduction techniques: automated exposure control, adjustment of the mA and/or kV according to patient size, and/or use of iterative reconstruction technique. COMPARISON: 10/02/2024 FINDINGS: Limitations: Motion and electrode artifact somewhat limits assessment. Brain and extra-axial spaces: There is age appropriate cortical atrophy and chronic ischemic periventricular white matter hypodensity. No acute infarct, hemorrhage or mass noted. Bones/joints: No acute changes. Soft tissues: No significant abnormality noted. Vasculature: No acute abnormality noted. Sinuses: No layering fluid in the visualized portions of the paranasal sinuses. Mastoid air cells: No mastoid effusion. Orbits: No significant abnormality noted. Tubes, lines and devices: Stable bilateral basal ganglia electrodes. Maxillary sinus now opacified. IMPRESSION: 1. Limited by motion and streak artifact. No acute abnormality in the brain identified. 2. The visualized portion of the right maxillary sinus is newly opacified. ACT 112: Negative or not required by law. Electronically signed by Violeta Sheets 10-23-2024 5:21 PM (3) Aspiration pneumonia due to gastric secretions Laterality: right Lung location: lower lobe of lung Qualified Code(s): J69.0 - Pneumonitis due to inhalation of food and vomit (5) Cerebral palsy Cerebral palsy type: unspecified type Qualified Code(s): G80.9 - Cerebral palsy, unspecified
[2024-10-24] MEDS: PNEUMOCOCCAL VACCINE (PCV20) 20-VAL CONJ-DIP CRM/PF 0.5 ML SYR IM ONE (11:57)
--- NOTE | 2024-10-24 12:11 | Electrocardiogram Report ---
Test Reason : Blood Pressure : */* mmHG Vent. Rate : 94 BPM Atrial Rate : * BPM P-R Int : * ms QRS Dur : 40 ms QT Int : 328 ms P-R-T Axes : * 90 90 degrees QTcB Int : 410 ms Poor data quality, interpretation may be adversely affected Cannot interpret Confirmed by Ubaldo Rios ([id number]) on 10/24/2024 12:10:58 PM Referred By: REFERRED SELF Confirmed By: Ubaldo Rios
[2024-10-24] MEDS: ENOXAPARIN INJ 40 MG/0.4 ML SYR SQ SCH (14:39)
[2024-10-24 23:33] LABS: Appearance Urine Clear (Clear); Bacteria Urine Automated None Seen (None Seen); Bilirubin Urine 1+ (Negative); Blood Urine Negative (Negative); Cast Urine Automated 0-2 /lpf (0-2); Color Urine Dark Yellow; Epithelial Cell Urine Auto 0-2 /hpf (0-2); Glucose Urine UA Negative (Negative); Ketones Urine Trace (Negative); Leukocyte Esterase Urine Negative (Negative); Nitrite Urine Negative (Negative); Protein Urine 1+ (Negative); Specific Gravity Urine 1.034 (1.000-1.030); Urobilinogen Urine Negative (Negative); WBC Urine Automated 0-5 /hpf (0-5); pH Urine 6.5 (4.5-7.5)
[2024-10-25] MEDS: ALBUMIN 25% 12.5 GM/50 ML VIAL IV ONE (00:55)
[2024-10-25 06:25] LABS: Basophils # (auto) 0.03 K/uL (0.00-0.20); Basophils % (auto) 0.4 %; Eosinophils # (auto) 0.27 K/uL (0.00-0.50); Eosinophils % (auto) 3.7 %; Hematocrit (blood only) 32.2 % (37.0-47.0); Hemoglobin 10.1 g/dl (12.0-16.0); Immature Granulocytes # (auto) 0.04 K/uL (0.01-0.20); Immature Granulocytes % (auto) 0.5 %; Lymphocytes # (auto) 1.91 K/uL (1.20-3.40); Lymphocytes % (auto) 26.1 %; Mean Corpuscular Hemoglobin 29.7 pg (25.0-34.0); Mean Corpuscular Hgb Conc 31.4 g/dL (32.0-36.0); Mean Corpuscular Volume 94.7 fL (80.0-100.0); Mean Platelet Volume 8.9 fL (9.4-12.4); Monocytes # (auto) 0.52 K/uL (0.11-0.59); Monocytes % (auto) 7.1 %; Neutrophils # (auto) 4.54 K/uL (1.40-6.50); Neutrophils % (auto) 62.2 %; Platelet Count 331 K/uL (130-400); RDW Coefficient of Variation 14.1 % (11.5-14.5); RDW Standard Deviation 48.1 fL (36.4-46.3); White Blood Count 7.31 K/ul (4.8-10.8)
[2024-10-25 06:41] LABS: Anion Gap 8 (3-11); BUN Creatinine Ratio 17.5 (10-20); Blood Urea Nitrogen 11 mg/dl (6-23); Calcium 8.2 mg/dl (8.6-10.3); Carbon Dioxide 27 mmol/L (21-32); Chloride 110 mmol/L (98-107); Creatinine Clr Calc Pharmacy 99.4 ml/min; Glucose 102 mg/dl (70-99(Fasting)); Potassium 3.8 mmol/L (3.5-5.1); Sodium 145 mmol/L (136-145)
[2024-10-25 06:42] LABS: Alanine Aminotransferase < 3 U/L (7-52); Albumin Globulin Ratio 0.9 (0.9-2); Albumin Level 2.8 gm/dl (3.4-5.0); Alkaline Phosphatase 69 U/L (34-104); Aspartate Aminotransferase 9 U/L (13-39); Bilirubin,Total 0.3 mg/dl (0.2-1.0); Total Protein 5.8 gm/dl (6.0-8.3)
--- NOTE | 2024-10-25 10:13 | Hospitalist Progress Note ---
Date of Service October 25, 2024 Assessment & Plan (1) Severe sepsis: (2) Acute hypoxic respiratory failure: (3) Aspiration pneumonia due to gastric secretions: (4) Toxic metabolic encephalopathy: (5) Cerebral palsy: (6) Intellectual disability: (7) Seizure disorder: Plan Samina Quintero is a 49-year-old female with seizure disorder, intellectual disability, cerebral palsy had just recently been in the hospital for what was thought to be breakthrough seizures. Her carbamazepine level dosing had just been decreased prior to that admission. She was starting Keppra and [facility] to [facility]. However, patient became quite agitated with significant behavioral issues on the Keppra. Her outpatient neurology weaned her off the Keppra and started Lamictal. She was titrated up to 50mg of Lamictal 2 times daily. Her caregiver reported that the patient is became much more somnolent on the increased dose of Lamictal. Very early Friday morning she had an episode of emesis. Friday night she started with some coughing and wheezing. She was seen by outpatient [facility] on 10/23 and was noted to be hypoxic and was subsequently sent to the ED for evaluation. In the ED, patient had elevated procalcitonin, leukocytosis and potentially early development of pneumonia on CXR. Patient with severe sepsis due to aspiration pneumonia as evidenced by leukocytosis, acute hypoxic respiratory failure and encephalopathy. Suspect patient has significant somnolence and toxic encephalopathy from the Lamictal that was started since her most recent discharge. Severe Sepsis, Aspiration PNA Acute Hypoxic Respiratory Failure: Mildly tachycardic/soft BPs/leukocytosis on arrival -> now improved. Was on 3L via NC, now transitioned to RA and saturating well. IV Zosyn transitioned to po Augmentin. Acute Metabolic Encephalopathy IMPROVING, Seizure Disorder: History as per above. Lamictal discontinued, mentation slowly improving. Neurology consulted -> Recommended restarting carbamazepine 200mg TID, repeat trough level in 3 days (on 10/27). Continue other home meds including Seroquel/fluoxetine/Sinemet. DVT Prophylaxis: SQ Lovenox Code Status: FULL CODE PCP: Sharmin Miles MD Disposition: Transitioned to po Augmentin today, likely can be d/c back to her [facility] tomorrow. Patient seen in collaboration with Dr. Goldsmith. Please see addendum. I spent a total of 45 minutes coordinating, documenting, and providing care for this patient excluding time spent in the performance of separately billed services. This included personally reviewing all current laboratories and im aging studies, medical reconciliation, outpatient chart review and discussion with specialists. This chart was completed in part utilizing Speech Voice Recognition Software. Grammatical errors, random word insertions, pronoun errors, and incomplete sentences are an occasional consequence of this system due to software limitations, ambient noise, and hardware issues. Any formal questions or concer ns about the content, text, or information contained within the body of this dictation should be directly addressed to the provider for clarification. Admission and Anticipated Discharge Date Admission Date: October 23, 2024 Supervising Physician Co-Signing Physician Notes Pt was seen and examined by myself, Allyson Goldsmith MD on the day of service. Care was coordinated with Kim Colmenares PA-C. 49yoF admitted and treated for aspiration pneumonia. Improving, more awake and alert on exam. Conversant. Not hypoxic, leukocytosis improved. Consider transitioning to po abx and discharge back to [facility]. Otherwise as above. I spent a total [id number] coordinating, documenting, and providing care for this patient excluding time spent in the performance of separately billed services Subjective Patient seen and examined at bedside this morning. She was asleep when I entered the room but was easily arousable. She was making direct eye contact but was not very engaged in our conversation however she did answer a few yes/no questions. She denied any pain or SOB. She was saturating well on RA; she was previously on 3L via NC. Review of Systems Review of Systems: Unable to properly obtain due to patient's mentation status. Physical Exam Physical Exam: General: NAD, laying down in bed, very sleepy, not very conversive but able to answer yes/no questions. A+O only to self. HEENT: Normocephalic, atraumatic. Conjunctivae normal, anicteric sclerae. External ear and nose normal, oropharynx normal. Respiratory: Normal respiratory effort, lungs clear to auscultation, no wheeze/rales/rhonchi. No accessory muscle use. Cardiovascular: Regular rate, rhythm, normal peripheral pulses, no BLE edema. V essels: No JVD. Abdomen/GI: Normal bowel sounds, soft, nondistended, nontender to palpation in all quadrants. Extremities/Musculoskeletal: No cyanosis or clubbing, able to actively move all extremities. Neurologic: No overt focal deficits, CN's II-XI not formally tested but appear grossly intact bilaterally, cognitive disability. Skin: No rashes, normal color, warm/dry. Results & Data Results & Data Vital Signs (Past 12 Hours) Vital Signs Temp Pulse Resp BP Pulse Ox O2 Del Method 10/25/24 07:51 Room Air 10/25/24 07:06 37.0 C 98 H 16 138/84 92 Room Air Laboratory Results Short CBC 10/25/24 Range/Units 05:36 WBC 7.31 (4.8-10.8) K/ul Hgb 10.1 L (12.0-16.0) g/dl Hct 32.2 L (37.0-47.0) % Plt Count 331 (130-400) K/uL BMP 10/25/24 05:36 Sodium 145 Potassium 3.8 Chloride 110 H Carbon Dioxide 27 BUN 11 Creatinine 0.63 Glucose 102 H Calcium 8.2 L Liver Function 10/25/24 Range/Units 05:36 Total Bilirubin 0.3 (0.2-1.0) mg/dl AST 9 L (13-39) U/L ALT < 3 L (7-52) U/L Alkaline Phosphatase 69 (34-104) U/L Albumin 2.8 L (3.4-5.0) gm/dl Urine 10/24/24 Range/Units 23:15 Urine Color Dark Yellow Urine Appearance Clear (Clear) Urine pH 6.5 (4.5-7.5) Ur Specific [place] 1.034 H (1.000-1.030) Urine Protein 1+ H (Negative) Urine Glucose (UA) Negative (Negative) (3) Aspiration pneumonia due to gastric secretions Laterality: right Lung location: lower lobe of lung Qualified Code(s): J69.0 - Pneumonitis due to inhalation of food and vomit (5) Cerebral palsy Cerebral palsy type: unspecified type Qualified Code(s): G80.9 - Cerebral palsy, unspecified
[2024-10-25] MEDS: AMOXICILLIN/CLAVULANATE 875 MG TAB PO SCH (17:25)
[2024-10-26 07:21] LABS: Hematocrit (blood only) 34.9 % (37.0-47.0); Mean Corpuscular Hemoglobin 29.6 pg (25.0-34.0); Mean Corpuscular Hgb Conc 31.5 g/dL (32.0-36.0); Mean Corpuscular Volume 93.8 fL (80.0-100.0); Mean Platelet Volume 8.5 fL (9.4-12.4); Platelet Count 329 K/uL (130-400); RDW Coefficient of Variation 13.7 % (11.5-14.5); RDW Standard Deviation 46.4 fL (36.4-46.3); Red Blood Count 3.72 M/uL (4.20-5.40)
[2024-10-26 07:23] VITALS: BP 164/90; PULSE 79; RESP 16; TEMP 98.4; O2SAT 92
[2024-10-26 07:47] LABS: BUN Creatinine Ratio 19.7 (10-20); Calcium 8.5 mg/dl (8.6-10.3); Creatinine Clr Calc Pharmacy 102.6 ml/min; Magnesium 2.1 mg/dl (1.7-2.4); Phosphorus 3.8 mg/dl (2.5-4.9); Potassium 3.9 mmol/L (3.5-5.1)
--- NOTE | 2024-10-26 11:34 | Discharge Summary ---
Discharge Summary Date of Service October 26, 2024 Principal Dx & Hospital Course #1 = Principal Diagnosis (1) Severe sepsis: (2) Acute hypoxic respiratory failure: (3) Aspiration pneumonia due to gastric secretions: (4) Toxic metabolic encephalopathy: (5) Cerebral palsy: (6) Intellectual disability: (7) Seizure disorder: Plan Samina Quintero is a 49-year-old female with seizure disorder, intellectual disability and cerebral palsy who had just recently been in the hospital for what was thought to be breakthrough seizures. Her carbamazepine level dosing had just been decreased prior to that admission. She was started on Keppra and then was discharged back to her senior living. However, patient became quite agitated with significant behavioral issues on the Keppra. Her outpatient neurologist weaned her off the Keppra and started Lamictal. She was titrated up to 50mg of Lamictal BID. Her caregiver reported that the patient became much more somnolent on the increased dose of Lamictal. Very early Friday morning she had an episode of emesis. Friday night she started with some coughing and wheezing. She was seen by outpatient [facility] on 10/23 and was noted to be hypoxic and was subsequently sent to the ED for evaluation. In the ED, patient had elevated procalcitonin, leukocytosis and pneumonia on CXR. Patient with severe sepsis on admission due to aspiration pneumonia as evidenced by leukocytosis, acute hypoxic respiratory failure and encephalopathy. Suspect patient experienced significant somnolence and toxic encephalopathy from the Lamictal that was started since her most recent discharge. Severe Sepsis, Aspiration PNA Acute Hypoxic Respiratory Failure: Mildly tachycardic/soft BPs/leukocytosis on arrival -> now improved. Was on 3L via NC, now transitioned to RA and saturating well at time of discharge. IV Zosyn transitioned to po Augmentin at discharge to complete at full 10-day course of ABX therapy. Acute Metabolic Encephalopathy, Seizure Disorder: History as per above. Lamictal discontinued, mentation appears to be back to baseline at time of discharge. Neurology consulted -> Recommended restarting carbamazepine 200mg TID, repeat trough level done today - pending at time of discharge. Continue other home meds including Seroquel/fluoxetine/Sinemet. PCP: Sharmin Miles MD -> F/u appt on 11/02/2024 @ 11AM. Disposition: Patient is being discharged back to her senior living today in stable condition with the following medication changes as per above. Patient seen in collaboration with Dr. Goldsmith. Please see addendum. I spent a total of 50 minutes coordinating, documenting, and providing care for this patient excluding time spent in the performance of separately billed services. This included personally reviewing all current laboratories and imaging studies, medical reconciliation, outpatient chart review and discussion with specialists. This chart was completed in part utilizing Speech Voice Recognition Software. Grammatical errors, random word insertions, pronoun errors, and incomplete sentences are an occasional consequence of this system due to software limitations, ambient noise, and hardware issues. Any formal questions or concerns about the content, text, or information contained within the body of this dictation should be directly addressed to the provider for clarification. Notes For Next Care Provider Patient's caregiver, Mandi, would like to discuss switching to [facility] at her follow-up appointment next week. Will need to monitor carbamazepine trough level which was last done on the day of discharge -> Result is still pending at time of discharge. Medication Changes From Visit 1. STOPPED patient's Lamictal per neurology's recommendation. 2. Restarted carbamazepine at 200mg TID per neurology's recommendation. Admission HPI Per Admitting Provider Patient is a 49-year-old female with seizure disorder, intellectual disability, cerebral palsy had just recently been in the hospital for what was thought to be breakthrough seizures. Her carbamazepine level dosing had just been decreased prior to that admission. She was starting Keppra and discharged back to her [facility] home. However, patient became quite agitated with significant behavioral issues on the Keppra. Her outpatient neurology weaned her off the Keppra and started Lamictal. She was titrated up to 50 mg of Lamictal 2 times daily. Caregiver at the bedside reported that the patient is became much more somnolent on the increased dose of Lamictal. Very early Friday morning she had not episode of emesis. This was discovered when she was awakened. Friday night she started with some coughing and wheezing. Was seen by outpatient [facility] today was noted to be hypoxic and was sent to the emergency room. In the emergency room had elevated procalcitonin, leukocytosis and potentially early development of pneumonia on x-ray. Patient was also very somnolent and difficult to awaken. She was referred to our service for further evaluation. Time of my evaluation the patient was sound asleep. Difficult to arouse. All of history was obtained from the caregiver at the bedside. History as mentioned above was confirmed by the caregiver. Caregiver states that the patient had very severe response to the Keppra and did would not want that given to her again. Also concerned that the Lamictal was causing her somnolence. They have not noticed any fevers at home. It was more the somnolence the coughing and the wheezing. There has been no other changes in her medications since she was di scharged from the hospital in mid September. Admission Exam Per Admitting Provider Constitutional: Somnolent, ill in appearance, nontoxic HEENT: Mucous membranes moist. Sclera clear Neck: Soft, no adenopathy Lungs: Decreased breath sounds, poor airflow, few rhonchi CV: S1-S2, regular Abdomen: Soft, nontender, nondistended Extremities: No significant edema Musculoskeletal: No significant joint tenderness Neuro: Somnolent would arouse slightly to vigorous stimulation Psych: Intellectually disabled, cerebral palsy Discharge Exam General: NAD, laying down in bed, sleepy but easily arousable, more conversive today compared to yesterday. A+O only to self. HEENT: Normocephalic, atraumatic. Conjunctivae normal, anicteric sclerae. External ear and nose normal, oropharynx normal. Respiratory: Normal respiratory effort, decreased breath sounds throughout but clear to auscultation, no wheeze/rhonchi. Cardiovascular: Regular rate, rhythm, normal peripheral pulses, no BLE edema. Vessels: No JVD. Abdomen/GI: Normal bowel sounds, soft, nondistended, nontender to palpation in all quadrants. Extremities/Musculoskeletal: No cyanosis or clubbing, able to actively move all extremities. Neurologic: No overt focal deficits, CN's II-XI not formally tested but appear grossly intact bilaterally, cognitive disability. Skin: No rashes, normal color, warm/dry. Updated Medication List Medication Instructions Recorded Confirmed Type calcium 600 mg (as 1 cap PO BID 12/04/19 10/23/24 History carbonate)-vitamin D3 62.5 mcg (2,500 unit) capsule oxybutynin chloride 5 mg tablet 5 mg PO TID 12/04/19 10/23/24 History quetiapine 25 mg tablet 25 mg PO HS 12/04/19 10/23/24 History carbidopa ER 50 mg-levodopa 200 mg 1 tab PO TID 10/02/24 10/23/24 History tablet,extended release fluoxetine 40 mg capsule 40 mg PO DAILY 10/02/24 10/23/24 History polyethylene glycol 3350 17 gram 17 g PO BID 10/02/24 10/23/24 History oral powder packet sennosides 8.6 mg capsule (senna) 8.6 mg PO BID 10/02/24 10/23/24 History aspirin 81 mg tablet,delayed 81 mg PO QAM 10/23/24 10/23/24 History release norethindrone acetate 1.5 1 tab PO HS 10/23/24 10/23/24 History mg-ethinyl estradiol 30 mcg tablet amoxicillin 875 mg-potassium 1 tab PO BIDM 7 days #15 tabs 10/26/24 Rx clavulanate 125 mg tablet carbamazepine 100 mg chewable 200 mg (2 x 100 mg) PO TID #60 tabs 10/26/24 Rx tablet Hospital Stay Data Consultations 10/23/24 17:27 ED Decision to Admit Stat 10/23/24 20:37 Consult Neurology Routine Diagnostic Imagining Performed 10/23/24 15:07 CT head/brain wo con Stat Discharge Instructions Given to Patient (Per Discharging Provider) Samina, You were admitted to the hospital with sepsis and aspiration pneumonia. You were treated with IV antibiotics and fluids. You are being discharged home on the following oral antibiotic regimen in order to complete a full 10-day course of antibiotic therapy: Augmentin 875/125mg TWICE A DAY. Your next dose will be tonight! You will then have 7 more days of Augmentin to complete from tomorrow morning. This antibiotic prescription was sent to your pharmacy. Please take a probiotic daily while on the Augmentin! You were also seen and evaluated by neurology due to side effects that you experienced while on Lamictal. We have STOPPED your Lamictal! You are now on CARBAMAZEPINE [Tegretol] 200mg THREE TIMES A DAY for your seizure disorder. Please attend your primary care follow-up appointment as outlined below! You will need to have your carbamazepine trough level closely monitored - the level is still pending at time of discharge. This can be discussed with Dr. Miles at your appointment next week. UPCOMING APPOINTMENT Date & Time: 11/02/2024 @ 11:00AM Provider: Sharmin Miles MD Location: [facility] Internal Medicine @ [facility] Seek medical attention if you have: * temperature above 101F * chest pain or trouble breathing * abdominal pain, nausea, vomiting * diarrhea, dark stools or bloody stools * any unanswered questions or concerns Call 911 if symptoms are severe. Please take good care of yourself. It has been a pleasure taking care of you. If you have any questions regarding your recent hospitalization please contact [facility] and request [facility] @ [phone]. Total Time Total Time Spent Total Time Spent (In Minutes): 50 Supervising Physician Co-Signing Physician Notes Pt was seen and examined by myself, Allyson Goldsmith MD on the day of service. Care was coordinated with Kim Washington PA-C. 49yoF who presented septic in the setting of aspiration pneumonia. Pt with significant improvement with symptoms and appeared back to her baseline. Alert on exam, no increased work of breathing, RRR. Transitioned to po Augmentin to complete 10 days of treatment. Consider outpatient speech evaluation for aspiration. Close PCP followup. Otherwise as above. I spent a total [id number] coordinating, documenting, and providing care for this patient excluding time spent in the performance of separately billed services
[2024-10-27 20:33] LABS: Carbamazepine Tegretol 12.8 mg/L (4.0-12.0); Levetiracetam Keppra < 2.0 mcg/mL (6.0-46.0)
== END 2024-10-26 13:53 | disposition home or self-care (01) | DRG 871 ==
LOC: ED 13:55 → SUATTDRO 18:24 → 3E 18:24